=== PATIENT | female | born 1940 | race Caucasian/White ===

== ENCOUNTER 2018-05-29 09:51 | Observation (INO) | payer MEDICARE ==
[2018-05-29] MEDS ORDERED: Sodium Chloride 0.9% 1000 ML 1,000 ML IV STA ×2 (10:19→11:24)
[2018-05-29] MEDS ORDERED: MORPHINE SULFATE 4 MG INJ IV ONE ×3 (10:19→13:09)
[2018-05-29] MEDS ORDERED: Zofran 4 MG/2 ML VIAL IV ONE (10:19)
[2018-05-29] MEDS ORDERED: Sodium Chloride 0.9% 1000 ML 1,000 ML ONE ×2 (10:24→11:28)
[2018-05-29] MEDS ORDERED: Zofran 4 MG/2 ML VIAL ONE (10:24)
[2018-05-29] MEDS ORDERED: MORPHINE SULFATE 4 MG INJ ONE ×3 (10:24→13:14)
--- NOTE | 2018-05-29 10:27 | ERPHSYRPT ---
- History of Present Illness Time Seen by Provider: 05/29/18 10:23 Historian: patient Exam Limitations: no limitations Patient Subjective Stated Complaint: pt complains of left lower abd pain that radiates up into the abdomen, reports it started this morning. reports she has a history of kidney stone 2 years ago. Triage Nursing Assessment: pt is aox3, pupils perrl, afebrile, pt is diaphoretic , skin is clammy, pt appears in pain, restless on the cot, resps easy and non labored, abd is soft and tender with palpation to the left lower quad. bowel sounds present x4. no edema noted. pt skin is pale. Physician History: 78-year-old white female with history of kidney stones, diabetes, high blood pressure, arthritis, myocardial infarction, atherosclerotic coronary artery disease. Arrives in moderate distress with complaint of left lower quadrant abdominal pain described as sharp severe. She denies any urinary symptoms. Patient has been vomiting. Onset of symptoms 7:30 this morning. Past medical history includes diabetes, atherosclerotic coronary artery disease , myocardial infarction, high blood pressure, arthritis, Past surgical history includes cardiac stents hysterectomy. Timing/Duration: today (7:30 AM) Activities at Onset: none Quality: sharpness Abdominal Pain Onset Location: LLQ Pain Radiation: no radiation Severity of Pain-Max: moderate Severity of Pain-Current: moderate Modifying Factors: Improves With: nothing Associated Symptoms: diaphoresis, nausea, vomiting, No back, No chest pain, No diarrhea, No fever/chills, No fatigue, No headache, No heartburn, No loss of appetite, No neck pain, No rash, No shortness of breath, No syncope Previous symptoms: other (similar symptoms with kidney stones in past ) Allergies/Adverse Reactions: No Known Drug Allergies Allergy (Verified 05/29/18 10:17) Home Medications: Aspirin 81 mg PO DAILY 10/04/14 [History] Atorvastatin Calcium [Lipitor 20MG Tablet] 20 mg PO DAILY 10/04/14 [History] Clopidogrel Bisulfate 75 mg [PLAVIX 75 MG Tablet] 75 mg PO DAILY 10/04/14 [History] Glipizide 10 mg PO DAILY 10/04/14 [History] Lisinopril [Zestril] 0 mg PO DAILY 10/04/14 [History] Hx Tetanus, Diphtheria Vaccination/Date Given: Yes Hx Influenza Vaccination/Date Given: No Hx Pneumococcal Vaccination/Date Given: No Immunizations Up to Date: Yes - Review of Systems Constitutional: No Fever, No Chills Eyes: No Symptoms Ears, Nose, & Throat: No Symptoms Respiratory: No Cough, No Dyspnea Cardiac: No Chest Pain, No Edema, No Syncope Abdominal/Gastrointestinal: Abdominal Pain, Nausea, Vomiting, No Diarrhea, No Constipation, No Hematemesis, No Hematochezia, No Melena, No Dysphagia, No Appetite Changes Genitourinary Symptoms: No Dysuria Musculoskeletal: No Back Pain, No Neck Pain Skin: No Rash Neurological: No Dizziness, No Focal Weakness, No Sensory Changes Psychological: No Symptoms Endocrine: No Symptoms All Other Systems: Reviewed and Negative - Past Medical History Pertinent Past Medical History: Yes Neurological History: No Pertinent History Cardiac History: Hypertension Respiratory History: No Pertinent History Endocrine Medical History: Diabetes Type II Musculoskeletal History: Osteoarthritis Other Medical History: CARDIAC STINT - Past Surgical History Past Surgical History: Yes Cardiac: Cardiac Stent Female Surgical History: Hysterectomy - Social History Smoking Status: Never smoker Exposure to second hand smoke: No Drug Use: none Patient Lives Alone: No - Female History Hx Now: No - Nursing Vital Signs Nursing Vital Signs: Initial Vital Signs Temperature 97.6 F 05/29/18 10:02 Pulse Rate 64 05/29/18 10:02 Respiratory Rate 20 05/29/18 10:02 Blood Pressure 169/85 05/29/18 10:02 O2 Sat by Pulse Oximetry 97 05/29/18 10:02 Pain Scale Pain Intensity 8 - Physical Exam General Appearance: moderate distress Eye Exam: PERRL/EOMI, eyes nml inspection Ears, Nose, Throat Exam: normal ENT inspection, pharynx normal, moist mucous membranes Neck Exam: normal inspection, non-tender, supple, full range of motion Respiratory Exam: normal breath sounds, lungs clear, No respiratory distress Cardiovascular Exam: regular rate/rhythm, normal heart sounds Gastrointestinal/Abdomen Exam: soft, tenderness (Left lower quadrant abdominal tenderness), No mass, No guarding, No pulsatile mass, No rebound Back Exam: normal inspection, normal range of motion, No CVA tenderness, No vertebral tenderness Extremity Exam: normal inspection, normal range of motion, pelvis stable Neurologic Exam: alert, oriented x 3, cooperative, synthetic chemist II-XII nml as tested, normal mood/affect, nml cerebellar function, sensation nml, No motor deficits Skin Exam: normal color, warm, dry SpO2 Interpretation: normal (97%) SpO2: 97 - Course Nursing assessment & vital signs reviewed: Yes EKG Interpreted by Me: RATE (64 bpm), Sinus Rhythm, NORMAL AXIS, Other (EKG: Sinus rhythm, 64 bpm, normal axis, no acute ST or T wave changes noted) - CT Exams Abdomen/Pelvis CT Interpretation: Discussed w/radiologist (CT abdomen and pelvis: Impression: 1. New urinary bladder 2 mm calculus. Also new left hydronephrosis, perinephric fluid, and prominent ureter consistent with recent passage of said calculus. There remains additional bilateral renal micro-calculi. 2. Stable Mild fatty liver with 2 low-attenuation lesions. CT liver with contrast exam using hemangioma protocol may yield further information. 3. Stable small hiatal hernia, fatty ventral hernia, and evidence for old granulomatous disease. ) Ordered Tests: Active Orders 24 hr Category Date Time Status Accucheck STAT Care 05/29/18 11:03 Active EKG-ER Only STAT Care 05/29/18 10:19 Active IV Insertion STAT Care 05/29/18 10:19 Active ABDOMEN AND PELVIS W/0 CONTRAS [CT] Stat Exams 05/29/18 10:19 Completed AMYLASE Stat Lab 05/29/18 10:30 Completed CBC W DIFF Stat Lab 05/29/18 10:30 Completed CMP Stat Lab 05/29/18 11:36 Completed CULTURE,URINE Stat Lab 05/29/18 10:31 Received LIPASE Stat Lab 05/29/18 10:30 Completed UA W/RFX UR CULTURE Stat Lab 05/29/18 10:31 Completed Medication Summary Discontinued Medications Generic Name Dose Route Start Last Admin Trade Name Freq PRN Reason Stop Dose Admin Sodium Chloride 1,000 mls @ 999 mls/hr 05/29/18 10:19 05/29/18 11:47 Sodium Chloride 0.9% 1000 Ml IV 05/29/18 11:19 Infused .Q1H1M STA Infusion Sodium Chloride Confirm 05/29/18 10:24 Sodium Chloride 0.9% 1000 Ml Administered 05/29/18 10:25 Dose 1,000 mls @ ud .ROUTE .STK-MED ONE Sodium Chloride 1,000 mls @ 999 mls/hr 05/29/18 11:24 05/29/18 11:47 Sodium Chloride 0.9% 1000 Ml IV 05/29/18 12:24 999 mls/hr .Q1H1M STA Administration Sodium Chloride Confirm 05/29/18 11:28 Sodium Chloride 0.9% 1000 Ml Administered 05/29/18 11:29 Dose 1,000 mls @ ud .ROUTE .STK-MED ONE Morphine Sulfate 4 mg 05/29/18 10:19 05/29/18 10:28 Morphine Sulfate 4 Mg Inj IV 05/29/18 10:20 4 mg STAT ONE Administration Morphine Sulfate Confirm 05/29/18 10:24 Morphine Sulfate 4 Mg Inj Administered 05/29/18 10:25 Dose 4 mg .ROUTE .STK-MED ONE Morphine Sulfate 4 mg 05/29/18 11:23 05/29/18 11:29 Morphine Sulfate 4 Mg Inj IV 05/29/18 11:24 4 mg STAT ONE Administration Morphine Sulfate Confirm 05/29/18 11:27 Morphine Sulfate 4 Mg Inj Administered 05/29/18 11:28 Dose 4 mg .ROUTE .STK-MED ONE Ondansetron HCl 4 mg 05/29/18 10:19 05/29/18 10:28 Zofran 4 Mg/2 Ml Vial IV 05/29/18 10:20 4 mg STAT ONE Administration Ondansetron HCl Confirm 05/29/18 10:24 Zofran 4 Mg/2 Ml Vial Administered 05/29/18 10:25 Dose 4 mg .ROUTE .STK-MED ONE Promethazine HCl 12.5 mg 05/29/18 10:52 05/29/18 10:57 Phenergan 25 Mg Inj IV 05/29/18 10:53 12.5 mg STAT ONE Administration Promethazine HCl Confirm 05/29/18 10:55 Phenergan 25 Mg Inj Administered 05/29/18 10:56 Dose 25 mg .ROUTE .STK-MED ONE Lab/Rad Data: Laboratory Result Diagrams 05/29/18 10:30 05/29/18 11:36 Laboratory Results 05/29/18 05/29/18 05/29/18 Range/Units 11:36 10:31 10:30 WBC (4.0-10.5) K/mm3 RBC (4.1-5.4) M/mm3 Hgb (12.0-16.0) gm/dl Hct (35-47) % MCV (78-100) fl MCH (26-32) pg MCHC (32-36) g/dl RDW (11.5-14.0) % Plt Count (150-450) K/mm3 MPV (6-9.5) fl Gran % (36.0-66.0) % Eos # (Auto) (0-0.5) Absolute Lymphs (auto) (1.0-4.6) Absolute Monos (auto) (0.0-1.3) Lymphocytes % (24.0-44.0) % Monocytes % (0.0-12.0) % Eosinophils % (0.00-5.0) % Basophils % (0.0-0.4) % Absolute Granulocytes (1.4-6.9) Basophils # (0-0.4) Sodium 139 (137-145) mmol/L Potassium 4.9 (3.5-5.1) mmol/L Chloride 106 (98-107) mmol/L Carbon Dioxide 21 L (22-30) mmol/L Anion Gap 17.3 H (5-15) MEQ/L BUN 23 H (7-17) mg/dL Creatinine 1.16 H (0.52-1.04) mg/dL Estimated GFR 48.0 ML/MIN Glucose 266 H (74-106) mg/dL Calcium 9.5 (8.4-10.2) mg/dL Total Bilirubin 0.60 (0.2-1.3) mg/dL AST 21 (14-36) U/L ALT 14 (0-35) U/L Alkaline Phosphatase 125 (38-126) U/L Serum Total Protein 7.2 (6.3-8.2) g/dL Albumin 4.3 (3.5-5.0) g/dL Amylase 67 (30-110) U/L Lipase 127 (23-300) U/L Urine Color YELLOW (YELLOW) Urine Appearance CLEAR (CLEAR) Urine pH 6.0 (5-6) Ur Specific [place] 1.015 (1.005-1.025) Urine Protein NEGATIVE (Negative) Urine Ketones SMALL (NEGATIVE) Urine Blood LARGE (0-5) Ralf/ul Urine Nitrite NEGATIVE (NEGATIVE) Urine Bilirubin NEGATIVE (NEGATIVE) Urine Urobilinogen NEGATIVE (0-1) mg/dL Ur Leukocyte Esterase NEGATIVE (NEGATIVE) Urine WBC (Auto) 11-15 (0-5) /HPF Urine RBC (Auto) 51-100 (0-2) /HPF U Epithel Cells (Auto) RARE (FEW) /HPF Urine Bacteria (Auto) MODERATE (NEGATIVE) /HPF Urine Mucus (Auto) SLIGHT (NEGATIVE) /HPF Urine Culture Reflexed YES (NO) Urine Glucose >=500 (NEGATIVE) mg/dL 05/29/18 Range/Units 10:30 WBC 9.0 (4.0-10.5) K/mm3 RBC 4.81 (4.1-5.4) M/mm3 Hgb 14.0 (12.0-16.0) gm/dl Hct 42.0 (35-47) % MCV 87.3 (78-100) fl MCH 29.1 (26-32) pg MCHC 33.3 (32-36) g/dl RDW 13.9 (11.5-14.0) % Plt Count 184 (150-450) K/mm3 MPV 11.6 H (6-9.5) fl Gran % 82.1 H (36.0-66.0) % Eos # (Auto) 0.04 (0-0.5) Absolute Lymphs (auto) 1.18 (1.0-4.6) Absolute Monos (auto) 0.36 (0.0-1.3) Lymphocytes % 13.2 L (24.0-44.0) % Monocytes % 4.0 (0.0-12.0) % Eosinophils % 0.4 (0.00-5.0) % Basophils % 0.3 (0.0-0.4) % Absolute Granulocytes 7.35 H (1.4-6.9) Basophils # 0.03 (0-0.4) Sodium (137-145) mmol/L Potassium (3.5-5.1) mmol/L Chloride (98-107) mmol/L Carbon Dioxide (22-30) mmol/L Anion Gap (5-15) MEQ/L BUN (7-17) mg/dL Creatinine (0.52-1.04) mg/dL Estimated GFR ML/MIN Glucose (74-106) mg/dL Calcium (8.4-10.2) mg/dL Total Bilirubin (0.2-1.3) mg/dL AST (14-36) U/L ALT (0-35) U/L Alkaline Phosphatase (38-126) U/L Serum Total Protein (6.3-8.2) g/dL Albumin (3.5-5.0) g/dL Amylase (30-110) U/L Lipase (23-300) U/L Urine Color (YELLOW) Urine Appearance (CLEAR) Urine pH (5-6) Ur Specific [place] (1.005-1.025) Urine Protein (Negative) Urine Ketones (NEGATIVE) Urine Blood (0-5) Ralf/ul Urine Nitrite (NEGATIVE) Urine Bilirubin (NEGATIVE) Urine Urobilinogen (0-1) mg/dL Ur Leukocyte Esterase (NEGATIVE) Urine WBC (Auto) (0-5) /HPF Urine RBC (Auto) (0-2) /HPF U Epithel Cells (Auto) (FEW) /HPF Urine Bacteria (Auto) (NEGATIVE) /HPF Urine Mucus (Auto) (NEGATIVE) /HPF Urine Culture Reflexed (NO) Urine Glucose (NEGATIVE) mg/dL - Progress Progress: improved Progress Note: 05/29/18 12:58 78-year-old white female with history of diabetes, high blood pressure, arthritis, cardiac stents, myocardial infarction who has had renal problems and sees Dr. Brown She arrives with complaint of left lower quadrant abdominal pain since 7:00 this morning she has had nausea vomiting she denies any bloody urine she has no fevers. Patient is in moderate distress on arrival. Past medical history includes diabetes, high blood pressure, myocardial infarction, atherosclerotic coronary artery disease, arthritis, Past surgical history includes cardiac stent, hysterectomy 05/29/18 12:[address] of the abdomen and pelvis without contrast Remarkable for a new urinary bladder 2 mm calculus with left hydronephrosis, perinephric fluid and prominent ureter consistent with recent passage of said calculus. There also was additional bilateral renal micro-calculi. CT O showed a stable mild fatty liver with 2 low attenuation lesions, as well as is stable small hiatal hernia, fatty ventral hernia, and evidence for old granulomatous disease, 05/29/18 13:04 Patient's CBC White cell 9.0 hemoglobin 14 hematocrit 42.0 platelets 184 chemistry 3 sodium 137 potassium 4.9 chloride 106 bicarbonate 21 BUN 23 creatinine 1.16 glucose 266 Amylase 67 lipase 127 Urine specific gravity 1.015 pH 6.0 there are 11-15 white cells per high-power field 51-100 red cells per high-power field and greater than 500 glucose. Nitrites are negative leukocyte Estrace is negative. Patient has been given IV morphine for pain a total of 8 mg Will plan on giving her 4 more milligrams. Patient has received 2 L of normal saline. I've discussed the patient's case with Dr. Whiting technical communication teacher for Dr. Klein. Will place patient on observation continue to provide IV fluids pain medications anti-emetics. Will recheck patient's Accu-Chek. And plan to Provide insulin coverage - Departure Time of Disposition: 13:07 Departure Disposition: Observation Clinical Impression: Abdominal pain Qualifiers: Abdominal location: left lower quadrant Qualified Code(s): R10.32 - Left lower quadrant pain Urolithiasis Qualifiers: Urinary calculus location: bladder Qualified Code(s): N21.0 - Calculus in bladder Hydronephrosis Qualifiers: Hydronephrosis type: unspecified Qualified Code(s): N13.30 - Unspecified hydronephrosis Condition: Fair Critical Care Time: No Referrals: VIOLA KLEIN MD [Primary Care Provider] -
[2018-05-29 10:31] LABS: BASOPHIL % 0.3 % (0.0-0.4); Basophil (Absolute #) 0.03 (0-0.4); Eosinophil % 0.4 % (0.00-5.0); Eosinophil (Absolute #) 0.04 (0-0.5); Granulocyte Absolute (ANC) 7.35 (1.4-6.9); Granulocytes % 82.1 % (36.0-66.0); Lymphocyte (Absolute #) 1.18 (1.0-4.6); Lymphocytes % 13.2 % (24.0-44.0); Mean Cell Volume 87.3 fl (78-100); Mean Corpuscular Hemoglobin 29.1 pg (26-32); Mean Corpuscular Hgb Concent. 33.3 g/dl (32-36); Mean Platelet Volume 11.6 fl (6-9.5); Monocyte (Absolute #) 0.36 (0.0-1.3); Platelet Count 184 K/mm3 (150-450); Red Blood Count 4.81 M/mm3 (4.1-5.4); Red Cell Distribution Width 13.9 % (11.5-14.0)
[2018-05-29 10:40] LABS: Appearance CLEAR (CLEAR); Bilirubin NEGATIVE (NEGATIVE); Blood LARGE Ery/ul (0-5); Glucose >=500 mg/dL (NEGATIVE); Ketones SMALL (NEGATIVE); Leukocyte Esterase NEGATIVE (NEGATIVE); Nitrite NEGATIVE (NEGATIVE); Protein,Urine Dip NEGATIVE (Negative); Specific Gravity 1.015 (1.005-1.025); Urobilinogen NEGATIVE mg/dL (0-1)
[2018-05-29] MEDS ORDERED: Phenergan 25 MG INJ IV ONE (10:52)
[2018-05-29 10:54] LABS: AMYLASE 67 U/L (30-110); LIPASE 127 U/L (23-300)
[2018-05-29] MEDS ORDERED: Phenergan 25 MG INJ ONE (10:55)
--- NOTE | 2018-05-29 11:08 | XRAY ---
Indication: Left abdominal pain. Multiple contiguous axial images obtained through the abdomen and pelvis without contrast as ordered. Comparison: December 08, 2017. Lung bases again demonstrates minimal right middle lobe atelectasis/scarring. No infiltrate or effusion. Heart is not enlarged. Stable small hiatal hernia. Noncontrasted stomach and bowel loops appear nonobstructed. Normal appendix. There remains descending and sigmoid diverticulosis without diverticulitis. No free fluid/air. Stable hepatic/splenic calcified granulomas and hysterectomy. New left sided 2 mm urinary bladder calculus. Left ureter is also now slightly prominent up to 7 mm with also mild hydronephrosis and mild perinephric fluid consistent with obstructive uropathy. There remains a few bilateral renal micro-calculi. Stable mild fatty liver with 2 round foci of low attenuation lesions again largest peripheral right lobe. Remaining gallbladder, pancreas, spleen, and adrenal glands appear unremarkable for noncontrast exam. Stable scattered aortoiliac calcifications without AAA. Osseous structures intact again with mild multilevel degenerative spondylosis. Stable infraumbilical fatty ventral hernia. Impression: 1. New urinary bladder 2 mm calculus. Also new left hydronephrosis, perinephric fluid, and prominent ureter consistent with recent passage of said calculus. There remains additional bilateral renal micro-calculi. 2. Stable mild fatty liver with 2 low attenuation lesions. Again CT liver with contrast exam using hemangioma protocol may yield further information. 3. Stable small hiatal hernia, fatty ventral hernia, and evidence for old granulomatous disease. CT DI 20.71
[2018-05-29 11:50] LABS: ALBUMIN 4.3 g/dL (3.5-5.0); ANION GAP 17.3 MEQ/L (5-15); BILIRUBIN,TOTAL 0.6 mg/dL (0.2-1.3); Calcium 9.5 mg/dL (8.4-10.2); Creatinine 1 1.16 mg/dL (0.52-1.04); Potassium 4.9 mmol/L (3.5-5.1); Total Protein 7.2 g/dL (6.3-8.2)
[2018-05-29] MEDS ORDERED: NovoLOG Insulin SQ PRN (13:47)
[2018-05-29] MEDS ORDERED: Zofran 4 MG/2 ML VIAL IV PRN (13:47)
[2018-05-29] MEDS: Sodium Chloride 0.9% 1000 ML 1,000 ML IV SCH (14:45)
[2018-05-29] MEDS ORDERED: MEDICATION INTERVENTION PO SCH (16:45)
[2018-05-29] MEDS: ZOCOR 20MG PO SCH (17:40)
[2018-05-29] MEDS: hydroDIURIL 25 MG PO SCH (17:40)
[2018-05-29] MEDS: PLAVIX 75 MG Tablet PO SCH (17:40)
[2018-05-29] MEDS: Zestril 20 MG PO SCH (17:41)
[2018-05-29] MEDS: ECOTRIN 81 MG PO SCH (17:41)
[2018-05-29] MEDS: Pepcid 20 MG PO SCH (21:31)
[2018-05-29] MEDS ORDERED: POTASSIUM CITRATE 10 MEQ PO SCH (22:00)
[2018-05-30] MEDS: Sodium Chloride 0.9% 1000 ML 1,000 ML IV SCH ×3 (00:33→20:48)
[2018-05-30 05:55] LABS: BASOPHIL % 0.3 % (0.0-0.4); Basophil (Absolute #) 0.02 (0-0.4); Eosinophil (Absolute #) 0.07 (0-0.5); Granulocyte Absolute (ANC) 4.61 (1.4-6.9); Granulocytes % 66.5 % (36.0-66.0); Hematocrit 35.1 % (35-47); Hemoglobin 11.3 gm/dl (12.0-16.0); Lymphocyte (Absolute #) 1.56 (1.0-4.6); Lymphocytes % 22.5 % (24.0-44.0); Mean Cell Volume 90.7 fl (78-100); Mean Corpuscular Hgb Concent. 32.2 g/dl (32-36); Mean Platelet Volume 11.7 fl (6-9.5); Monocyte (Absolute #) 0.67 (0.0-1.3); Monocytes % 9.7 % (0.0-12.0); Platelet Count 149 K/mm3 (150-450); Red Blood Count 3.87 M/mm3 (4.1-5.4); White Blood Count 6.9 K/mm3 (4.0-10.5)
[2018-05-30 06:11] LABS: Mean Corpuscular Hemoglobin 29.1 pg (26-32)
[2018-05-30 06:12] LABS: ALBUMIN 3.1 g/dL (3.5-5.0); ANION GAP 10.6 MEQ/L (5-15); BILIRUBIN,TOTAL 0.4 mg/dL (0.2-1.3); Calcium 8.3 mg/dL (8.4-10.2); Creatinine 1 1.12 mg/dL (0.52-1.04); Potassium 4.3 mmol/L (3.5-5.1); Total Protein 5.7 g/dL (6.3-8.2)
--- NOTE | 2018-05-30 09:19 | PCM.HP ---
History of Present Illness - Chief Complaint Chief Complaint: LLQ abdominal pain, hydronephrosis, urolithiasis History of Present Illness: is a 78 year old female who developed rather sudden onset of left lower abdominal pain yesterday morning. she came to the ER due to progression of sharp pain with some cramping, ct revealed 2mm stone in the bladder. .she has not required pain medication this morning, still has some mild cramping but overall feels better than yesterday. - Review of Systems Constitutional: No Fever, No Chills Respiratory: No Cough, No Short Of Breath Cardiac: No Chest Pain, No Edema, No Syncope Abdominal/Gastrointestinal: No Abdominal Pain, No Nausea, No Vomiting, No Diarrhea Genitourinary Symptoms: No Dysuria All Other Systems: Reviewed and Negative Medications & Allergies Home Medications: Home Medication List Aspirin 81 mg PO DAILY 10/04/14 [History Confirmed 05/29/18] Atorvastatin Calcium [Lipitor 20MG Tablet] 40 mg PO DAILY 10/04/14 [History Confirmed 05/29/18] Clopidogrel Bisulfate 75 mg [PLAVIX 75 MG Tablet] 75 mg PO DAILY 10/04/14 [History Confirmed 05/29/18] Glipizide 5 mg PO DAILY 10/04/14 [History Confirmed 05/29/18] Liraglutide [Victoza 2-Nathan] 1.8 mg SQ DAILY 05/29/18 [History Confirmed 05/29/18 ] Lisinopril/Hydrochlorothiazide [Lisinopril-Hctz 20-12.5 mg Tab] 1 tab PO DAILY 05/29/18 [History Confirmed 05/29/18] Metformin HCl [Metformin HCl ER] 500 mg PO BID 05/29/18 [History Confirmed 05/29] Potassium Citrate [Urocit-K] 10 meq PO BID 05/29/18 [History Confirmed 05/29/18] hydroCHLOROthiazide [Hydrochlorothiazide] 12.5 mg PO DAILY 05/29/18 [History Confirmed 05/29/18] raNITIdine HCl [Ranitidine HCl] 150 mg PO BID 05/29/18 [History Confirmed ] Allergies/Adverse Reactions: Allergies Allergy/AdvReac Type Severity Reaction Status Date / Time No Known Drug Allergies Allergy Verified 05/29/18 10:17 - Past Medical History Past Medical History: Yes Neurological History: No Pertinent History ENT History: No Pertinent History Cardiac History: Arrhythmia, Hypertension Respiratory History: No Pertinent History Endocrine Medical History: Diabetes Type II Musculoskelatal History: Arthritis, Osteoarthritis, Other GI Medical History: Polyps History: Other Pyscho-Social History: No Pertinent History Reproductive Disorders: No Pertinent History Comment: CARDIAC STINT, carpal tunnel surgery, kidney stones in past, - Female History Are you now?: No - Past Surgical History Past Surgical History: Yes Neuro Surgical History: No Pertinent History Cardiac History: Cardiac Stent Respiratory Surgery: No Pertinent History GI Surgical History: No Pertinent History Genitourinary Surgical Hx: Other Musculskeletal Surgical Hx: Other Female Surgical History: Hysterectomy Other Surgical History: kidney stone removal , carpal tunnel surgery - Social History Smoking Status: Never smoker Exposure to second hand smoke: No Alcohol: None Drug Use: none - Physical Exam Vital Signs: Vital Signs - 24 hr Temp Pulse Resp BP Pulse Ox 05/30/18 08:04 94 L 05/30/18 07:55 99 05/30/18 07:25 97.8 F 57 L 20 130/76 96 05/30/18 04:09 97.5 F 75 16 151/69 99 05/29/18 23:37 98.3 F 66 20 131/63 98 05/29/18 19:45 98.5 F 65 20 136/63 96 05/29/18 19:28 95 05/29/18 14:18 98.0 F 67 20 174/77 92 L 05/29/18 14:00 98.4 F 68 18 138/78 96 05/29/18 13:23 72 16 130/70 94 L 05/29/18 13:09 97 05/29/18 12:56 67 20 142/67 94 L 05/29/18 11:30 66 20 142/77 95 05/29/18 10:59 65 20 150/85 95 05/29/18 10:02 97.6 F 64 20 169/85 97 Oxygen-Last 24 hours O2 Percentage 3 Liters = 32% O2 Percentage 2 Liters = 28% O2 Percentage 2 Liters = 28% O2 Percentage 2 Liters = 28% O2 Percentage 2 Liters = 28% General Appearance: no apparent distress, alert Neurologic Exam: alert, oriented x 3, cooperative, normal mood/affect, nml cerebellar function, nml station & gait, sensation nml, No motor deficits Respiratory Exam: normal breath sounds, lungs clear, No respiratory distress Cardiovascular Exam: regular rate/rhythm, normal heart sounds, normal peripheral pulses Gastrointestinal/Abdomen Exam: soft, normal bowel sounds, No tenderness, No mass Extremity Exam: normal inspection, normal range of motion, pelvis stable Skin Exam: normal color, warm, dry, No rash Results - Labs Lab/Micro Results: Accuchecks Date 05/30/18 Date 05/29/18 Date 05/29/18 Time 07:30 Time 21:47 Time 16:30 Accucheck Value: 106 Accucheck Value: 128 Accucheck Value: 188 Accucheck Value: 231 Accucheck Value: 253 Lab Results-Last 24 Hours 05/29/18 05/29/18 05/29/18 Range/Units 10:30 10:30 10:31 WBC 9.0 (4.0-10.5) K/mm3 RBC 4.81 (4.1-5.4) M/mm3 Hgb 14.0 (12.0-16.0) gm/dl Hct 42.0 (35-47) % MCV 87.3 (78-100) fl MCH 29.1 (26-32) pg MCHC 33.3 (32-36) g/dl RDW 13.9 (11.5-14.0) % Plt Count 184 (150-450) K/mm3 MPV 11.6 H (6-9.5) fl Gran % 82.1 H (36.0-66.0) % Eos # (Auto) 0.04 (0-0.5) Absolute Lymphs (auto) 1.18 (1.0-4.6) Absolute Monos (auto) 0.36 (0.0-1.3) Lymphocytes % 13.2 L (24.0-44.0) % Monocytes % 4.0 (0.0-12.0) % Eosinophils % 0.4 (0.00-5.0) % Basophils % 0.3 (0.0-0.4) % Absolute Granulocytes 7.35 H (1.4-6.9) Basophils # 0.03 (0-0.4) Sodium (137-145) mmol/L Potassium (3.5-5.1) mmol/L Chloride (98-107) mmol/L Carbon Dioxide (22-30) mmol/L Anion Gap (5-15) MEQ/L BUN (7-17) mg/dL Creatinine (0.52-1.04) mg/dL Estimated GFR ML/MIN Glucose (74-106) mg/dL Calcium (8.4-10.2) mg/dL Total Bilirubin (0.2-1.3) mg/dL AST (14-36) U/L ALT (0-35) U/L Alkaline Phosphatase (38-126) U/L Serum Total Protein (6.3-8.2) g/dL Albumin (3.5-5.0) g/dL Amylase 67 (30-110) U/L Lipase 127 (23-300) U/L Urine Color YELLOW (YELLOW) Urine Appearance CLEAR (CLEAR) Urine pH 6.0 (5-6) Ur Specific Thornton 1.015 (1.005-1.025) Urine Protein NEGATIVE (Negative) Urine Ketones SMALL (NEGATIVE) Urine Blood LARGE (0-5) Ralf/ul Urine Nitrite NEGATIVE (NEGATIVE) Urine Bilirubin NEGATIVE (NEGATIVE) Urine Urobilinogen NEGATIVE (0-1) mg/dL Ur Leukocyte Esterase NEGATIVE (NEGATIVE) Urine WBC (Auto) 11-15 (0-5) /HPF Urine RBC (Auto) 51-100 (0-2) /HPF U Epithel Cells (Auto) RARE (FEW) /HPF Urine Bacteria (Auto) MODERATE (NEGATIVE) /HPF Urine Mucus (Auto) SLIGHT (NEGATIVE) /HPF Urine Culture Reflexed YES (NO) Urine Glucose >=500 (NEGATIVE) mg/dL 05/29/18 05/30/18 05/30/18 Range/Units 11:36 05:23 05:23 WBC 6.9 (4.0-10.5) K/mm3 RBC 3.87 L (4.1-5.4) M/mm3 Hgb 11.3 L (12.0-16.0) gm/dl Hct 35.1 (35-47) % MCV 90.7 (78-100) fl MCH 29.1 (26-32) pg MCHC 32.2 (32-36) g/dl RDW 14.0 (11.5-14.0) % Plt Count 149 L (150-450) K/mm3 MPV 11.7 H (6-9.5) fl Gran % 66.5 H (36.0-66.0) % Eos # (Auto) 0.07 (0-0.5) Absolute Lymphs (auto) 1.56 (1.0-4.6) Absolute Monos (auto) 0.67 (0.0-1.3) Lymphocytes % 22.5 L (24.0-44.0) % Monocytes % 9.7 (0.0-12.0) % Eosinophils % 1.0 (0.00-5.0) % Basophils % 0.3 (0.0-0.4) % Absolute Granulocytes 4.61 (1.4-6.9) Basophils # 0.02 (0-0.4) Sodium 139 139 (137-145) mmol/L Potassium 4.9 4.3 (3.5-5.1) mmol/L Chloride 106 109 H (98-107) mmol/L Carbon Dioxide 21 L 24 (22-30) mmol/L Anion Gap 17.3 H 10.6 (5-15) MEQ/L BUN 23 H 23 H (7-17) mg/dL Creatinine 1.16 H 1.12 H (0.52-1.04) mg/dL Estimated GFR 48.0 50.0 ML/MIN Glucose 266 H 112 H (74-106) mg/dL Calcium 9.5 8.3 L (8.4-10.2) mg/dL Total Bilirubin 0.60 0.40 (0.2-1.3) mg/dL AST 21 19 (14-36) U/L ALT 14 12 (0-35) U/L Alkaline Phosphatase 125 69 (38-126) U/L Serum Total Protein 7.2 5.7 L (6.3-8.2) g/dL Albumin 4.3 3.1 L (3.5-5.0) g/dL Amylase (30-110) U/L Lipase (23-300) U/L Urine Color (YELLOW) Urine Appearance (CLEAR) Urine pH (5-6) Ur Specific Thornton (1.005-1.025) Urine Protein (Negative) Urine Ketones (NEGATIVE) Urine Blood (0-5) Ralf/ul Urine Nitrite (NEGATIVE) Urine Bilirubin (NEGATIVE) Urine Urobilinogen (0-1) mg/dL Ur Leukocyte Esterase (NEGATIVE) Urine WBC (Auto) (0-5) /HPF Urine RBC (Auto) (0-2) /HPF U Epithel Cells (Auto) (FEW) /HPF Urine Bacteria (Auto) (NEGATIVE) /HPF Urine Mucus (Auto) (NEGATIVE) /HPF Urine Culture Reflexed (NO) Urine Glucose (NEGATIVE) mg/dL Microbiology 05/29/18 10:31 Urine Culture - Preliminary Urine, Void NO GROWTH TO DATE Accuchecks Date 05/30/18 Date 05/29/18 Date 05/29/18 Time 07:30 Time 21:47 Time 16:30 Accucheck Value: 106 Accucheck Value: 128 Accucheck Value: 188 Accucheck Value: 231 Accucheck Value: 253 - Radiology Impressions Radiology Exams & Impressions: Radiology Procedures Category Date Time Status ABDOMEN AND PELVIS W/0 CONTRAS [CT] Stat Exams 05/29/18 10:19 Completed - Other Procedures and Tests Respiratory Therapy 05/29/18 19:27 Oxygen NASAL CANNULA 2 lpm Respiratory Therapy Assessment DAILY Assessment/Plan (1) Urolithiasis Current Visit: Yes Status: Acute Qualifiers: Urinary calculus location: bladder Qualified Code(s): N21.0 - Calculus in bladder Assessment & Plan: stone passed to bladder on ct, will feed regular diet today. if continues to be relatively pain-free and not require pain meds and tolerates po could likely go home this evening or tomorrow but want to make sure her symptoms remain resolved and she is able to eat. Code(s): N20.9 - URINARY CALCULUS, UNSPECIFIED (2) Hydronephrosis Current Visit: Yes Status: Acute Qualifiers: Hydronephrosis type: unspecified Qualified Code(s): N13.30 - Unspecified hydronephrosis Code(s): N13.30 - UNSPECIFIED HYDRONEPHROSIS
[2018-05-30] MEDS: ZOCOR 20MG PO SCH (09:56)
[2018-05-30] MEDS: ECOTRIN 81 MG PO SCH (09:57)
[2018-05-30] MEDS: Pepcid 20 MG PO SCH ×2 (09:57→22:16)
[2018-05-30] MEDS: Zestril 20 MG PO SCH (09:57)
[2018-05-30] MEDS: PLAVIX 75 MG Tablet PO SCH (09:57)
[2018-05-30] MEDS: hydroDIURIL 25 MG PO SCH (09:57)
[2018-05-30] MEDS ORDERED: BABY ASPIRIN 81 MG CHEW PO SCH (10:00)
[2018-05-30] MEDS ORDERED: NON-FORMULARY ITEM (Atorvastatin Calcium 40 MG) PO SCH (10:00)
[2018-05-30] MEDS ORDERED: NON-FORMULARY ITEM (Lisinopril/Hydrochlorothiazide [Lisinopril-Hctz 20-12.5 Mg Tab] 1 TAB) PO SCH (10:00)
[2018-05-30] MEDS: MORPHINE SULFATE 4 MG INJ IV PRN (19:33)
[2018-05-31] MEDS: MORPHINE SULFATE 4 MG INJ IV PRN (03:49)
[2018-05-31 05:43] LABS: BASOPHIL % 0.5 % (0.0-0.4); Basophil (Absolute #) 0.03 (0-0.4); Eosinophil % 2.4 % (0.00-5.0); Eosinophil (Absolute #) 0.15 (0-0.5); Granulocyte Absolute (ANC) 4.17 (1.4-6.9); Granulocytes % 65.4 % (36.0-66.0); Hematocrit 35.8 % (35-47); Hemoglobin 11.6 gm/dl (12.0-16.0); Lymphocyte (Absolute #) 1.46 (1.0-4.6); Lymphocytes % 22.9 % (24.0-44.0); Mean Cell Volume 90.6 fl (78-100); Mean Corpuscular Hgb Concent. 32.4 g/dl (32-36); Mean Platelet Volume 11.8 fl (6-9.5); Monocyte (Absolute #) 0.56 (0.0-1.3); Monocytes % 8.8 % (0.0-12.0); Platelet Count 143 K/mm3 (150-450); Red Blood Count 3.95 M/mm3 (4.1-5.4); Red Cell Distribution Width 13.9 % (11.5-14.0); White Blood Count 6.4 K/mm3 (4.0-10.5)
[2018-05-31 05:44] LABS: Mean Corpuscular Hemoglobin 29.3 pg (26-32)
[2018-05-31] MEDS: Sodium Chloride 0.9% 1000 ML 1,000 ML IV SCH (05:47)
[2018-05-31 06:04] LABS: ANION GAP 9.3 MEQ/L (5-15); Calcium 8.6 mg/dL (8.4-10.2); Creatinine 1 1.02 mg/dL (0.52-1.04); Potassium 4.3 mmol/L (3.5-5.1)
[2018-05-31 07:17] VITALS: BP 168/78; PULSE 58; O2SAT 95
--- NOTE | 2018-05-31 08:15 | PCM.DS ---
Discharge Summary Date of Admission: 05/29/18 13:38 Admitting Physician: KHALIF LOPEZ Primary Care Provider: VIOLA KLEIN MORENA Allergies Allergies No Known Drug Allergies Allergy (Verified 05/29/18 10:17) Hospital Summary - Hospital Course Hospital Course: patient doing well, tolerating po. was admitted with LLQ/flank pain. found to have 2mm stone with hydronephrosis, stone was in bladder on ct - Vitals & Intake/Output Vital Signs: Vital Signs Temperature 98 F 05/31/18 07:16 Pulse Rate 58 L 05/31/18 07:16 Respiratory Rate 18 05/31/18 07:16 Blood Pressure 168/78 05/31/18 07:16 O2 Sat by Pulse Oximetry 95 05/31/18 07:16 Oxygen-Last Documented O2 Percentage 1 Liter = 24% Intake & Output: Intake & Output 05/28/18 05/29/18 05/30/18 05/31/18 11:59 11:59 11:59 11:59 Intake Total 2236 3593 Output Total 1250 2050 Balance 986 1543 Weight 78.018 kg 81.1 kg 83 kg - Lab Result Diagrams: 05/31/18 05:16 05/31/18 05:16 Lab Results-Last 24 Hrs: Accuchecks Date 05/31/18 Date 05/30/18 Date 05/30/18 Date 05/30/18 Time 05:00 Time 21:53 Time 16:30 Time 11:30 Accucheck Value: 167 Accucheck Value: 137 Accucheck Value: 125 Lab Results-Last 24 Hours 05/31/18 05/31/18 Range/Units 05:16 05:16 WBC 6.4 (4.0-10.5) K/mm3 RBC 3.95 L (4.1-5.4) M/mm3 Hgb 11.6 L (12.0-16.0) gm/dl Hct 35.8 (35-47) % MCV 90.6 (78-100) fl MCH 29.3 (26-32) pg MCHC 32.4 (32-36) g/dl RDW 13.9 (11.5-14.0) % Plt Count 143 L (150-450) K/mm3 MPV 11.8 H (6-9.5) fl Gran % 65.4 (36.0-66.0) % Eos # (Auto) 0.15 (0-0.5) Absolute Lymphs (auto) 1.46 (1.0-4.6) Absolute Monos (auto) 0.56 (0.0-1.3) Lymphocytes % 22.9 L (24.0-44.0) % Monocytes % 8.8 (0.0-12.0) % Eosinophils % 2.4 (0.00-5.0) % Basophils % 0.5 (0.0-0.4) % Absolute Granulocytes 4.17 (1.4-6.9) Basophils # 0.03 (0-0.4) Sodium 139 (137-145) mmol/L Potassium 4.3 (3.5-5.1) mmol/L Chloride 110 H (98-107) mmol/L Carbon Dioxide 24 (22-30) mmol/L Anion Gap 9.3 (5-15) MEQ/L BUN 20 H (7-17) mg/dL Creatinine 1.02 (0.52-1.04) mg/dL Estimated GFR 55.7 ML/MIN Glucose 135 H (74-106) mg/dL Calcium 8.6 (8.4-10.2) mg/dL Micro Results-Entire Visit: Microbiology 05/29/18 10:31 Urine Culture - Final Urine, Void <10K NORMAL SKIN EDUARDO PROBABLE SKIN CONTAMINANT Accuchecks Date 05/31/18 Date 05/30/18 Date 05/30/18 Date 05/30/18 Time 05:00 Time 21:53 Time 16:30 Time 11:30 Accucheck Value: 167 Accucheck Value: 137 Accucheck Value: 125 - Radiology Exams Ordered Rad Exams-Entire Visit: Radiology Procedures Category Date Time Status ABDOMEN AND PELVIS W/0 CONTRAS [CT] Stat Exams 05/29/18 10:19 Completed - Procedures and Test Procedures and Tests throughout Hospitalization: Therapy Orders & Screens 05/29/18 19:27 Oxygen NASAL CANNULA 2 lpm Comment: TO KEEP SPO2 >92% Diagnosis: LLQ abdominal pain, hydronephrosis, urolithiasis Respiratory Therapy Assessment DAILY Comment: Diagnosis: LLQ abdominal pain, hydronephrosis, urolithiasis Discharge Exam General Appearance: no apparent distress, alert Respiratory Exam: normal breath sounds, lungs clear, No respiratory distress Cardiovascular Exam: regular rate/rhythm, normal heart sounds Gastrointestinal/Abdomen Exam: soft, No tenderness, No mass Extremity Exam: normal inspection, normal range of motion Final Diagnosis/Problem List - Final Discharge Diagnosis/Problem (1) Urolithiasis Current Visit: Yes Status: Acute Onset Date: ~05/29/18 Assessment & Plan: urine culture negative (2) Hydronephrosis Current Visit: Yes Status: Acute Onset Date: ~05/29/18 - Discharge Disposition: Home, Self-Care Condition: Good Prescriptions: New Hydrocodone Bit/Acetaminophen [Huggins 5-325 Tablet] 1 each PO Q4-6HPRN PRN # 20 tablet MDD 4 PRN Reason: Pain Continue Atorvastatin Calcium [Lipitor 20MG Tablet] 40 mg PO DAILY Glipizide 5 mg PO DAILY Clopidogrel Bisulfate 75 mg [PLAVIX 75 MG Tablet] 75 mg PO DAILY Aspirin 81 mg PO DAILY Lisinopril/Hydrochlorothiazide [Lisinopril-Hctz 20-12.5 mg Tab] 1 tab PO DAILY hydroCHLOROthiazide [Hydrochlorothiazide] 12.5 mg PO DAILY raNITIdine HCl [Ranitidine HCl] 150 mg PO BID Liraglutide [Victoza 2-Nathan] 1.8 mg SQ DAILY Metformin HCl [Metformin HCl ER] 500 mg PO BID Potassium Citrate [Urocit-K] 10 meq PO BID Additional Instructions: push fluids, call if new or worsening pain, vomiting, inability to keep down fluids or other concerns. Follow up with: VIOLA KLEIN MD [Primary Care Provider] - 1 Week
== END 2018-05-31 09:32 | disposition home or self-care (01) ==
LOC: ED 09:51 → MED SURG 13:38
PROVIDERS: ADMIT Family Medicine; ATTEND Family Medicine
DX: N20.9 Urinary calculus, unspecified (principal); N13.30 Unspecified hydronephrosis; Z79.899 Other long term (current) drug therapy; I10 Essential (primary) hypertension; E11.9 Type 2 diabetes mellitus without complications; M19.90 Unspecified osteoarthritis, unspecified site; Z87.442 Personal history of urinary calculi
CPT/HCPCS: 36000; 36415; 74176; 80048; 80053; 81001; 82150; 82962; 83690; 85025; 87086; 93005; 93268; 94760; 94762; 96360; 96361; 96374; 96375; 96376; 99285; J2270; J2405; J2550; A9270-GY; G0378

== ENCOUNTER 2020-09-23 11:50 | Observation (INO) | payer MEDICARE ==
[2020-09-23] MEDS ORDERED: NITRO-BID 2% UD PACKETS TOP ONE (12:16)
[2020-09-23] MEDS ORDERED: BABY ASPIRIN 81 MG CHEW PO ONE (12:16)
[2020-09-23] MEDS ORDERED: BABY ASPIRIN 81 MG CHEW ONE (12:23)
[2020-09-23] MEDS ORDERED: NITRO-BID 2% UD PACKETS ONE (12:24)
--- NOTE | 2020-09-23 12:43 | XRAY ---
Indication: Chest pain. Comparison: None Portable apical lordotic chest demonstrates minimal lingula infiltrate versus atelectasis. Remaining heart and lungs unremarkable. Bony thorax intact with minimal degenerative changes.
[2020-09-23 12:59] LABS: Absolute Neutrophil Ct (ANC) 4.82 (1.4-6.9); BASOPHIL % 0.3 % (0.0-0.4); Basophil (Absolute #) 0.02 (0-0.4); Eosinophil % 1.8 % (0.00-5.0); Eosinophil (Absolute #) 0.12 (0-0.5); Hematocrit 41.4 % (35-47); Hemoglobin 13.1 gm/dl (12.0-16.0); Lymphocyte (Absolute #) 1.26 (1.0-4.6); Lymphocytes % 18.9 % (24.0-44.0); Mean Cell Volume 88.1 fl (78-100); Mean Corpuscular Hemoglobin 27.9 pg (26-32); Mean Corpuscular Hgb Concent. 31.6 g/dl (32-36); Mean Platelet Volume 12.7 fl (7.5-11.0); Monocyte (Absolute #) 0.46 (0.0-1.3); Monocytes % 6.9 % (0.0-12.0); Neutrophil % 72.1 % (36.0-66.0); Platelet Count 158 K/mm3 (150-450); Red Cell Distribution Width 14.2 % (11.5-14.0); White Blood Count 6.7 K/mm3 (4.0-10.5)
[2020-09-23 13:26] LABS: ALBUMIN 4.5 g/dL (3.5-5.0); ANION GAP 16.2 MEQ/L (5-15); BILIRUBIN,TOTAL 0.6 mg/dL (0.2-1.3); Calcium 10.1 mg/dL (8.4-10.2); Creatinine 1 1.33 mg/dL (0.52-1.04); EST GLOMERULAR FILTRATION RATE 40.8 ML/MIN; Potassium 4.2 mmol/L (3.5-5.1); Total Protein 7.9 g/dL (6.3-8.2)
--- NOTE | 2020-09-23 13:41 | ERPHSYRPT ---
- History of Present Illness Time Seen by Provider: 09/23/20 11:57 Historian: patient Exam Limitations: no limitations Patient Subjective Stated Complaint: pt here for chest pain to center of chest that goes through to her back, headache no sob, she states she had episode of chest pain yesterday and today and that her nitro helped her pain, she states in is like a pressure in her chest Triage Nursing Assessment: pt alert, resp easy, skin w/d/p. has face mask in place, abd soft Physician History: 80 years old female with history of hypertension, hyperlipidemia, coronary artery disease status post stenting, diabetes mellitus presented in the ER with 1 month history of intermittent central chest pain. Patient report for the last few days she is waking up early in the morning with substernal chest pain with radiation to the back, mild to moderate intensity and response to taking nitro. This morning she woke up with a similar chest pain moderate to severe intensity and had to take 2 nitros with relief of pain. Currently she is having minimal discomfort. Denies any associated palpitations or shortness of breath. Denies fever chills cough or sick contact. Reports having symptoms similar to last time when she had a stents put in. Timing/Duration: week(s) (1), intermittent, gradual onset, worse Activities at Onset: rest, sleep Quality: dullness, tightness Location: central Chest Pain Radiation: back Severity of Pain-Max: moderate Severity of Pain-Current: mild Modifying Factors: Improves With: nitroglycerin Associated Symptoms: denies symptoms, No palpitations, No heartburn, No shortness of breath, No cough, No hurts to breathe Prior Chest Pain/Cardiac Workup: cardiac cath Nitro Today/Relief: 0.4 mg x 2 Aspirin Treatment Today: 81 mg x 1 Allergies/Adverse Reactions: quinine Allergy (Verified 09/23/20 11:56) Home Medications: Aspirin 81 mg PO DAILY 10/04/14 [History] Atorvastatin Calcium [Lipitor 20MG Tablet] 40 mg PO DAILY 10/04/14 [History] Clopidogrel Bisulfate 75 mg [PLAVIX 75 MG Tablet] 75 mg PO DAILY 10/04/14 [History] Glipizide 5 mg PO DAILY 10/04/14 [History] Lisinopril/Hydrochlorothiazide [Lisinopril-Hctz 20-12.5 mg Tab] 1 tab PO DAILY 05/29/18 [History] Metformin HCl [Metformin ER Gastric] 500 mg PO BID 05/29/18 [History] hydroCHLOROthiazide [Hydrochlorothiazide] 12.5 mg PO DAILY 05/29/18 [History] Empagliflozin [Jardiance] 10 mg PO DAILY 09/23/20 [History] Oxybutynin Chloride 5 mg PO DAILY 09/23/20 [History] Ranitidine HCl [Taladine] 150 mg PO BID 09/23/20 [History] Hx Tetanus, Diphtheria Vaccination/Date Given: Yes Hx Influenza Vaccination/Date Given: Yes Hx Pneumococcal Vaccination/Date Given: Yes Travel Risk - International Travel Have you traveled outside of the country in past 3 weeks: No - Coronavirus Screening Are you exhibiting any of the following symptoms?: No Close contact with a COVID-19 positive Pt in past 14-21 Days: No - Review of Systems Constitutional: No Symptoms Eyes: No Symptoms Ears, Nose, & Throat: No Symptoms Respiratory: No Symptoms Cardiac: Chest Pain Abdominal/Gastrointestinal: No Symptoms Genitourinary Symptoms: No Symptoms Musculoskeletal: No Symptoms Skin: No Symptoms Neurological: No Symptoms Psychological: No Symptoms Endocrine: No Symptoms Hematologic/Lymphatic: No Symptoms Immunological/Allergic: No Symptoms - Past Medical History Pertinent Past Medical History: Yes Neurological History: No Pertinent History ENT History: No Pertinent History Cardiac History: Arrhythmia, Coronary Artery Disease, Hypertension Respiratory History: No Pertinent History Endocrine Medical History: Diabetes Type II Musculoskeletal History: Arthritis, Osteoarthritis, Other GI Medical History: Polyps History: Other Psycho-Social History: No Pertinent History Female Reproductive Disorders: No Pertinent History Other Medical History: CARDIAC STINT, carpal tunnel surgery, kidney stones in past, - Past Surgical History Past Surgical History: Yes Neuro Surgical History: No Pertinent History Cardiac: Cardiac Catheterization, Cardiac Stent Respiratory: No Pertinent History Gastrointestinal: No Pertinent History Genitourinary: Other Musculoskeletal: Other Female Surgical History: Hysterectomy Other Surgical History: kidney stone removal , carpal tunnel surgery - Social History Smoking Status: Never smoker Exposure to second hand smoke: No Drug Use: none Patient Lives Alone: Yes - Female History Hx Last Menstrual Period: post Hx Now: No - Nursing Vital Signs Nursing Vital Signs: Initial Vital Signs Temperature 97.2 F 09/23/20 11:50 Pulse Rate 75 09/23/20 11:50 Respiratory Rate 18 09/23/20 11:50 Blood Pressure 129/66 09/23/20 11:50 O2 Sat by Pulse Oximetry 99 09/23/20 11:50 Pain Scale Pain Intensity 4 - Physical Exam General Appearance: no apparent distress, alert Eye Exam: PERRL/EOMI, eyes nml inspection Ears, Nose, Throat Exam: normal ENT inspection, pharynx normal Neck Exam: normal inspection, supple, full range of motion Respiratory Exam: normal breath sounds, lungs clear, No chest tenderness Cardiovascular Exam: regular rate/rhythm, normal heart sounds Gastrointestinal/Abdomen Exam: soft, normal bowel sounds Back Exam: normal inspection, normal range of motion Extremity Exam: normal inspection, normal range of motion Neurologic Exam: alert, oriented x 3, cooperative Skin Exam: normal color SpO2 Interpretation: normal SpO2: 99 O2 Delivery: Room Air - Course Nursing assessment & vital signs reviewed: Yes EKG Interpreted by Me: RATE (76), NORMAL AXIS, NORMAL INTERVALS, NORMAL QRS Ordered Tests: Active Orders 24 hr Category Date Time Status Robotic Toy Inventor STAT Care 09/23/20 12:17 Active EKG-ER Only STAT Care 09/23/20 12:16 Active IV Insertion STAT Care 09/23/20 12:16 Active CHEST 1 VIEW (PORTABLE) Stat Exams 09/23/20 12:16 Completed CBC W DIFF Stat Lab 09/23/20 12:35 Completed CMP Stat Lab 09/23/20 12:35 Completed NT PRO BNP Stat Lab 09/23/20 12:35 Completed TROPONIN Q3H Lab 09/23/20 12:35 Completed TROPONIN Q3H Lab 09/23/20 15:30 Ordered TROPONIN Q3H Lab 09/23/20 18:30 Ordered TROPONIN Q3H Lab 09/23/20 21:30 Ordered TROPONIN Q3H Lab 09/24/20 00:30 Ordered Transfer Order Routine Transfer 09/23/20 Ordered Medication Summary Discontinued Medications Generic Name Dose Route Start Last Admin Trade Name Freq PRN Reason Stop Dose Admin Aspirin 324 mg 09/23/20 12:16 09/23/20 12:25 Baby Aspirin 81 Mg Chew PO 09/23/20 12:17 324 mg STAT ONE Administration Aspirin Confirm 09/23/20 12:23 Baby Aspirin 81 Mg Chew Administered 09/23/20 12:24 Dose 324 mg .ROUTE .STK-MED ONE Nitroglycerin 1 gm 09/23/20 12:16 09/23/20 12:25 Nitro-Bid 2% Ud Packets TOP 09/23/20 12:17 1 gm STAT ONE Administration Nitroglycerin Confirm 09/23/20 12:24 Nitro-Bid 2% Ud Packets Administered 09/23/20 12:25 Dose 1 gm .ROUTE .STK-MED ONE Lab/Rad Data: Laboratory Result Diagrams 09/23/20 12:35 09/23/20 12:35 Laboratory Results 09/23/20 09/23/20 09/23/20 Range/Units 12:35 12:35 12:35 WBC 6.7 (4.0-10.5) K/mm3 RBC 4.70 (4.1-5.4) M/mm3 Hgb 13.1 (12.0-16.0) gm/dl Hct 41.4 (35-47) % MCV 88.1 (78-100) fl MCH 27.9 (26-32) pg MCHC 31.6 L (32-36) g/dl RDW 14.2 H (11.5-14.0) % Plt Count 158 (150-450) K/mm3 MPV 12.7 H (7.5-11.0) fl Gran % 72.1 H (36.0-66.0) % Eos # (Auto) 0.12 (0-0.5) Absolute Lymphs (auto) 1.26 (1.0-4.6) Absolute Monos (auto) 0.46 (0.0-1.3) Lymphocytes % 18.9 L (24.0-44.0) % Monocytes % 6.9 (0.0-12.0) % Eosinophils % 1.8 (0.00-5.0) % Basophils % 0.3 (0.0-0.4) % Absolute Granulocytes 4.82 (1.4-6.9) Basophils # 0.02 (0-0.4) Sodium 139 (137-145) mmol/L Potassium 4.2 (3.5-5.1) mmol/L Chloride 104 (98-107) mmol/L Carbon Dioxide 24 (22-30) mmol/L Anion Gap 16.2 H (5-15) MEQ/L BUN 32 H (7-17) mg/dL Creatinine 1.33 H (0.52-1.04) mg/dL Estimated GFR 40.8 ML/MIN Glucose 162 H (74-106) mg/dL Calcium 10.1 (8.4-10.2) mg/dL Total Bilirubin 0.60 (0.2-1.3) mg/dL AST 27 (14-36) U/L ALT 16 (0-35) U/L Alkaline Phosphatase 105 (38-126) U/L Troponin I < 0.012 (0.000-0.034) ng/mL NT-Pro-B Natriuret Pep 126 (0-1800) pg/mL Serum Total Protein 7.9 (6.3-8.2) g/dL Albumin 4.5 (3.5-5.0) g/dL - Progress Progress Note: 09/23/20 13:51 80 years old is evaluated for intermittent Substernal chest pain. Initial EKG showed normal sinus rhythm with no acute ischemic changes. She is given full dose aspirin and Nitropaste, reevaluation feeling better and chest pain-free. Initial troponins are negative. Chest x-ray negative for any acute findings. P josué has multiple risk factor for CAD, discussed with Dr. Cunningham who is covering for Dr. Jackson and patient is admitted. Blood Culture(s) Obtained: No Antibiotics given: No Discussed with : Ulises Will see patient in: hospital (observation) Counseled pt/family regarding: lab results, diagnosis, rad results - Departure Departure Disposition: Observation Clinical Impression: Chest pain, rule out acute myocardial infarction Condition: Stable Critical Care Time: No Referrals: ANALI JACKSON [Primary Care Provider] -
[2020-09-23] MEDS ORDERED: HUMALOG SQ PRN (15:03)
[2020-09-23] MEDS ORDERED: DUONEB 0.5-3 MG/3 ml Neb IH PRN (15:03)
[2020-09-23] MEDS ORDERED: TYLENOL 325 MG PO PRN (15:03)
[2020-09-23] MEDS ORDERED: Zofran 4 MG/2 ML VIAL IV PRN (15:03)
[2020-09-23] MEDS ORDERED: MORPHINE SULFATE 2 MG INJ IV PRN (15:03)
[2020-09-23] MEDS: PROTONIX 40 MG IV IV SCH (16:27)
[2020-09-24 03:12] LABS: Absolute Neutrophil Ct (ANC) 2.75 (1.4-6.9); BASOPHIL % 0.6 % (0.0-0.4); Basophil (Absolute #) 0.03 (0-0.4); Eosinophil % 6.3 % (0.00-5.0); Eosinophil (Absolute #) 0.34 (0-0.5); Hemoglobin 11.8 gm/dl (12.0-16.0); Lymphocyte (Absolute #) 1.71 (1.0-4.6); Lymphocytes % 31.7 % (24.0-44.0); Mean Cell Volume 88.7 fl (78-100); Mean Corpuscular Hemoglobin 28.3 pg (26-32); Mean Corpuscular Hgb Concent. 31.9 g/dl (32-36); Mean Platelet Volume 11.8 fl (7.5-11.0); Monocyte (Absolute #) 0.56 (0.0-1.3); Monocytes % 10.4 % (0.0-12.0); Platelet Count 153 K/mm3 (150-450); Red Blood Count 4.17 M/mm3 (4.1-5.4); Red Cell Distribution Width 14.1 % (11.5-14.0); White Blood Count 5.4 K/mm3 (4.0-10.5)
[2020-09-24 03:51] LABS: ALBUMIN 3.5 g/dL (3.5-5.0); ANION GAP 11.4 MEQ/L (5-15); BILIRUBIN,TOTAL 0.4 mg/dL (0.2-1.3); Calcium 9.2 mg/dL (8.4-10.2); Creatinine 1 1.36 mg/dL (0.52-1.04); EST GLOMERULAR FILTRATION RATE 39.8 ML/MIN; Potassium 4.2 mmol/L (3.5-5.1)
[2020-09-24] MEDS ORDERED: MEDICATION INTERVENTION PO SCH (07:30)
[2020-09-24] MEDS ORDERED: Glucotrol 5 MG PO SCH (08:00)
[2020-09-24 08:12] VITALS: BP 133/64; PULSE 66; O2SAT 95
--- NOTE | 2020-09-24 09:14 | SSS ---
DISCHARGE DIAGNOSES: 1) UNSTABLE ANGINA PECTORIS. 2) CORONARY ARTERY DISEASE. 3) DIABETES MELLITUS TYPE II. HISTORY: The patient is an 80 year old white female who reports over the past few days she has been having trouble with chest pain in the night approximately three days ago. She took a nitroglycerin to relieve the pain. Yesterday, the patient took nitroglycerin and the pain was not relieved. She presented to the emergency room where she was given additional nitroglycerin which did eventually alleviate the pain. The patient was kept on overnight observation to rule out myocardial infarction and to observe for any further episodes of chest pain. PAST MEDICAL/SURGICAL HISTORY: Significant for previous stenting [place] [address] 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 The patient also reports that her sugars have been running a little high recently up to the 200's. She otherwise has a history of arthritis, osteoarthritis, arrhythmia, kidney stones, carpal tunnel surgery and hysterectomy. HOME MEDICATIONS: Aspirin 81 mg a day, Lipitor 40 mg a day, Plavix 75 mg a day, glipizide 5 mg a day, Lisinopril hydrochlorothiazide 20/12.5 mg daily, Metformin 500 mg b.i.d., hydrochlorothiazide 12.5 mg daily, Jardiance 10 mg daily, oxybutynin 5 mg daily, ranitidine 150 mg b.i.d. ALLERGIES: QUININE. PHYSICAL EXAMINATION: The patient's vital signs on admission showed her temperature to be 97.2F, pulse 75, respiratory rate 18 and blood pressure 129/66. O2 saturations 99%. HEENT: Normocephalic, atraumatic. Pupils equal round reactive to light. Extraocular movements intact. Oropharynx is pink and moist. NECK: Supple without lymphadenopathy, thyromegaly or JVD. CHEST: Clear to auscultation. HEART: Regular rate and rhythm. No murmurs, rubs or gallops are heard. ABDOMEN: Soft with no palpable masses. EXTREMITIES: Without cyanosis, clubbing or edema. NEUROLOGIC: The patient is alert and oriented x3. No focal deficits. LAB DATA AND TESTS: The patient's laboratory studies show chest x-ray and EKG which essentially appear normal. She has had multiple troponins all less than 0.012. Her initial sugar nonfasting was 162, BUN 32, creatinine 1.33. Electrolytes and liver enzymes were normal. Her CBC was likewise normal. HOSPITAL COURSE: During the patient's overnight stay she stayed chest pain-free throughout her stay and is in good spirits and back to her normal state of health. By this morning, the patient was felt to be ready for discharge home. DISCHARGE PLANS: The patient will be added on Coreg 6.25 mg b.i.d. in addition to her usual medications as listed above. She has an appointment to see her truck loader within the next week and we will see her in follow up as well shortly after her truck loader visit. She was instructed to call 911 to come back to the emergency room if she has chest pain not responding to her sublingual nitroglycerin.
[2020-09-24] MEDS: PROTONIX 40 MG IV IV SCH (09:43)
[2020-09-24] MEDS ORDERED: ECOTRIN 81 MG PO SCH (10:00)
[2020-09-24] MEDS ORDERED: NON-FORMULARY ITEM (Lisinopril/Hydrochlorothiazide [Lisinopril-Hctz 20-12.5 Mg Tab] 1 TAB) PO SCH (10:00)
[2020-09-24] MEDS ORDERED: NON-FORMULARY ITEM (Empagliflozin [Jardiance] 10 MG) PO SCH (10:00)
[2020-09-24] MEDS ORDERED: PLAVIX 75 MG Tablet PO SCH (10:00)
[2020-09-24] MEDS ORDERED: GLIPIZIDE 5 MG PO SCH (10:00)
[2020-09-24] MEDS ORDERED: hydroDIURIL 25 MG PO SCH (10:00)
[2020-09-24] MEDS ORDERED: BABY ASPIRIN 81 MG CHEW PO SCH (10:00)
[2020-09-24] MEDS ORDERED: Ditropan 5 MG PO SCH (10:00)
[2020-09-24] MEDS ORDERED: NON-FORMULARY ITEM (Atorvastatin Calcium 40 MG) PO SCH (10:00)
[2020-09-24] MEDS ORDERED: ZOCOR 20MG PO SCH (10:00)
[2020-09-24] MEDS ORDERED: Coreg 6.25 MG PO SCH (10:00)
[2020-09-24] MEDS ORDERED: Zestril 20 MG PO SCH (10:00)
== END 2020-09-24 10:40 | disposition home or self-care (01) ==
LOC: ED 11:50 → MED SURG 14:55
PROVIDERS: ADMIT Family Medicine; ATTEND Family Medicine
DX: I25.110 Atherosclerotic heart disease of native coronary artery with unstable angina pectoris (principal); I10 Essential (primary) hypertension; R51.9 Headache, unspecified; E11.9 Type 2 diabetes mellitus without complications; E78.5 Hyperlipidemia, unspecified; Z79.899 Other long term (current) drug therapy; Z79.01 Long term (current) use of anticoagulants
CPT/HCPCS: 36000; 36415; 71045; 80053; 82947; 83880; 84484; 85025; 93005; 93041; 93268; 99285; G0378; A9270-GY

== ENCOUNTER 2022-11-30 09:30 | Observation (INO) | payer MEDICARE ==
--- NOTE | 2022-11-30 10:35 | XRAY ---
Indication: Pain. Multiple contiguous axial images obtained through the left hip. Sagittal and coronal reformatted images obtained. Comparison: May 29, 2018 Osseous structures demineralized again with left hip degenerative arthropathy and tiny spurring greater trochanter. No acute fracture, dislocation, or suspicious bony lesions. Remaining visualized surrounding soft tissues again demonstrates mild scattered vascular calcifications, sigmoid diverticulosis, and hysterectomy. No suspicious solid/cystic soft tissue mass or abnormal fluid collection. Impression: Again chronic findings including osteopenia, degenerative changes, arteriosclerotic disease, and sigmoid diverticulosis. No new/acute findings.
[2022-11-30] MEDS ORDERED: TORAdol 30 mg Injection IV ONE (10:51)
[2022-11-30] MEDS ORDERED: TORAdol 30 mg Injection ONE (11:11)
--- NOTE | 2022-11-30 11:12 | ERPHSYRPT ---
- History of Present Illness Time Seen by Provider: 11/30/22 09:45 Source: patient Exam Limitations: no limitations Patient Subjective Stated Complaint: PT states "On monday I started to have a little pain in my left leg on the side and now the pain is in the joint and it is excruciating." Triage Nursing Assessment: Pt presented alert and oriented X 3, skin pwd. Pt ambulates with a limp and slow gait, unable to ambulate more than a couple of st eps. No deformity noted, CSM X 4 throughout. Physician History: Patient is a 82-year-old female presents to our ED for evaluation of pain to her left hip. Patient states pain started on Monday 2 days ago. Patient states his pain is significantly worse now. Pain described as an ache that tends to radiate down her left leg into her left lateral ankle area. No calf pain. No trauma. No fever. Pain worse with palpation to the left hip and proximal left lateral thigh. Straight leg raise worsens symptoms as well. Patient denies a history of the same. No associated fever. No nausea vomiting or diaphoresis. No urinary symptoms. Patient voices no other complaints or concerns at this time. Portions of this note were created with voice recognition technology. There may be grammatical, spelling, punctuation or sound alike errors Method of Injury: other (No injury reported) Occurred: days ago (2 days ago) Quality: constant, aching Severity of Pain-Max: moderate Severity of Pain-Current: mild Lower Extremities Pain: hip: left Modifying Factors: Improves With: other (Palpation, straight leg raise) Associated Symptoms: none Allergies/Adverse Reactions: quinine Allergy (Verified 11/15/22 14:40) Home Medications: Aspirin 81 mg PO DAILY 10/04/14 [History] Atorvastatin Calcium [Lipitor 20MG Tablet] 40 mg PO DAILY 10/04/14 [History] glipiZIDE [Glipizide] 5 mg PO DAILY 10/04/14 [History] Lisinopril/Hydrochlorothiazide [Lisinopril-Hctz 20-12.5 mg Tab] 1 tab PO DAILY 05/29/18 [History] hydroCHLOROthiazide [Hydrochlorothiazide] 12.5 mg PO DAILY 05/29/18 [History] Oxybutynin Chloride 5 mg PO DAILY 09/23/20 [History] Albuterol 8 gm Mdi Hfa [Ventolin Hfa MDI] 1 puff INTRANASAL UD PRN 11/15/22 [History] Amlodipine Besylate 5 mg [Norvasc 5 mg] 5 mg PO DAILY 11/15/22 [History] Canagliflozin [Invokana] 100 mg PO DAILY 11/15/22 [History] Cholecalciferol (Vitamin D3) [Vitamin D] 1,000 mg PO DAILY 11/15/22 [History] Furosemide 20 mg [Lasix 20 mg] 20 mg PO DAILY 11/15/22 [History] Ibuprofen/Diphenhydramine Cit [Advil Pm Caplet] 1 tab PO DAILY 11/15/22 [History] Isosorbide Mononitrate [Isosorbide Mononitrate ER] 60 mg PO DAILY 11/15/22 [History] L.acidoph,Paracasei, B.lactis [Probiotic] 1 cap PO DAILY 11/15/22 [History] Omeprazole 40 mg PO DAILY 11/15/22 [History] Pioglitazone 30 mg [Actos 30 MG] 15 mg PO DAILY 11/15/22 [History] Hx Tetanus, Diphtheria Vaccination/Date Given: Yes Hx Influenza Vaccination/Date Given: Yes Hx Pneumococcal Vaccination/Date Given: Yes Immunizations Up to Date: Yes Travel Risk - International Travel Have you traveled outside of the country in past 3 weeks: No - Coronavirus Screening Are you exhibiting any of the following symptoms?: No Close contact with a COVID-19 positive Pt in past 14-21 Days: No - Vaccine Status Have you recieved a Covid-19 vaccination: Yes 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 - Vaccination Dates Date of 2cond Vaccination (if applicable): 2020 - Review of Systems Constitutional: No Symptoms, No Fever, No Chills Eyes: No Symptoms Ears, Nose, & Throat: No Symptoms Respiratory: No Symptoms, No Cough, No Dyspnea Cardiac: No Symptoms, No Chest Pain, No Edema, No Syncope Abdominal/Gastrointestinal: No Symptoms, No Abdominal Pain, No Nausea, No Vomiting, No Diarrhea Genitourinary Symptoms: No Symptoms, No Dysuria Musculoskeletal: No Symptoms, No Back Pain, No Neck Pain Skin: No Symptoms, No Rash Neurological: No Symptoms, No Dizziness, No Focal Weakness, No Sensory Changes Psychological: No Symptoms Endocrine: No Symptoms Hematologic/Lymphatic: No Symptoms Immunological/Allergic: No Symptoms All Other Systems: Reviewed and Negative - Past Medical History Pertinent Past Medical History: Yes Neurological History: No Pertinent History ENT History: Cataracts Cardiac History: Arrhythmia, Coronary Artery Disease, Hypertension, Myocardial Infarction (NM) Respiratory History: No Pertinent History Endocrine Medical History: Diabetes Type II Musculoskeletal History: Arthritis, Osteoarthritis, Other GI Medical History: Polyps, Other History: Other Psycho-Social History: No Pertinent History Female Reproductive Disorders: No Pertinent History Other Medical History: CARDIAC STINT 2010, carpal tunnel [id number], kidney stones in past,. cataract surg in both eyes , - Past Surgical History Past Surgical History: Yes Neuro Surgical History: No Pertinent History Cardiac: Cardiac Catheterization, Cardiac Stent Respiratory: No Pertinent History Gastrointestinal: No Pertinent History Genitourinary: Other Musculoskeletal: Other Female Surgical History: Hysterectomy Other Surgical History: kidney stone removal , carpal tunnel surgery - Social History Smoking Status: Never smoker Exposure to second hand smoke: No Drug Use: none Patient Lives Alone: Yes - Nursing Vital Signs Nursing Vital Signs: Initial Vital Signs Temperature 98.6 F 11/30/22 09:37 Pulse Rate 60 11/30/22 09:37 Respiratory Rate 20 11/30/22 09:37 Blood Pressure 158/102 11/30/22 09:37 O2 Sat by Pulse Oximetry 96 11/30/22 09:37 Pain Scale Pain Intensity 5 - Physical Exam General Appearance: no apparent distress, alert Eyes, Ears, Nose, Throat Exam: moist mucous membranes Neck Exam: non-tender, supple Cardiovascular/Respiratory Exam: chest non-tender, normal breath sounds, regular rate/rhythm, no respiratory distress Gastrointestinal/Abdominal Exam: non-tender, guarding Back Exam: normal inspection, normal range of motion, other (Some tenderness to palpation lumbar spine. Overlying soft tissue intact. No signs of trauma.), No vertebral tenderness Hips Exam: right: non-tender, normal inspection, normal range of motion, no evidence of injury, left: pain, soft tissue tenderness, other (The involved lower extremity, left is neurovascular intact distally. Compartments are soft. Cap refill less than 2 seconds. PT DP pulse palpable. Extremity is warm and pink well perfused) Legs Exam: bilateral leg: non-tender, normal inspection, normal range of motion, no evidence of injury Knees Exam: bilateral knee: non-tender, normal inspection, normal range of motion, no evidence of injury Ankle Exam: bilateral ankle: non-tender, normal inspection, normal range of motion, no evidence of injury Foot Exam: bilateral foot: non-tender, normal inspection, normal range of motion, no evidence of injury Neuro/Tendon Exam: normal sensation, normal motor functions Mental Status Exam: alert, oriented x 3, cooperative Skin Exam: normal color, warm, dry SpO2 Interpretation: normal SpO2: 96 O2 Delivery: Room Air - Course Nursing assessment & vital signs reviewed: Yes - Radiology Exams L-Spine X-ray Interpretation: Teleradiologist Report (L2-S1 broad-based disc bulge, L4 anterolisthesis osteopenia degenerative disc disease) - CT Exams Lower Extremity CT Interpretation: Tele-radiologist Report (Chronic findings, osteopenia, degenerative changes, diverticulosis) Ordered Tests: Active Orders 24 hr Category Date Time Status LOWER EXTREMITY WO CONTRAST [CT] Stat Exams 11/30/22 09:57 Completed LUMBAR SPINE W/O [CT] Stat Exams 11/30/22 11:12 Completed CBC W DIFF Stat Lab 11/30/22 14:43 Ordered CMP Stat Lab 11/30/22 14:43 Ordered Transfer Order Routine Transfer 11/30/22 Ordered Medication Summary Discontinued Medications Generic Name Dose Route Start Last Admin Trade Name Ranulfoq PRN Reason Stop Dose Admin Dexamethasone Sodium Phosphate 6 mg 11/30/22 12:11 11/30/22 12:41 Dexamethasone Sod Phosphate 4 Mg/Ml Ml IM 11/30/22 12:12 Not Given STAT ONE Dexamethasone Sodium Phosphate Confirm 11/30/22 12:37 Dexamethasone Sod Phosphate 10 Mg/Ml Administered 11/30/22 12:38 Dose 10 mg .ROUTE .STK-MED ONE Dexamethasone Sodium Phosphate 6 mg 11/30/22 12:40 11/30/22 12:42 Dexamethasone Sod Phosphate 10 Mg/Ml IV 11/30/22 12:41 6 mg STAT ONE Administration Ketorolac Tromethamine 30 mg 11/30/22 10:51 11/30/22 11:12 Ketorolac Tromethamine 30 Mg/Ml Inj IV 11/30/22 10:52 30 mg STAT ONE Administration Ketorolac Tromethamine Confirm 11/30/22 11:11 Ketorolac Tromethamine 30 Mg/Ml Inj Administered 11/30/22 11:12 Dose 30 mg .ROUTE .STK-MED ONE Morphine Sulfate 4 mg 11/30/22 12:08 11/30/22 12:41 Morphine Sulfate 10 Mg/Ml Injection IM 11/30/22 12:09 Not Given STAT ONE Morphine Sulfate 4 mg 11/30/22 12:40 11/30/22 12:42 Morphine Sulfate 4 Mg/Ml Injection IV 11/30/22 12:41 4 mg STAT ONE Administration Morphine Sulfate Confirm 11/30/22 12:38 Morphine Sulfate 4 Mg/Ml Injection Administered 11/30/22 12:39 Dose 4 mg .ROUTE .STK-MED ONE Lab/Rad Data: Laboratory Results 11/30/22 Range/Units 13:49 Influenza Type A Ag NEGATIVE (NEGATIVE) Influenza Type B Ag NEGATIVE (NEGATIVE) RSV (PCR) NEGATIVE (NEGATIVE) SARS-CoV-2 (PCR) NEGATIVE (NEGATIVE) - Progress Progress: improved Progress Note: Patient 82-year-old female presents to our ED with 2-day history of worsening left leg pain. Pain started approximately on Monday 2 days ago. Pain worse. Pain described as an ache that is localized to her left lateral hip. Pain radiates down to her left lateral ankle. Pain worse with movement and palpation. Straight leg raise reproduces patient's pain. Testing includes CT left hip and CT lumbar spine. No fractures or dislocations observed. Degenerative changes identified. Patient received a dose of Toradol, morphine and Decadron for pain control. Patient states her pain is still considerable. Patient lives alone and states she cannot go home and function properly. Patient's son at bedside. Patient rates her pain 8 out of 10 in spite of our intervention. No abdominal pain. Pulses are bilaterally equal. No clinical evidence for dissection of the aorta. Patient denies chest pain shortness of breath no trauma no fever. Vital stable. Case discussed with Dr. Crawley who excepts admission to observation. Complexity of problem addressed is moderate. New diagnosis with uncertain prognosis. No critical care time. Complexity of data reviewed and analyzed is moderate. Test ordered. Test reviewed. No outside documents reviewed. Patient served as independent historian. Management discussed with Dr. Crawley who excepts admission to observation. Plan of care discussed with patient. She agrees to admission [facility] for further evaluation and treatment. Plan of care established via shared decision making. Risk of complication and/or risk morbidity/mortality of patient management is high. Patient received IM morphine/controlled medication for pain control. Patient will require hospitalization for further evaluation and treatment. Admit orders entered. Basic lab entered prior to transfer to floor in order to establish a baseline for a.m. labs. Patient voices no other complaints or concerns at this time. Portions of this note were created with voice recognition technology. There may be grammatical, spelling, punctuation or sound alike errors 11/30/22 14:[address] Cher Will see patient in: hospital (observation) Counseled pt/family regarding: diagnosis, need for follow-up, rad results - Departure Departure Disposition: Observation Clinical Impression: Leg pain, Sciatica Condition: Stable Critical Care Time: No Referrals: ANALI VANESSA [Primary Care Provider] - Follow up/PCP as directed Additional Instructions: Discharge/Care Plan APRIL FISCHER was seen on 11/30/22 in the Emergency Room. The patient was counseled regarding Diagnosis,Lab results, Imaging studies, need for follow up and when to return to the Emergency Room. Prescriptions given: Discharge Note I have spoken with the patient and/or caregivers. I have explained the patient's condition, diagnosis and treatment plan based on the information available to me at this time. I have answered the patient's and/or caregiver's questions and addressed any concerns. The patient and/or caregivers have as good understanding of the patient's diagnosis, condition and treatment plan as can be expected at this point. The vital signs have been stable. The patient's condition is stable and appropriate for discharge from the emergency department. The patient will pursue further outpatient evaluation with the primary care physician or other designated or consulting physician as outlined in the discharge instructions. The patient and/or caregivers are agreeable to this plan of care and follow-up instructions have been explained in detail. The patient and/or caregivers have received these instruction. The patient/and or caregivers are aware that any significant change in condition or worsening of symptoms marlyn uld prompt an immediate return to this or the closest emergency department or call 911.
--- NOTE | 2022-11-30 11:47 | XRAY ---
Indication: Left leg radiculopathy. Multiple contiguous axial images obtained through lumbar spine. Sagittal and coronal reformatted images obtained. Comparison: May 29, 2018 Osseous structures remain demineralized with grossly stable L2-S1 broad-based disc bulge and mild/moderate bilateral L3-S1 degenerative facet arthropathy. Stable L2-L3 and L4-L5 degenerative vacuum disc phenomena with new focus at L5-S1 level. No large disc herniation or spinal canal stenosis. SI joints are bilateral symmetric. Sagittal and coronal reformatted images demonstrates normal lumbar lordosis with stable 1-2 mm L4 anterolisthesis and L2-L3 disc space narrowing. No acute compression fracture. Visualized noncontrasted soft tissues again demonstrates mild scattered aortoiliac calcifications. Impression: Again chronic findings including osteopenia, multilevel degenerative disc disease, minimal grade 1 L4 listhesis, and arteriosclerotic disease. No new/acute findings.
[2022-11-30] MEDS ORDERED: MORPHINE SULFATE 10 MG/ML IM ONE (12:08)
[2022-11-30] MEDS ORDERED: Decadron 4 MG INJ IM ONE (12:11)
[2022-11-30] MEDS ORDERED: DECADRON 10MG INJ. ONE (12:37)
[2022-11-30] MEDS ORDERED: MORPHINE SULFATE 4 MG INJ ONE (12:38)
[2022-11-30] MEDS ORDERED: DECADRON 10MG INJ. IV ONE (12:40)
[2022-11-30] MEDS ORDERED: MORPHINE SULFATE 4 MG INJ IV ONE (12:40)
[2022-11-30 14:27] LABS: INFLUENZA A NEGATIVE (NEGATIVE); INFLUENZA B NEGATIVE (NEGATIVE); RESPIRATORY SYNCTIAL VIRUS NEGATIVE (NEGATIVE); SARS-CoV-2 Xpert Express NEGATIVE (NEGATIVE)
[2022-11-30 14:57] LABS: Absolute Neutrophil Ct (ANC) 3.82 x10^3/uL (1.4-6.9); BASOPHIL % 0.4 % (0.0-0.4); Basophil (Absolute #) 0.02 x10^3/uL (0-0.4); Eosinophil % 1.2 % (0.00-5.0); Eosinophil (Absolute #) 0.06 x10^3/uL (0-0.5); Hematocrit 32.8 % (35-47); Hemoglobin 10.1 g/dL (12.0-16.0); IMMATURE GRAN # 0.04 x10^3u/L (0.00-0.03); IMMATURE GRAN % 0.8 % (0.00-0.4); Lymphocyte (Absolute #) 0.89 x10^3/uL (1.0-4.6); Lymphocytes % 17.9 % (24.0-44.0); Mean Cell Volume 85.6 fL (78-100); Mean Corpuscular Hemoglobin 26.4 pg (26-32); Mean Corpuscular Hgb Concent. 30.8 g/dL (32-36); Mean Platelet Volume 11.7 fL (7.5-11.0); Monocyte (Absolute #) 0.14 x10^3/uL (0.0-1.3); Monocytes % 2.8 % (0.0-12.0); Neutrophil % 76.9 % (36.0-66.0); Platelet Count 127 x10^3/uL (150-450); Red Blood Count 3.83 x10^6/uL (4.1-5.4); Red Cell Distribution Width 15.9 % (11.5-14.0)
[2022-11-30 15:10] LABS: ALBUMIN 3.8 g/dL (3.5-5.0); ANION GAP 16.9 MEQ/L (5-15); BILIRUBIN,TOTAL 0.4 mg/dL (0.2-1.3); Calcium 8.9 mg/dL (8.4-10.2); Creatinine 1 1.79 mg/dL (0.52-1.04); EST GLOMERULAR FILTRATION RATE 28.8 ML/MIN; Potassium 4.3 mmol/L (3.5-5.1)
[2022-11-30] MEDS ORDERED: Zofran 4 MG/2 ML VIAL IV PRN (15:34)
--- NOTE | 2022-11-30 16:09 | PCM.HP ---
History of Present Illness - Chief Complaint Chief Complaint: Leg pain, sciatica History of Present Illness: is a 82 year old female with a 2 day history of worsening pain in the left lateral hip radiating down the back of her left leg. she reports her pain began while sitting 2 days ago, got a lot worse in the last day and making it hard for her to ambulate. she lives alone, she denies any falls or trauma. she is hard of hearing - Review of Systems Constitutional: No Fever, No Chills Eyes: No Symptoms Respiratory: No Cough, No Short Of Breath Cardiac: No Chest Pain, No Edema, No Syncope Abdominal/Gastrointestinal: No Abdominal Pain, No Nausea, No Vomiting, No Diarrhea Musculoskeletal: Back Pain, No Fall, No Injury Medications & Allergies Home Medications: Home Medication List Aspirin 81 mg PO DAILY 10/04/14 [History Confirmed 11/30/22] Atorvastatin Calcium [Lipitor 20MG Tablet] 40 mg PO DAILY 10/04/14 [History Confirmed 11/30/22] glipiZIDE [Glipizide] 10 mg PO BID 10/04/14 [History Confirmed 11/30/22] Oxybutynin Chloride 5 mg PO DAILY 09/23/20 [History Confirmed 11/30/22] Albuterol 8 gm Mdi Hfa [Ventolin Hfa MDI] 1 puff IN Q6HPRN PRN 11/15/22 [History Confirmed 11/30/22] Amlodipine Besylate 5 mg [Norvasc 5 mg] 5 mg PO HS 11/15/22 [History Confirmed 11/30/22] Canagliflozin [Invokana] 100 mg PO DAILY 11/15/22 [History Confirmed 11/30/22] Cholecalciferol (Vitamin D3) [Vitamin D] 1,000 mg PO DAILY 11/15/22 [History Confirmed 11/30/22] Furosemide 20 mg [Lasix 20 mg] 20 mg PO DAILY 11/15/22 [History Confirmed 11/30/22] Ibuprofen/Diphenhydramine Cit [Advil Pm Caplet] 2 tab PO HS 11/15/22 [History Confirmed 11/30/22] Isosorbide Mononitrate [Isosorbide Mononitrate ER] 60 mg PO DAILY 11/15/22 [History Confirmed 11/30/22] L.acidoph,Paracasei, B.lactis [Probiotic] 1 cap PO DAILY 11/15/22 [History Confirmed 11/30/22] Omeprazole 40 mg PO BID 11/15/22 [History Confirmed 11/30/22] Pioglitazone 30 mg [Actos 30 MG] 15 mg PO DAILY 11/15/22 [History Confirmed 11/30/22] Ca/D3/Mag Ox/Zinc/[employer]/Jeffery/Bor [Calcium 600+D3 Plus Caplet] 1 each PO DAILY 11/30/22 [History Confirmed 11/30/22] Carvedilol [Coreg ] 12.5 mg PO BID 11/30/22 [History Confirmed 11/30/22] Hydralazine HCl 10 mg PO TIDPRN PRN 11/30/22 [History Confirmed 11/30/22] Lisinopril 20 mg [Zestril 20 MG] 20 mg PO DAILY 11/30/22 [History Confirmed 11/30/22] Lisinopril/Hydrochlorothiazide [Lisinopril-Hctz 20-25 mg Tab] 1 each PO DAILY 11/30/22 [History Confirmed 11/30/22] Multivitamin [Multi-Vitamin Daily] 1 each PO DAILY 11/30/22 [History Confirmed 11/30/22] Vit C/E/Zn/Coppr/Lutein/Zeaxan [Preservision Areds 2 Softgel] 1 each PO DAILY 11/30/22 [History Confirmed 11/30/22] Allergies/Adverse Reactions: Allergies Allergy/AdvReac Type Severity Reaction Status Date / Time quinine Allergy Verified 11/15/22 14:40 - Past Medical History Past Medical History: Yes Neurological History: No Pertinent History ENT History: Cataracts Cardiac History: Arrhythmia, Coronary Artery Disease, Hypertension, Myocardial Infarction ([place]) Respiratory History: No Pertinent History Endocrine Medical History: Diabetes Type II Musculoskelatal History: Arthritis, Osteoarthritis, Other GI Medical History: Polyps, Other History: Other Pyscho-Social History: No Pertinent History Reproductive Disorders: No Pertinent History Comment: CARDIAC STINT 2010, carpal tunnel -21-57, kidney stones in past,. cataract surg in both eyes , - Past Surgical History Past Surgical History: Yes Neuro Surgical History: No Pertinent History Cardiac History: Cardiac Catheterization, Cardiac Stent Respiratory Surgery: No Pertinent History GI Surgical History: No Pertinent History Genitourinary Surgical Hx: Other Musculskeletal Surgical Hx: Other Female Surgical History: Hysterectomy Other Surgical History: kidney stone removal , carpal tunnel surgery - Social History Smoking Status: Never smoker Exposure to second hand smoke: No Alcohol: None Drug Use: none - Physical Exam Vital Signs: Vital Signs - 24 hr Temp Pulse Resp BP Pulse Ox 11/30/22 14:51 96 11/30/22 12:16 98.6 F 59 L 20 138/60 98 11/30/22 11:32 58 L 20 147/61 97 11/30/22 09:37 98.6 F 60 20 158/102 96 General Appearance: no apparent distress Neurologic Exam: alert, oriented x 3, cooperative (hard of hearing) Respiratory Exam: normal breath sounds, lungs clear, No respiratory distress Cardiovascular Exam: regular rate/rhythm, normal heart sounds, normal peripheral pulses Gastrointestinal/Abdomen Exam: soft, normal bowel sounds, No tenderness, No mass Extremity Exam: other (left leg pain with SLR test, tight hamstrings. no motor or sensory deficits) Results - Labs Lab/Micro Results: Lab Results-Last 24 Hours 11/30/22 11/30/22 11/30/22 Range/Units 13:49 15:01 15:01 WBC 5.0 (4.0-10.5) x10^3/uL RBC 3.83 L (4.1-5.4) x10^6/uL Hgb 10.1 L (12.0-16.0) g/dL Hct 32.8 L (35-47) % MCV 85.6 (78-100) fL MCH 26.4 (26-32) pg MCHC 30.8 L (32-36) g/dL RDW 15.9 H (11.5-14.0) % Plt Count 127 L (150-450) x10^3/uL MPV 11.7 H (7.5-11.0) fL Gran % 76.9 H (36.0-66.0) % Immature Gran % (Auto) 0.8 H (0.00-0.4) % Nucleat RBC Rel Count 0.0 (0.00-0.1) % Eos # (Auto) 0.06 (0-0.5) x10^3/uL Immature Gran # (Auto) 0.04 H (0.00-0.03) x10^3u/L Absolute Lymphs (auto) 0.89 L (1.0-4.6) x10^3/uL Absolute Monos (auto) 0.14 (0.0-1.3) x10^3/uL Absolute Nucleated RBC 0.00 (0.00-0.01) x10^3u/L Lymphocytes % 17.9 L (24.0-44.0) % Monocytes % 2.8 (0.0-12.0) % Eosinophils % 1.2 (0.00-5.0) % Basophils % 0.4 (0.0-0.4) % Absolute Granulocytes 3.82 (1.4-6.9) x10^3/uL Basophils # 0.02 (0-0.4) x10^3/uL Sodium 143 (137-145) mmol/L Potassium 4.3 (3.5-5.1) mmol/L Chloride 109 H (98-107) mmol/L Carbon Dioxide 21 L (22-30) mmol/L Anion Gap 16.9 H (5-15) MEQ/L BUN 34 H (7-17) mg/dL Creatinine 1.79 H (0.52-1.04) mg/dL Estimated GFR 28.8 ML/MIN Glucose 123 H (74-106) mg/dL Calcium 8.9 (8.4-10.2) mg/dL Total Bilirubin 0.40 (0.2-1.3) mg/dL AST 25 (14-36) U/L ALT 15 (0-35) U/L Alkaline Phosphatase 87 (38-126) U/L Serum Total Protein 7.0 (6.3-8.2) g/dL Albumin 3.8 (3.5-5.0) g/dL Influenza Type A Ag NEGATIVE (NEGATIVE) Influenza Type B Ag NEGATIVE (NEGATIVE) RSV (PCR) NEGATIVE (NEGATIVE) SARS-CoV-2 (PCR) NEGATIVE (NEGATIVE) - Radiology Impressions Radiology Exams & Impressions: Radiology Procedures Category Date Time Status LOWER EXTREMITY WO CONTRAST [CT] Stat Exams 11/30/22 09:57 Completed LUMBAR SPINE W/O [CT] Stat Exams 11/30/22 11:12 Completed MRI L-SPINE WITHOUT CONTRAST [MRI] Routine Exams 12/01/22 15:42 Ordered Assessment/Plan (1) Sciatica Current Visit: Yes Status: Acute Assessment & Plan: MRI to evaluate for disc disease, will add po steroid. patient does not appear to be in distress but ER physician felt she was unsafe to discharge to home in her own care. PT consult Code(s): M54.30 - SCIATICA, UNSPECIFIED SIDE (2) Leg pain Current Visit: Yes Status: Acute (3) Diabetes mellitus Current Visit: Yes Status: Acute Assessment & Plan: sliding scale coverage due to steroid Code(s): E11.9 - TYPE 2 DIABETES MELLITUS WITHOUT COMPLICATIONS (4) Coronary artery disease Current Visit: Yes Status: Acute Code(s): I25.10 - ATHSCL HEART DISEASE OF [place] CORONARY ARTERY W/O ANG PCTRS
[2022-11-30] MEDS: NORCO 5/325 MG PO PRN ×2 (16:18→21:01)
[2022-11-30] MEDS ORDERED: Ventolin Hfa MDI IH PRN (16:26)
[2022-11-30] MEDS: COREG 12.5 MG PO SCH (21:39)
[2022-11-30] MEDS: Protonix 40MG Tablet PO SCH (21:39)
[2022-11-30] MEDS: NORVASC 5 MG PO SCH (21:39)
[2022-11-30] MEDS: HUMALOG SQ PRN (21:39)
[2022-11-30] MEDS ORDERED: NON-FORMULARY ITEM (Omeprazole [Omeprazole] 40 MG Capsule.Dr) PO SCH (22:00)
[2022-12-01 05:12] LABS: Absolute Neutrophil Ct (ANC) 4.59 x10^3/uL (1.4-6.9); BASOPHIL % 0.2 % (0.0-0.4); Basophil (Absolute #) 0.01 x10^3/uL (0-0.4); Eosinophil (Absolute #) 0 x10^3/uL (0-0.5); Hematocrit 33.3 % (35-47); Hemoglobin 10.3 g/dL (12.0-16.0); IMMATURE GRAN # 0.06 x10^3u/L (0.00-0.03); IMMATURE GRAN % 1.1 % (0.00-0.4); Lymphocyte (Absolute #) 0.71 x10^3/uL (1.0-4.6); Lymphocytes % 12.7 % (24.0-44.0); Mean Cell Volume 84.9 fL (78-100); Mean Corpuscular Hemoglobin 26.3 pg (26-32); Mean Corpuscular Hgb Concent. 30.9 g/dL (32-36); Monocyte (Absolute #) 0.24 x10^3/uL (0.0-1.3); Monocytes % 4.3 % (0.0-12.0); Neutrophil % 81.7 % (36.0-66.0); Platelet Count 143 x10^3/uL (150-450); Red Blood Count 3.92 x10^6/uL (4.1-5.4); Red Cell Distribution Width 16.4 % (11.5-14.0); White Blood Count 5.6 x10^3/uL (4.0-10.5)
[2022-12-01 05:30] LABS: ALBUMIN 3.6 g/dL (3.5-5.0); ANION GAP 16.5 MEQ/L (5-15); BILIRUBIN,TOTAL 0.3 mg/dL (0.2-1.3); Calcium 8.8 mg/dL (8.4-10.2); Creatinine 1 1.82 mg/dL (0.52-1.04); EST GLOMERULAR FILTRATION RATE 28.3 ML/MIN; Potassium 4.2 mmol/L (3.5-5.1); Total Protein 6.8 g/dL (6.3-8.2)
--- NOTE | 2022-12-01 08:01 | PCM.NOTE ---
Date and Time: 12/01/22 0800 Subjective Assessment: pain was some better overnight. no new problems, worsened when she turned on her left hip Objective Exam General Appearance: no apparent distress, alert Respiratory Exam: normal breath sounds, lungs clear, No respiratory distress Cardiovascular Exam: regular rate/rhythm, normal heart sounds Gastrointestinal/Abdomen Exam: soft, No tenderness, No mass OBJECTIVE DATA Vital Signs: Vital Signs - 24 hr Temp Pulse Resp BP Pulse Ox 12/01/22 07:03 97.8 F 57 L 16 132/63 94 L 12/01/22 04:00 97.7 F 59 L 18 139/65 94 L 11/30/22 23:48 98.2 F 66 15 135/64 92 L 11/30/22 19:50 98.3 F 62 18 180/84 94 L 11/30/22 15:35 97.7 F 62 20 192/92 94 L 11/30/22 14:51 96 11/30/22 12:16 98.6 F 59 L 20 138/60 98 11/30/22 11:32 58 L 20 147/61 97 11/30/22 09:37 98.6 F 60 20 158/102 96 Pain Assessment - Last Documented Pain Intensity 7 Pain Scale Used 0-10 Pain Scale Intake and Output: Intake & Output 11/28/22 11/29/22 11/30/22 12/01/22 11:59 11:59 11:59 11:59 Intake Total 1200 Balance 1200 Weight 96.1 kg 82.5 kg Lab Results: Lab Results-Last 24 Hours 11/30/22 11/30/22 11/30/22 Range/Units 13:49 15:01 15:01 WBC 5.0 (4.0-10.5) x10^3/uL RBC 3.83 L (4.1-5.4) x10^6/uL Hgb 10.1 L (12.0-16.0) g/dL Hct 32.8 L (35-47) % MCV 85.6 (78-100) fL MCH 26.4 (26-32) pg MCHC 30.8 L (32-36) g/dL RDW 15.9 H (11.5-14.0) % Plt Count 127 L (150-450) x10^3/uL MPV 11.7 H (7.5-11.0) fL Gran % 76.9 H (36.0-66.0) % Immature Gran % (Auto) 0.8 H (0.00-0.4) % Nucleat RBC Rel Count 0.0 (0.00-0.1) % Eos # (Auto) 0.06 (0-0.5) x10^3/uL Immature Gran # (Auto) 0.04 H (0.00-0.03) x10^3u/L Absolute Lymphs (auto) 0.89 L (1.0-4.6) x10^3/uL Absolute Monos (auto) 0.14 (0.0-1.3) x10^3/uL Absolute Nucleated RBC 0.00 (0.00-0.01) x10^3u/L Lymphocytes % 17.9 L (24.0-44.0) % Monocytes % 2.8 (0.0-12.0) % Eosinophils % 1.2 (0.00-5.0) % Basophils % 0.4 (0.0-0.4) % Absolute Granulocytes 3.82 (1.4-6.9) x10^3/uL Basophils # 0.02 (0-0.4) x10^3/uL Sodium 143 (137-145) mmol/L Potassium 4.3 (3.5-5.1) mmol/L Chloride 109 H (98-107) mmol/L Carbon Dioxide 21 L (22-30) mmol/L Anion Gap 16.9 H (5-15) MEQ/L BUN 34 H (7-17) mg/dL Creatinine 1.79 H (0.52-1.04) mg/dL Estimated GFR 28.8 ML/MIN Glucose 123 H (74-106) mg/dL POC Glucometer (74 to 106) mg/dL Calcium 8.9 (8.4-10.2) mg/dL Total Bilirubin 0.40 (0.2-1.3) mg/dL AST 25 (14-36) U/L ALT 15 (0-35) U/L Alkaline Phosphatase 87 (38-126) U/L Serum Total Protein 7.0 (6.3-8.2) g/dL Albumin 3.8 (3.5-5.0) g/dL Influenza Type A Ag NEGATIVE (NEGATIVE) Influenza Type B Ag NEGATIVE (NEGATIVE) RSV (PCR) NEGATIVE (NEGATIVE) SARS-CoV-2 (PCR) NEGATIVE (NEGATIVE) 11/30/22 12/01/22 12/01/22 Range/Units 20:48 04:24 04:24 WBC 5.6 (4.0-10.5) x10^3/uL RBC 3.92 L (4.1-5.4) x10^6/uL Hgb 10.3 L (12.0-16.0) g/dL Hct 33.3 L (35-47) % MCV 84.9 (78-100) fL MCH 26.3 (26-32) pg MCHC 30.9 L (32-36) g/dL RDW 16.4 H (11.5-14.0) % Plt Count 143 L (150-450) x10^3/uL MPV 12.0 H (7.5-11.0) fL Gran % 81.7 H (36.0-66.0) % Immature Gran % (Auto) 1.1 H (0.00-0.4) % Nucleat RBC Rel Count 0.0 (0.00-0.1) % Eos # (Auto) 0 (0-0.5) x10^3/uL Immature Gran # (Auto) 0.06 H (0.00-0.03) x10^3u/L Absolute Lymphs (auto) 0.71 L (1.0-4.6) x10^3/uL Absolute Monos (auto) 0.24 (0.0-1.3) x10^3/uL Absolute Nucleated RBC 0.00 (0.00-0.01) x10^3u/L Lymphocytes % 12.7 L (24.0-44.0) % Monocytes % 4.3 (0.0-12.0) % Eosinophils % 0.0 (0.00-5.0) % Basophils % 0.2 (0.0-0.4) % Absolute Granulocytes 4.59 (1.4-6.9) x10^3/uL Basophils # 0.01 (0-0.4) x10^3/uL Sodium 140 (137-145) mmol/L Potassium 4.2 (3.5-5.1) mmol/L Chloride 107 (98-107) mmol/L Carbon Dioxide 21 L (22-30) mmol/L Anion Gap 16.5 H (5-15) MEQ/L BUN 45 H (7-17) mg/dL Creatinine 1.82 H (0.52-1.04) mg/dL Estimated GFR 28.3 ML/MIN Glucose 226 H (74-106) mg/dL POC Glucometer 237 H (74 to 106) mg/dL Calcium 8.8 (8.4-10.2) mg/dL Total Bilirubin 0.30 (0.2-1.3) mg/dL AST 23 (14-36) U/L ALT 17 (0-35) U/L Alkaline Phosphatase 80 (38-126) U/L Serum Total Protein 6.8 (6.3-8.2) g/dL Albumin 3.6 (3.5-5.0) g/dL Influenza Type A Ag (NEGATIVE) Influenza Type B Ag (NEGATIVE) RSV (PCR) (NEGATIVE) SARS-CoV-2 (PCR) (NEGATIVE) 12/01/22 Range/Units 06:31 WBC (4.0-10.5) x10^3/uL RBC (4.1-5.4) x10^6/uL Hgb (12.0-16.0) g/dL Hct (35-47) % MCV (78-100) fL MCH (26-32) pg MCHC (32-36) g/dL RDW (11.5-14.0) % Plt Count (150-450) x10^3/uL MPV (7.5-11.0) fL Gran % (36.0-66.0) % Immature Gran % (Auto) (0.00-0.4) % Nucleat RBC Rel Count (0.00-0.1) % Eos # (Auto) (0-0.5) x10^3/uL Immature Gran # (Auto) (0.00-0.03) x10^3u/L Absolute Lymphs (auto) (1.0-4.6) x10^3/uL Absolute Monos (auto) (0.0-1.3) x10^3/uL Absolute Nucleated RBC (0.00-0.01) x10^3u/L Lymphocytes % (24.0-44.0) % Monocytes % (0.0-12.0) % Eosinophils % (0.00-5.0) % Basophils % (0.0-0.4) % Absolute Granulocytes (1.4-6.9) x10^3/uL Basophils # (0-0.4) x10^3/uL Sodium (137-145) mmol/L Potassium (3.5-5.1) mmol/L Chloride (98-107) mmol/L Carbon Dioxide (22-30) mmol/L Anion Gap (5-15) MEQ/L BUN (7-17) mg/dL Creatinine (0.52-1.04) mg/dL Estimated GFR ML/MIN Glucose (74-106) mg/dL POC Glucometer 185 H (74 to 106) mg/dL Calcium (8.4-10.2) mg/dL Total Bilirubin (0.2-1.3) mg/dL AST (14-36) U/L ALT (0-35) U/L Alkaline Phosphatase (38-126) U/L Serum Total Protein (6.3-8.2) g/dL Albumin (3.5-5.0) g/dL Influenza Type A Ag (NEGATIVE) Influenza Type B Ag (NEGATIVE) RSV (PCR) (NEGATIVE) SARS-CoV-2 (PCR) (NEGATIVE) Radiology Exams: Radiology Procedures Category Date Time Status LOWER EXTREMITY WO CONTRAST [CT] Stat Exams 11/30/22 09:57 Completed LUMBAR SPINE W/O [CT] Stat Exams 11/30/22 11:12 Completed MRI L-SPINE WITHOUT CONTRAST [MRI] Routine Exams 12/01/22 15:42 Ordered Assessment/Plan (1) Sciatica Current Visit: Yes Status: Acute Assessment & Plan: some improvement with pain control and steroids, awaiting MRI. PT to consult regarding functional status. Code(s): M54.30 - SCIATICA, UNSPECIFIED SIDE (2) Leg pain Current Visit: Yes Status: Acute (3) Diabetes mellitus Current Visit: Yes Status: Acute Code(s): E11.9 - TYPE 2 DIABETES MELLITUS WITHOUT COMPLICATIONS (4) Coronary artery disease Current Visit: Yes Status: Acute Code(s): I25.10 - ATHSCL HEART DISEASE OF [place] CORONARY ARTERY W/O ANG PCTRS
[2022-12-01] MEDS: HUMALOG SQ PRN (09:00)
[2022-12-01] MEDS: NORCO 5/325 MG PO PRN ×2 (09:01→14:57)
[2022-12-01] MEDS: Zestril 20 MG PO SCH ×2 (09:02→09:03)
[2022-12-01] MEDS: Protonix 40MG Tablet PO SCH ×2 (09:02→22:52)
[2022-12-01] MEDS: Imdur 60MG PO SCH (09:03)
[2022-12-01] MEDS: LASIX 20 MG PO SCH (09:03)
[2022-12-01] MEDS: Ditropan 5 MG PO SCH (09:03)
[2022-12-01] MEDS: hydroDIURIL 25 MG PO SCH (09:03)
[2022-12-01] MEDS: COREG 12.5 MG PO SCH ×2 (09:04→22:51)
[2022-12-01] MEDS: THERAGRAN MULTIVITAMIN PO SCH (09:04)
[2022-12-01] MEDS: DELTASONE 20 MG PO SCH (09:07)
[2022-12-01] MEDS ORDERED: NON-FORMULARY ITEM (Lisinopril/Hydrochlorothiazide [Lisinopril-Hctz 20-25 Mg Tab] 1 EACH T PO SCH (10:00)
[2022-12-01] MEDS ORDERED: NON-FORMULARY ITEM (Multivitamin [Multi-Vitamin Daily] 1 EACH Tablet) PO SCH (10:00)
--- NOTE | 2022-12-01 15:14 | XRAY ---
Indication: Low back and left leg pain. Sagittal and axial MRI lumbar spine performed without contrast using T1 and T2-weighted sequences. Comparison: CT lumbar spine one day earlier. Nomenclature will be the same. Sagittal images demonstrate normal lumbar lordosis with 2 mm anterolisthesis of L4 on L5. Disks demonstrates multilevel degenerative disc desiccation signal with little to no disc space narrowing. Incidental 0.6 cm T12 and 1 cm L3 vertebral hemangiomas. Inferior L3 demonstrates tiny Schmorl node. No acute fracture, suspicious bony lesions, or abnormal bone marrow signal. Conus medullaris terminates L1. Sagittal images through T12-L2 disc levels are unremarkable. Axial images at L2-L3 disc level demonstrates minimal annular disc bulge minimally effacing the thecal sac and producing minimal bilateral foraminal narrowing. No disc herniation or canal stenosis. Mild bilateral ligament flavum hypertrophy further effaces the thecal sac. At L3-L4 level, there is spinal canal narrowing and bilateral foraminal stenosis due to combination of mild annular disc bulge and moderate bilateral degenerative facet and ligament flavum hypertrophy. Mean AP thecal sac diameter is 7 mm. No exiting nerve root impingement. At L4-L5 level, there is bilateral foraminal narrowing due to combination broad-based disc bulge and minimal grade 1 anterolisthesis. Mild bilateral degenerative facet and ligament flavum hypertrophy slightly effaces the thecal sac. No disc herniation or canal stenosis. At L5-S1 level, there is minimal annular disc bulge minimally effacing the thecal sac and producing bilateral foraminal narrowing. No disc herniation or canal stenosis. Mild bilateral degenerative facet hypertrophy. Impression: 1. Multilevel degenerative disc disease detailed level by level. Greatest extent L3-L4. 2. Negative for disc herniation. 3. Minimal grade 1 L4 anterolisthesis. 4. Incidental T12/L3 vertebral hemangiomas and tiny L3 Schmorl node.
[2022-12-01] MEDS: NORVASC 5 MG PO SCH (22:51)
--- NOTE | 2022-12-02 05:39 | PCM.DS ---
Discharge Summary Date of Admission: 11/30/22 15:28 Admitting Physician: VIOLA KLEIN Primary Care Provider: ANALI VANESSA Allergies Allergies quinine Allergy (Verified 11/15/22 14:40) Hospital Summary - Hospital Course Hospital Course: patient admitted with severe pain in left hip down the left posterior leg, consistent with sciatic. MRI lumbar shows nothing surgical and no significant disc disease other than degenerative changes. she is able to ambulate with walker and feels safe to care for herself, going home with home health. felt to be safe for discharge. - Vitals & Intake/Output Vital Signs: Vital Signs Temperature 97.4 F 12/02/22 04:00 Pulse Rate 52 L 12/02/22 04:00 Respiratory Rate 16 12/02/22 04:00 Blood Pressure 142/65 12/02/22 04:00 O2 Sat by Pulse Oximetry 97 12/02/22 04:00 Intake & Output: Intake & Output 11/29/22 11/30/22 12/01/22 12/02/22 11:59 11:59 11:59 11:59 Intake Total 1440 1800 Balance 1440 1800 Weight 96.1 kg 82.5 kg - Lab Result Diagrams: 12/01/22 04:24 12/01/22 04:24 Lab Results-Last 24 Hrs: Lab Results-Last 24 Hours 12/01/22 12/01/22 12/01/22 Range/Units 06:31 11:03 15:25 POC Glucometer 185 H 121 H 293 H (74 to 106) mg/dL 12/01/22 Range/Units 21:04 POC Glucometer 269 H (74 to 106) mg/dL Micro Results-Entire Visit: Accuchecks Date 12/01/22 Date 12/01/22 Date 12/01/22 Time 15:58 Time 11:21 Time 07:13 - Radiology Exams Ordered Rad Exams-Entire Visit: Radiology Procedures Category Date Time Status LOWER EXTREMITY WO CONTRAST [CT] Stat Exams 11/30/22 09:57 Completed LUMBAR SPINE W/O [CT] Stat Exams 11/30/22 11:12 Completed MRI L-SPINE WITHOUT CONTRAST [MRI] Routine Exams 12/01/22 15:42 Completed - Procedures and Test Procedures and Tests throughout Hospitalization: Therapy Orders & Screens 11/30/22 15:43 PT Eval & Treat ( Order) ONCE Reason for Eval:: LUMBAR BACK AND LEFT LEG PAIN Diagnosis: Leg pain, sciatica Discharge Exam General Appearance: no apparent distress Neurologic Exam: alert, oriented x 3 Respiratory Exam: normal breath sounds, lungs clear, No respiratory distress Cardiovascular Exam: regular rate/rhythm, normal heart sounds Gastrointestinal/Abdomen Exam: soft, No tenderness, No mass Extremity Exam: other (pain wiht slr test left, no shortening or rotation, no ischemia) Skin Exam: normal color, warm, dry Final Diagnosis/Problem List - Final Discharge Diagnosis/Problem (1) Sciatica Current Visit: Yes Status: Acute Assessment & Plan: continue po steroids and pain control at home, [facility] referral for PT and nursing. patient requires a walker and absences from the home are brief and require a taxing effort, patient is homebound Code(s): M54.30 - SCIATICA, UNSPECIFIED SIDE (2) Leg pain Current Visit: Yes Status: Acute (3) Diabetes mellitus Current Visit: Yes Status: Acute Code(s): E11.9 - TYPE 2 DIABETES MELLITUS WITHOUT COMPLICATIONS (4) Coronary artery disease Current Visit: Yes Status: Acute Code(s): I25.10 - ATHSCL HEART DISEASE OF [place] CORONARY ARTERY W/O ANG PCTRS - Discharge Disposition: Home, Self-Care Condition: Stable Prescriptions: New Hydrocodone/Acetaminophen [Hydrocodone-Acetamin 5-325 mg] 1 tab PO Q6HPRN PRN #28 tablet MDD 4 PRN Reason: Pain Methylprednisolone Packet [Medrol Dosepack] 4 mg PO UD #30 packet Continue Atorvastatin Calcium [Lipitor 20MG Tablet] 40 mg PO DAILY glipiZIDE [Glipizide] 10 mg PO BID Aspirin 81 mg PO DAILY Oxybutynin Chloride 5 mg PO DAILY L.acidoph,Paracasei, B.lactis [Probiotic] 1 cap PO DAILY Ibuprofen/Diphenhydramine Cit [Advil Pm Caplet] 2 tab PO HS Cholecalciferol (Vitamin D3) [Vitamin D] 1,000 mg PO DAILY Albuterol 8 gm Mdi Hfa [Ventolin Hfa MDI] 1 puff IN Q6HPRN PRN PRN Reason: Allergies Furosemide 20 mg [Lasix 20 mg] 20 mg PO DAILY Pioglitazone 30 mg [Actos 30 MG] 15 mg PO DAILY Omeprazole 40 mg PO BID Canagliflozin [Invokana] 100 mg PO DAILY Isosorbide Mononitrate [Isosorbide Mononitrate ER] 60 mg PO DAILY Amlodipine Besylate 5 mg [Norvasc 5 mg] 5 mg PO HS Lisinopril 20 mg [Zestril 20 MG] 20 mg PO DAILY Vit C/E/Zn/Coppr/Lutein/Zeaxan [Preservision Areds 2 Softgel] 1 each PO DAILY Ca/D3/Mag Ox/Zinc/[employer]/Jeffery/Bor [Calcium 600-D3 Plus Caplet] 1 each PO DAILY Multivitamin [Multi-Vitamin Daily] 1 each PO DAILY Hydralazine HCl 10 mg PO TIDPRN PRN PRN Reason: Hypertension Carvedilol [Coreg ] 12.5 mg PO BID Lisinopril/Hydrochlorothiazide [Lisinopril-Hctz 20-25 mg Tab] 1 each PO DAILY Follow up with: ANALI VANESSA [Primary Care Provider] -
[2022-12-02] MEDS: MORPHINE SULFATE 4 MG INJ IV PRN ×4 (07:53→21:37)
[2022-12-02] MEDS: NORCO 5/325 MG PO PRN ×2 (09:49→14:40)
[2022-12-02] MEDS: DELTASONE 20 MG PO SCH (09:50)
[2022-12-02] MEDS: Zestril 20 MG PO SCH ×2 (09:50)
[2022-12-02] MEDS: hydroDIURIL 25 MG PO SCH (09:50)
[2022-12-02] MEDS: Imdur 60MG PO SCH (09:50)
[2022-12-02] MEDS: THERAGRAN MULTIVITAMIN PO SCH (09:50)
[2022-12-02] MEDS: Protonix 40MG Tablet PO SCH ×2 (09:51→21:38)
[2022-12-02] MEDS: COREG 12.5 MG PO SCH ×2 (09:51→21:37)
[2022-12-02] MEDS: LASIX 20 MG PO SCH (09:51)
[2022-12-02] MEDS: Ditropan 5 MG PO SCH (09:51)
[2022-12-02] MEDS: HYDROCODONE-ACETAMIN 10-325 MG PO PRN (19:35)
[2022-12-02] MEDS: HUMALOG SQ PRN (21:37)
[2022-12-02] MEDS: NORVASC 5 MG PO SCH (21:37)
[2022-12-03] MEDS: HYDROCODONE-ACETAMIN 10-325 MG PO PRN ×2 (03:52→08:15)
[2022-12-03] MEDS: MORPHINE SULFATE 4 MG INJ IV PRN (07:10)
--- NOTE | 2022-12-03 08:36 | PCM.NOTE ---
Date and Time: 12/03/22832 Subjective Assessment: discharge was held due to lack of pain control, patient has hard time describing her pain but she will hurt in the left posterior hip region when she gets up and sits on the toilet etc. she also has some pain in the left ankle region. the increased dose of norco is not effective Objective Exam General Appearance: no apparent distress Neurologic Exam: alert, oriented x 3 Respiratory Exam: normal breath sounds, lungs clear, No respiratory distress Cardiovascular Exam: regular rate/rhythm, normal heart sounds Gastrointestinal/Abdomen Exam: soft, No tenderness, No mass Extremity Exam: other (minimal pain with int/ext rotation of left hip. some pain with slr test but appears to be related to tight hamstrings.) OBJECTIVE DATA Vital Signs: Vital Signs - 24 hr Temp Pulse Resp BP Pulse Ox 12/03/22 07:11 97.1 F 54 L 17 170/73 93 L 12/03/22 04:00 97.1 F 48 L 16 143/67 93 L 12/02/22 23:16 97.0 F 49 L 18 132/65 94 L 12/02/22 20:00 97.2 F 56 L 17 167/73 91 L 12/02/22 15:55 98.6 F 55 L 16 144/65 93 L 12/02/22 11:19 97.8 F 55 L 16 125/61 92 L Pain Assessment - Last Documented Pain Intensity 7 Pain Scale Used 0-10 Pain Scale Intake and Output: Intake & Output 11/30/22 12/01/22 12/02/22 12/03/22 11:59 11:59 11:59 11:59 Intake Total 1440 2180 1040 Balance 1440 2180 1040 Weight 96.1 kg 82.5 kg Lab Results: Lab Results-Last 24 Hours 12/02/22 12/02/22 12/02/22 Range/Units 11:02 15:47 21:15 POC Glucometer 189 H 261 H 252 H (74 to 106) mg/dL 12/03/22 Range/Units 06:42 POC Glucometer 111 H (74 to 106) mg/dL Radiology Exams: Radiology Procedures Category Date Time Status MRI L-SPINE WITHOUT CONTRAST [MRI] Routine Exams 12/01/22 15:42 Completed Multi-Disciplinary Progress Notes: Multi-Disciplinary Progress Notes 12/02/22 10:46 Physical Therapy Note by AndrewL#[id number])Elyssa PT. IN BED UPON P.T. ARRIVAL TO ROOM. RATES L BUTTOCK AND LE PN INTO HER ANKLE AT 8-9/10. STATES PN INCREASES W/ WB TODAY. PT. AGREEABLE TO WORK W/ P.T. NURSE HAD GIVEN ORAL PN MED AND PT. IS TO GO HOME W/ MEDROL DOSE PACK. PERFORMED SUPINE TO SIT MOD I W/ HOB ELEVATED. SIT TO STAND MOD I W/ ROLLATOR IN FRONT OF HER. ADJUSTED NEW ROLLATOR TO PROPER HEIGHT AND EDUCATED PT. RE: USE OF BRAKES BEFORE STANDING AND SITTING AND HOW TO SLOW PACE OF WALKER BY SQUEEZING BRAKES. PT. AMBULATED 100' W/ ROLLATOR SBA-MOD I. NO INSTABILITY NOTED W/ GAIT, BUT PT. DID C/O PN. APPLIED CP TO L BUTTOCK IN R SIDELYING. POSITIONED PT. W/ PILLOW BETWEEN KNEES TO DECREASE PRESSURE ON L L-SPINE PN. PT. TO D/C HOME TODAY. TO CONT. W/ P.T. VIA [facility]. ADVISED PT. THAT SHE MAY WANT TO PROGRESS TO OP P.T. WHEN SHE'S ABLE TO DRIVE. Initialized on 12/02/22 10:46 - END OF NOTE 12/02/22 09:00 (created 12/02/22 10:00) Case Management Note by Orin Batista S/W PATIENT THIS AM AGAIN ABOUT PLANS AT DC- SHE STILL CONTINUES TO PLAN TO DC HOME TO HER OWN HOME. [facility] HAS BEEN SETUP THRU AN. [facility] HAS ACCEPTED PATIENT. WALKER WAS DELIVERED. SHE REPORTS FAMILY WILL BE ABLE TO ASSIST HER THIS WEEKEND NEEDED. SHE DENIES ANY NEW NEEDS AT TIME OF DC. Initialized on 12/02/22 10:00 - END OF NOTE 12/02/22 08:57 Case Management Note by Orin Batista DELIVERED 12/01/22 AND LABELED WITH PATIENT ID BAND Initialized on 12/02/22 08:57 - END OF NOTE Assessment/Plan (1) Sciatica Current Visit: Yes Status: Acute Assessment & Plan: patient's pain does not seem to follow a true dermatomal distribution and there is not an obvious cause seen on left hip ct scan or lumbar ct/MRI. at this point I believe her pain must be musculoskeletal/soft tissue in origin and will likely require a longer course of PT and pain control, recommend rehab stay and the patient is agreeable to this. Code(s): M54.30 - SCIATICA, UNSPECIFIED SIDE (2) Leg pain Current Visit: Yes Status: Acute (3) Diabetes mellitus Current Visit: Yes Status: Acute Code(s): E11.9 - TYPE 2 DIABETES MELLITUS WITHOUT COMPLICATIONS (4) Coronary artery disease Current Visit: Yes Status: Acute Code(s): I25.10 - ATHSCL HEART DISEASE OF [place] CORONARY ARTERY W/O ANG PCTRS
[2022-12-03] MEDS: Ditropan 5 MG PO SCH (11:13)
[2022-12-03] MEDS: DELTASONE 20 MG PO SCH (11:13)
[2022-12-03] MEDS: Imdur 60MG PO SCH (11:13)
[2022-12-03] MEDS: Protonix 40MG Tablet PO SCH (11:14)
[2022-12-03] MEDS: THERAGRAN MULTIVITAMIN PO SCH (11:14)
[2022-12-03] MEDS: COREG 12.5 MG PO SCH (11:14)
[2022-12-03] MEDS: hydroDIURIL 25 MG PO SCH (11:14)
[2022-12-03] MEDS: LASIX 20 MG PO SCH (11:15)
[2022-12-03] MEDS: Zestril 20 MG PO SCH ×2 (11:16)
[2022-12-03] MEDS: HUMALOG SQ PRN ×3 (12:12→21:40)
[2022-12-03] MEDS ORDERED: Zofran 4 MG/2 ML VIAL IV PRN (13:11)
[2022-12-03] MEDS ORDERED: DULCOLAX 5 MG PO PRN (20:14)
[2022-12-03] MEDS: NORVASC 5 MG PO SCH (21:15)
[2022-12-03] MEDS: PERCOCET TABLET 5/325MG PO PRN (21:16)
[2022-12-04 04:39] VITALS: O2SAT 92
--- NOTE | 2022-12-04 07:22 | PCM.DS ---
Discharge Summary Date of Admission: 11/30/22 15:28 Admitting Physician: VIOLA KLEIN Primary Care Provider: ANALI VANESSA Allergies Allergies quinine Allergy (Verified 11/15/22 14:40) Hospital Summary - Hospital Course Hospital Course: patient was admitted with left hip and left lower leg pain, workup with MRI lumbar spine and ct left hip no acute changes, she is currently very well controlled with percocet and states she feels 100% better on date of discharge. she is able to walk with her walker and wants to return to her home, feels she can safely care for herself. home health has been arranged. - Vitals & Intake/Output Vital Signs: Vital Signs Temperature 97.8 F 12/04/22 04:30 Pulse Rate 59 L 12/04/22 04:30 Respiratory Rate 18 12/04/22 04:30 Blood Pressure 123/58 12/04/22 04:30 O2 Sat by Pulse Oximetry 92 L 12/04/22 04:30 Intake & Output: Intake & Output 12/01/22 12/02/22 12/03/22 12/04/22 11:59 11:59 11:59 11:59 Intake Total 1440 2180 1280 820 Balance 1440 2180 1280 820 Weight 82.5 kg - Lab Result Diagrams: 12/01/22 04:24 12/01/22 04:24 Lab Results-Last 24 Hrs: Lab Results-Last 24 Hours 12/03/22 12/03/22 12/03/22 Range/Units 11:18 16:37 21:28 POC Glucometer 162 H 171 H 283 H (74 to 106) mg/dL 12/04/22 Range/Units 07:11 POC Glucometer 126 H (74 to 106) mg/dL Micro Results-Entire Visit: Accuchecks Date 12/03/22 Date 12/03/22 Date 12/03/22 Time 16:50 Time 13:07 Time 07:38 - Procedures and Test Procedures and Tests throughout Hospitalization: Therapy Orders & Screens 11/30/22 15:43 PT Eval & Treat ( Order) ONCE Reason for Eval:: LUMBAR BACK AND LEFT LEG PAIN Diagnosis: Leg pain, sciatica Discharge Exam General Appearance: no apparent distress Neurologic Exam: alert, oriented x 3 Respiratory Exam: normal breath sounds, lungs clear, No respiratory distress Cardiovascular Exam: regular rate/rhythm, normal heart sounds Gastrointestinal/Abdomen Exam: soft, No tenderness, No mass Extremity Exam: normal inspection, normal range of motion Skin Exam: normal color, warm, dry Final Diagnosis/Problem List - Final Discharge Diagnosis/Problem (1) Sciatica Current Visit: Yes Status: Acute Code(s): M54.30 - SCIATICA, UNSPECIFIED SIDE (2) Leg pain Current Visit: Yes Status: Acute (3) Diabetes mellitus Current Visit: Yes Status: Acute Code(s): E11.9 - TYPE 2 DIABETES MELLITUS WITHOUT COMPLICATIONS (4) Coronary artery disease Current Visit: Yes Status: Acute Code(s): I25.10 - ATHSCL HEART DISEASE OF [place] CORONARY ARTERY W/O ANG PCTRS - Discharge Disposition: Home, Self-Care Condition: Stable Prescriptions: New Methylprednisolone Packet [Medrol Dosepack] 4 mg PO UD #30 packet Oxycodone/APAP 5 mg/325 mg [Percocet Tablet 5/325Mg] 1 tab PO Q4H PRN PRN #30 tablet MDD 6 PRN Reason: Pain Continue Atorvastatin Calcium [Lipitor 20MG Tablet] 40 mg PO DAILY glipiZIDE [Glipizide] 10 mg PO BID Aspirin 81 mg PO DAILY Oxybutynin Chloride 5 mg PO DAILY L.acidoph,Paracasei, B.lactis [Probiotic] 1 cap PO DAILY Ibuprofen/Diphenhydramine Cit [Advil Pm Caplet] 2 tab PO HS Cholecalciferol (Vitamin D3) [Vitamin D] 1,000 mg PO DAILY Albuterol 8 gm Mdi Hfa [Ventolin Hfa MDI] 1 puff IN Q6HPRN PRN PRN Reason: Allergies Furosemide 20 mg [Lasix 20 mg] 20 mg PO DAILY Pioglitazone 30 mg [Actos 30 MG] 15 mg PO DAILY Omeprazole 40 mg PO BID Canagliflozin [Invokana] 100 mg PO DAILY Isosorbide Mononitrate [Isosorbide Mononitrate ER] 60 mg PO DAILY Amlodipine Besylate 5 mg [Norvasc 5 mg] 5 mg PO HS Lisinopril 20 mg [Zestril 20 MG] 20 mg PO DAILY Vit C/E/Zn/Coppr/Lutein/Zeaxan [Preservision Areds 2 Softgel] 1 each PO DAILY Ca/D3/Mag Ox/Zinc/Engineering Operator/Jeffery/Bor [Calcium 600-D3 Plus Caplet] 1 each PO DAILY Multivitamin [Multi-Vitamin Daily] 1 each PO DAILY Hydralazine HCl 10 mg PO TIDPRN PRN PRN Reason: Hypertension Carvedilol [Coreg ] 12.5 mg PO BID Lisinopril/Hydrochlorothiazide [Lisinopril-Hctz 20-25 mg Tab] 1 each PO DAILY Instructions: Sciatica (DC), Sciatica Exercises Follow up with: ANALI VANESSA [Primary Care Provider] - 12/09/22 2:00 pm
[2022-12-04] MEDS: PERCOCET TABLET 5/325MG PO PRN (07:56)
[2022-12-04] MEDS ORDERED: ZOFRAN ODT 4 MG PO PRN (09:10)
[2022-12-04] MEDS ORDERED: Docusate Sodium 100 MG PO SCH (10:00)
[2022-12-04] MEDS: Ditropan 5 MG PO SCH (11:38)
[2022-12-04] MEDS: hydroDIURIL 25 MG PO SCH (11:38)
[2022-12-04] MEDS: DELTASONE 20 MG PO SCH (11:38)
[2022-12-04] MEDS: Zestril 20 MG PO SCH ×2 (11:39)
[2022-12-04] MEDS: THERAGRAN MULTIVITAMIN PO SCH (11:39)
[2022-12-04] MEDS: LASIX 20 MG PO SCH (11:39)
[2022-12-04] MEDS: Imdur 60MG PO SCH (11:39)
[2022-12-04 12:06] VITALS: BP 143/60; PULSE 55
== END 2022-12-04 16:07 | disposition home health service (06) ==
LOC: ED 09:30 → MED SURG 15:28
PROVIDERS: ADMIT Family Medicine; ATTEND Family Medicine
DX: M54.32 Sciatica, left side (principal); M79.605 Pain in left leg; E11.9 Type 2 diabetes mellitus without complications; I25.10 Atherosclerotic heart disease of native coronary artery without angina pectoris; I10 Essential (primary) hypertension; Z79.899 Other long term (current) drug therapy; Z20.828 Contact with and (suspected) exposure to other viral communicable diseases
CPT/HCPCS: 0241U; 36000; 36415; 72131; 72148; 73700; 80053; 82947; 85025; 96374; 97161; 97530; 99285; G0378; J1100; J1817; J1885; J2270; J2405; Q0162; A9270-GY

== ENCOUNTER 2023-01-05 11:00 | Observation (INO) | payer MEDICARE ==
--- NOTE | 2023-01-04 12:03 | HP ---
DATE OF SURGERY: 01/05/2023 HISTORY OF PRESENT ILLNESS: The patient is an 82-year-old female presents with complaints of dysphagia, food getting stuck. PAST MEDICAL HISTORY: Hypertension, coronary artery disease, diabetes, hyperlipidemia, gastroesophageal reflux disease. PAST SURGICAL HISTORY: Hysterectomy. Cardiac stent. Carpal tunnel. Cardiac cath. ALLERGIES: QUININE. MEDICATIONS: Multivitamins, probiotic, Advair, aspirin, Ventolin, Lasix, omeprazole, oxybutynin, Invokana, isosorbide, hydralazine, glipizide, carvedilol, atorvastatin, amlodipine. FAMILY HISTORY: Heart disease. SOCIAL HISTORY: Negative. REVIEW OF SYSTEMS: CONSTITUTIONAL: Denies fever or chills. CHEST: Denies shortness of breath. CVS: Denies chest pain. ABDOMEN: Denies abdominal pain. PHYSICAL EXAMINATION: GENERAL: No acute distress. CHEST: Nonlabored. No shortness of breath. CVS: Regular rate and rhythm. ABDOMEN: Soft. IMPRESSION: Dysphagia. PLAN: EGD with possible dilatation with Dr. Steven Hurley. As dictated by Allyson Goff NP.
--- NOTE | 2023-01-05 10:59 | XRAY ---
Indication: Postop chest pressure. Comparison: September 23, 2020 Portable apical lordotic chest now demonstrates borderline cardiomegaly and central vascular prominence. No focal infiltrate, consolidation, large effusion, or pneumothorax. Bony thorax intact again with osteopenia and degenerative changes.
[~2023-01-05 11:00] MED LIST: DIPRIVAN 200 MG/20 ML IV ONE; Lactated Ringers 1,000 ML IV SCH
[2023-01-05] MEDS ORDERED: NITRO-BID 2% UD PACKETS TOP ONE (11:19)
[2023-01-05] MEDS ORDERED: NITRO-BID 2% UD PACKETS ONE (11:27)
[2023-01-05 11:40] LABS: Absolute Neutrophil Ct (ANC) 3.32 x10^3/uL (1.4-6.9); BASOPHIL % 0.4 % (0.0-0.4); Basophil (Absolute #) 0.02 x10^3/uL (0-0.4); Eosinophil % 1.7 % (0.00-5.0); Eosinophil (Absolute #) 0.09 x10^3/uL (0-0.5); Hematocrit 31.1 % (35-47); Hemoglobin 9.5 g/dL (12.0-16.0); IMMATURE GRAN # 0.02 x10^3u/L (0.00-0.03); IMMATURE GRAN % 0.4 % (0.00-0.4); Lymphocyte (Absolute #) 1.22 x10^3/uL (1.0-4.6); Lymphocytes % 23.6 % (24.0-44.0); Mean Cell Volume 86.1 fL (78-100); Mean Corpuscular Hemoglobin 26.3 pg (26-32); Mean Corpuscular Hgb Concent. 30.5 g/dL (32-36); Mean Platelet Volume 10.8 fL (7.5-11.0); Monocytes % 9.7 % (0.0-12.0); Neutrophil % 64.2 % (36.0-66.0); Platelet Count 168 x10^3/uL (150-450); Red Blood Count 3.61 x10^6/uL (4.1-5.4); Red Cell Distribution Width 15.9 % (11.5-14.0); White Blood Count 5.2 x10^3/uL (4.0-10.5)
--- NOTE | 2023-01-05 11:40 | OP ---
SURGERY DATE/TIME: 01/05/2023 0909 PREOPERATIVE DIAGNOSIS: Dysphagia. POSTOPERATIVE DIAGNOSES: 1) The patient has some muscular spasm and she has a little bit of tightness probably related to the spasm of the esophagus. 2) Grade 2 over 4 gastroesophageal reflux disease. PROCEDURE: EGD with dilatation size 48 bougie. SURGEON: Steven Hurley M.D. CATERING ADMINISTRATIVE ASSISTANT: Dallas Roldan M.D. ANESTHESIA: General. COMPLICATIONS: None. CONDITION: Stable. INDICATION: A patient with dysphagia having some trouble with pills. DESCRIPTION OF PROCEDURE: Taken to endoscopy. Left lateral decubitus position. Scope introduced. Pharyngoesophageal junction satisfactory. Esophagus down to gastroesophageal junction there is some obvious gastroesophageal junction spasm. The scope was popped through this. Fundus, body and antrum normal. Pylorus normal. Duodenal bulb normal. Second portion normal. Scope withdrawn looped upon itself. No hiatal hernia. There was a very light grade 2 esophagitis. On withdrawal there was a lot more spontaneous Presbyesophagus in the esophagus and again the gastroesophageal junction had a little spasm and a little snug. A size 48 bougie was placed. It was placed readily and it was held there for a minute and then it was withdrawal. The scope was reintroduced. No blood or suggestion of any issue. IMPRESSION: Abnormal contractions with some Presbyesophagus and just some esophagogastric junction spasm. We have written a prescription for Bentyl with meals 10 mg one-half hour every 8 hours q.a.c. PRN this might be helpful. She did have grade 2 gastroesophageal reflux disease which seemed very, very mild.
[2023-01-05 11:50] LABS: ALBUMIN 3.4 g/dL (3.5-5.0); ANION GAP 12.5 MEQ/L (5-15); BILIRUBIN,TOTAL 0.5 mg/dL (0.2-1.3); Calcium 8.7 mg/dL (8.4-10.2); Creatinine 1 1.29 mg/dL (0.52-1.04); EST GLOMERULAR FILTRATION RATE 42.1 ML/MIN; MAGNESIUM 2.1 mg/dL (1.6-2.3); Potassium 4.1 mmol/L (3.5-5.1); Total Protein 6.4 g/dL (6.3-8.2)
[2023-01-05] MEDS ORDERED: PROTONIX 40 MG IV IV ONE ×2 (12:08→12:21)
[2023-01-05] MEDS ORDERED: BABY ASPIRIN 81 MG CHEW PO ONE (12:10)
--- NOTE | 2023-01-05 12:15 | ERPHSYRPT ---
- History of Present Illness Time Seen by Provider: 01/05/23 11:18 Historian: patient, family Exam Limitations: no limitations Patient Subjective Stated Complaint: Patient c/o chest heaviness after waking up from anesthesia in outpatient surgery Triage Nursing Assessment: Patient is alert and oriented. No SOB. Patient will not rate pain, insists the "heaviness" is not really pain. No cough. Sinus rythm on monitor. Physician History: 82 years old female with multiple medical problems including coronary artery disease status post stenting, hypertension, hyperlipidemia, diabetes mellitus has EGD with esophageal dilatation done earlier today, woke up after anesthesia and started to have pressure in the center of the chest moderate intensity without any significant aggravating or relieving factors. No associated p alpitations or shortness of breath reported. Timing/Duration: hour(s) (1), sudden Activities at Onset: rest Quality: dullness, pressure Location: substernal, central Chest Pain Radiation: no radiation Severity of Pain-Max: moderate Severity of Pain-Current: moderate Modifying Factors: Improves With: nothing Associated Symptoms: denies symptoms Prior Chest Pain/Cardiac Workup: cardiac cath Nitro Today/Relief: no nitro taken today Aspirin Treatment Today: unknown Allergies/Adverse Reactions: quinine Allergy (Verified 01/05/23 11:15) Difficulty Breathing Home Medications: Aspirin 81 mg PO DAILY 10/04/14 [History] Atorvastatin Calcium [Lipitor 20MG Tablet] 40 mg PO DAILY 10/04/14 [History] glipiZIDE [Glipizide] 10 mg PO BID 10/04/14 [History] Oxybutynin Chloride 5 mg PO DAILY 09/23/20 [History] Albuterol 8 gm Mdi Hfa [Ventolin Hfa MDI] 1 puff IN Q6HPRN PRN 11/15/22 [History] Amlodipine Besylate 5 mg [Norvasc 5 mg] 5 mg PO HS 11/15/22 [History] Canagliflozin [Invokana] 100 mg PO DAILY 11/15/22 [History] Cholecalciferol (Vitamin D3) [Vitamin D] 1,000 mg PO DAILY 11/15/22 [History] Furosemide 20 mg [Lasix 20 mg] 20 mg PO DAILY 11/15/22 [History] Ibuprofen/Diphenhydramine Cit [Advil Pm Caplet] 2 tab PO HS PRN 11/15/22 [History] Isosorbide Mononitrate [Isosorbide Mononitrate ER] 60 mg PO DAILY 11/15/22 [His tory] L.acidoph,Paracasei, B.lactis [Probiotic] 1 cap PO DAILY 11/15/22 [History] Omeprazole 40 mg PO BID 11/15/22 [History] Pioglitazone 30 mg [Actos 30 MG] 15 mg PO DAILY 11/15/22 [History] Ca/D3/Mag Ox/Zinc/Bleach Boiler Filler/Jeffery/Bor [Calcium 600-D3 Plus Caplet] 1 each PO DAILY 11/30/22 [History] Carvedilol [Coreg ] 12.5 mg PO DAILY 11/30/22 [History] Hydralazine HCl 10 mg PO TIDPRN PRN 11/30/22 [History] Lisinopril 20 mg [Zestril 20 MG] 20 mg PO DAILY 11/30/22 [History] Multivitamin [Multi-Vitamin Daily] 1 each PO DAILY 11/30/22 [History] Vit C/E/Zn/Coppr/Lutein/Zeaxan [Preservision Areds 2 Softgel] 1 each PO DAILY 11/30/22 [History] Hx Tetanus, Diphtheria Vaccination/Date Given: Yes Hx Influenza Vaccination/Date Given: Yes Hx Pneumococcal Vaccination/Date Given: Yes Immunizations Up to Date: Yes Travel Risk - International Travel Have you traveled outside of the country in past 3 weeks: No - Coronavirus Screening Are you exhibiting any of the following symptoms?: No Close contact with a COVID-19 positive Pt in past 14-21 Days: No - Vaccine Status Have you recieved a Covid-19 vaccination: Yes Soccer Player: Moderna - Vaccination Dates Date of 2cond Vaccination (if applicable): ? - Review of Systems Constitutional: No Symptoms Eyes: No Symptoms Ears, Nose, & Throat: No Symptoms Respiratory: No Symptoms Cardiac: Chest Pain Abdominal/Gastrointestinal: No Symptoms Genitourinary Symptoms: No Symptoms Musculoskeletal: No Symptoms Skin: No Symptoms Neurological: No Symptoms Endocrine: No Symptoms Immunological/Allergic: No Symptoms - Past Medical History Pertinent Past Medical History: Yes Neurological History: No Pertinent History ENT History: Cataracts Cardiac History: Arrhythmia, Coronary Artery Disease, Hypertension, Myocardial Infarction (ME) Respiratory History: No Pertinent History Endocrine Medical History: Diabetes Type II Musculoskeletal History: Arthritis, Osteoarthritis, Other GI Medical History: Polyps, Other History: Other Psycho-Social History: No Pertinent History Female Reproductive Disorders: No Pertinent History Other Medical History: CARDIAC STINT 2010, carpal tunnel [id number], kidney stones in past,. cataract surg in both eyes , - Past Surgical History Past Surgical History: Yes Neuro Surgical History: No Pertinent History Cardiac: Cardiac Catheterization, Cardiac Stent Respiratory: No Pertinent History Gastrointestinal: No Pertinent History Genitourinary: Other Musculoskeletal: Other Female Surgical History: Hysterectomy Other Surgical History: kidney stone removal , carpal tunnel surgery, stretching of esophagus - Social History Smoking Status: Never smoker Exposure to second hand smoke: No Drug Use: none Patient Lives Alone: Yes - Female History Hx Now: No - Nursing Vital Signs Nursing Vital Signs: Initial Vital Signs Temperature 96.9 F 01/05/23 06:39 Pulse Rate 66 01/05/23 06:39 Respiratory Rate 16 01/05/23 06:39 Blood Pressure 152/63 01/05/23 06:39 O2 Sat by Pulse Oximetry 97 01/05/23 06:39 Pain Scale Pain Intensity 0 - Physical Exam General Appearance: no apparent distress, alert Eye Exam: PERRL/EOMI Ears, Nose, Throat Exam: normal ENT inspection Neck Exam: normal inspection, supple, full range of motion Respiratory Exam: normal breath sounds, lungs clear Cardiovascular Exam: regular rate/rhythm, normal heart sounds Gastrointestinal/Abdomen Exam: soft, normal bowel sounds, No tenderness Back Exam: normal inspection Neurologic Exam: alert, oriented x 3, cooperative Skin Exam: normal color SpO2 Interpretation: normal SpO2: 93 O2 Delivery: Room Air Ordered Tests: Active Orders 24 hr Category Date Time Status Rehab Consultant STAT Care 01/05/23 11:19 Active EKG-ER Only STAT Care 01/05/23 11:19 Active IV Insertion STAT Care 01/05/23 11:19 Active CHEST 1 VIEW (PORTABLE) Stat Exams 01/05/23 10:34 Completed CBC W DIFF Stat Lab 01/05/23 11:25 Completed CMP Stat Lab 01/05/23 11:25 Completed MAGNESIUM Stat Lab 01/05/23 11:25 Completed NT PRO BNPII Stat Lab 01/05/23 11:25 Completed POCT GLUCOSE Stat Lab 01/05/23 06:57 Completed TROPONIN Stat Lab 01/05/23 10:39 Completed EKG ROUTINE RT 01/05/23 10:26 Completed Medication Summary Generic Name Dose Route Start Last Admin Trade Name Kelin PRN Reason Stop Dose Admin Pantoprazole Sodium 40 mg 01/05/23 12:08 Pantoprazole 40 Mg Vial IV 01/05/23 12:09 STAT ONE Discontinued Medications Generic Name Dose Route Start Last Admin Trade Name Kelin PRN Reason Stop Dose Admin Lactated Ringer's 1,000 mls @ 50 mls/hr 01/05/23 06:30 01/05/23 07:03 Lactated Ringers IV 02/04/23 06:29 50 mls/hr .Q20H SUE Administration Nitroglycerin 0.5 gm 01/05/23 11:19 01/05/23 11:29 Nitroglycerin 1 Gm Packet TOP 01/05/23 11:20 0.5 gm STAT ONE Administration Nitroglycerin Confirm 01/05/23 11:27 Nitroglycerin 1 Gm Packet Administered 01/05/23 11:28 Dose 1 gm .ROUTE .STK-MED ONE Propofol Confirm 01/05/23 08:22 Propofol 10 Mg/Ml 20ml Vial Administered 01/05/23 08:23 Dose 200 mg IV .STK-MED ONE Lab/Rad Data: Laboratory Result Diagrams 01/05/23 11:25 01/05/23 11:25 Laboratory Results 01/05/23 01/05/23 01/05/23 Range/Units 11:25 11:25 11:25 WBC 5.2 (4.0-10.5) x10^3/uL RBC 3.61 L (4.1-5.4) x10^6/uL Hgb 9.5 L (12.0-16.0) g/dL Hct 31.1 L (35-47) % MCV 86.1 (78-100) fL MCH 26.3 (26-32) pg MCHC 30.5 L (32-36) g/dL RDW 15.9 H (11.5-14.0) % Plt Count 168 (150-450) x10^3/uL MPV 10.8 (7.5-11.0) fL Gran % 64.2 (36.0-66.0) % Immature Gran % (Auto) 0.4 (0.00-0.4) % Nucleat RBC Rel Count 0.0 (0.00-0.1) % Eos # (Auto) 0.09 (0-0.5) x10^3/uL Immature Gran # (Auto) 0.02 (0.00-0.03) x10^3u/L Absolute Lymphs (auto) 1.22 (1.0-4.6) x10^3/uL Absolute Monos (auto) 0.50 (0.0-1.3) x10^3/uL Absolute Nucleated RBC 0.00 (0.00-0.01) x10^3u/L Lymphocytes % 23.6 L (24.0-44.0) % Monocytes % 9.7 (0.0-12.0) % Eosinophils % 1.7 (0.00-5.0) % Basophils % 0.4 (0.0-0.4) % Absolute Granulocytes 3.32 (1.4-6.9) x10^3/uL Basophils # 0.02 (0-0.4) x10^3/uL Sodium 140 (137-145) mmol/L Potassium 4.1 (3.5-5.1) mmol/L Chloride 106 (98-107) mmol/L Carbon Dioxide 26 (22-30) mmol/L Anion Gap 12.5 (5-15) MEQ/L BUN 26 H (7-17) mg/dL Creatinine 1.29 H (0.52-1.04) mg/dL Estimated GFR 42.1 ML/MIN Glucose 121 H (74-106) mg/dL POC Glucometer (74 to 106) mg/dL Calcium 8.7 (8.4-10.2) mg/dL Magnesium 2.1 (1.6-2.3) mg/dL Total Bilirubin 0.50 (0.2-1.3) mg/dL AST 21 (14-36) U/L ALT 13 (0-35) U/L Alkaline Phosphatase 75 (38-126) U/L Troponin I (0.000-0.034) ng/mL NT-Pro-B Natriuret Pep 662 (<300) pg/mL Serum Total Protein 6.4 (6.3-8.2) g/dL Albumin 3.4 L (3.5-5.0) g/dL 01/05/23 01/05/23 Range/Units 10:39 06:57 WBC (4.0-10.5) x10^3/uL RBC (4.1-5.4) x10^6/uL Hgb (12.0-16.0) g/dL Hct (35-47) % MCV (78-100) fL MCH (26-32) pg MCHC (32-36) g/dL RDW (11.5-14.0) % Plt Count (150-450) x10^3/uL MPV (7.5-11.0) fL Gran % (36.0-66.0) % Immature Gran % (Auto) (0.00-0.4) % Nucleat RBC Rel Count (0.00-0.1) % Eos # (Auto) (0-0.5) x10^3/uL Immature Gran # (Auto) (0.00-0.03) x10^3u/L Absolute Lymphs (auto) (1.0-4.6) x10^3/uL Absolute Monos (auto) (0.0-1.3) x10^3/uL Absolute Nucleated RBC (0.00-0.01) x10^3u/L Lymphocytes % (24.0-44.0) % Monocytes % (0.0-12.0) % Eosinophils % (0.00-5.0) % Basophils % (0.0-0.4) % Absolute Granulocytes (1.4-6.9) x10^3/uL Basophils # (0-0.4) x10^3/uL Sodium (137-145) mmol/L Potassium (3.5-5.1) mmol/L Chloride (98-107) mmol/L Carbon Dioxide (22-30) mmol/L Anion Gap (5-15) MEQ/L BUN (7-17) mg/dL Creatinine (0.52-1.04) mg/dL Estimated GFR ML/MIN Glucose (74-106) mg/dL POC Glucometer 132 H (74 to 106) mg/dL Calcium (8.4-10.2) mg/dL Magnesium (1.6-2.3) mg/dL Total Bilirubin (0.2-1.3) mg/dL AST (14-36) U/L ALT (0-35) U/L Alkaline Phosphatase (38-126) U/L Troponin I < 0.012 (0.000-0.034) ng/mL NT-Pro-B Natriuret Pep (<300) pg/mL Serum Total Protein (6.3-8.2) g/dL Albumin (3.5-5.0) g/dL - Progress Progress: improved, re-examined Air Movement: good Progress Note: 01/05/23 12:12 82 years old with multiple medical problems including coronary artery disease with stenting, hypertension, hyperlipidemia, diabetes mellitus is evaluated for chest pain sudden onset after she had a EGD with esophageal dilatation done here at [facility] by Dr. Hurley. EKG showed sinus rhythm on presentation in the ER with no ST elevations but does have some bradycardia. Negative initial troponins. Has CKD which is actually improved now with a creatinine of 1.29. Chest x-ray negative for acute infiltrative process, perforation/free air. She is given Protonix, aspirin and Nitropaste, on reevaluation she is feeling somewhat better. It is hard to say patient's pain is secondary to cardiac versus esophageal at this point and 1 negative troponin does not rule it out. Patient has multiple risk factors for CAD, discussed with Dr. Vital and is being admitted. Work-up and results of test discussed with patient and family who understand and agree with plan of admission. 01/05/23 12:15 Blood Culture(s) Obtained: No Antibiotics given: No Discussed with : Madhu Will see patient in: hospital (observation) Counseled pt/family regarding: lab results, diagnosis, rad results Medical Desision Making - Independent Historian Additional History obtained from: Relative/friend - Discussion of managment Care discussed with:: on-call "doc" Reviewed:: Test results, Need for additional workup Agreed on:: Treatment plan, place in obs Will see patient: in hospital - Diagnostic Testing Diagnostic test were ordered, analyzed, and reviewed by me: Yes Radiological Interpretation: Reviewed by me - Risk of complications The pt has a high risk of morbidity or mortality based on: Decision regarding hospitilization or escalation of hosp level of care - Departure Departure Disposition: Observation Clinical Impression: Chest pain, rule out acute myocardial infarction Condition: Stable Critical Care Time: No Referrals: ANALI VANESSA [Primary Care Provider] - Follow up/PCP as directed
[2023-01-05] MEDS ORDERED: BABY ASPIRIN 81 MG CHEW ONE (12:21)
[2023-01-05] MEDS ORDERED: DUONEB 0.5-3 MG/3 ml Neb IH PRN (13:17)
[2023-01-05] MEDS ORDERED: TYLENOL 325 MG PO PRN (13:17)
[2023-01-05] MEDS ORDERED: HUMALOG SQ PRN (13:17)
[2023-01-05] MEDS ORDERED: Zofran 4 MG/2 ML VIAL IV PRN (13:17)
[2023-01-05] MEDS ORDERED: Ventolin Hfa MDI IH PRN (15:08)
[2023-01-05] MEDS ORDERED: NON-FORMULARY ITEM (Ondansetron 4 MG Tab.Rapdis) PO PRN (15:08)
[2023-01-05] MEDS ORDERED: PERCOCET TABLET 5/325MG PO PRN (15:08)
[2023-01-05] MEDS ORDERED: ZOFRAN ODT 4 MG PO PRN (15:26)
[2023-01-05] MEDS ORDERED: MEDICATION INTERVENTION MC SCH (15:30)
[2023-01-05] MEDS ORDERED: Acidophilus TABLET PO SCH (15:30)
[2023-01-05] MEDS: LASIX 20 MG PO SCH (16:12)
[2023-01-05] MEDS: Actos 30 MG PO SCH (16:12)
[2023-01-05] MEDS: Ditropan 5 MG PO SCH (16:12)
[2023-01-05] MEDS: Glucotrol 5 MG PO SCH (16:13)
[2023-01-05] MEDS ORDERED: NON-FORMULARY ITEM (Glipizide [Glipizide] 10 MG Tablet) PO SCH (22:00)
[2023-01-05] MEDS ORDERED: NON-FORMULARY ITEM (Omeprazole [Omeprazole] 40 MG Capsule.Dr) PO SCH (22:00)
[2023-01-05] MEDS ORDERED: ZOCOR 20MG PO SCH (22:00)
[2023-01-05] MEDS ORDERED: NON-FORMULARY ITEM (Atorvastatin Calcium 20 MG Tab) PO SCH (22:00)
[2023-01-05] MEDS ORDERED: NON-FORMULARY ITEM (Hydralazine Hcl [Hydralazine Hcl] 10 MG Tablet) PO SCH (22:00)
[2023-01-05] MEDS ORDERED: NORVASC 5 MG PO SCH (22:00)
[2023-01-05] MEDS ORDERED: Apresoline 25 MG TABLET PO SCH (22:00)
[2023-01-05] MEDS: Protonix 40MG Tablet PO SCH (22:24)
[2023-01-05] MEDS: Coreg PO SCH (22:24)
[2023-01-06] MEDS ORDERED: Apresoline 25 MG TABLET PO PRN (05:34)
[2023-01-06 05:53] LABS: Absolute Neutrophil Ct (ANC) 2.95 x10^3/uL (1.4-6.9); BASOPHIL % 0.4 % (0.0-0.4); Basophil (Absolute #) 0.02 x10^3/uL (0-0.4); Eosinophil % 2.4 % (0.00-5.0); Eosinophil (Absolute #) 0.11 x10^3/uL (0-0.5); Hematocrit 31.8 % (35-47); Hemoglobin 9.7 g/dL (12.0-16.0); IMMATURE GRAN # 0.01 x10^3u/L (0.00-0.03); IMMATURE GRAN % 0.2 % (0.00-0.4); Lymphocyte (Absolute #) 1.13 x10^3/uL (1.0-4.6); Lymphocytes % 24.1 % (24.0-44.0); Mean Cell Volume 85.5 fL (78-100); Mean Corpuscular Hemoglobin 26.1 pg (26-32); Mean Corpuscular Hgb Concent. 30.5 g/dL (32-36); Mean Platelet Volume 11.7 fL (7.5-11.0); Monocyte (Absolute #) 0.46 x10^3/uL (0.0-1.3); Monocytes % 9.8 % (0.0-12.0); Neutrophil % 63.1 % (36.0-66.0); Platelet Count 164 x10^3/uL (150-450); Red Blood Count 3.72 x10^6/uL (4.1-5.4); Red Cell Distribution Width 15.9 % (11.5-14.0); White Blood Count 4.7 x10^3/uL (4.0-10.5)
[2023-01-06 06:19] LABS: ALBUMIN 3.3 g/dL (3.5-5.0); ANION GAP 11.9 MEQ/L (5-15); BILIRUBIN,TOTAL 0.4 mg/dL (0.2-1.3); Calcium 8.6 mg/dL (8.4-10.2); Creatinine 1 1.42 mg/dL (0.52-1.04); EST GLOMERULAR FILTRATION RATE 37.6 ML/MIN; Potassium 3.9 mmol/L (3.5-5.1); Total Protein 6.1 g/dL (6.3-8.2)
[2023-01-06] MEDS: Glucotrol 5 MG PO SCH (08:30)
[2023-01-06] MEDS: Coreg PO SCH (08:31)
[2023-01-06] MEDS: Actos 30 MG PO SCH (08:32)
[2023-01-06] MEDS: Ditropan 5 MG PO SCH (08:32)
[2023-01-06] MEDS: Protonix 40MG Tablet PO SCH (08:32)
[2023-01-06] MEDS: LASIX 20 MG PO SCH (08:33)
[2023-01-06] MEDS ORDERED: Zestril 20 MG PO SCH (10:00)
[2023-01-06] MEDS ORDERED: ECOTRIN 81 MG PO SCH (10:00)
[2023-01-06] MEDS ORDERED: BABY ASPIRIN 81 MG CHEW PO SCH (10:00)
[2023-01-06] MEDS ORDERED: NON-FORMULARY ITEM (L.Acidoph,Paracasei, B.Lactis [Probiotic] 1 EACH Capsule) PO SCH (10:00)
[2023-01-06] MEDS ORDERED: CANAGLIFLOZIN 100 MG PO SCH (10:00)
[2023-01-06] MEDS ORDERED: Imdur 60MG PO SCH (10:00)
[2023-01-06] MEDS ORDERED: PROTONIX 40 MG IV IV SCH (10:00)
[2023-01-06 13:06] VITALS: BP 123/79; PULSE 61; O2SAT 91
== END 2023-01-06 12:55 | disposition home or self-care (01) ==
LOC: EDSTATUS 11:00 → ED 11:00 → MED SURG 13:16
PROVIDERS: ADMIT Family Medicine; ATTEND Family Medicine
DX: R07.9 Chest pain, unspecified (principal); K21.9 Gastro-esophageal reflux disease without esophagitis; R13.10 Dysphagia, unspecified; I10 Essential (primary) hypertension; I25.10 Atherosclerotic heart disease of native coronary artery without angina pectoris; E11.9 Type 2 diabetes mellitus without complications; E78.5 Hyperlipidemia, unspecified; K22.4 Dyskinesia of esophagus; Z79.899 Other long term (current) drug therapy; Z20.828 Contact with and (suspected) exposure to other viral communicable diseases
CPT/HCPCS: 36000; 36415; 43233; 71045; 80053; 82947; 83735; 83880; 84484; 85025; 93005; 93041; 93268; 96374; 99285; G0378; 96375; 99100; J2704; A9270-GY

== ENCOUNTER 2023-10-19 12:54 | Emergency (ER) | payer MEDICARE ==
--- NOTE | 2023-10-19 13:02 | ERPHSYRPT ---
- History of Present Illness Time Seen by Provider: 10/19/23 13:02 Historian: patient, family Exam Limitations: no limitations Physician History: This is an 83-year-old white female patient who was brought to the emergency department by her son for right flank pain that is radiating down into the right groin area. In the last 2 weeks she has had intermittent right flank pain. This morning, the pain became more intense and constant and is radiated into the right groin. Patient does have a history of ureterolithiasis. Patient does see a nephrologistDr. Gray. Patient denies chest pain. Patient denies shortness of breath. She has had no nausea vomiting or diarrhea symptoms. Patient has a history of hyperlipidemia, diabetes, hypertension, gastroesophageal reflux disease, arrhythmia, coronary artery disease (stent) and arthritis. Patient is only on baby aspirin and no anticoagulation therapy. Timing/Duration: today, week(s) (For 2 weeks intermittent right flank pain), worse (Constant and worse today ) Quality: aching, sharpness Abdominal Pain Onset Location: flank (Right side) Pain Radiation: groin (Right side) Severity of Pain-Max: moderate Severity of Pain-Current: moderate Modifying Factors: Improves With: nothing Associated Symptoms: denies symptoms Previous symptoms: no prior history Allergies/Adverse Reactions: quinine Allergy (Verified 10/19/23 13:18) Difficulty Breathing Home Medications: Aspirin 81 mg PO DAILY 10/04/14 [History] Atorvastatin Calcium [Lipitor 20MG Tablet] 40 mg PO HS 10/04/14 [History] Oxybutynin Chloride 5 mg PO DAILY 09/23/20 [History] Albuterol 8 gm Mdi Hfa [Ventolin Hfa MDI] 1 puff IN Q6HPRN PRN 11/15/22 [History] Cholecalciferol (Vitamin D3) [Vitamin D] 1,000 mg PO DAILY 11/15/22 [History] Furosemide 20 mg [Lasix 20 mg] 40 mg PO DAILY 11/15/22 [History] L.acidoph,Paracasei, B.lactis [Probiotic] 1 cap PO DAILY 11/15/22 [History] Omeprazole 40 mg PO BID 11/15/22 [History] Hydralazine HCl 20 mg PO HS 04/05/23 [History] Lisinopril 20 mg [Zestril 20 MG] 20 mg PO DAILY 11/30/22 [History] Vit C/E/Zn/Coppr/Lutein/Zeaxan [Preservision Areds 2 Softgel] 1 each PO DAILY 11/30/22 [History] Bumetanide 2 mg PO DAILY 10/19/23 [History] Cyanocobalamin (Vitamin B-12) [B-12] 1,000 mcg PO DAILY 10/19/23 [History] Ferrous Sulfate 325 mg [Feosol 325 mg] 325 mg PO DAILY 10/19/23 [History] Folic Acid 1 mg [Folate 1 mg] 1 mg PO DAILY 10/19/23 [History] Insulin Aspart [Novolog] 7 unit SQ TID 10/19/23 [History] Insulin Glargine,Hum.rec.anlog [Toujeo Solostar] 15 unit SQ HS 10/19/23 [History] Ranolazine [Ranolazine ER] 500 mg PO BID 10/19/23 [History] Spironolactone 25 mg [Aldactone 25 MG] 25 mg PO DAILY 10/19/23 [History] Hx Tetanus, Diphtheria Vaccination/Date Given: Yes Hx Influenza Vaccination/Date Given: Yes Hx Pneumococcal Vaccination/Date Given: Yes Travel Risk - International Travel Have you traveled outside of the country in past 3 weeks: No - Coronavirus Screening Are you exhibiting any of the following symptoms?: No Close contact with a COVID-19 positive Pt in past 14-21 Days: No - Vaccine Status Have you recieved a Covid-19 vaccination: Yes 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 - Vaccination Dates Date of 2cond Vaccination (if applicable): unk - Review of Systems Constitutional: No Symptoms Eyes: No Symptoms Ears, Nose, & Throat: No Symptoms Respiratory: No Symptoms Cardiac: No Symptoms Abdominal/Gastrointestinal: No Symptoms Genitourinary Symptoms: Flank Pain (Right) Musculoskeletal: No Symptoms Skin: No Symptoms Psychological: No Symptoms Endocrine: No Symptoms Hematologic/Lymphatic: No Symptoms Immunological/Allergic: No Symptoms All Other Systems: Reviewed and Negative - Past Medical History Pertinent Past Medical History: Yes Neurological History: No Pertinent History ENT History: Cataracts Cardiac History: Arrhythmia, Coronary Artery Disease, Hypertension, Myocardial Infarction (NH) Respiratory History: No Pertinent History Endocrine Medical History: Diabetes Type II Musculoskeletal History: Arthritis, Osteoarthritis, Other GI Medical History: Polyps, Other History: Other Psycho-Social History: No Pertinent History Female Reproductive Disorders: No Pertinent History Other Medical History: CARDIAC STINT 2010, carpal tunnel [id number], kidney stones in past,. cataract surg in both eyes , sciatica pain - Past Surgical History Past Surgical History: Yes Neuro Surgical History: No Pertinent History Cardiac: Cardiac Catheterization, Cardiac Stent Respiratory: No Pertinent History Gastrointestinal: No Pertinent History Genitourinary: Other Musculoskeletal: Other Female Surgical History: Hysterectomy Other Surgical History: kidney stone removal , carpal tunnel surgery, stretching of esophagus - Social History Smoking Status: Never smoker Exposure to second hand smoke: No Drug Use: none Patient Lives Alone: Yes - Nursing Vital Signs Nursing Vital Signs: Initial Vital Signs Temperature 97.6 F 10/19/23 13:19 Pulse Rate 72 10/19/23 13:19 Respiratory Rate 18 10/19/23 13:19 Blood Pressure 156/90 10/19/23 13:19 O2 Sat by Pulse Oximetry 94 L 10/19/23 13:19 Pain Scale Pain Intensity 10 - Physical Exam General Appearance: no apparent distress, alert, anxiety Eye Exam: PERRL/EOMI, eyes nml inspection Ears, Nose, Throat Exam: normal ENT inspection, moist mucous membranes Neck Exam: normal inspection, non-tender, supple, full range of motion Respiratory Exam: normal breath sounds, lungs clear, No chest tenderness, No respiratory distress, No airway intact Cardiovascular Exam: regular rate/rhythm, normal heart sounds, normal peripheral pulses Gastrointestinal/Abdomen Exam: soft, normal bowel sounds, other (Right flank pain radiating to right inguinal region), No tenderness, No guarding, No rebound Back Exam: normal inspection, normal range of motion (Right), CVA tenderness, No vertebral tenderness Extremity Exam: normal inspection, normal range of motion, pelvis stable Neurologic Exam: alert, oriented x 3, cooperative, 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 officer 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 flight 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 II-XII nml as tested, normal mood/affect, nml cerebellar function, nml station & gait, sensation nml Skin Exam: normal color, warm, dry Lymphatic Exam: No adenopathy SpO2 Interpretation: normal O2 Delivery: Room Air - Course Nursing assessment & vital signs reviewed: Yes Ordered Tests: Active Orders 24 hr Category Date Time Status IV Insertion STAT Care 10/19/23 13:32 Active ABDOMEN AND PELVIS W/0 CONTRAS [CT] Stat Exams 10/19/23 13:33 Completed AMYLASE Stat Lab 10/19/23 13:50 Completed CBC W DIFF Stat Lab 10/19/23 13:50 Completed CMP Stat Lab 10/19/23 13:50 Completed LIPASE Stat Lab 10/19/23 13:50 Completed UA W/RFX UR CULTURE Stat Lab 10/19/23 15:06 Ordered Medication Summary Generic Name Dose Route Start Last Admin Trade Name Freq PRN Reason Stop Dose Admin Sodium Chloride 1,000 mls @ 250 mls/hr 10/19/23 13:45 10/19/23 13:50 Sodium Chloride 0.9% 1000 Ml IV 11/18/23 13:44 250 mls/hr .Q4H SUE Administration Discontinued Medications Generic Name Dose Route Start Last Admin Trade Name Freq PRN Reason Stop Dose Admin Morphine Sulfate 2 mg 10/19/23 13:32 10/19/23 13:51 Morphine Sulfate 2 Mg/Ml Inj IV 10/19/23 13:33 2 mg STAT ONE Administration Morphine Sulfate Confirm 10/19/23 13:42 Morphine Sulfate 2 Mg/Ml Inj Administered 10/19/23 13:43 Dose 2 mg .ROUTE .STK-MED ONE Ondansetron HCl 4 mg 10/19/23 13:32 10/19/23 13:51 Ondansetron Hcl 4 Mg/2 Ml Vial IV 10/19/23 13:33 4 mg STAT ONE Administration Ondansetron HCl Confirm 10/19/23 13:41 Ondansetron Hcl 4 Mg/2 Ml Vial Administered 10/19/23 13:42 Dose 4 mg .ROUTE .STK-MED ONE Lab/Rad Data: Laboratory Result Diagrams 10/19/23 13:50 10/19/23 13:50 Laboratory Results 10/19/23 10/19/23 Range/Units 13:50 13:50 WBC 11.4 H (4.0-10.5) x10^3/uL RBC 3.79 L (4.1-5.4) x10^6/uL Hgb 10.8 L (12.0-16.0) g/dL Hct 34.8 L (35-47) % MCV 91.8 (78-100) fL MCH 28.5 (26-32) pg MCHC 31.0 L (32-36) g/dL RDW 14.4 H (11.5-14.0) % Plt Count 171 (150-450) x10^3/uL MPV 11.3 H (7.5-11.0) fL Gran % 87.3 H (36.0-66.0) % Immature Gran % (Auto) 0.6 H (0.00-0.4) % Nucleat RBC Rel Count 0.0 (0.00-0.1) % Eos # (Auto) 0 (0-0.5) x10^3/uL Immature Gran # (Auto) 0.07 H (0.00-0.03) x10^3u/L Absolute Lymphs (auto) 0.39 L (1.0-4.6) x10^3/uL Absolute Monos (auto) 0.97 (0.0-1.3) x10^3/uL Absolute Nucleated RBC 0.00 (0.00-0.01) x10^3u/L Lymphocytes % 3.4 L (24.0-44.0) % Monocytes % 8.5 (0.0-12.0) % Eosinophils % 0.0 (0.00-5.0) % Basophils % 0.2 (0.0-0.4) % Absolute Granulocytes 9.91 H (1.4-6.9) x10^3/uL Basophils # 0.02 (0-0.4) x10^3/uL Sodium 133 L (137-145) mmol/L Potassium 4.7 (3.5-5.1) mmol/L Chloride 101 (98-107) mmol/L Carbon Dioxide 22 (22-30) mmol/L Anion Gap 14.4 (5-15) MEQ/L BUN 47 H (7-17) mg/dL Creatinine 2.16 H (0.52-1.04) mg/dL Estimated GFR 22.2 ML/MIN Glucose 209 H (74-106) mg/dL Calcium 9.1 (8.4-10.2) mg/dL Total Bilirubin 0.60 (0.2-1.3) mg/dL AST 21 (14-36) U/L ALT 14 (0-35) U/L Alkaline Phosphatase 103 (38-126) U/L Serum Total Protein 6.9 (6.3-8.2) g/dL Albumin 4.1 (3.5-5.0) g/dL Amylase 75 (30-110) U/L Lipase 81 (23-300) U/L Slides for Path Review YES - Progress Progress: improved, pain not gone completely, re-examined Progress Note: 10/19/23 13:56 This patient's medical issue is 1 of moderate complexity. The level of comp lexity in the workup performed is based on review of the patient's past medical history, review of the patient's medication list, review the patient's drug allergy list, history present illness and physical findings on examination. The workup in this patient includes placement of intravenous line, infusion of normal saline solution, infusion of morphine, infusion of Zofran, CBC, CMP, amylase, lipase, urinalysis, CT scan of the abdomen pelvis without contrast. 10/19/23 15:[address] scan of the abdomen pelvis without contrast was interpreted by the radiologist and I reviewed the impression impression states impacted right renal pelvicureter junction obstructive stone (1.3 x 1.2 x 1 cm) with acute mild to moderate hydronephrosis and perinephric fat stranding. There is colonic diverticulosis without diverticulitis. There is infraumbilical left paramedian fat-containing hernia. There is a right hepatic lobe hypodense focal lesion. All these findings were discussed with the patient. 10/19/23 15:20 We have placed a call into the office of Dr. Bass, urology. He is on-call for [facility]. I feel this patient will be best served being transferred to a facility that has a urologist. She has a very large obstructive stone with obstructive uropathy findings. 10/19/23 15:34 I reviewed the patient's laboratory data results. Patient does have a leukocytosis and chronic renal disease. She has a significant urinary tract infection we will provide her with intravenous Rocephin 1 g. I spoke with Shila pSarrow at the transfer center for [facility]. I reviewed the patient history, presenting complaint, physical findings, radiographic and laboratory study results. She has authorized us to transfer this patient directly to the emergency department at [facility] in [facility]. The doctor excepting is Dr. Allan at 1530 Counseled pt/family regarding: lab results, diagnosis, need for follow-up, rad r esults Medical Desision Making - Diagnostic Testing Diagnostic test were ordered, analyzed, and reviewed by me: Yes Radiological Interpretation: Reviewed by me, Teleradiologist Report - Risk of complications The pt has a high risk of morbidity or mortality based on: Decision regarding hospitilization or escalation of hosp level of care - Departure Departure Disposition: Transfer Clinical Impression: Right ureteral stone, Obstructive uropathy, Umbilical hernia, Liver lesion, right lobe, UTI (urinary tract infection) Condition: Stable Critical Care Time: No Referrals: ANALI VANESSA [Primary Care Provider] - Follow up/PCP as directed
[2023-10-19 13:31] VITALS: RESP 18; TEMP 97.6
[2023-10-19] MEDS ORDERED: Zofran 4 MG/2 ML VIAL ONE (13:41)
[2023-10-19] MEDS ORDERED: Sodium Chloride 0.9% 1000 ML 1,000 ML ONE ×2 (13:42→17:46)
[2023-10-19] MEDS ORDERED: MORPHINE SULFATE 2 MG INJ ONE (13:42)
[2023-10-19] MEDS: Sodium Chloride 0.9% 1000 ML 1,000 ML IV SCH (13:50)
[2023-10-19] MEDS: Zofran 4 MG/2 ML VIAL IV ONE (13:51)
[2023-10-19] MEDS: MORPHINE SULFATE 2 MG INJ IV ONE (13:51)
[2023-10-19 13:57] LABS: Absolute Neutrophil Ct (ANC) 9.91 x10^3/uL (1.4-6.9); BASOPHIL % 0.2 % (0.0-0.4); Basophil (Absolute #) 0.02 x10^3/uL (0-0.4); Eosinophil (Absolute #) 0 x10^3/uL (0-0.5); Hematocrit 34.8 % (35-47); Hemoglobin 10.8 g/dL (12.0-16.0); IMMATURE GRAN # 0.07 x10^3u/L (0.00-0.03); IMMATURE GRAN % 0.6 % (0.00-0.4); Lymphocyte (Absolute #) 0.39 x10^3/uL (1.0-4.6); Lymphocytes % 3.4 % (24.0-44.0); Mean Cell Volume 91.8 fL (78-100); Mean Corpuscular Hemoglobin 28.5 pg (26-32); Mean Platelet Volume 11.3 fL (7.5-11.0); Monocyte (Absolute #) 0.97 x10^3/uL (0.0-1.3); Monocytes % 8.5 % (0.0-12.0); Neutrophil % 87.3 % (36.0-66.0); Platelet Count 171 x10^3/uL (150-450); Red Blood Count 3.79 x10^6/uL (4.1-5.4); Red Cell Distribution Width 14.4 % (11.5-14.0); White Blood Count 11.4 x10^3/uL (4.0-10.5)
[2023-10-19 14:10] LABS: ALBUMIN 4.1 g/dL (3.5-5.0); ANION GAP 14.4 MEQ/L (5-15); BILIRUBIN,TOTAL 0.6 mg/dL (0.2-1.3); Calcium 9.1 mg/dL (8.4-10.2); Creatinine 1 2.16 mg/dL (0.52-1.04); EST GLOMERULAR FILTRATION RATE 22.2 ML/MIN; Potassium 4.7 mmol/L (3.5-5.1); Total Protein 6.9 g/dL (6.3-8.2)
[2023-10-19 15:04] LABS: Slide Review 1 YES
--- NOTE | 2023-10-19 15:07 | XRAY ---
CLINICAL HISTORY: Right flank pain TECHNIQUE: CT scan of the abdomen and pelvis without intravenous contrast administration. Coronal and sagittal images were also acquired. COMPARISON: 05/29/2018 CT. FINDINGS: The liver is of average size, with regular contour, and homogeneous texture with no focal lesion that could be detected on a non-contrast basis. There are multiple tiny foci of calcification scattered within its parenchyma. A 9 mm hypodense focal lesion is noted at subsegment VII. No intra hepatic biliary radical dilatation. The GB appears unremarkable. The spleen is of average size and shape with homogeneous parenchyma and no focal lesion could be noted on a non-contrast basis. There are multiple tiny foci of calcification scattered within its parenchyma. The right kidney is of average size and shape. It displays mild back pressure changes secondary to a stone impacted at the pelvi-ureteric junction measuring 1.3 x 1.2 x 1 cm in maximal dimensions and 570 HU in density. There is perinephric fat stranding. Another two non-obstructive stones are noted at the upper calyx, the largest is measuring 8 mm in size and 600 HU in density. The left kidney is of normal size, shape, and parenchymal thickness with no stones, back pressure changes, or space-occupying lesions on a non-contrast basis. The other retroperitoneal structures including the pancreas and adrenal glands are grossly within normal limits. No significant lymph joon enlargement or ascetic fluid collection. The uterus is not visualized likely surgically removed. . Normal filling of the urinary bladder with no stones, masses, or diverticula. An infra umbilical left paramedian fat-containing hernia is noted. Colonic diverticulosis without signs of diverticulitis. The appendix appears normal. Bone window settings showed reduced osseous mineralization, degenerative changes of the lumbar spine, L4-L5 grade I spondylolisthesis, and no evidence of fractures or destructive lesions. Lung window settings showed a normal appearance of both basal lung segments. IMPRESSION: 1. Right renal pelvi-ureteric junction obstructive stone with acute mild to moderate hydronephrosis and perinephric fast stranding. 2. Right renal non-obstructive stones. 3. Right hepatic lobe hypodense focal lesion that requires further evaluation by the US and post-contrast CT. 4. Hepatic and splenic calcification likely old granuloma. 5. Infraumbilical left paramedian fat-containing hernia. 6. Colonic diverticulosis without diverticulitis. [facility] ER was called at at 02:49 PM EST, 10/19/2023 and results were verbally communicated to Dr. Franco. Electronically Signed by: Sonya Hickman MD. (10/19/2023 15:03:12 EST)
[2023-10-19 15:22] LABS: Appearance Cloudy (Clear); Bacteria Many /HPF (None Seen); Bilirubin Negative (Negative); Blood Negative (Negative); Epithelial Cells None Seen /HPF (None Seen); Glucose, Urine Negative (Negative); Ketones Negative (Negative); Leukocyte Esterase Large (Negative); Nitrite Positive (Negative); Ph 8.5 (4.6-8.0); Protein,Urine Dip 30 (Negative); RBC 0-2 /HPF (0-5); Urobilinogen 0.2 mg/dL (0.2); WBC >100 /HPF (0-5)
[2023-10-19 15:23] LABS: ADD URINE CULTURE? YES (NO)
[2023-10-19] MEDS ORDERED: ROCEPHIN 1 GM / 100 ML NaCl 1 GM/100 ML IVPB IV ONE (15:45)
[2023-10-19] MEDS: ROCEPHIN 1 GM / 100 ML NaCl 1 GM/100 ML IVPB IV ONE (15:46)
[2023-10-19] MEDS: MORPHINE SULFATE 4 MG INJ IV ONE (15:51)
[2023-10-19] MEDS ORDERED: MORPHINE SULFATE 4 MG INJ ONE (15:51)
[2023-10-19 17:03] VITALS: O2SAT 98
[2023-10-19 17:59] VITALS: BP 151/66; PULSE 72
== END 2023-10-19 17:59 | disposition short-term general hospital (02) ==
LOC: ED 12:54
DX: N13.2 Hydronephrosis with renal and ureteral calculous obstruction (principal); N13.0 Hydronephrosis with ureteropelvic junction obstruction; K42.9 Umbilical hernia without obstruction or gangrene; K76.89 Other specified diseases of liver; N39.0 Urinary tract infection, site not specified; R10.9 Unspecified abdominal pain; E78.5 Hyperlipidemia, unspecified; E11.9 Type 2 diabetes mellitus without complications; I10 Essential (primary) hypertension; Z87.442 Personal history of urinary calculi; Z79.4 Long term (current) use of insulin; Z79.899 Other long term (current) drug therapy
CPT/HCPCS: 36415; 74176; 80053; 81001; 82150; 83690; 85025; 87077; 87086; 87186; 96374; 96375; 99285; J0696; J2270; J2405

== ENCOUNTER 2024-09-05 11:16 | Inpatient (IN) | payer MEDICARE ==
[2024-09-05 12:24] LABS: Absolute Neutrophil Ct (ANC) 6.01 x10^3/uL (1.56-6.13); BASOPHIL % 0.4 % (0.1-1.2); Basophil (Absolute #) 0.03 x10^3/uL (0.01-0.08); Eosinophil % 0.5 % (0.7-5.8); Eosinophil (Absolute #) 0.04 x10^3/uL (0.04-0.36); Hematocrit 32.1 % (34.1-44.9); Hemoglobin 10.3 g/dL (11.2-15.7); IMMATURE GRAN # 0.05 x10^3u/L (0.001-0.031); IMMATURE GRAN % 0.6 % (0.001-0.429); Lymphocyte (Absolute #) 1.06 x10^3/uL (1.18-3.74); Lymphocytes % 13.8 % (19.3-51.7); Mean Cell Volume 92.2 fL (79.4-94.8); Mean Corpuscular Hemoglobin 29.6 pg (25.6-32.2); Mean Corpuscular Hgb Concent. 32.1 g/dL (32.2-35.5); Monocyte (Absolute #) 0.51 x10^3/uL (0.24-0.86); Monocytes % 6.6 % (4.7-12.5); Neutrophil % 78.1 % (34.0-71.1); Platelet Count 169 x10^3/uL (182-369); Red Blood Count 3.48 x10^6/uL (3.93-5.22); Red Cell Distribution Width 14.9 % (11.7-14.4); White Blood Count 7.7 x10^3/uL (3.98-10.04)
--- NOTE | 2024-09-05 12:53 | XRAY ---
Indication: Status post fall. Comparison: January 05, 2023 Portable apical lordotic chest again demonstrates cardiomegaly. No focal infiltrate, consolidation, large effusion, or pneumothorax. Bony thorax intact again with osteopenia and degenerative changes. No new/acute findings.
--- NOTE | 2024-09-05 12:53 | XRAY ---
Indication: Status post fall. Impression: None 2 view right humerus demonstrates osteopenia and significant acromioclavicular degenerative arthropathy. No acute bony, articular, or soft tissue abnormalities.
--- NOTE | 2024-09-05 12:56 | XRAY ---
Indication: Status post fall. Comparison: None 3 view right knee demonstrates osteopenia, minimal/mild tricompartmental degenerative changes, tiny nonspecific effusion, and moderate scattered vascular calcifications. No acute bony, articular, or soft tissue abnormalities.
[2024-09-05 12:58] LABS: ALBUMIN 3.6 g/dL (3.5-5.0); ANION GAP 13.3 MEQ/L (5-15); BILIRUBIN,TOTAL 0.4 mg/dL (0.2-1.3); Calcium 8.9 mg/dL (8.4-10.2); Creatinine 1 2.51 mg/dL (0.52-1.04); EST GLOMERULAR FILTRATION RATE 18.4 ML/MIN; MAGNESIUM 1.8 mg/dL (1.6-2.3); Potassium 5.2 mmol/L (3.5-5.1); Total Protein 6.2 g/dL (6.3-8.2)
[2024-09-05 13:39] LABS: Appearance Clear (Clear); Bacteria None Seen /HPF (None Seen); Bilirubin Negative (Negative); Blood Negative (Negative); Epithelial Cells Rare /HPF (None Seen); Glucose, Urine Negative (Negative); Ketones Negative (Negative); Leukocyte Esterase Negative (Negative); Nitrite Negative (Negative); Ph 5.5 (4.6-8.0); Protein,Urine Dip Negative (Negative); RBC 0-2 /HPF (0-5); Specific Gravity 1.015 (1.005-1.030); Urobilinogen 0.2 mg/dL (0.2)
[2024-09-05] MEDS: Sodium Chloride 0.9% 1000 ML 1,000 ML IV SCH ×2 (14:11→17:30)
--- NOTE | 2024-09-05 14:51 | ERPHSYRPT ---
- History of Present Illness Time Seen by Provider: 09/05/24 12:03 Source: patient, family Exam Limitations: no limitations Patient Subjective Stated Complaint: pt states that she was going to the bathroom and felt her legs give out Triage Nursing Assessment: pt ambulated into the er with assist of walker; pt is axo x3; pt is tearful; c/o fall; pt states 5/10 pain to rt upper arm, rt hip and rt upper leg; bruising present to rt upper arm and abd; no shortening or rotation present to RLE; no respiratory distress present; skin PDW; tachycardic Physician History: 84-year-old female with history of hypertension, hyperlipidemia, coronary artery disease with stenting, congestive heart failure, diabetes mellitus, questionable history of atrial fibrillation not anticoagulated presented in the ER after she was going to the bathroom around 3 AM when her legs gave way and she fell, hit her right knee and right arm. Did not hit her head, no loss of consciousness. Patient reports no dizziness or lightheadedness before or after. No chest pain palpitations or shortness of breath before or after the episode. She was able to get up and ambulate but more often pain in the upper arm and knee/hip with movement. No focal numbness tingling or weakness reported. Allergies/Adverse Reactions: quinine Allergy (Verified 09/05/24 11:25) Difficulty Breathing Home Medications: Aspirin 81 mg PO DAILY 10/04/14 [History] Atorvastatin Calcium [Lipitor 20MG Tablet] 40 mg PO HS 10/04/14 [History] Oxybutynin Chloride 5 mg PO DAILY 09/23/20 [History] Albuterol 8 gm Mdi Hfa [Ventolin Hfa MDI] 1 puff IN Q6HPRN PRN 11/15/22 [History] Furosemide 20 mg [Lasix 20 mg] 40 mg PO BID 11/15/22 [History] L.acidoph,Paracasei, B.lactis [Probiotic] 1 cap PO DAILY 11/15/22 [History] Omeprazole 40 mg PO BID 11/15/22 [History] Hydralazine HCl 25 mg PO TID 11/30/22 [History] Lisinopril 20 mg [Zestril 20 MG] 40 mg PO DAILY 11/30/22 [History] Vit C/E/Zn/Coppr/Lutein/Zeaxan [Preservision Areds 2 Softgel] 1 each PO DAILY 11/30/22 [History] Ferrous Sulfate 325 mg [Feosol 325 mg] 325 mg PO DAILY 10/19/23 [History] Ranolazine [Ranolazine ER] 500 mg PO BID 10/19/23 [History] Allopurinol 100 mg [Zyloprim 100 mg] 100 mg PO BID 09/05/24 [History] Bumetanide 1 mg [Bumex 1 mg] 1 mg PO DAILY 09/05/24 [History] Carvedilol 12.5 mg [Coreg 12.5 mg] 12.5 mg PO BID 09/05/24 [History] Finerenone [Kerendia] 10 mg PO DAILY 09/05/24 [History] Fluticasone/Umeclidin/Vilanter [Trelegy Ellipta 200-62.5-25] 1 each IH DAILY 09/05/24 [History] Insulin Glargine,Hum.rec.anlog [Toujeo Solostar] 15 units SQ DAILY 09/05/24 [History] Nitroglycerin 0.4 mg Tablet [Nitrostat 0.4 MG Tablet] 0.4 mg SL Q5MIN PRN MR X 3 PRN 09/05/24 [History] Hx Tetanus, Diphtheria Vaccination/Date Given: Yes Hx Influenza Vaccination/Date Given: Yes Hx Pneumococcal Vaccination/Date Given: Yes Travel Risk - International Travel Have you traveled outside of the country in past 3 weeks: No - Emerging Infectious Disease Are you exhibiting symptoms associated with any current EIDs: No - Review of Systems Constitutional: Fatigue, Weakness Eyes: No Symptoms Ears, Nose, & Throat: No Symptoms Respiratory: No Symptoms Cardiac: No Symptoms Abdominal/Gastrointestinal: No Symptoms Musculoskeletal: Fall, Injury, Joint Pain Skin: No Symptoms Neurological: No Symptoms Hematologic/Lymphatic: No Symptoms - Past Medical History Pertinent Past Medical History: Yes Neurological History: No Pertinent History ENT History: Cataracts Cardiac History: Arrhythmia, Coronary Artery Disease, Hypertension, Myocardial Infarction (MD) Respiratory History: No Pertinent History Endocrine Medical History: Diabetes Type II Musculoskeletal History: Arthritis, Osteoarthritis, Other GI Medical History: Polyps, Other History: Other Psycho-Social History: No Pertinent History Female Reproductive Disorders: No Pertinent History Other Medical History: CARDIAC STINT 2010, carpal tunnel [id number], kidney stones in past,. cataract surg in both eyes , sciatica pain - Past Surgical History Past Surgical History: Yes Neuro Surgical History: No Pertinent History Cardiac: Cardiac Catheterization, Cardiac Stent Respiratory: No Pertinent History Gastrointestinal: No Pertinent History Genitourinary: Other Musculoskeletal: Other Female Surgical History: Hysterectomy Other Surgical History: kidney stone removal , carpal tunnel surgery, stretching of esophagus - Social History Smoking Status: Never smoker Exposure to second hand smoke: No Drug Use: none Patient Lives Alone: Yes - Social Determinants of Health Will the patient participate in the screening: Yes Do you worry about a steady place to live?: No Do you have any problems with any of the following?: No known problems In the past 12 months,have you had to go without utilities?: No Transportation Issues: No Has anyone in your support network made you feel unsafe?: No Have you or anyone in your house had to go without enough: No - Nursing Vital Signs Nursing Vital Signs: Initial Vital Signs Pulse Rate 106 H 09/05/24 11:24 Blood Pressure 137/104 09/05/24 11:24 O2 Sat by Pulse Oximetry 97 09/05/24 11:24 Pain Scale Pain Intensity 0 - Physical Exam General Appearance: no apparent distress, alert Eye Exam: PERRL/EOMI Ears, Nose, Throat Exam: normal ENT inspection Neck Exam: normal inspection, non-tender, supple, full range of motion Respiratory Exam: normal breath sounds, lungs clear Cardiovascular Exam: normal heart sounds, tachycardia, irregular Gastrointestinal/Abdomen Exam: soft, normal bowel sounds, No tenderness Back Exam: normal inspection, normal range of motion Extremity Exam: other (No tenderness in the hip with intact range of motion bilaterally. Intact range of motion of right shoulder. 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, normal mood/affect, nml cerebellar function, sensation nml, No motor deficits Skin Exam: normal color SpO2 Interpretation: normal SpO2: 94 O2 Delivery: Room Air - Course EKG Interpreted by Me: RATE (93), A-fib, Left [place] Deviation, prolonged QT interval, Left Bundle Branch Block, Q-wave, Non-specific ST Changes Ordered Tests: Active Orders 24 hr Category Date Time Status Mar[employer] STAT Care 09/05/24 12:08 Active EKG-ER Only STAT Care 09/05/24 12:04 Active IV Insertion STAT Care 09/05/24 12:07 Active CHEST 1 VIEW (PORTABLE) Stat Exams 09/05/24 12:08 Completed HUMERUS Stat Exams 09/05/24 12:09 Completed KNEE (3 VIEWS) Stat Exams 09/05/24 12:09 Completed CBC W DIFF Stat Lab 09/05/24 12:20 Completed CMP Stat Lab 09/05/24 12:20 Completed Lactic Acid Stat Lab 09/05/24 12:20 Completed MAGNESIUM Stat Lab 09/05/24 12:20 Completed NT PRO BNPII Stat Lab 09/05/24 12:20 Completed TROPONIN Q4H Lab 09/05/24 12:20 Completed TROPONIN Q4H Lab 09/05/24 16:15 Ordered TROPONIN Q4H Lab 09/05/24 20:15 Ordered UA W/RFX UR CULTURE Stat Lab 09/05/24 13:19 Completed Transfer Order Routine Transfer 09/05/24 Ordered Medication Summary Generic Name Dose Route Start Last Admin Trade Name Freq PRN Reason Stop Dose Admin Sodium Chloride 1,000 mls @ 100 mls/hr 09/05/24 14:15 09/05/24 14:11 Sodium Chloride 0.9% 1000 Ml IV 10/05/24 14:14 100 mls/hr .Q10H SUE Administration Lab/Rad Data: Laboratory Result Diagrams 09/05/24 12:20 09/05/24 12:20 Laboratory Results 09/05/24 09/05/24 09/05/24 Range/Units 13:19 12:20 12:20 WBC (3.98-10.04) x10^3/uL RBC (3.93-5.22) x10^6/uL Hgb (11.2-15.7) g/dL Hct (34.1-44.9) % MCV (79.4-94.8) fL MCH (25.6-32.2) pg MCHC (32.2-35.5) g/dL RDW (11.7-14.4) % Plt Count (182-369) x10^3/uL MPV (9.4-12.3) fL Gran % (34.0-71.1) % Immature Gran % (Auto) (0.001-0.429) % Nucleat RBC Rel Count (0.00-0.2) % Eos # (Auto) (0.04-0.36) x10^3/uL Immature Gran # (Auto) (0.001-0.031) x10^3u/L Absolute Lymphs (auto) (1.18-3.74) x10^3/uL Absolute Monos (auto) (0.24-0.86) x10^3/uL Absolute Nucleated RBC (0.00-0.012) x10^3u/L Lymphocytes % (19.3-51.7) % Monocytes % (4.7-12.5) % Eosinophils % (0.7-5.8) % Basophils % (0.1-1.2) % Absolute Granulocytes (1.56-6.13) x10^3/uL Basophils # (0.01-0.08) x10^3/uL Sodium 135 (135-145) mmol/L Potassium 5.2 H (3.5-5.1) mmol/L Chloride 105 (98-107) mmol/L Carbon Dioxide 22 (22-30) mmol/L Anion Gap 13.3 (5-15) MEQ/L BUN 58 H (7-17) mg/dL Creatinine 2.51 H (0.52-1.04) mg/dL Estimated GFR 18.4 ML/MIN Glucose 270 H (74-106) mg/dL Lactic Acid (0.4-2.0) Calcium 8.9 (8.4-10.2) mg/dL Magnesium 1.8 (1.6-2.3) mg/dL Total Bilirubin 0.40 (0.2-1.3) mg/dL AST 24 (14-36) U/L ALT 15 (0-35) U/L Alkaline Phosphatase 102 (38-126) U/L Troponin I 0.020 (0.000-0.033) ng/mL NT-Pro-B Natriuret Pep 5220 (<300) pg/mL Serum Total Protein 6.2 L (6.3-8.2) g/dL Albumin 3.6 (3.5-5.0) g/dL Urine Color Yellow (Yellow) Urine Appearance Clear (Clear) Urine pH 5.5 (4.6-8.0) Ur Specific [place] 1.015 (1.005-1.030) Urine Protein Negative (Negative) Urine Glucose (UA) Negative (Negative) mg/dL Urine Ketones Negative (Negative) Urine Blood Negative (Negative) Urine Nitrite Negative (Negative) Urine Bilirubin Negative (Negative) Urine Urobilinogen 0.2 (0.2) mg/dL Ur Leukocyte Esterase Negative (Negative) U Hyaline Cast (Auto) 3-5 A (0-2) /LPF Urine Microscopic RBC 0-2 (0-5) /HPF Urine Microscopic WBC 3-5 (0-5) /HPF Ur Epithelial Cells Rare (None Seen) /HPF Urine Bacteria None Seen (None Seen) /HPF Urine Culture Reflexed NO (NO) 09/05/24 09/05/24 Range/Units 12:20 12:20 WBC 7.7 (3.98-10.04) x10^3/uL RBC 3.48 L (3.93-5.22) x10^6/uL Hgb 10.3 L (11.2-15.7) g/dL Hct 32.1 L (34.1-44.9) % MCV 92.2 (79.4-94.8) fL MCH 29.6 (25.6-32.2) pg MCHC 32.1 L (32.2-35.5) g/dL RDW 14.9 H (11.7-14.4) % Plt Count 169 L (182-369) x10^3/uL MPV 11.0 (9.4-12.3) fL Gran % 78.1 H (34.0-71.1) % Immature Gran % (Auto) 0.6 H (0.001-0.429) % Nucleat RBC Rel Count 0.0 (0.00-0.2) % Eos # (Auto) 0.04 (0.04-0.36) x10^3/uL Immature Gran # (Auto) 0.05 H (0.001-0.031) x10^3u/L Absolute Lymphs (auto) 1.06 L (1.18-3.74) x10^3/uL Absolute Monos (auto) 0.51 (0.24-0.86) x10^3/uL Absolute Nucleated RBC 0.00 (0.00-0.012) x10^3u/L Lymphocytes % 13.8 L (19.3-51.7) % Monocytes % 6.6 (4.7-12.5) % Eosinophils % 0.5 L (0.7-5.8) % Basophils % 0.4 (0.1-1.2) % Absolute Granulocytes 6.01 (1.56-6.13) x10^3/uL Basophils # 0.03 (0.01-0.08) x10^3/uL Sodium (135-145) mmol/L Potassium (3.5-5.1) mmol/L Chloride (98-107) mmol/L Carbon Dioxide (22-30) mmol/L Anion Gap (5-15) MEQ/L BUN (7-17) mg/dL Creatinine (0.52-1.04) mg/dL Estimated GFR ML/MIN Glucose (74-106) mg/dL Lactic Acid 1.7 (0.4-2.0) Calcium (8.4-10.2) mg/dL Magnesium (1.6-2.3) mg/dL Total Bilirubin (0.2-1.3) mg/dL AST (14-36) U/L ALT (0-35) U/L Alkaline Phosphatase (38-126) U/L Troponin I (0.000-0.033) ng/mL NT-Pro-B Natriuret Pep (<300) pg/mL Serum Total Protein (6.3-8.2) g/dL Albumin (3.5-5.0) g/dL Urine Color (Yellow) Urine Appearance (Clear) Urine pH (4.6-8.0) Ur Specific [place] (1.005-1.030) Urine Protein (Negative) Urine Glucose (UA) (Negative) mg/dL Urine Ketones (Negative) Urine Blood (Negative) Urine Nitrite (Negative) Urine Bilirubin (Negative) Urine Urobilinogen (0.2) mg/dL Ur Leukocyte Esterase (Negative) U Hyaline Cast (Auto) (0-2) /LPF Urine Microscopic RBC (0-5) /HPF Urine Microscopic WBC (0-5) /HPF Ur Epithelial Cells (None Seen) /HPF Urine Bacteria (None Seen) /HPF Urine Culture Reflexed (NO) - Progress Progress: unchanged Progress Note: 09/05/24 14:47 84-year-old is evaluated in the ER for fall while going to the bathroom where her legs gave away and having generalized weakness afterwards. Patient did not hit her head. No focal neurodeficit. No chest pain or difficulty breathing. EKG is A-fib rate controlled with no ST elevation, has left bundle branch block. She is offered pain medication which she declined. X-rays chest, right humerus are negative for acute trauma findings. X-rays of right knee showed some effusion which I believe is secondary to fall and trauma. Has normal white count, chemistries with minimally elevated potassium of 5.2 but has acute on chronic renal failure with a creatinine of 2.5 with a baseline around 1.8 and a BUN of 58. She started on gentle hydration to make sure she does not have CHF. Initial troponins are negative but has a BNP of 5200s, No UTI. Patient continues to remain in A-fib with a rate between 80-110, she is not on rate lowering medication and not anticoagulated with diet have tried to ask her but she is not sure why. She was taking Plavix before but has been taken off of it as well and is only on aspirin. Her fall could be mechanical versus a run of A-fib causing her dizzy, discussed with hospitalist Dr. Campos, reviewed history, workup and agreed with observation admission. I have shared the results of workup with patient and family and plan of admission which they understand and agree. Discussed with Dr.: Other (Dr. Campos hospitalist) Will see patient in: hospital (observation) Counseled pt/family regarding: lab results, diagnosis, need for follow-up, rad results Medical Desision Making - Independent Historian Additional History obtained from: Child - Discussion of managment Care discussed with:: hospitalist Reviewed:: Test results Agreed on:: Treatment plan, place in obs Will see patient: in hospital - Diagnostic Testing Diagnostic test were ordered, analyzed, and reviewed by me: Yes Radiological Interpretation: Reviewed by me - Risk of complications The pt has a mod risk of morbidity or mortality based on: Need for prescription drug management The pt has a high risk of morbidity or mortality based on: Decision regarding hospitilization or escalation of hosp level of care - Departure Departure Disposition: Observation Clinical Impression: Acute kidney injury superimposed on CKD, Fall, Knee contusion, Atrial fibrillation Condition: Stable Critical Care Time: No Referrals: DANA JAMES MD [Primary Care Provider] - Follow up/PCP as directed
--- NOTE | 2024-09-05 15:19 | PCM.HP ---
History of Present Illness - Chief Complaint Chief Complaint: Generalized weakness, atrial fibrillation, fall, KANCHAN on CKD Date: 09/05/24 History of Present Illness: is a 84 year old female with a pmhx of DMII, HTN, HLD, Asthma, pulmonary HTN, and CAD with stent placed 2010 who presented to ED 09/05/24 after a ground-level fall at home around 3 a.m. this morning. Patient states she got up to go to the bathroom and her legs just gave out. She has pain to her right arm,knee, and hip. No trauma to her head. No LOC. She was on the floor for less than 15 mins. She additionally reports increased weakness, dizziness at times, chest pressure, shortness of breath, and increased heart rate over the past few weeks. She denies chest pain/pressure or dizziness currently or fever,cough, abdominal pain, DUKES, N/V/D. She states she thinks she has been diagnosed with INES B in the past but is unsure. 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 She sees Dr. Isaac Cui for nephrology. Upon arrival to ED patient tachycardic and hypertensive. CXR with cardiomegaly. No new/acute findings. Right knee xray with no acute findings. Right humerus xray with no acute findings. EKG with AFIB HR at 93. Left Nadeau Deviation, prolonged QT interval, Left Bundle Branch Block, Q-wave, Non-specific ST Changes. Lab findings remarkable for normocytic anemia with hgb at 10.3, hyperkalemia with potassium at 5.2, acute on chronic renal failure with creat at 2.51 (baseline around 1.8).,glucose elevated at 270, and BNP at 5220. Patient giving 1L NS. Admit for Fall, KANCHAN and AFIB. - Review of Systems Constitutional: Weakness Eyes: No Symptoms Ears, Nose, & Throat: No Symptoms Respiratory: Short Of Breath Cardiac: No Symptoms Abdominal/Gastrointestinal: No Symptoms Genitourinary Symptoms: No Symptoms Musculoskeletal: No Symptoms Skin: No Symptoms Neurological: No Symptoms Psychological: No Symptoms Endocrine: No Symptoms Hematologic/Lymphatic: Anemia Immunological/Allergic: No Symptoms Medications & Allergies Home Medications: Home Medication List Aspirin 81 mg PO DAILY 10/04/14 [History Confirmed 09/05/24] Atorvastatin Calcium [Lipitor 20MG Tablet] 40 mg PO HS 10/04/14 [History Confirmed 09/05/24] Oxybutynin Chloride 5 mg PO DAILY 09/23/20 [History Confirmed 09/05/24] Albuterol 8 gm Mdi Hfa [Ventolin Hfa MDI] 1 puff IN Q6HPRN PRN 11/15/22 [History Confirmed 09/05/24] Furosemide 20 mg [Lasix 20 mg] 40 mg PO BID 11/15/22 [History Confirmed 09/05/24] L.acidoph,Paracasei, B.lactis [Probiotic] 1 cap PO DAILY 11/15/22 [History Confirmed 09/05/24] Omeprazole 40 mg PO BID 11/15/22 [History Confirmed 09/05/24] Hydralazine HCl 25 mg PO TID 11/30/22 [History Confirmed 09/05/24] Lisinopril 20 mg [Zestril 20 MG] 40 mg PO DAILY 11/30/22 [History Confirmed 09/05/24] Vit C/E/Zn/Coppr/Lutein/Zeaxan [Preservision Areds 2 Softgel] 1 each PO DAILY 11/30/22 [History Confirmed 09/05/24] Ferrous Sulfate 325 mg [Feosol 325 mg] 325 mg PO DAILY 10/19/23 [History Confirmed 09/05/24] Ranolazine [Ranolazine ER] 500 mg PO BID 10/19/23 [History Confirmed 09/05/24] Allopurinol 100 mg [Zyloprim 100 mg] 100 mg PO BID 09/05/24 [History Confirmed 09/05/24] Bumetanide 1 mg [Bumex 1 mg] 1 mg PO DAILY 09/05/24 [History Confirmed 09/05/24] Carvedilol 12.5 mg [Coreg 12.5 mg] 12.5 mg PO BID 09/05/24 [History Confirmed 09/05/24] Finerenone [Kerendia] 10 mg PO DAILY 09/05/24 [History Confirmed 09/05/24] Fluticasone/Umeclidin/Vilanter [Trelegy Ellipta 200-62.5-25] 1 each IH DAILY 09/05/24 [History Confirmed 09/05/24] Insulin Glargine,Hum.rec.anlog [Tounati Solostar] 15 units SQ DAILY 09/05/24 [History Confirmed 09/05/24] Nitroglycerin 0.4 mg Tablet [Nitrostat 0.4 MG Tablet] 0.4 mg SL Q5MIN PRN MR X 3 PRN 09/05/24 [History Confirmed 09/05/24] Allergies/Adverse Reactions: Allergies Allergy/AdvReac Type Severity Reaction Status Date / Time quinine Allergy Difficulty Verified 09/05/24 11:25 Breathing - Past Medical History Past Medical History: Yes Neurological History: No Pertinent History ENT History: Cataracts Cardiac History: Arrhythmia, Coronary Artery Disease, Hypertension, Myocardial Infarction (VT) Respiratory History: Asthma Endocrine Medical History: Diabetes Type II Musculoskelatal History: Arthritis, Other GI Medical History: Polyps, Other History: Other Pyscho-Social History: No Pertinent History Reproductive Disorders: No Pertinent History Comment: CARDIAC STINT 2010, carpal tunnel [id number], kidney stones in pas t,. cataract surg in both eyes , sciatica pain - Past Surgical History Past Surgical History: Yes Neuro Surgical History: No Pertinent History Cardiac History: Cardiac Catheterization, Cardiac Stent Respiratory Surgery: No Pertinent History GI Surgical History: No Pertinent History Genitourinary Surgical Hx: Other Musculskeletal Surgical Hx: Other Female Surgical History: Hysterectomy Other Surgical History: kidney stone removal , carpal tunnel surgery, stretching of esophagus - Social History Smoking Status: Never smoker Exposure to second hand smoke: No Alcohol: None Drug Use: none - Social Determinants of Health Will the patient participate in the screening: Yes Do you worry about a steady place to live?: No Do you have any problems with any of the following?: No known problems In the past 12 months,have you had to go without utilities?: No Have you or anyone in your house had to go without enough: No Transportation Issues: No Has anyone in your support network made you feel unsafe?: No - Physical Exam Vital Signs: Vital Signs - 24 hr Temp Pulse Resp BP BP Pulse Ox 09/05/24 14:52 94 L 09/05/24 14:00 106 H 18 112/70 94 L 09/05/24 13:30 127/66 96 09/05/24 13:01 95 H 123/81 98 09/05/24 12:31 74 106/69 95 09/05/24 12:00 137/84 98 09/05/24 11:31 101 H 108/78 97 09/05/24 11:25 97.5 F 116 H 22 137/104 98 09/05/24 11:24 106 H 137/104 97 General Appearance: no apparent distress Neurologic Exam: alert, oriented x 3, cooperative Eye Exam: PERRL/EOMI Ears, Nose, Throat Exam: normal ENT inspection Neck Exam: normal inspection Respiratory Exam: normal breath sounds, lungs clear Cardiovascular Exam: irregular Gastrointestinal/Abdomen Exam: soft, normal bowel sounds Pelvic Exam: not done Rectal Exam: deferred Back Exam: normal inspection Extremity Exam: normal inspection Skin Exam: normal color Results - Labs Lab/Micro Results: Lab Results-Last 24 Hours 09/05/24 09/05/24 09/05/24 Range/Units 12:20 12:20 12:20 WBC 7.7 (3.98-10.04) x10^3/uL RBC 3.48 L (3.93-5.22) x10^6/uL Hgb 10.3 L (11.2-15.7) g/dL Hct 32.1 L (34.1-44.9) % MCV 92.2 (79.4-94.8) fL MCH 29.6 (25.6-32.2) pg MCHC 32.1 L (32.2-35.5) g/dL RDW 14.9 H (11.7-14.4) % Plt Count 169 L (182-369) x10^3/uL MPV 11.0 (9.4-12.3) fL Gran % 78.1 H (34.0-71.1) % Immature Gran % (Auto) 0.6 H (0.001-0.429) % Nucleat RBC Rel Count 0.0 (0.00-0.2) % Eos # (Auto) 0.04 (0.04-0.36) x10^3/uL Immature Gran # (Auto) 0.05 H (0.001-0.031) x10^3u/L Absolute Lymphs (auto) 1.06 L (1.18-3.74) x10^3/uL Absolute Monos (auto) 0.51 (0.24-0.86) x10^3/uL Absolute Nucleated RBC 0.00 (0.00-0.012) x10^3u/L Lymphocytes % 13.8 L (19.3-51.7) % Monocytes % 6.6 (4.7-12.5) % Eosinophils % 0.5 L (0.7-5.8) % Basophils % 0.4 (0.1-1.2) % Absolute Granulocytes 6.01 (1.56-6.13) x10^3/uL Basophils # 0.03 (0.01-0.08) x10^3/uL Sodium 135 (135-145) mmol/L Potassium 5.2 H (3.5-5.1) mmol/L Chloride 105 (98-107) mmol/L Carbon Dioxide 22 (22-30) mmol/L Anion Gap 13.3 (5-15) MEQ/L BUN 58 H (7-17) mg/dL Creatinine 2.51 H (0.52-1.04) mg/dL Estimated GFR 18.4 ML/MIN Glucose 270 H (74-106) mg/dL Lactic Acid 1.7 (0.4-2.0) Calcium 8.9 (8.4-10.2) mg/dL Magnesium 1.8 (1.6-2.3) mg/dL Total Bilirubin 0.40 (0.2-1.3) mg/dL AST 24 (14-36) U/L ALT 15 (0-35) U/L Alkaline Phosphatase 102 (38-126) U/L Troponin I (0.000-0.033) ng/mL NT-Pro-B Natriuret Pep 5220 (<300) pg/mL Serum Total Protein 6.2 L (6.3-8.2) g/dL Albumin 3.6 (3.5-5.0) g/dL Urine Color (Yellow) Urine Appearance (Clear) Urine pH (4.6-8.0) Ur Specific [place] (1.005-1.030) Urine Protein (Negative) Urine Glucose (UA) (Negative) mg/dL Urine Ketones (Negative) Urine Blood (Negative) Urine Nitrite (Negative) Urine Bilirubin (Negative) Urine Urobilinogen (0.2) mg/dL Ur Leukocyte Esterase (Negative) U Hyaline Cast (Auto) (0-2) /LPF Urine Microscopic RBC (0-5) /HPF Urine Microscopic WBC (0-5) /HPF Ur Epithelial Cells (None Seen) /HPF Urine Bacteria (None Seen) /HPF Urine Culture Reflexed (NO) 09/05/24 09/05/24 Range/Units 12:20 13:19 WBC (3.98-10.04) x10^3/uL RBC (3.93-5.22) x10^6/uL Hgb (11.2-15.7) g/dL Hct (34.1-44.9) % MCV (79.4-94.8) fL MCH (25.6-32.2) pg MCHC (32.2-35.5) g/dL RDW (11.7-14.4) % Plt Count (182-369) x10^3/uL MPV (9.4-12.3) fL Gran % (34.0-71.1) % Immature Gran % (Auto) (0.001-0.429) % Nucleat RBC Rel Count (0.00-0.2) % Eos # (Auto) (0.04-0.36) x10^3/uL Immature Gran # (Auto) (0.001-0.031) x10^3u/L Absolute Lymphs (auto) (1.18-3.74) x10^3/uL Absolute Monos (auto) (0.24-0.86) x10^3/uL Absolute Nucleated RBC (0.00-0.012) x10^3u/L Lymphocytes % (19.3-51.7) % Monocytes % (4.7-12.5) % Eosinophils % (0.7-5.8) % Basophils % (0.1-1.2) % Absolute Granulocytes (1.56-6.13) x10^3/uL Basophils # (0.01-0.08) x10^3/uL Sodium (135-145) mmol/L Potassium (3.5-5.1) mmol/L Chloride (98-107) mmol/L Carbon Dioxide (22-30) mmol/L Anion Gap (5-15) MEQ/L BUN (7-17) mg/dL Creatinine (0.52-1.04) mg/dL Estimated GFR ML/MIN Glucose (74-106) mg/dL Lactic Acid (0.4-2.0) Calcium (8.4-10.2) mg/dL Magnesium (1.6-2.3) mg/dL Total Bilirubin (0.2-1.3) mg/dL AST (14-36) U/L ALT (0-35) U/L Alkaline Phosphatase (38-126) U/L Troponin I 0.020 (0.000-0.033) ng/mL NT-Pro-B Natriuret Pep (<300) pg/mL Serum Total Protein (6.3-8.2) g/dL Albumin (3.5-5.0) g/dL Urine Color Yellow (Yellow) Urine Appearance Clear (Clear) Urine pH 5.5 (4.6-8.0) Ur Specific [place] 1.015 (1.005-1.030) Urine Protein Negative (Negative) Urine Glucose (UA) Negative (Negative) mg/dL Urine Ketones Negative (Negative) Urine Blood Negative (Negative) Urine Nitrite Negative (Negative) Urine Bilirubin Negative (Negative) Urine Urobilinogen 0.2 (0.2) mg/dL Ur Leukocyte Esterase Negative (Negative) U Hyaline Cast (Auto) 3-5 A (0-2) /LPF Urine Microscopic RBC 0-2 (0-5) /HPF Urine Microscopic WBC 3-5 (0-5) /HPF Ur Epithelial Cells Rare (None Seen) /HPF Urine Bacteria None Seen (None Seen) /HPF Urine Culture Reflexed NO (NO) - Radiology Impressions Radiology Exams & Impressions: Radiology Procedures Category Date Time Status CHEST 1 VIEW (PORTABLE) Stat Exams 09/05/24 12:08 Completed HUMERUS Stat Exams 09/05/24 12:09 Completed KNEE (3 VIEWS) Stat Exams 09/05/24 12:09 Completed Assessment/Plan (1) Atrial fibrillation Current Visit: Yes Status: Acute Assessment & Plan: -EKG with AFIB - HR controlled at 93-Left Nadeau Deviation, prolonged QT interval, Left Bundle Branch Block, Q-wave, Non-specific ST Changes -Follows with Dr. Ho OP- no h/o afib -TSH -MG reviewed and WNL at 1.8 -Echo reviewed from 06/13/24: EF 72% IMPRESSION: 1)NORMAL CONTRACTILITY LEFT VENTRICLE. 2)MILD MITRAL REGURGITATION. 3)MODERATE TRICUSPID REGURGITATION. 4)SEVERE PULMONARY HYPERTENSION. 5) MILD ASYMMETRIC LEFT VENTRICULAR HYPERTROPHY INVOLVING THR SEPTUM -BNP 5220 -Cardiology consulted, appreciate recs -echo -ddimer -CHADVASC -5 pts -Trops x 1 negative Code(s): I48.91 - UNSPECIFIED ATRIAL FIBRILLATION (2) Acute kidney injury superimposed on CKD Current Visit: Yes Status: Acute Assessment & Plan: -Baseline creat around 1.8- creat reviewed at 2.51 -NS at 50ml/hr -AVOID ANDRÉS/ARB/NSAIDs -Renal dose all medications -consider neph consult if no improvement -Monitor renal/lytes Code(s): N17.9 - ACUTE KIDNEY FAILURE, UNSPECIFIED; N18.9 - CHRONIC KIDNEY DISEASE, UNSPECIFIED (3) CAD (coronary artery disease) Current Visit: Yes Status: Acute Assessment & Plan: -Stents placed 2010- continue home meds Code(s): I25.10 - ATHSCL HEART DISEASE OF [place] CORONARY ARTERY W/O ANG PCTRS (4) HTN (hypertension) Current Visit: Yes Status: Acute Assessment & Plan: -stable BP continue home meds Code(s): I10 - ESSENTIAL (PRIMARY) HYPERTENSION (5) Fall Current Visit: Yes Status: Acute Assessment & Plan: -Ground level -Right knee, humerus, cxr reviewed with no acute findings -pain control -PT/OT -No LOC/head trauma -echo pending -TSH -UA negative - no source of infection Code(s): W19.XXXA - UNSPECIFIED FALL, INITIAL ENCOUNTER (6) Knee contusion Current Visit: Yes Status: Acute Assessment & Plan: -see fall Code(s): S80.00XA - CONTUSION OF UNSPECIFIED KNEE, INITIAL ENCOUNTER (7) Diabetes mellitus Current Visit: No Status: Acute Assessment & Plan: -ADA diet -SSI -A1c Code(s): E11.9 - TYPE 2 DIABETES MELLITUS WITHOUT COMPLICATIONS (8) Weakness Current Visit: Yes Status: Acute Assessment & Plan: -see fall VTE: lovenox Dispo: 1-2 days Code: Full Code(s): R53.1 - WEAKNESS (9) Hyperkalemia Current Visit: Yes Status: Acute Assessment & Plan: -potassium reviewed at 5.2- will recheck and trend Code(s): E87.5 - HYPERKALEMIA Telemedicine Encounter - Telemedicine Encounter Telemedicine Encounter: "The entirety of this encounter was performed via Telemedicine" This visit was performed using real-time audio and video connection between my location and thepatients locationwith the assistance of a surrogateat the patients location. Written or verbal consent was obtained from the patient/guardian to perform this visit [facility] technology. Any patient questions regarding the telemedicine interaction were answered.
[2024-09-05] MEDS ORDERED: Zofran 4 MG/2 ML VIAL IV PRN (16:30)
[2024-09-05] MEDS ORDERED: Nitrostat 0.4 MG Tablet SL PRN (16:33)
[2024-09-05] MEDS ORDERED: VENTOLIN COMMON CANISTER IH PRN ×2 (17:06→17:14)
[2024-09-05] MEDS ORDERED: MEDICATION INTERVENTION MC SCH (17:15)
--- NOTE | 2024-09-05 17:30 | PCM.CONS ---
History of Present Illness - Date of Consult Date of Encounter: 09/05/24 Consulting Firmware Developer: TABATHA COTO MD Requesting Provider: Attending Provider: PILY PETER MD Primary Care Provider: PCP: DANA JAMES - Consult Narrative HPI: 84 year old female with a pmhx of DMII, HTN, HLD, Asthma, pulmonary HTN, and CAD with stent placed 2010 who presented to ED 09/05/24 after a ground-level fall at home around 3 a.m. this morning. Patient states she got up to go to the bathroom and her legs just gave out. She has pain to her right arm,knee, and hip. No trauma to her head. No LOC. She was on the floor for less than 15 mins. She additionally reports increased weakness, dizziness at times, chest pressure, shortness of breath, and increased heart rate over the past few weeks. She denies chest pain/pressure or dizziness currently or fever,cough, abdominal pain, DUKES, N/V/D. She states she thinks she has been diagnosed with AFIB in the past but is unsure. She states she is had a diagnosis of afib since 2019 but was not on any rate controlling agents or anticoagulation Upon arrival to ED patient tachycardic and hypertensive. CXR with cardiomegaly. No new/acute findings. Right knee xray with no acute findings. Right humerus xray with no acute findings. EKG with AFIB HR at 93. Currently her herate rate is 113. cc:: The requesting physician will be sent a copy of the consult. Review of Systems - Review of Systems All systems: as per HPI - Past Medical History Past Medical History: Yes Neurological History: No Pertinent History ENT History: Cataracts Cardiac History: Arrhythmia, Coronary Artery Disease, Hypertension, Myocardial Infarction (VT) Respiratory History: Asthma Endocrine Medical History: Diabetes Type II Musculoskelatal History: Arthritis, Other GI Medical History: Polyps, Other History: Other Pyscho-Social History: No Pertinent History Reproductive Disorders: No Pertinent History Comment: CARDIAC STINT 2010, carpal tunnel [id number], kidney stones in past,. cataract surg in both eyes , sciatica pain - Past Surgical History Past Surgical History: Yes Neuro Surgical History: No Pertinent History Cardiac History: Cardiac Catheterization, Cardiac Stent Respiratory Surgery: No Pertinent History GI Surgical History: No Pertinent History Genitourinary Surgical Hx: Other Musculskeletal Surgical Hx: Other Female Surgical History: Hysterectomy Other Surgical History: kidney stone removal , carpal tunnel surgery, stretching of esophagus - Social History Smoking Status: Never smoker Exposure to second hand smoke: No Alcohol: None Drug Use: none - Social Determinants of Health Will the patient participate in the screening: Yes Do you worry about a steady place to live?: No Do you have any problems with any of the following?: No known problems In the past 12 months,have you had to go without utilities?: No Have you or anyone in your house had to go without enough: No Transportation Issues: No Has anyone in your support network made you feel unsafe?: No Does the patient want assistance with any of the above?: No Medications & Allergies Home Medications: Home Medication List Aspirin 81 mg PO DAILY 10/04/14 [History Confirmed 09/05/24] Atorvastatin Calcium [Lipitor 20MG Tablet] 40 mg PO HS 10/04/14 [History Confirmed 09/05/24] Oxybutynin Chloride 5 mg PO DAILY 09/23/20 [History Confirmed 09/05/24] Albuterol 8 gm Mdi Hfa [Ventolin Hfa MDI] 1 puff IN Q6HPRN PRN 11/15/22 [History Confirmed 09/05/24] Furosemide 20 mg [Lasix 20 mg] 40 mg PO BID 11/15/22 [History Confirmed 09/05/24] L.acidoph,Paracasei, B.lactis [Probiotic] 1 cap PO DAILY 11/15/22 [History Confirmed 09/05/24] Omeprazole 40 mg PO BID 11/15/22 [History Confirmed 09/05/24] Hydralazine HCl 25 mg PO TID 11/30/22 [History Confirmed 09/05/24] Lisinopril 20 mg [Zestril 20 MG] 40 mg PO DAILY 11/30/22 [History Confirmed 09/05/24] Vit C/E/Zn/Coppr/Lutein/Zeaxan [Preservision Areds 2 Softgel] 1 each PO DAILY 11/30/22 [History Confirmed 09/05/24] Ferrous Sulfate 325 mg [Feosol 325 mg] 325 mg PO DAILY 10/19/23 [History Confirmed 09/05/24] Ranolazine [Ranolazine ER] 500 mg PO BID 10/19/23 [History Confirmed 09/05/24] Allopurinol 100 mg [Zyloprim 100 mg] 100 mg PO BID 09/05/24 [History Confirmed 09/05/24] Bumetanide 1 mg [Bumex 1 mg] 1 mg PO DAILY 09/05/24 [History Confirmed 09/05/24] Carvedilol 12.5 mg [Coreg 12.5 mg] 12.5 mg PO BID 09/05/24 [History Confirmed 09/05/24] Finerenone [Kerendia] 10 mg PO DAILY 09/05/24 [History Confirmed 09/05/24] Fluticasone/Umeclidin/Vilanter [Trelegy Ellipta 200-62.5-25] 1 each IH DAILY 09/05/24 [History Confirmed 09/05/24] Insulin Glargine,Hum.rec.anlog [Tounati Solostar] 15 units SQ DAILY 09/05/24 [History Confirmed 09/05/24] Nitroglycerin 0.4 mg Tablet [Nitrostat 0.4 MG Tablet] 0.4 mg SL Q5MIN PRN MR X 3 PRN 09/05/24 [History Confirmed 09/05/24] Allergies/Adverse Reactions: Allergies Allergy/AdvReac Type Severity Reaction Status Date / Time quinine Allergy Difficulty Verified 09/05/24 11:25 Breathing Exam - Vitals Vital Signs: Vital Signs - 24 hr Temp Pulse Resp BP BP Pulse Ox 09/05/24 16:50 105 H 16 98 09/05/24 15:10 96.9 F 89 14 114/83 98 09/05/24 14:52 94 L 09/05/24 14:00 106 H 18 112/70 94 L 09/05/24 13:30 127/66 96 09/05/24 13:01 95 H 123/81 98 09/05/24 12:31 74 106/69 95 09/05/24 12:00 137/84 98 09/05/24 11:31 101 H 108/78 97 09/05/24 11:25 97.5 F 116 H 22 137/104 98 09/05/24 11:24 106 H 137/104 97 General:: alert and oriented x 4, no acute distress HEENT: PERRLA SpO2: 98 Results Vital Signs: Vital Signs - 24 hr Temp Pulse Resp BP BP Pulse Ox 09/05/24 16:50 105 H 16 98 09/05/24 15:10 96.9 F 89 14 114/83 98 09/05/24 14:52 94 L 09/05/24 14:00 106 H 18 112/70 94 L 09/05/24 13:30 127/66 96 09/05/24 13:01 95 H 123/81 98 09/05/24 12:31 74 106/69 95 09/05/24 12:00 137/84 98 09/05/24 11:31 101 H 108/78 97 09/05/24 11:25 97.5 F 116 H 22 137/104 98 09/05/24 11:24 106 H 137/104 97 Pain Assessment - Last Documented Pain Intensity 8 Intake and Output: Intake & Output 09/03/24 09/04/24 09/05/24 09/06/24 11:59 11:59 11:59 11:59 Weight 85.1 kg 84.5 kg LAB: I have reviewed the Labs in [facility]. Radiology Exams: Radiology Procedures Category Date Time Status CHEST 1 VIEW (PORTABLE) Stat Exams 09/05/24 12:08 Completed ECHO W/2D AND DOPPLER [US] Routine Exams 09/06/24 16:16 Ordered HUMERUS Stat Exams 09/05/24 12:09 Completed KNEE (3 VIEWS) Stat Exams 09/05/24 12:09 Completed Multi-Disciplinary Progress Notes: Multi-Disciplinary Progress Notes 09/05/24 17:15 Pharmacy Note by [facility] renal dosing review. Ranexa dose decreased to once daily. Zyloprim decreased to 50mg every other day. Kerendia is non-formulary and is not recommended in patients with creatinine clearance <25. Current estimated crcl is 13ml/min. Initialized on 09/05/24 17:15 - END OF NOTE Assessment & Plan (1) Atrial fibrillation Current Visit: Yes Status: Acute Assessment & Plan: likely chronic AF as this point since she had this diagnosis since 2019. given iv lopresser today. can start oral low dose bb tomorrow 25mg BID. From a cardiac standpoint she should be anticoagulated as she has an elevated sarkis vasc score of at least 4. 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 would check 2d echo. Code(s): I48.91 - UNSPECIFIED ATRIAL FIBRILLATION - Encounter Encounter: "The entirety of this encounter was performed via Telemedicine using audio and visual "
[2024-09-05] MEDS: LOPRESSOR INJECTION IV ONE (17:31)
[2024-09-05 19:39] LABS: Potassium 4.9 mmol/L (3.5-5.1); TROPONIN 0.022 ng/mL (0.000-0.033)
[2024-09-05] MEDS: TYLENOL 325 MG PO PRN (19:43)
[2024-09-05 20:02] LABS: INR 0.98 (0.8-3.0); PROTIME 10.7 SECONDS (9.4-12.5); PTT 25.1 SECONDS (25.1-36.5)
[2024-09-05 20:08] LABS: D-DIMER QUANTITATIVE 1.69 mg/L (0.0-0.50)
[2024-09-05] MEDS: Protonix 40MG Tablet PO SCH (21:50)
[2024-09-05] MEDS: Apresoline 25 MG TABLET PO SCH (21:50)
[2024-09-05] MEDS: ZOCOR 20MG PO SCH (21:50)
[2024-09-05] MEDS: COREG 12.5 MG PO SCH (21:50)
[2024-09-05] MEDS: HEPARIN 5000 UNITS/0.5 ML (HIGH RISK MED) SQ SCH (21:51)
[2024-09-05] MEDS: HUMALOG SQ PRN (21:56)
--- NOTE | 2024-09-06 05:14 | PCM.NOTE ---
Date and Time: 09/06/24 0514 Subjective Assessment: is a 84 year old female with a pmhx of DMII, HTN, HLD, Asthma, pulmonary HTN, and CAD with stent placed 2010 who presented to ED 09/05/24 after a ground-level fall at home around 3 a.m. this morning. Patient states she got up to go to the bathroom and her legs just gave out. She has pain to her right arm,knee, and hip. No trauma to her head. No LOC. She was on the floor for less than 15 mins. She additionally reports increased weakness, dizziness at times, chest pressure, shortness of breath, and increased heart rate over the past few weeks. She denies chest pain/pressure or dizziness currently or fever,cough, abdominal pain, DUKES, N/V/D. She states she thinks she has been diagnosed with AFIB in the past but is unsure. 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 She sees Dr. Isaac Cui for nephrology. Upon arrival to ED patient tachycardic and hypertensive. CXR with cardiomegaly. No new/acute findings. Right knee xray with no acute findings. Right humerus xray with no acute findings. EKG with AFIB HR at 93. Left Marshall Deviation, prolonged QT interval, Left Bundle Branch Block, Q-wave, Non-specific ST Changes. Lab findings remarkable for normocytic anemia with hgb at 10.3, hyperkalemia with potassium at 5.2, acute on chronic renal failure with creat at 2.51 (baseline around 1.8).,glucose elevated at 270, and BNP at 5220. Patient giving 1L NS. Admit for Fall, KANCHAN and AFIB. 09/06/24: Met with patient bedside. She is feeling better today although weak. Endorses right knee pain. Added Rheems for pain control. Discussed cardiology consult with patient. Will start Eliquis and continue metoprolol. Echo is pending. CM to check affordability of Eliquis. Most likely can discharge tomorrow. - Review of Systems Constitutional: No Symptoms Eyes: No Symptoms Ears, Nose, & Throat: No Symptoms Respiratory: Short Of Breath Cardiac: No Symptoms Abdominal/Gastrointestinal: No Symptoms Genitourinary Symptoms: No Symptoms Musculoskeletal: Joint Pain (right knee) Skin: No Symptoms Neurological: No Symptoms Psychological: No Symptoms Endocrine: No Symptoms Hematologic/Lymphatic: No Symptoms Immunological/Allergic: No Symptoms Objective Exam General Appearance: no apparent distress Neurologic Exam: alert, oriented x 3, cooperative Skin Exam: normal color Eye Exam: PERRL Ears, Nose, Throat Exam: normal ENT inspection Neck Exam: normal inspection Respiratory Exam: normal breath sounds, lungs clear Cardiovascular Exam: irregular Gastrointestinal/Abdomen Exam: soft, normal bowel sounds Extremity Exam: swelling (right knee) Back Exam: normal inspection Pelvic Exam: deferred Objective Data Vital Signs: Vital Signs - 24 hr Temp Pulse Resp BP BP Pulse Ox 09/06/24 04:00 97.6 F 94 H 18 145/65 95 09/06/24 00:00 97.6 F 97 H 16 132/58 95 09/05/24 19:49 98.2 F 103 H 17 140/75 93 L 09/05/24 17:33 98 09/05/24 16:50 105 H 16 98 09/05/24 15:10 96.9 F 89 14 114/83 98 09/05/24 14:52 94 L 09/05/24 14:00 106 H 18 112/70 94 L 09/05/24 13:30 127/66 96 09/05/24 13:01 95 H 123/81 98 09/05/24 12:31 74 106/69 95 09/05/24 12:00 137/84 98 09/05/24 11:31 101 H 108/78 97 09/05/24 11:25 97.5 F 116 H 22 137/104 98 09/05/24 11:24 106 H 137/104 97 Pain Assessment - Last Documented Pain Intensity 3 Pain Scale Used 0-10 Pain Scale Intake and Output: Intake & Output 09/03/24 09/04/24 09/05/24 09/06/24 11:59 11:59 11:59 11:59 Intake Total 500 Balance 500 Weight 85.1 kg 84.5 kg Lab Results: Lab Results-Last 24 Hours 09/05/24 09/05/24 09/05/24 Range/Units 12:20 12:20 12:20 WBC 7.7 (3.98-10.04) x10^3/uL RBC 3.48 L (3.93-5.22) x10^6/uL Hgb 10.3 L (11.2-15.7) g/dL Hct 32.1 L (34.1-44.9) % MCV 92.2 (79.4-94.8) fL MCH 29.6 (25.6-32.2) pg MCHC 32.1 L (32.2-35.5) g/dL RDW 14.9 H (11.7-14.4) % Plt Count 169 L (182-369) x10^3/uL MPV 11.0 (9.4-12.3) fL Gran % 78.1 H (34.0-71.1) % Immature Gran % (Auto) 0.6 H (0.001-0.429) % Nucleat RBC Rel Count 0.0 (0.00-0.2) % Eos # (Auto) 0.04 (0.04-0.36) x10^3/uL Immature Gran # (Auto) 0.05 H (0.001-0.031) x10^3u/L Absolute Lymphs (auto) 1.06 L (1.18-3.74) x10^3/uL Absolute Monos (auto) 0.51 (0.24-0.86) x10^3/uL Absolute Nucleated RBC 0.00 (0.00-0.012) x10^3u/L Lymphocytes % 13.8 L (19.3-51.7) % Monocytes % 6.6 (4.7-12.5) % Eosinophils % 0.5 L (0.7-5.8) % Basophils % 0.4 (0.1-1.2) % Absolute Granulocytes 6.01 (1.56-6.13) x10^3/uL Basophils # 0.03 (0.01-0.08) x10^3/uL PT (9.4-12.5) SECONDS INR (0.8-3.0) APTT (25.1-36.5) SECONDS D-Dimer (0.0-0.50) mg/L Sodium 135 (135-145) mmol/L Potassium 5.2 H (3.5-5.1) mmol/L Chloride 105 (98-107) mmol/L Carbon Dioxide 22 (22-30) mmol/L Anion Gap 13.3 (5-15) MEQ/L BUN 58 H (7-17) mg/dL Creatinine 2.51 H (0.52-1.04) mg/dL Estimated GFR 18.4 ML/MIN Glucose 270 H (74-106) mg/dL POC Glucometer (74 to 106) mg/dL Hemoglobin A1c (4.5-6.0) % Lactic Acid 1.7 (0.4-2.0) Calcium 8.9 (8.4-10.2) mg/dL Magnesium 1.8 (1.6-2.3) mg/dL Total Bilirubin 0.40 (0.2-1.3) mg/dL AST 24 (14-36) U/L ALT 15 (0-35) U/L Alkaline Phosphatase 102 (38-126) U/L Troponin I (0.000-0.033) ng/mL NT-Pro-B Natriuret Pep 5220 (<300) pg/mL Serum Total Protein 6.2 L (6.3-8.2) g/dL Albumin 3.6 (3.5-5.0) g/dL TSH 3rd Generation (0.470-4.680) mIU/L Urine Color (Yellow) Urine Appearance (Clear) Urine pH (4.6-8.0) Ur Specific [place] (1.005-1.030) Urine Protein (Negative) Urine Glucose (UA) (Negative) mg/dL Urine Ketones (Negative) Urine Blood (Negative) Urine Nitrite (Negative) Urine Bilirubin (Negative) Urine Urobilinogen (0.2) mg/dL Ur Leukocyte Esterase (Negative) U Hyaline Cast (Auto) (0-2) /LPF Urine Microscopic RBC (0-5) /HPF Urine Microscopic WBC (0-5) /HPF Ur Epithelial Cells (None Seen) /HPF Urine Bacteria (None Seen) /HPF Urine Culture Reflexed (NO) 09/05/24 09/05/24 09/05/24 Range/Units 12:20 12:20 12:20 WBC (3.98-10.04) x10^3/uL RBC (3.93-5.22) x10^6/uL Hgb (11.2-15.7) g/dL Hct (34.1-44.9) % MCV (79.4-94.8) fL MCH (25.6-32.2) pg MCHC (32.2-35.5) g/dL RDW (11.7-14.4) % Plt Count (182-369) x10^3/uL MPV (9.4-12.3) fL Gran % (34.0-71.1) % Immature Gran % (Auto) (0.001-0.429) % Nucleat RBC Rel Count (0.00-0.2) % Eos # (Auto) (0.04-0.36) x10^3/uL Immature Gran # (Auto) (0.001-0.031) x10^3u/L Absolute Lymphs (auto) (1.18-3.74) x10^3/uL Absolute Monos (auto) (0.24-0.86) x10^3/uL Absolute Nucleated RBC (0.00-0.012) x10^3u/L Lymphocytes % (19.3-51.7) % Monocytes % (4.7-12.5) % Eosinophils % (0.7-5.8) % Basophils % (0.1-1.2) % Absolute Granulocytes (1.56-6.13) x10^3/uL Basophils # (0.01-0.08) x10^3/uL PT (9.4-12.5) SECONDS INR (0.8-3.0) APTT (25.1-36.5) SECONDS D-Dimer (0.0-0.50) mg/L Sodium (135-145) mmol/L Potassium (3.5-5.1) mmol/L Chloride (98-107) mmol/L Carbon Dioxide (22-30) mmol/L Anion Gap (5-15) MEQ/L BUN (7-17) mg/dL Creatinine (0.52-1.04) mg/dL Estimated GFR ML/MIN Glucose (74-106) mg/dL POC Glucometer (74 to 106) mg/dL Hemoglobin A1c 7.83 H (4.5-6.0) % Lactic Acid (0.4-2.0) Calcium (8.4-10.2) mg/dL Magnesium (1.6-2.3) mg/dL Total Bilirubin (0.2-1.3) mg/dL AST (14-36) U/L ALT (0-35) U/L Alkaline Phosphatase (38-126) U/L Troponin I 0.020 (0.000-0.033) ng/mL NT-Pro-B Natriuret Pep (<300) pg/mL Serum Total Protein (6.3-8.2) g/dL Albumin (3.5-5.0) g/dL TSH 3rd Generation 2.453 (0.470-4.680) mIU/L Urine Color (Yellow) Urine Appearance (Clear) Urine pH (4.6-8.0) Ur Specific [place] (1.005-1.030) Urine Protein (Negative) Urine Glucose (UA) (Negative) mg/dL Urine Ketones (Negative) Urine Blood (Negative) Urine Nitrite (Negative) Urine Bilirubin (Negative) Urine Urobilinogen (0.2) mg/dL Ur Leukocyte Esterase (Negative) U Hyaline Cast (Auto) (0-2) /LPF Urine Microscopic RBC (0-5) /HPF Urine Microscopic WBC (0-5) /HPF Ur Epithelial Cells (None Seen) /HPF Urine Bacteria (None Seen) /HPF Urine Culture Reflexed (NO) 09/05/24 09/05/24 09/05/24 Range/Units 13:19 16:05 16:38 WBC (3.98-10.04) x10^3/uL RBC (3.93-5.22) x10^6/uL Hgb (11.2-15.7) g/dL Hct (34.1-44.9) % MCV (79.4-94.8) fL MCH (25.6-32.2) pg MCHC (32.2-35.5) g/dL RDW (11.7-14.4) % Plt Count (182-369) x10^3/uL MPV (9.4-12.3) fL Gran % (34.0-71.1) % Immature Gran % (Auto) (0.001-0.429) % Nucleat RBC Rel Count (0.00-0.2) % Eos # (Auto) (0.04-0.36) x10^3/uL Immature Gran # (Auto) (0.001-0.031) x10^3u/L Absolute Lymphs (auto) (1.18-3.74) x10^3/uL Absolute Monos (auto) (0.24-0.86) x10^3/uL Absolute Nucleated RBC (0.00-0.012) x10^3u/L Lymphocytes % (19.3-51.7) % Monocytes % (4.7-12.5) % Eosinophils % (0.7-5.8) % Basophils % (0.1-1.2) % Absolute Granulocytes (1.56-6.13) x10^3/uL Basophils # (0.01-0.08) x10^3/uL PT (9.4-12.5) SECONDS INR (0.8-3.0) APTT (25.1-36.5) SECONDS D-Dimer (0.0-0.50) mg/L Sodium (135-145) mmol/L Potassium (3.5-5.1) mmol/L Chloride (98-107) mmol/L Carbon Dioxide (22-30) mmol/L Anion Gap (5-15) MEQ/L BUN (7-17) mg/dL Creatinine (0.52-1.04) mg/dL Estimated GFR ML/MIN Glucose (74-106) mg/dL POC Glucometer 135 H (74 to 106) mg/dL Hemoglobin A1c (4.5-6.0) % Lactic Acid (0.4-2.0) Calcium (8.4-10.2) mg/dL Magnesium (1.6-2.3) mg/dL Total Bilirubin (0.2-1.3) mg/dL AST (14-36) U/L ALT (0-35) U/L Alkaline Phosphatase (38-126) U/L Troponin I 0.019 (0.000-0.033) ng/mL NT-Pro-B Natriuret Pep (<300) pg/mL Serum Total Protein (6.3-8.2) g/dL Albumin (3.5-5.0) g/dL TSH 3rd Generation (0.470-4.680) mIU/L Urine Color Yellow (Yellow) Urine Appearance Clear (Clear) Urine pH 5.5 (4.6-8.0) Ur Specific [place] 1.015 (1.005-1.030) Urine Protein Negative (Negative) Urine Glucose (UA) Negative (Negative) mg/dL Urine Ketones Negative (Negative) Urine Blood Negative (Negative) Urine Nitrite Negative (Negative) Urine Bilirubin Negative (Negative) Urine Urobilinogen 0.2 (0.2) mg/dL Ur Leukocyte Esterase Negative (Negative) U Hyaline Cast (Auto) 3-5 A (0-2) /LPF Urine Microscopic RBC 0-2 (0-5) /HPF Urine Microscopic WBC 3-5 (0-5) /HPF Ur Epithelial Cells Rare (None Seen) /HPF Urine Bacteria None Seen (None Seen) /HPF Urine Culture Reflexed NO (NO) 09/05/24 09/05/24 09/05/24 Range/Units 19:10 19:10 20:49 WBC (3.98-10.04) x10^3/uL RBC (3.93-5.22) x10^6/uL Hgb (11.2-15.7) g/dL Hct (34.1-44.9) % MCV (79.4-94.8) fL MCH (25.6-32.2) pg MCHC (32.2-35.5) g/dL RDW (11.7-14.4) % Plt Count (182-369) x10^3/uL MPV (9.4-12.3) fL Gran % (34.0-71.1) % Immature Gran % (Auto) (0.001-0.429) % Nucleat RBC Rel Count (0.00-0.2) % Eos # (Auto) (0.04-0.36) x10^3/uL Immature Gran # (Auto) (0.001-0.031) x10^3u/L Absolute Lymphs (auto) (1.18-3.74) x10^3/uL Absolute Monos (auto) (0.24-0.86) x10^3/uL Absolute Nucleated RBC (0.00-0.012) x10^3u/L Lymphocytes % (19.3-51.7) % Monocytes % (4.7-12.5) % Eosinophils % (0.7-5.8) % Basophils % (0.1-1.2) % Absolute Granulocytes (1.56-6.13) x10^3/uL Basophils # (0.01-0.08) x10^3/uL PT 10.7 (9.4-12.5) SECONDS INR 0.98 (0.8-3.0) APTT 25.1 (25.1-36.5) SECONDS D-Dimer 1.69 H* (0.0-0.50) mg/L Sodium (135-145) mmol/L Potassium 4.9 (3.5-5.1) mmol/L Chloride (98-107) mmol/L Carbon Dioxide (22-30) mmol/L Anion Gap (5-15) MEQ/L BUN (7-17) mg/dL Creatinine (0.52-1.04) mg/dL Estimated GFR ML/MIN Glucose (74-106) mg/dL POC Glucometer 172 H (74 to 106) mg/dL Hemoglobin A1c (4.5-6.0) % Lactic Acid (0.4-2.0) Calcium (8.4-10.2) mg/dL Magnesium (1.6-2.3) mg/dL Total Bilirubin (0.2-1.3) mg/dL AST (14-36) U/L ALT (0-35) U/L Alkaline Phosphatase (38-126) U/L Troponin I 0.022 (0.000-0.033) ng/mL NT-Pro-B Natriuret Pep (<300) pg/mL Serum Total Protein (6.3-8.2) g/dL Albumin (3.5-5.0) g/dL TSH 3rd Generation (0.470-4.680) mIU/L Urine Color (Yellow) Urine Appearance (Clear) Urine pH (4.6-8.0) Ur Specific [place] (1.005-1.030) Urine Protein (Negative) Urine Glucose (UA) (Negative) mg/dL Urine Ketones (Negative) Urine Blood (Negative) Urine Nitrite (Negative) Urine Bilirubin (Negative) Urine Urobilinogen (0.2) mg/dL Ur Leukocyte Esterase (Negative) U Hyaline Cast (Auto) (0-2) /LPF Urine Microscopic RBC (0-5) /HPF Urine Microscopic WBC (0-5) /HPF Ur Epithelial Cells (None Seen) /HPF Urine Bacteria (None Seen) /HPF Urine Culture Reflexed (NO) 01/09/25 Range/Units 20:49 WBC (3.98-10.04) x10^3/uL RBC (3.93-5.22) x10^6/uL Hgb (11.2-15.7) g/dL Hct (34.1-44.9) % MCV (79.4-94.8) fL MCH (25.6-32.2) pg MCHC (32.2-35.5) g/dL RDW (11.7-14.4) % Plt Count (182-369) x10^3/uL MPV (9.4-12.3) fL Gran % (34.0-71.1) % Immature Gran % (Auto) (0.001-0.429) % Nucleat RBC Rel Count (0.00-0.2) % Eos # (Auto) (0.04-0.36) x10^3/uL Immature Gran # (Auto) (0.001-0.031) x10^3u/L Absolute Lymphs (auto) (1.18-3.74) x10^3/uL Absolute Monos (auto) (0.24-0.86) x10^3/uL Absolute Nucleated RBC (0.00-0.012) x10^3u/L Lymphocytes % (19.3-51.7) % Monocytes % (4.7-12.5) % Eosinophils % (0.7-5.8) % Basophils % (0.1-1.2) % Absolute Granulocytes (1.56-6.13) x10^3/uL Basophils # (0.01-0.08) x10^3/uL PT (9.4-12.5) SECONDS INR (0.8-3.0) APTT (25.1-36.5) SECONDS D-Dimer (0.0-0.50) mg/L Sodium (135-145) mmol/L Potassium (3.5-5.1) mmol/L Chloride (98-107) mmol/L Carbon Dioxide (22-30) mmol/L Anion Gap (5-15) MEQ/L BUN (7-17) mg/dL Creatinine (0.52-1.04) mg/dL Estimated GFR ML/MIN Glucose (74-106) mg/dL POC Glucometer 172 H (74 to 106) mg/dL Hemoglobin A1c (4.5-6.0) % Lactic Acid (0.4-2.0) Calcium (8.4-10.2) mg/dL Magnesium (1.6-2.3) mg/dL Total Bilirubin (0.2-1.3) mg/dL AST (14-36) U/L ALT (0-35) U/L Alkaline Phosphatase (38-126) U/L Troponin I (0.000-0.033) ng/mL NT-Pro-B Natriuret Pep (<300) pg/mL Serum Total Protein (6.3-8.2) g/dL Albumin (3.5-5.0) g/dL TSH 3rd Generation (0.470-4.680) mIU/L Urine Color (Yellow) Urine Appearance (Clear) Urine pH (4.6-8.0) Ur Specific [place] (1.005-1.030) Urine Protein (Negative) Urine Glucose (UA) (Negative) mg/dL Urine Ketones (Negative) Urine Blood (Negative) Urine Nitrite (Negative) Urine Bilirubin (Negative) Urine Urobilinogen (0.2) mg/dL Ur Leukocyte Esterase (Negative) U Hyaline Cast (Auto) (0-2) /LPF Urine Microscopic RBC (0-5) /HPF Urine Microscopic WBC (0-5) /HPF Ur Epithelial Cells (None Seen) /HPF Urine Bacteria (None Seen) /HPF Urine Culture Reflexed (NO) Radiology Exams: Radiology Procedures Category Date Time Status CHEST 1 VIEW (PORTABLE) Stat Exams 09/05/24 12:08 Completed ECHO W/2D AND DOPPLER [US] Routine Exams 09/06/24 16:16 Ordered HUMERUS Stat Exams 09/05/24 12:09 Completed KNEE (3 VIEWS) Stat Exams 09/05/24 12:09 Completed Multi-Disciplinary Progress Notes: Multi-Disciplinary Progress Notes 09/05/24 17:15 Pharmacy Note by [facility] renal dosing review. Ranexa dose decreased to once daily. Zyloprim decreased to 50mg every other day. Kerendia is non-formulary and is not recommended in patients with creatinine clearance <25. Current estimated crcl is 13ml/min. Initialized on 09/05/24 17:15 - END OF NOTE Assessment/Plan (1) Atrial fibrillation Current Visit: Yes Status: Acute Assessment & Plan: -EKG with AFIB - HR controlled at 93-Left Marshall Deviation, prolonged QT interval, Left Bundle Branch Block, Q-wave, Non-specific ST Changes -Follows with Dr. Ho OP- no h/o afib -TSH -MG reviewed and WNL at 1.8 -Echo reviewed from 06/13/24: EF 72% IMPRESSION: 1)NORMAL CONTRACTILITY LEFT VENTRICLE. 2)MILD MITRAL REGURGITATION. 3)MODERATE TRICUSPID REGURGITATION. 4)SEVERE PULMONARY HYPERTENSION. 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 Ho as OP - HR controlled -DDImer elevated will obtain vq scan Code(s): I48.91 - UNSPECIFIED ATRIAL FIBRILLATION (2) Acute kidney injury superimposed on CKD Current Visit: Yes Status: Acute Assessment & Plan: -Baseline creat around 1.8- creat reviewed at 2.51 -NS at 50ml/hr -AVOID ANDRÉS/ARB/NSAIDs -Renal dose all medications -consider neph consult if no improvement -Monitor renal/lytes 09/06/24: -creat reviewed and improved at 2.28 - not at baseline of 1.8 -continue IVF Code(s): N17.9 - ACUTE KIDNEY FAILURE, UNSPECIFIED; N18.9 - CHRONIC KIDNEY DISEASE, UNSPECIFIED (3) CAD (coronary artery disease) Current Visit: Yes Status: Acute Assessment & Plan: -Stents placed 2010- continue home meds Code(s): I25.10 - ATHSCL HEART DISEASE OF [place] CORONARY ARTERY W/O ANG PCTRS (4) HTN (hypertension) Current Visit: Yes Status: Acute Assessment & Plan: -stable BP continue home meds Code(s): I10 - ESSENTIAL (PRIMARY) HYPERTENSION (5) Fall Current Visit: Yes Status: Acute Assessment & Plan: -Ground level -Right knee, humerus, cxr reviewed with no acute findings -pain control -PT/OT -No LOC/head trauma -echo pending -TSH -WNL -UA negative - no source of infection Code(s): W19.XXXA - UNSPECIFIED FALL, INITIAL ENCOUNTER (6) Knee contusion Current Visit: Yes Status: Acute Assessment & Plan: -see fall Code(s): S80.00XA - CONTUSION OF UNSPECIFIED KNEE, INITIAL ENCOUNTER (7) Diabetes mellitus Current Visit: No Status: Acute Assessment & Plan: -ADA diet -SSI -A1c Code(s): E11.9 - TYPE 2 DIABETES MELLITUS WITHOUT COMPLICATIONS (8) Weakness Current Visit: Yes Status: Acute Assessment & Plan: -see fall VTE: lovenox Dispo: 1-2 days Code: Full Code(s): R53.1 - WEAKNESS (9) Hyperkalemia Current Visit: Yes Status: Acute Assessment & Plan: -potassium reviewed at 5.2- will recheck and trend Code(s): I48.91 - UNSPECIFIED ATRIAL FIBRILLATION (2) Acute kidney injury superimposed on CKD Current Visit: Yes Status: Acute Code(s): N17.9 - ACUTE KIDNEY FAILURE, UNSPECIFIED; N18.9 - CHRONIC KIDNEY DISEASE, UNSPECIFIED (3) CAD (coronary artery disease) Current Visit: Yes Status: Acute Code(s): I25.10 - ATHSCL HEART DISEASE OF [place] CORONARY ARTERY W/O ANG PCTRS (4) HTN (hypertension) Current Visit: Yes Status: Acute Code(s): I10 - ESSENTIAL (PRIMARY) HYPERTENSION (5) Fall Current Visit: Yes Status: Acute Code(s): W19.XXXA - UNSPECIFIED FALL, INITIAL ENCOUNTER (6) Knee contusion Current Visit: Yes Status: Acute Code(s): S80.00XA - CONTUSION OF UNSPECIFIED KNEE, INITIAL ENCOUNTER (7) Diabetes mellitus Current Visit: No Status: Acute Code(s): E11.9 - TYPE 2 DIABETES MELLITUS WITHOUT COMPLICATIONS (8) Weakness Current Visit: Yes Status: Acute Code(s): R53.1 - WEAKNESS (9) Hyperkalemia Current Visit: Yes Status: Acute Code(s): E87.5 - HYPERKALEMIA
[2024-09-06 05:21] LABS: Absolute Neutrophil Ct (ANC) 5.02 x10^3/uL (1.56-6.13); BASOPHIL % 0.4 % (0.1-1.2); Basophil (Absolute #) 0.03 x10^3/uL (0.01-0.08); Eosinophil % 1.2 % (0.7-5.8); Eosinophil (Absolute #) 0.08 x10^3/uL (0.04-0.36); Hematocrit 29.4 % (34.1-44.9); Hemoglobin 9.3 g/dL (11.2-15.7); IMMATURE GRAN # 0.03 x10^3u/L (0.001-0.031); IMMATURE GRAN % 0.4 % (0.001-0.429); Lymphocyte (Absolute #) 1.15 x10^3/uL (1.18-3.74); Mean Cell Volume 91.9 fL (79.4-94.8); Mean Corpuscular Hemoglobin 29.1 pg (25.6-32.2); Mean Corpuscular Hgb Concent. 31.6 g/dL (32.2-35.5); Mean Platelet Volume 12.6 fL (9.4-12.3); Monocyte (Absolute #) 0.46 x10^3/uL (0.24-0.86); Monocytes % 6.8 % (4.7-12.5); Neutrophil % 74.2 % (34.0-71.1); Platelet Count 161 x10^3/uL (182-369); Red Cell Distribution Width 14.9 % (11.7-14.4); White Blood Count 6.8 x10^3/uL (3.98-10.04)
[2024-09-06 05:49] LABS: ALBUMIN 3.3 g/dL (3.5-5.0); ANION GAP 10.5 MEQ/L (5-15); BILIRUBIN,TOTAL 0.4 mg/dL (0.2-1.3); Calcium 8.7 mg/dL (8.4-10.2); Creatinine 1 2.28 mg/dL (0.52-1.04); EST GLOMERULAR FILTRATION RATE 20.7 ML/MIN; MAGNESIUM 1.9 mg/dL (1.6-2.3); Potassium 4.9 mmol/L (3.5-5.1); Total Protein 5.9 g/dL (6.3-8.2)
[2024-09-06] MEDS: NORCO 5/325 MG PO ONE (08:41)
[2024-09-06] MEDS ORDERED: FINERENONE 10 MG PO SCH (10:00)
[2024-09-06] MEDS ORDERED: NON-FORMULARY ITEM (Fluticasone/Umeclidin/Vilanter [Trelegy Ellipta 200-62.5-25] 1 EACH Bl IH SCH (10:00)
[2024-09-06] MEDS: ECOTRIN 81 MG PO SCH (10:25)
[2024-09-06] MEDS: FEOSOL 325 MG PO SCH (10:25)
[2024-09-06] MEDS: Ranexa 500 MG PO SCH (10:25)
[2024-09-06] MEDS: ZYLOPRIM 100 MG PO SCH (10:25)
[2024-09-06] MEDS: Ocuvite Tablet PO SCH (10:25)
[2024-09-06] MEDS: Ditropan 5 MG PO SCH (10:25)
[2024-09-06] MEDS: Lopressor 25MG Tab PO SCH (10:25)
[2024-09-06] MEDS: Lantus Insulin SQ SCH (10:26)
[2024-09-06] MEDS: Acidophilus TABLET PO SCH (10:26)
[2024-09-06] MEDS: PHARMACY RENAL DOSING MC ONE (11:30)
--- NOTE | 2024-09-06 14:03 | XRAY ---
Indication: Chest pain. Short of breath. Elevated d-dimer. Comparison: None Patient received 5.0 mCi technetium 99 MAA for the perfusion portion of the exam. Patient inhaled 35 mCi aerosolized technetium 99 DTPA for the ventilation portion of the exam. Multiple planar images obtained. Perfusion images demonstrates scattered small bilateral nonsegmental perfusion defects, predominantly posteriorly. Ventilation images demonstrates scattered small matched bilateral nonsegmental ventilation defects also predominantly posteriorly. Incidental cardiomegaly. Impression: Scattered small matched bilateral ventilation/perfusion defects. No corresponding chest abnormality on chest radiograph one day earlier. Incidental cardiomegaly. PIOPED criteria for diagnosis of pulmonary embolus is low probability.
[2024-09-06] MEDS: NORCO 5/325 MG PO PRN (20:05)
[2024-09-06] MEDS: ELIQUIS 2.5 MG TABLET PO SCH (21:49)
[2024-09-07 05:21] LABS: Absolute Neutrophil Ct (ANC) 5.43 x10^3/uL (1.56-6.13); BASOPHIL % 0.1 % (0.1-1.2); Basophil (Absolute #) 0.01 x10^3/uL (0.01-0.08); Eosinophil % 1.3 % (0.7-5.8); Hematocrit 30.7 % (34.1-44.9); Hemoglobin 9.4 g/dL (11.2-15.7); IMMATURE GRAN # 0.02 x10^3u/L (0.001-0.031); IMMATURE GRAN % 0.3 % (0.001-0.429); Lymphocyte (Absolute #) 1.26 x10^3/uL (1.18-3.74); Lymphocytes % 16.6 % (19.3-51.7); Mean Cell Volume 94.8 fL (79.4-94.8); Mean Corpuscular Hgb Concent. 30.6 g/dL (32.2-35.5); Mean Platelet Volume 11.5 fL (9.4-12.3); Monocyte (Absolute #) 0.79 x10^3/uL (0.24-0.86); Monocytes % 10.4 % (4.7-12.5); Neutrophil % 71.3 % (34.0-71.1); Platelet Count 159 x10^3/uL (182-369); Red Blood Count 3.24 x10^6/uL (3.93-5.22); Red Cell Distribution Width 15.5 % (11.7-14.4); White Blood Count 7.6 x10^3/uL (3.98-10.04)
--- NOTE | 2024-09-07 05:25 | PCM.NOTE ---
Date and Time: 09/07/24 0524 Subjective Assessment: is a 84 year old female with a pmhx of DMII, HTN, HLD, Asthma, pulmonary HTN, and CAD with stent placed 2010 who presented to ED 09/05/24 after a ground-level fall at home around 3 a.m. this morning. Patient states she got up to go to the bathroom and her legs just gave out. She has pain to her right arm,knee, and hip. No trauma to her head. No LOC. She was on the floor for less than 15 mins. She additionally reports increased weakness, dizziness at times, chest pressure, shortness of breath, and increased heart rate over the past few weeks. She denies chest pain/pressure or dizziness currently or fever,cough, abdominal pain, DUKES, N/V/D. She states she thinks she has been diagnosed with AFIB in the past but is unsure. 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 She sees Dr. Isaac Cui for nephrology. Upon arrival to ED patient tachycardic and hypertensive. CXR with cardiomegaly. No new/acute findings. Right knee xray with no acute findings. Right humerus xray with no acute findings. EKG with AFIB HR at 93. Left [place] Deviation, prolonged QT interval, Left Bundle Branch Block, Q-wave, Non-specific ST Changes. Lab findings remarkable for normocytic anemia with hgb at 10.3, hyperkalemia with potassium at 5.2, acute on chronic renal failure with creat at 2.51 (baseline around 1.8).,glucose elevated at 270, and BNP at 5220. Patient giving 1L NS. Admit for Fall, KANCH[place] and AFIB. 09/06/24: Met with patient bedside. She is feeling better today although weak. Endorses right knee pain. Added Reese for pain control. Discussed cardiology consult with patient. Will start Eliquis and continue metoprolol. Echo is pending. CM to check affordability of Eliquis. Most likely can discharge tomorrow. 09/07: No overnight events noted. Endorses shortness of breath with exertion - improved. Right knee pain improved with norco. Eliquis started and affordable for patient. HR in the 130's x 1 last night. Creat remains elevated at 2.32 - will increase IVF and continue to monitor HR and kidney function. Will reach out to cards if any more episode of increased HR for suggestions on dose modifications. - Review of Systems Constitutional: Weakness Eyes: No Symptoms Ears, Nose, & Throat: No Symptoms Respiratory: Short Of Breath Cardiac: No Symptoms Abdominal/Gastrointestinal: No Symptoms Genitourinary Symptoms: No Symptoms Musculoskeletal: Joint Pain (right knee) Skin: Other (right knee contusion) Neurological: No Symptoms Psychological: No Symptoms Endocrine: No Symptoms Hematologic/Lymphatic: No Symptoms Immunological/Allergic: No Symptoms Objective Exam General Appearance: no apparent distress Neurologic Exam: alert, oriented x 3, cooperative Skin Exam: normal color Eye Exam: PERRL Ears, Nose, Throat Exam: normal ENT inspection Neck Exam: normal inspection Respiratory Exam: normal breath sounds, lungs clear Cardiovascular Exam: irregular Gastrointestinal/Abdomen Exam: soft, normal bowel sounds Extremity Exam: normal inspection Back Exam: normal inspection Pelvic Exam: deferred Rectal Exam: deferred Objective Data Vital Signs: Vital Signs - 24 hr Temp Pulse Resp BP Pulse Ox 09/07/24 04:00 97.2 F 97 H 18 113/66 94 L 09/07/24 00:00 97 F 110 H 16 130/62 95 09/06/24 20:00 98.4 F 132 H 18 135/75 93 L 09/06/24 16:00 98.2 F 102 H 16 130/79 93 L 09/06/24 11:26 97.9 F 109 H 16 135/76 95 09/06/24 07:23 94 H 16 92 L 09/06/24 07:03 98.0 F 100 H 16 130/62 96 Pain Assessment - Last Documented Pain Intensity 0 Pain Scale Used 0-10 Pain Scale Intake and Output: Intake & Output 09/04/24 09/05/24 09/06/24 09/07/24 11:59 11:59 11:59 11:59 Intake Total 980 1865 Output Total 250 400 Balance 730 1465 Weight 85.1 kg 85.4 kg Lab Results: Lab Results-Last 24 Hours 09/06/24 09/06/24 09/06/24 Range/Units 05:13 05:13 05:13 WBC 6.8 (3.98-10.04) x10^3/uL RBC 3.20 L (3.93-5.22) x10^6/uL Hgb 9.3 L (11.2-15.7) g/dL Hct 29.4 L (34.1-44.9) % MCV 91.9 (79.4-94.8) fL MCH 29.1 (25.6-32.2) pg MCHC 31.6 L (32.2-35.5) g/dL RDW 14.9 H (11.7-14.4) % Plt Count 161 L (182-369) x10^3/uL MPV 12.6 H (9.4-12.3) fL Gran % 74.2 H (34.0-71.1) % Immature Gran % (Auto) 0.4 (0.001-0.429) % Nucleat RBC Rel Count 0.0 (0.00-0.2) % Eos # (Auto) 0.08 (0.04-0.36) x10^3/uL Immature Gran # (Auto) 0.03 (0.001-0.031) x10^3u/L Absolute Lymphs (auto) 1.15 L (1.18-3.74) x10^3/uL Absolute Monos (auto) 0.46 (0.24-0.86) x10^3/uL Absolute Nucleated RBC 0.00 (0.00-0.012) x10^3u/L Lymphocytes % 17.0 L (19.3-51.7) % Monocytes % 6.8 (4.7-12.5) % Eosinophils % 1.2 (0.7-5.8) % Basophils % 0.4 (0.1-1.2) % Absolute Granulocytes 5.02 (1.56-6.13) x10^3/uL Basophils # 0.03 (0.01-0.08) x10^3/uL D-Dimer 1.21 H* (0.0-0.50) mg/L Sodium 137 (135-145) mmol/L Potassium 4.9 (3.5-5.1) mmol/L Chloride 107 (98-107) mmol/L Carbon Dioxide 24 (22-30) mmol/L Anion Gap 10.5 (5-15) MEQ/L BUN 53 H (7-17) mg/dL Creatinine 2.28 H (0.52-1.04) mg/dL Estimated GFR 20.7 ML/MIN Glucose 131 H (74-106) mg/dL POC Glucometer (74 to 106) mg/dL Calcium 8.7 (8.4-10.2) mg/dL Magnesium 1.9 (1.6-2.3) mg/dL Total Bilirubin 0.40 (0.2-1.3) mg/dL AST 23 (14-36) U/L ALT 12 (0-35) U/L Alkaline Phosphatase 90 (38-126) U/L Serum Total Protein 5.9 L (6.3-8.2) g/dL Albumin 3.3 L (3.5-5.0) g/dL 09/06/24 09/06/24 09/06/24 Range/Units 07:24 11:50 16:57 WBC (3.98-10.04) x10^3/uL RBC (3.93-5.22) x10^6/uL Hgb (11.2-15.7) g/dL Hct (34.1-44.9) % MCV (79.4-94.8) fL MCH (25.6-32.2) pg MCHC (32.2-35.5) g/dL RDW (11.7-14.4) % Plt Count (182-369) x10^3/uL MPV (9.4-12.3) fL Gran % (34.0-71.1) % Immature Gran % (Auto) (0.001-0.429) % Nucleat RBC Rel Count (0.00-0.2) % Eos # (Auto) (0.04-0.36) x10^3/uL Immature Gran # (Auto) (0.001-0.031) x10^3u/L Absolute Lymphs (auto) (1.18-3.74) x10^3/uL Absolute Monos (auto) (0.24-0.86) x10^3/uL Absolute Nucleated RBC (0.00-0.012) x10^3u/L Lymphocytes % (19.3-51.7) % Monocytes % (4.7-12.5) % Eosinophils % (0.7-5.8) % Basophils % (0.1-1.2) % Absolute Granulocytes (1.56-6.13) x10^3/uL Basophils # (0.01-0.08) x10^3/uL D-Dimer (0.0-0.50) mg/L Sodium (135-145) mmol/L Potassium (3.5-5.1) mmol/L Chloride (98-107) mmol/L Carbon Dioxide (22-30) mmol/L Anion Gap (5-15) MEQ/L BUN (7-17) mg/dL Creatinine (0.52-1.04) mg/dL Estimated GFR ML/MIN Glucose (74-106) mg/dL POC Glucometer 126 H 128 H 137 H (74 to 106) mg/dL Calcium (8.4-10.2) mg/dL Magnesium (1.6-2.3) mg/dL Total Bilirubin (0.2-1.3) mg/dL AST (14-36) U/L ALT (0-35) U/L Alkaline Phosphatase (38-126) U/L Serum Total Protein (6.3-8.2) g/dL Albumin (3.5-5.0) g/dL 09/06/24 Range/Units 22:05 WBC (3.98-10.04) x10^3/uL RBC (3.93-5.22) x10^6/uL Hgb (11.2-15.7) g/dL Hct (34.1-44.9) % MCV (79.4-94.8) fL MCH (25.6-32.2) pg MCHC (32.2-35.5) g/dL RDW (11.7-14.4) % Plt Count (182-369) x10^3/uL MPV (9.4-12.3) fL Gran % (34.0-71.1) % Immature Gran % (Auto) (0.001-0.429) % Nucleat RBC Rel Count (0.00-0.2) % Eos # (Auto) (0.04-0.36) x10^3/uL Immature Gran # (Auto) (0.001-0.031) x10^3u/L Absolute Lymphs (auto) (1.18-3.74) x10^3/uL Absolute Monos (auto) (0.24-0.86) x10^3/uL Absolute Nucleated RBC (0.00-0.012) x10^3u/L Lymphocytes % (19.3-51.7) % Monocytes % (4.7-12.5) % Eosinophils % (0.7-5.8) % Basophils % (0.1-1.2) % Absolute Granulocytes (1.56-6.13) x10^3/uL Basophils # (0.01-0.08) x10^3/uL D-Dimer (0.0-0.50) mg/L Sodium (135-145) mmol/L Potassium (3.5-5.1) mmol/L Chloride (98-107) mmol/L Carbon Dioxide (22-30) mmol/L Anion Gap (5-15) MEQ/L BUN (7-17) mg/dL Creatinine (0.52-1.04) mg/dL Estimated GFR ML/MIN Glucose (74-106) mg/dL POC Glucometer 229 H (74 to 106) mg/dL Calcium (8.4-10.2) mg/dL Magnesium (1.6-2.3) mg/dL Total Bilirubin (0.2-1.3) mg/dL AST (14-36) U/L ALT (0-35) U/L Alkaline Phosphatase (38-126) U/L Serum Total Protein (6.3-8.2) g/dL Albumin (3.5-5.0) g/dL Radiology Exams: Radiology Procedures Category Date Time Status CHEST 1 VIEW (PORTABLE) Stat Exams 09/05/24 12:08 Completed ECHO W/2D AND DOPPLER [US] Routine Exams 09/06/24 08:00 Taken HUMERUS Stat Exams 09/05/24 12:09 Completed KNEE (3 VIEWS) Stat Exams 09/05/24 12:09 Completed PULMONARY PERF VENTILATION [NUCMED] Urgent Exams 09/06/24 07:33 Completed Multi-Disciplinary Progress Notes: Multi-Disciplinary Progress Notes 09/06/24 16:00 (created 09/06/24 22:04) Case Management Note by Orin Batista CALLED [facility] TO CHECK [place] OF ELIQUIS- $117 FOR THE MONTH OF MEDS. ( LIKELY D/T NEW YR->NEW DEDUCTIBLE) NURSE NOTIFIED TO LET PATIENT KNOW AND ENCOURAGE HER TO AT LEAST FILL THIS RX AT DC THEN SHE CAN FOLLOW UP WITH CARDIO AND DISCUSS PATIENT ASSISTANCE OPTIONS, SAMPLES OR MED ALTERNATIVES. PRIMARY RN, RANDY, REPORTS PATIENT IS AGREEABLE. VIPUL GARCIA NOTIFIED- SHE WILL DISCUSS AGAIN WITH PATIENT PRIOR TO DC [facility] REPORTED THEY WERE SUPPOSED TO GET SHIPMENT OF ELIQUIS IN TODAY BUT UNSURE IF IT CAME IN D/T WEATHER- PRIOR TO DC- NURSING TO CALL AND MAKE SURE [facility] CAN FILL RX, OTHERWISE IT WILL NEED SENT TO DIFFERENT PHARMACY. WILL HAVE HS PRINT THIS NOTE TO REMIND NURSING PRIOR TO DC Initialized on 09/06/24 22:04 - END OF NOTE 09/06/24 15:27 OT Plan of Care Note by Sahil (L#[id number]),Roshni OT Eval OT Inpatient Eval and POC Start: 09/05/24 16:29 Freq: ONCE Status: Complete Protocol: Created 09/05/24 16:30 ED (Rec: 09/05/24 16:30 ED -[id number]) Document 09/06/24 14:55 KA (Rec: 09/06/24 15:24 KA [id number]) OT Evaluation Subjective PATIENT IS AGREEABLE TO OT EVALUATION THIS DATE. ADMISSION: S/P FALL AT HOME WITH RIGHT KNEE AND SHOULDER PAIN, AFIB, DIZZINESS. PATIENT REPORTS THAT HER ACTIVITY TOLERANCE HAS DECREASED OVER THE PAST 2 WEEKS; SHE HAS HAD CARDIAC SYMPTOMS FOR <1 WEEK PER REPORT. Pertinent Past Medical History SEE MED HISTORY BELOW Prior Level of Function APRIL FOLLOWS WITH OUTPATIENT CARDIOLOGY AND NEPHROLOGY. SHE IS INDEPENDENT WITH I/ADLS, HOME MANAGEMENT, MEAL AND MEDICATION MANAGING, AND TRANSPORATTION. SHE REPORTS THAT HER SON AND DAUGHTER LIVE NEAR BY. HER DAUGHTER IS LEGALLY BLIND AND WILL NOT BE ABLE TO COME OVER TO HELP THIS WEEKEND AND HER SON WORKS VIDEO EDITING INTERNSHIP. SHE HAS OUTDOOR CATS THAT SHE FEEDS EVERY NIGHT. APRIL WAS MOD INDEP WITH MOBILITY AND OWNED A ROLLATOR. Equipment at Home Prior to Admission Walker,Raised Toilet Seat, Shower Chair Home Setup [id number] Date 09/06/24 Feeding WFL Grooming WFL Bathing WFL Dressing Impaired Comment MIN ASSIST DONNING RIGHT SOCK. SHE IS ADAMANT THAT SHE COULD COMPLETE IF SITTING ON A REGULAR CHAIR (HOSPITAL BED IS TOO HIGH). Toileting WFL Bed Mobility WFL Toilet Transfers WFL Functional Transfers WFL Comment SBA WITH ROLLATOR Range of Motion WFL Comment RIGHT SHOULDER AROM: WFL- GRIMACES WITH ABDUCTION, BUT ROM SIMILAR TO LEFT SHOULDER Coordination WFL Functional Strength BUE: WFL (4+/5 MMT) Functional Endurance FAIR (+): PATIENT TOLERATED COMPLETED LB ADLS AT EDGE OF BED, APPROXIMATELY 25 FEET OF FUNCTIONAL MOBILITY IN ROOM, AND TOILET T/F. Cognition ALERT AND ORIENTED X4 Pain REPORTS HER RIGHT SHOULDER IS FEELING MUCH BETTER (3/10 WITH MOVEMENT, 0/10 AT REST) RIGHT KNEE DURING MOBILITY: 10 /10 (OT ELEVATED PATEINT'S LEGS, ADDED PILLOWS UNDER RIGHT LEG, AND ICE PACK APPLIED TO RIGHT KNEE). Objective Data/Standardized Assessment(s WEBSTER: 5/6 INDICATING HIGHER ) LEVEL OF INDEPENDENCE Comment *PATIENT PRESENTS WITH INCREASED PITTING EDEMA TO BILATERAL LE. PATIENT REPORTS THIS AT BASELINE; OT RECOMMENDS TO FOLLOW UP WITH PHYSICIAN REGARDING COMPRESSION SOCKS. OT Plan Of Care Date of Evaluation 09/06/24 Treatment Diagnosis AFIB Precaution/Orders as written FALL RISK Teaching Recipient Patient Patient is Aware of Diagnosis and Yes Prognosis Patient is receptive to Plan of Care and Yes contributory towards OT goals Discharge Recommendations/Plan OT RECOMMENDS DISCHARGE HOME WITH DISCUSSION ABOUT HHT VS OP FOR RIGHT KNEE PAIN OR ACTIVITY TOLERANCE (REPORTS THAT SHE NEEDS TO GET BACK TO DRIVING FOR HER DAUGHTER); HOWEVER, SHE DECLINES BOTH OPTIONS. NO FURTHER SKILLED OT INDICATED; RE-EVALUATION INDICATED IF KNEE PAIN WORSENS AND AFFECTS ADL STATUS. Medical & Surgical History Past Medical History Yes Neurological History No Pertinent History ENT History Cataracts Endocrine History Diabetes Type II Respiratory History Asthma Cardiac History Arrhythmia,Coronary Artery Disease,Hypertension, Myocardial Infarction ([place]) GI History Polyps,Other History Other Female Reproductive Disorders No Pertinent History Musculoskeletal History Arthritis,Other Psycho-Social History No Pertinent History Other Medical History CARDIAC STINT 2010, carpal tunnel [id number], kidney stones in past, cataract surg in both eyes 2009, sciatica pain Past Surgical History Yes Hx Anesthesia Reactions No Hx Malignant Hyperthermia No Neurological Surgical History No Pertinent History ENT Surgical History Cataract Surgery Respiratory Surgical History No Pertinent History Cardiac Surgical History Cardiac Catheterization, Cardiac Stent Gastrointestinal Surgical History No Pertinent History Genitourinary Surgical History Other Female Surgical History Hysterectomy Musculoskeletal Surgical History Other Other Surgical History kidney stone removal , carpal tunnel surgery, stretching of esophagus Alcohol None Drug Use none Hx Substance Use Treatment No Initialized on 09/06/24 15:27 - END OF NOTE Assessment/Plan (1) Atrial fibrillation Current Visit: Yes Status: Acute Assessment & Plan: -EKG with AFIB - HR controlled at 93-Left [place] Deviation, prolonged QT interval, Left Bundle Branch Block, Q-wave, Non-specific ST Changes -Follows with Dr. Ho OP- no h/o afib -TSH -MG reviewed and WNL at 1.8 -Echo reviewed from 06/13/24: EF 72% IMPRESSION: 1)NORMAL CONTRACTILITY LEFT VENTRICLE. 2)MILD MITRAL REGURGITATION. 3)MODERATE TRICUSPID REGURGITATION. 4)SEVERE PULMONARY HYPERTENSION. 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 Ho as OP - HR controlled -DDImer elevated will obtain vq scan 09/07: -VQ scan with low probability for PE -continue metoprolol 25mg bid - HR x 1 in the 130s - continue to monitor -continue eliquis Code(s): I48.91 - UNSPECIFIED ATRIAL FIBRILLATION (2) Acute kidney injury superimposed on CKD Current Visit: Yes Status: Acute Assessment & Plan: -Baseline creat around 1.8- creat reviewed at 2.51 -NS at 50ml/hr -AVOID ANDRÉS/ARB/NSAIDs -Renal dose all medications -consider neph consult if no improvement -Monitor renal/lytes 09/06/24: -creat reviewed and improved at 2.28 - not at baseline of 1.8 -continue IVF 09/07: -creat reviewed at 2.32> 2.28 - will increase IVF to 75ml/hr - continue to monitor Code(s): N17.9 - ACUTE KIDNEY FAILURE, UNSPECIFIED; N18.9 - CHRONIC KIDNEY DISEASE, UNSPECIFIED (3) CAD (coronary artery disease) Current Visit: Yes Status: Acute Assessment & Plan: -Stents placed 2010- continue home meds Code(s): I25.10 - ATHSCL HEART DISEASE OF [place] CORONARY ARTERY W/O ANG PCTRS (4) HTN (hypertension) Current Visit: Yes Status: Acute Assessment & Plan: -stable BP continue home meds Code(s): I10 - ESSENTIAL (PRIMARY) HYPERTENSION (5) Fall Current Visit: Yes Status: Acute Assessment & Plan: -Ground level -Right knee, humerus, cxr reviewed with no acute findings -pain control -PT/OT -No LOC/head trauma -echo pending -TSH -WNL -UA negative - no source of infection 09/07: -Add norco prn for pain Code(s): W19.XXXA - UNSPECIFIED FALL, INITIAL ENCOUNTER (6) Knee contusion Current Visit: Yes Status: Acute Assessment & Plan: -see fall Code(s): S80.00XA - CONTUSION OF UNSPECIFIED KNEE, INITIAL ENCOUNTER (7) Diabetes mellitus Current Visit: No Status: Acute Assessment & Plan: -ADA diet -SSI -A1c Code(s): E11.9 - TYPE 2 DIABETES MELLITUS WITHOUT COMPLICATIONS (8) Weakness Current Visit: Yes Status: Acute Assessment & Plan: -see fall VTE: lovenox Dispo: 1-2 days Code: Full Code(s): R53.1 - WEAKNESS (9) Hyperkalemia Current Visit: Yes Status: Acute Assessment & Plan: -potassium reviewed at 5.2- will recheck and trend Code(s): I48.91 - UNSPECIFIED ATRIAL FIBRILLATION Code(s): I48.91 - UNSPECIFIED ATRIAL FIBRILLATION (2) Acute kidney injury superimposed on CKD Current Visit: Yes Status: Acute Code(s): N17.9 - ACUTE KIDNEY FAILURE, UNSPECIFIED; N18.9 - CHRONIC KIDNEY DISEASE, UNSPECIFIED (3) CAD (coronary artery disease) Current Visit: Yes Status: Acute Code(s): I25.10 - ATHSCL HEART DISEASE OF [place] CORONARY ARTERY W/O ANG PCTRS (4) HTN (hypertension) Current Visit: Yes Status: Acute Code(s): I10 - ESSENTIAL (PRIMARY) HYPERTENSION (5) Fall Current Visit: Yes Status: Acute Code(s): W19.XXXA - UNSPECIFIED FALL, INITIAL ENCOUNTER (6) Knee contusion Current Visit: Yes Status: Acute Code(s): S80.00XA - CONTUSION OF UNSPECIFIED KNEE, INITIAL ENCOUNTER (7) Diabetes mellitus Current Visit: No Status: Acute Code(s): E11.9 - TYPE 2 DIABETES MELLITUS WITHOUT COMPLICATIONS (8) Weakness Current Visit: Yes Status: Acute Code(s): R53.1 - WEAKNESS (9) Hyperkalemia Current Visit: Yes Status: Acute Code(s): E87.5 - HYPERKALEMIA
[2024-09-07 05:36] LABS: ALBUMIN 3.5 g/dL (3.5-5.0); ANION GAP 10.8 MEQ/L (5-15); BILIRUBIN,TOTAL 0.4 mg/dL (0.2-1.3); Calcium 8.8 mg/dL (8.4-10.2); Creatinine 1 2.32 mg/dL (0.52-1.04); EST GLOMERULAR FILTRATION RATE 20.2 ML/MIN; MAGNESIUM 1.9 mg/dL (1.6-2.3); Potassium 5.3 mmol/L (3.5-5.1); Total Protein 6.3 g/dL (6.3-8.2)
[2024-09-08 06:17] LABS: Absolute Neutrophil Ct (ANC) 4.33 x10^3/uL (1.56-6.13); BASOPHIL % 0.3 % (0.1-1.2); Basophil (Absolute #) 0.02 x10^3/uL (0.01-0.08); Eosinophil % 1.8 % (0.7-5.8); Eosinophil (Absolute #) 0.11 x10^3/uL (0.04-0.36); Hematocrit 28.2 % (34.1-44.9); Hemoglobin 8.6 g/dL (11.2-15.7); IMMATURE GRAN # 0.02 x10^3u/L (0.001-0.031); IMMATURE GRAN % 0.3 % (0.001-0.429); Lymphocyte (Absolute #) 1.08 x10^3/uL (1.18-3.74); Lymphocytes % 17.4 % (19.3-51.7); Mean Cell Volume 95.6 fL (79.4-94.8); Mean Corpuscular Hemoglobin 29.2 pg (25.6-32.2); Mean Corpuscular Hgb Concent. 30.5 g/dL (32.2-35.5); Mean Platelet Volume 11.1 fL (9.4-12.3); Monocyte (Absolute #) 0.65 x10^3/uL (0.24-0.86); Monocytes % 10.5 % (4.7-12.5); Neutrophil % 69.7 % (34.0-71.1); Platelet Count 142 x10^3/uL (182-369); Red Blood Count 2.95 x10^6/uL (3.93-5.22); Red Cell Distribution Width 15.8 % (11.7-14.4); White Blood Count 6.2 x10^3/uL (3.98-10.04)
[2024-09-08 06:34] LABS: ALBUMIN 3.3 g/dL (3.5-5.0); ANION GAP 11.3 MEQ/L (5-15); BILIRUBIN,TOTAL 0.4 mg/dL (0.2-1.3); Calcium 8.5 mg/dL (8.4-10.2); Creatinine 1 2.04 mg/dL (0.52-1.04); EST GLOMERULAR FILTRATION RATE 23.6 ML/MIN; MAGNESIUM 1.9 mg/dL (1.6-2.3); Potassium 4.9 mmol/L (3.5-5.1)
--- NOTE | 2024-09-08 09:47 | PCM.NOTE ---
Date and Time: 09/08/24 0942 Subjective Assessment: is a 84 year old female with a pmhx of DMII, HTN, HLD, Asthma, pulmonary HTN, and CAD with stent placed 2010 who presented to ED 09/05/24 after a ground-level fall at home around 3 a.m. this morning. Patient states she got up to go to the bathroom and her legs just gave out. She has pain to her right arm,knee, and hip. No trauma to her head. No LOC. She was on the floor for less than 15 mins. She additionally reports increased weakness, dizziness at times, chest pressure, shortness of breath, and increased heart rate over the past few weeks. She denies chest pain/pressure or dizziness currently or fever,cough, abdominal pain, DUKES, N/V/D. She states she thinks she has been diagnosed with AFIB in the past but is unsure. 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 She sees Dr. Isaac Cui for nephrology. Upon arrival to ED patient tachycardic and hypertensive. CXR with cardiomegaly. No new/acute findings. Right knee xray with no acute findings. Right humerus xray with no acute findings. EKG with AFIB HR at 93. Left [place] Deviation, prolonged QT interval, Left Bundle Branch Block, Q-wave, Non-specific ST Changes. Lab findings remarkable for normocytic anemia with hgb at 10.3, hyperkalemia with potassium at 5.2, acute on chronic renal failure with creat at 2.51 (baseline around 1.8),glucose elevated at 270, and BNP at 5220. Patient giving 1L NS. Admit for Fall, KANCHAN and AFIB. 09/06/24: Met with patient bedside. She is feeling better today although weak. Endorses right knee pain. Added [place] for pain control. Discussed cardiology consult with patient. Will start Eliquis and continue metoprolol. Echo is pending. CM to check affordability of Eliquis. Most likely can discharge tomorrow. 09/07: No overnight events noted. Endorses shortness of breath with exertion - improved. Right knee pain improved with norco. Eliquis started and affordable for patient. HR in the 130's x 1 last night. Creat remains elevated at 2.32 - will increase IVF and continue to monitor HR and kidney function. Will reach out to cards if any more episode of increased HR for suggestions on dose modifications. 09/08: Met with patient bedside. Feeling better but very weak. Would like to discharge to swing or SNF for further PT for strengthening as patient lives home alone. HR improved. Discussed case with CM. They will look into placement tomorrow. Denies fever,cough, sob, cp, abdominal pain, DUKES, dizziness, N/V/D. - Review of Systems Constitutional: Weakness Eyes: No Symptoms Ears, Nose, & Throat: No Symptoms Respiratory: Short Of Breath Cardiac: No Symptoms Abdominal/Gastrointestinal: No Symptoms Genitourinary Symptoms: No Symptoms Musculoskeletal: Joint Pain (right knee ) Skin: Other (abrasion to right knee) Neurological: No Symptoms Psychological: No Symptoms Endocrine: No Symptoms Hematologic/Lymphatic: No Symptoms Immunological/Allergic: No Symptoms Objective Exam General Appearance: no apparent distress Neurologic Exam: alert, oriented x 3, cooperative Skin Exam: normal color Eye Exam: PERRL Ears, Nose, Throat Exam: normal ENT inspection Neck Exam: normal inspection Respiratory Exam: crackles/rales Cardiovascular Exam: tachycardia Gastrointestinal/Abdomen Exam: soft, normal bowel sounds Extremity Exam: normal inspection Back Exam: normal inspection Pelvic Exam: deferred Rectal Exam: deferred Objective Data Vital Signs: Vital Signs - 24 hr Temp Pulse Resp BP Pulse Ox 09/08/24 08:28 88 16 94 L 09/08/24 07:11 97.1 F 89 22 125/74 95 09/08/24 04:00 97.5 F 102 H 16 148/65 93 L 09/08/24 00:00 98.0 F 111 H 19 124/61 93 L 09/07/24 20:00 97.8 F 104 H 18 138/78 93 L 09/07/24 19:17 90 14 93 L 09/07/24 16:00 97.5 F 93 H 26 H 132/59 93 L 09/07/24 12:00 96.7 F 81 20 107/66 95 Pain Assessment - Last Documented Pain Intensity 4 Pain Scale Used 0-10 Pain Scale Intake and Output: Intake & Output 09/05/24 09/06/24 09/07/24 09/08/24 11:59 11:59 11:59 11:59 Intake Total 980 2145 3238 Output Total 250 400 Balance 730 9661 3238 Weight 85.1 kg 85.4 kg 87.1 kg 86.7 kg Lab Results: Lab Results-Last 24 Hours 09/07/24 09/07/24 09/07/24 Range/Units 11:37 16:07 21:53 WBC (3.98-10.04) x10^3/uL RBC (3.93-5.22) x10^6/uL Hgb (11.2-15.7) g/dL Hct (34.1-44.9) % MCV (79.4-94.8) fL MCH (25.6-32.2) pg MCHC (32.2-35.5) g/dL RDW (11.7-14.4) % Plt Count (182-369) x10^3/uL MPV (9.4-12.3) fL Gran % (34.0-71.1) % Immature Gran % (Auto) (0.001-0.429) % Nucleat RBC Rel Count (0.00-0.2) % Eos # (Auto) (0.04-0.36) x10^3/uL Immature Gran # (Auto) (0.001-0.031) x10^3u/L Absolute Lymphs (auto) (1.18-3.74) x10^3/uL Absolute Monos (auto) (0.24-0.86) x10^3/uL Absolute Nucleated RBC (0.00-0.012) x10^3u/L Lymphocytes % (19.3-51.7) % Monocytes % (4.7-12.5) % Eosinophils % (0.7-5.8) % Basophils % (0.1-1.2) % Absolute Granulocytes (1.56-6.13) x10^3/uL Basophils # (0.01-0.08) x10^3/uL Sodium (135-145) mmol/L Potassium (3.5-5.1) mmol/L Chloride (98-107) mmol/L Carbon Dioxide (22-30) mmol/L Anion Gap (5-15) MEQ/L BUN (7-17) mg/dL Creatinine (0.52-1.04) mg/dL Estimated GFR ML/MIN Glucose (74-106) mg/dL POC Glucometer 130 H 158 H 159 H (74 to 106) mg/dL Calcium (8.4-10.2) mg/dL Magnesium (1.6-2.3) mg/dL Total Bilirubin (0.2-1.3) mg/dL AST (14-36) U/L ALT (0-35) U/L Alkaline Phosphatase (38-126) U/L Serum Total Protein (6.3-8.2) g/dL Albumin (3.5-5.0) g/dL 09/08/24 09/08/24 09/08/24 Range/Units 06:10 06:10 07:42 WBC 6.2 (3.98-10.04) x10^3/uL RBC 2.95 L (3.93-5.22) x10^6/uL Hgb 8.6 L (11.2-15.7) g/dL Hct 28.2 L (34.1-44.9) % MCV 95.6 H (79.4-94.8) fL MCH 29.2 (25.6-32.2) pg MCHC 30.5 L (32.2-35.5) g/dL RDW 15.8 H (11.7-14.4) % Plt Count 142 L (182-369) x10^3/uL MPV 11.1 (9.4-12.3) fL Gran % 69.7 (34.0-71.1) % Immature Gran % (Auto) 0.3 (0.001-0.429) % Nucleat RBC Rel Count 0.0 (0.00-0.2) % Eos # (Auto) 0.11 (0.04-0.36) x10^3/uL Immature Gran # (Auto) 0.02 (0.001-0.031) x10^3u/L Absolute Lymphs (auto) 1.08 L (1.18-3.74) x10^3/uL Absolute Monos (auto) 0.65 (0.24-0.86) x10^3/uL Absolute Nucleated RBC 0.00 (0.00-0.012) x10^3u/L Lymphocytes % 17.4 L (19.3-51.7) % Monocytes % 10.5 (4.7-12.5) % Eosinophils % 1.8 (0.7-5.8) % Basophils % 0.3 (0.1-1.2) % Absolute Granulocytes 4.33 (1.56-6.13) x10^3/uL Basophils # 0.02 (0.01-0.08) x10^3/uL Sodium 139 (135-145) mmol/L Potassium 4.9 (3.5-5.1) mmol/L Chloride 110 H (98-107) mmol/L Carbon Dioxide 23 (22-30) mmol/L Anion Gap 11.3 (5-15) MEQ/L BUN 46 H (7-17) mg/dL Creatinine 2.04 H (0.52-1.04) mg/dL Estimated GFR 23.6 ML/MIN Glucose 131 H (74-106) mg/dL POC Glucometer 120 H (74 to 106) mg/dL Calcium 8.5 (8.4-10.2) mg/dL Magnesium 1.9 (1.6-2.3) mg/dL Total Bilirubin 0.40 (0.2-1.3) mg/dL AST 23 (14-36) U/L ALT 12 (0-35) U/L Alkaline Phosphatase 75 (38-126) U/L Serum Total Protein 6.0 L (6.3-8.2) g/dL Albumin 3.3 L (3.5-5.0) g/dL Radiology Exams: Radiology Procedures Category Date Time Status CHEST 1 VIEW (PORTABLE) Urgent Exams 09/08/24 08:16 Taken Assessment/Plan (1) Atrial fibrillation Current Visit: Yes Status: Acute Assessment & Plan: -EKG with AFIB - HR controlled at 93-Left [place] Deviation, prolonged QT interval, Left Bundle Branch Block, Q-wave, Non-specific ST Changes -Follows with Dr. Ho OP- no h/o afib -TSH -MG reviewed and WNL at 1.8 -Echo reviewed from 06/13/24: EF 72% IMPRESSION: 1)NORMAL CONTRACTILITY LEFT VENTRICLE. 2)MILD MITRAL REGURGITATION. 3)MODERATE TRICUSPID REGURGITATION. 4)SEVERE PULMONARY HYPERTENSION. 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 Ho as OP - HR controlled -DDImer elevated will obtain vq scan 09/07: -VQ scan with low probability for PE -continue metoprolol 25mg bid - HR x 1 in the 130s - continue to monitor -continue eliquis 09/08: -HR improved - continue metoprolol Code(s): I48.91 - UNSPECIFIED ATRIAL FIBRILLATION (2) Acute kidney injury superimposed on CKD Current Visit: Yes Status: Acute Assessment & Plan: -Baseline creat around 1.8- creat reviewed at 2.51 -NS at 50ml/hr -AVOID ANDRÉS/ARB/NSAIDs -Renal dose all medications -consider neph consult if no improvement -Monitor renal/lytes 09/06/24: -creat reviewed and improved at 2.28 - not at baseline of 1.8 -continue IVF 09/07: -creat reviewed at 2.32> 2.28 - will increase IVF to 75ml/hr - continue to monitor 09/08: creat reviewed at 2.02-improved, continue IVF - baseline at 1.8 Code(s): N17.9 - ACUTE KIDNEY FAILURE, UNSPECIFIED; N18.9 - CHRONIC KIDNEY DISEASE, UNSPECIFIED (3) CAD (coronary artery disease) Current Visit: Yes Status: Acute Assessment & Plan: -Stents placed 2010- continue home meds Code(s): I25.10 - ATHSCL HEART DISEASE OF [place] CORONARY ARTERY W/O ANG PCTRS (4) HTN (hypertension) Current Visit: Yes Status: Acute Assessment & Plan: -stable BP continue home meds Code(s): I10 - ESSENTIAL (PRIMARY) HYPERTENSION (5) Fall Current Visit: Yes Status: Acute Assessment & Plan: -Ground level -Right knee, humerus, cxr reviewed with no acute findings -pain control -PT/OT -No LOC/head trauma -echo pending -TSH -WNL -UA negative - no source of infection 09/07: -Add norco prn for pain 09/08: -Patient requesting SNF or Swing at discharge- to look into this tomorrow Code(s): W19.XXXA - UNSPECIFIED FALL, INITIAL ENCOUNTER (6) Knee contusion Current Visit: Yes Status: Acute Assessment & Plan: -see fall Code(s): S80.00XA - CONTUSION OF UNSPECIFIED KNEE, INITIAL ENCOUNTER (7) Diabetes mellitus Current Visit: No Status: Acute Assessment & Plan: -ADA diet -SSI -A1c Code(s): E11.9 - TYPE 2 DIABETES MELLITUS WITHOUT COMPLICATIONS (8) Weakness Current Visit: Yes Status: Acute Assessment & Plan: -see fall VTE: Eliquis Dispo: 1-2 days Code: Full Code(s): R53.1 - WEAKNESS Code(s): I48.91 - UNSPECIFIED ATRIAL FIBRILLATION (2) Acute kidney injury superimposed on CKD Current Visit: Yes Status: Acute Code(s): N17.9 - ACUTE KIDNEY FAILURE, UNSPECIFIED; N18.9 - CHRONIC KIDNEY DISEASE, UNSPECIFIED (3) CAD (coronary artery disease) Current Visit: Yes Status: Acute Code(s): I25.10 - ATHSCL HEART DISEASE OF [place] CORONARY ARTERY W/O ANG PCTRS (4) HTN (hypertension) Current Visit: Yes Status: Acute Code(s): I10 - ESSENTIAL (PRIMARY) HYPERTENSION (5) Fall Current Visit: Yes Status: Acute Code(s): W19.XXXA - UNSPECIFIED FALL, INITIAL ENCOUNTER (6) Knee contusion Current Visit: Yes Status: Acute Code(s): S80.00XA - CONTUSION OF UNSPECIFIED KNEE, INITIAL ENCOUNTER (7) Diabetes mellitus Current Visit: No Status: Acute Code(s): E11.9 - TYPE 2 DIABETES MELLITUS WITHOUT COMPLICATIONS (8) Weakness Current Visit: Yes Status: Acute Code(s): R53.1 - WEAKNESS (9) Hyperkalemia Current Visit: Yes Status: Acute Code(s): E87.5 - HYPERKALEMIA
--- NOTE | 2024-09-08 11:10 | XRAY ---
CLINICAL HISTORY: SOB COMPARISON: None. TECHNIQUE: An X-ray image of the chest is obtained in AP projection. FINDINGS: Pulmonary Parenchyma: Right lower para-cardiac opacity noted. Left lower possible opacity, could be infection, Clinical correlation and follow-up are needed. The rest of the Lungs are clear bilaterally. No evidence of pleural effusion or pleural thickening. Heart and Mediastinum: Cardiomegaly with left ventricular preponderance. Atheromatous calcification of the aortic arch with unfolded aorta. No hilar or mediastinal lymphadenopathy. Bony Thorax: Left glenohumeral joint arthritic changes. Soft Tissues: Soft tissues overlying the chest wall are unremarkable. IMPRESSION: 1. Right lower para-cardiac opacity noted. 2. Left lower possible opacity, could be infection, Clinical correlation and follow-up is needed. 3. Cardiomegaly with left ventricular preponderance. Electronically Signed by: Sonya Hickman MD. (09/08/2024 11:06:41 EST)
[2024-09-08] MEDS ORDERED: ROCEPHIN 1 GM / 100 ML NaCl 1 GM/100 ML IVPB IV ONE (18:48)
[2024-09-08] MEDS: ROCEPHIN 1 GM / 100 ML NaCl 1 GM/100 ML IVPB IV SCH (19:02)
[2024-09-08] MEDS: Zithromax 500 MG/ 250 ML NaCl Premix 500 MG/250 ML IVPB IV SCH (19:31)
[2024-09-09 05:09] LABS: Absolute Neutrophil Ct (ANC) 4.41 x10^3/uL (1.56-6.13); BASOPHIL % 0.5 % (0.1-1.2); Basophil (Absolute #) 0.03 x10^3/uL (0.01-0.08); Eosinophil % 1.6 % (0.7-5.8); Hematocrit 28.8 % (34.1-44.9); Hemoglobin 8.8 g/dL (11.2-15.7); IMMATURE GRAN # 0.03 x10^3u/L (0.001-0.031); IMMATURE GRAN % 0.5 % (0.001-0.429); Lymphocyte (Absolute #) 1.11 x10^3/uL (1.18-3.74); Lymphocytes % 17.5 % (19.3-51.7); Mean Corpuscular Hgb Concent. 30.6 g/dL (32.2-35.5); Mean Platelet Volume 12.1 fL (9.4-12.3); Monocyte (Absolute #) 0.66 x10^3/uL (0.24-0.86); Monocytes % 10.4 % (4.7-12.5); Neutrophil % 69.5 % (34.0-71.1); Platelet Count 141 x10^3/uL (182-369); Red Blood Count 3.03 x10^6/uL (3.93-5.22); Red Cell Distribution Width 15.8 % (11.7-14.4); White Blood Count 6.3 x10^3/uL (3.98-10.04)
[2024-09-09 05:46] LABS: ALBUMIN 3.4 g/dL (3.5-5.0); ANION GAP 11.9 MEQ/L (5-15); BILIRUBIN,TOTAL 0.4 mg/dL (0.2-1.3); Calcium 8.7 mg/dL (8.4-10.2); Creatinine 1 1.92 mg/dL (0.52-1.04); EST GLOMERULAR FILTRATION RATE 25.4 ML/MIN; MAGNESIUM 1.9 mg/dL (1.6-2.3); Potassium 4.7 mmol/L (3.5-5.1); Total Protein 6.4 g/dL (6.3-8.2)
[2024-09-09] MEDS: SODIUM BICARBONATE PO SCH (08:56)
[2024-09-09] MEDS ORDERED: ROCEPHIN 1 GM / 100 ML NaCl 1 GM/100 ML IVPB IV SCH (10:00)
[2024-09-09] MEDS ORDERED: Zithromax 500 MG/ 250 ML NaCl Premix 500 MG/250 ML IVPB IV SCH (10:00)
--- NOTE | 2024-09-09 10:00 | XRAY ---
Indication: Possible aspiration. Comparison: September 08, 2024 Portable apical lordotic chest again hyperinflated with chronic lung markings and lingula subsegmental atelectasis/scarring. New tiny bibasilar effusions. Remaining lungs clear. Heart remains enlarged again with tortuous descending aorta.
[2024-09-09] MEDS ORDERED: Lopressor 25MG Tab ONE (11:10)
[2024-09-09] MEDS: Lopressor 25MG Tab PO ONE (11:12)
--- NOTE | 2024-09-09 11:41 | PCM.NOTE ---
Date and Time: 09/09/24 1128 Subjective Assessment: 09/09/23 Pt resting in bed. She states she is having increased SOB and chest pain today. She states this started last night. She feels like a tight band is around her chest. HR increased overnight and his morning. EKG shows a-fib. Chest XR ordered as pt aspirated on medication this AM per nurse CASSI Reynoso. O2 88-91% when checked and placed on 2lNC. ST eval ordered. Echo pending today. Cardiology reconsulted and trops x3 ordered. KANCHAN improving. She states she feels weak and overall does not feel well. She is wanting to go to a rehab or swing bed at d/c. - Review of Systems Constitutional: Weakness, No Fever, No Chills Eyes: No Symptoms Ears, Nose, & Throat: No Symptoms, Other (difficulty swallowing meds) Respiratory: Cough, Short Of Breath Cardiac: Chest Pain, No Edema, No Syncope Abdominal/Gastrointestinal: No Abdominal Pain, No Nausea, No Vomiting, No Diarrhea Genitourinary Symptoms: No Dysuria Musculoskeletal: No Back Pain, No Neck Pain Skin: No Rash Neurological: No Dizziness, No Focal Weakness, No Sensory Changes Psychological: No Symptoms Endocrine: No Symptoms Hematologic/Lymphatic: No Symptoms Immunological/Allergic: No Symptoms Objective Exam General Appearance: no apparent distress, alert, obese Neurologic Exam: alert, oriented x 3, cooperative, normal mood/affect, nml cerebellar function, sensation nml, motor weakness, No motor deficits Skin Exam: normal color, warm, dry Eye Exam: PERRL, EOMI, eyes nml inspection Ears, Nose, Throat Exam: normal ENT inspection, pharynx normal, moist mucous membranes Neck Exam: normal inspection, non-tender, supple, full range of motion Respiratory Exam: normal breath sounds, lungs clear, respiratory distress Cardiovascular Exam: normal heart sounds, irregular, edema (BLLE +1) Gastrointestinal/Abdomen Exam: soft, No tenderness, No mass Extremity Exam: normal inspection, normal range of motion Back Exam: normal inspection, normal range of motion, No CVA tenderness, No vertebral tenderness Pelvic Exam: deferred Rectal Exam: deferred Objective Data Vital Signs: Vital Signs - 24 hr Temp Pulse Resp BP Pulse Ox 09/09/24 08:00 97.5 F 120 H 20 149/97 93 L 09/09/24 06:29 114 H 16 94 L 09/09/24 04:00 97.7 F 90 18 155/81 93 L 09/08/24 23:35 97.5 F 100 H 18 138/62 92 L 09/08/24 19:47 97.7 F 114 H 20 141/75 91 L 09/08/24 19:15 103 H 18 93 L 09/08/24 16:00 97.7 F 81 17 144/77 95 09/08/24 11:38 96.9 F 92 H 25 H 138/75 95 Pain Assessment - Last Documented Pain Intensity 0 Pain Scale Used 0-10 Pain Scale Intake and Output: Intake & Output 09/06/24 09/07/24 09/08/24 09/09/24 11:59 11:59 11:59 11:59 Intake Total 980 2145 3238 2132 Output Total 250 400 400 400 Balance 730 1745 2838 1732 Weight 85.4 kg 87.1 kg 86.7 kg 88.2 kg Lab Results: Lab Results-Last 24 Hours 09/08/24 09/08/24 09/08/24 Range/Units 11:26 16:42 21:56 WBC (3.98-10.04) x10^3/uL RBC (3.93-5.22) x10^6/uL Hgb (11.2-15.7) g/dL Hct (34.1-44.9) % MCV (79.4-94.8) fL MCH (25.6-32.2) pg MCHC (32.2-35.5) g/dL RDW (11.7-14.4) % Plt Count (182-369) x10^3/uL MPV (9.4-12.3) fL Gran % (34.0-71.1) % Immature Gran % (Auto) (0.001-0.429) % Nucleat RBC Rel Count (0.00-0.2) % Eos # (Auto) (0.04-0.36) x10^3/uL Immature Gran # (Auto) (0.001-0.031) x10^3u/L Absolute Lymphs (auto) (1.18-3.74) x10^3/uL Absolute Monos (auto) (0.24-0.86) x10^3/uL Absolute Nucleated RBC (0.00-0.012) x10^3u/L Lymphocytes % (19.3-51.7) % Monocytes % (4.7-12.5) % Eosinophils % (0.7-5.8) % Basophils % (0.1-1.2) % Absolute Granulocytes (1.56-6.13) x10^3/uL Basophils # (0.01-0.08) x10^3/uL Sodium (135-145) mmol/L Potassium (3.5-5.1) mmol/L Chloride (98-107) mmol/L Carbon Dioxide (22-30) mmol/L Anion Gap (5-15) MEQ/L BUN (7-17) mg/dL Creatinine (0.52-1.04) mg/dL Estimated GFR ML/MIN Glucose (74-106) mg/dL POC Glucometer 147 H 157 H 145 H (74 to 106) mg/dL Calcium (8.4-10.2) mg/dL Magnesium (1.6-2.3) mg/dL Total Bilirubin (0.2-1.3) mg/dL AST (14-36) U/L ALT (0-35) U/L Alkaline Phosphatase (38-126) U/L Troponin I (0.000-0.033) ng/mL Serum Total Protein (6.3-8.2) g/dL Albumin (3.5-5.0) g/dL 09/09/24 09/09/24 09/09/24 Range/Units 04:30 04:30 07:06 WBC 6.3 (3.98-10.04) x10^3/uL RBC 3.03 L (3.93-5.22) x10^6/uL Hgb 8.8 L (11.2-15.7) g/dL Hct 28.8 L (34.1-44.9) % MCV 95.0 H (79.4-94.8) fL MCH 29.0 (25.6-32.2) pg MCHC 30.6 L (32.2-35.5) g/dL RDW 15.8 H (11.7-14.4) % Plt Count 141 L (182-369) x10^3/uL MPV 12.1 (9.4-12.3) fL Gran % 69.5 (34.0-71.1) % Immature Gran % (Auto) 0.5 H (0.001-0.429) % Nucleat RBC Rel Count 0.0 (0.00-0.2) % Eos # (Auto) 0.10 (0.04-0.36) x10^3/uL Immature Gran # (Auto) 0.03 (0.001-0.031) x10^3u/L Absolute Lymphs (auto) 1.11 L (1.18-3.74) x10^3/uL Absolute Monos (auto) 0.66 (0.24-0.86) x10^3/uL Absolute Nucleated RBC 0.00 (0.00-0.012) x10^3u/L Lymphocytes % 17.5 L (19.3-51.7) % Monocytes % 10.4 (4.7-12.5) % Eosinophils % 1.6 (0.7-5.8) % Basophils % 0.5 (0.1-1.2) % Absolute Granulocytes 4.41 (1.56-6.13) x10^3/uL Basophils # 0.03 (0.01-0.08) x10^3/uL Sodium 138 (135-145) mmol/L Potassium 4.7 (3.5-5.1) mmol/L Chloride 112 H (98-107) mmol/L Carbon Dioxide 19 L (22-30) mmol/L Anion Gap 11.9 (5-15) MEQ/L BUN 44 H (7-17) mg/dL Creatinine 1.92 H (0.52-1.04) mg/dL Estimated GFR 25.4 ML/MIN Glucose 135 H (74-106) mg/dL POC Glucometer 137 H (74 to 106) mg/dL Calcium 8.7 (8.4-10.2) mg/dL Magnesium 1.9 (1.6-2.3) mg/dL Total Bilirubin 0.40 (0.2-1.3) mg/dL AST 23 (14-36) U/L ALT 12 (0-35) U/L Alkaline Phosphatase 78 (38-126) U/L Troponin I (0.000-0.033) ng/mL Serum Total Protein 6.4 (6.3-8.2) g/dL Albumin 3.4 L (3.5-5.0) g/dL 09/09/24 09/09/24 Range/Units 09:44 11:23 WBC (3.98-10.04) x10^3/uL RBC (3.93-5.22) x10^6/uL Hgb (11.2-15.7) g/dL Hct (34.1-44.9) % MCV (79.4-94.8) fL MCH (25.6-32.2) pg MCHC (32.2-35.5) g/dL RDW (11.7-14.4) % Plt Count (182-369) x10^3/uL MPV (9.4-12.3) fL Gran % (34.0-71.1) % Immature Gran % (Auto) (0.001-0.429) % Nucleat RBC Rel Count (0.00-0.2) % Eos # (Auto) (0.04-0.36) x10^3/uL Immature Gran # (Auto) (0.001-0.031) x10^3u/L Absolute Lymphs (auto) (1.18-3.74) x10^3/uL Absolute Monos (auto) (0.24-0.86) x10^3/uL Absolute Nucleated RBC (0.00-0.012) x10^3u/L Lymphocytes % (19.3-51.7) % Monocytes % (4.7-12.5) % Eosinophils % (0.7-5.8) % Basophils % (0.1-1.2) % Absolute Granulocytes (1.56-6.13) x10^3/uL Basophils # (0.01-0.08) x10^3/uL Sodium (135-145) mmol/L Potassium (3.5-5.1) mmol/L Chloride (98-107) mmol/L Carbon Dioxide (22-30) mmol/L Anion Gap (5-15) MEQ/L BUN (7-17) mg/dL Creatinine (0.52-1.04) mg/dL Estimated GFR ML/MIN Glucose (74-106) mg/dL POC Glucometer 143 H (74 to 106) mg/dL Calcium (8.4-10.2) mg/dL Magnesium (1.6-2.3) mg/dL Total Bilirubin (0.2-1.3) mg/dL AST (14-36) U/L ALT (0-35) U/L Alkaline Phosphatase (38-126) U/L Troponin I < 0.012 (0.000-0.033) ng/mL Serum Total Protein (6.3-8.2) g/dL Albumin (3.5-5.0) g/dL Radiology Exams: Radiology Procedures Category Date Time Status CHEST 1 VIEW (PORTABLE) Stat Exams 09/09/24 09:25 Completed CHEST 1 VIEW (PORTABLE) Urgent Exams 09/08/24 08:16 Completed Multi-Disciplinary Progress Notes: Multi-Disciplinary Progress Notes 09/09/24 10:54 Occupational Therapy Note by Sahil (L#[id number])Roshni OT ATTEMPTED RE-EVALUATION AT 10:40; HOWEVER, PATIENT WITH ELEVATED HR WHILE SUP INE IN BED WITH HR 100-127 WITH SOCIAL COMMUNICATION. PATIENT NOT APPROPRIATE FOR OUT OF BED ASSESSMENT AT THIS TIME, RN AND CM NOTIFIED OF PATIENT'S SYMPTOMS. PATIENT'S STATUS DECLINED SINCE INITIAL EVAL ON 09/06/24 WARRANTING RE- EVAL TODAY. PATIENT WILL LIKELY REQUIRE REHAB UPON D/C; HOWEVER, WILL REQUIRE CARDIAC STABILIZATION PRIOR TO D/C AND FURTHER PROGRESS WITH THERAPY. Initialized on 09/09/24 10:54 - END OF NOTE Assessment/Plan (1) Atrial fibrillation Current Visit: Yes Status: Acute Assessment & Plan: - new onset - cardiology consult - EKG, Tele, echo - Metoprolol increased today per cardiology recs - Eliquis 2.5 BID - TSH - WNL Code(s): I48.91 - UNSPECIFIED ATRIAL FIBRILLATION (2) Dysphagia Current Visit: Yes Status: Acute Assessment & Plan: - ST eval - Consider barium swallow - Pt aspirated on medication this morning per nurse - Chest XR: Portable apical lordotic chest again hyperinflated with chronic lung markings and lingula subsegmental atelectasis/scarring. New tiny bibasilar effusions. Remaining lungs clear. Heart remains enlarged again with tortuous descending aorta. Code(s): R13.10 - DYSPHAGIA, UNSPECIFIED (3) Chest pain Current Visit: Yes Status: Acute Assessment & Plan: - EKG - tele - Echo - trop x3 - Cardiology consulted and metoprolol increased Code(s): R07.9 - CHEST PAIN, UNSPECIFIED (4) Acute kidney injury superimposed on CKD Current Visit: Yes Status: Acute Assessment & Plan: - Creat 1.92, BL 1.61- near baseline - IV Fluids stopped as pt has increased SOB and edema today - CMP reviewed - Lasix 20mg IV x1 ordered as pt developed crackles in lungs this afternoon Code(s): N17.9 - ACUTE KIDNEY FAILURE, UNSPECIFIED; N18.9 - CHRONIC KIDNEY DISEASE, UNSPECIFIED (5) CAD (coronary artery disease) Current Visit: Yes Status: Acute Assessment & Plan: -Stents placed 2010- continue home meds Code(s): I25.10 - ATHSCL HEART DISEASE OF [place] CORONARY ARTERY W/O ANG PCTRS (6) Fall Current Visit: Yes Status: Acute Assessment & Plan: - norco prn for pain -Patient requesting SNF or Swing at discharge -Ground level -Right knee, humerus, cxr reviewed with no acute findings -pain control -PT/OT -No LOC/head trauma -echo pending -TSH -WNL -UA negative - no source of infection Code(s): W19.XXXA - UNSPECIFIED FALL, INITIAL ENCOUNTER (7) HTN (hypertension) Current Visit: Yes Status: Acute Assessment & Plan: -stable BP continue home meds Code(s): I10 - ESSENTIAL (PRIMARY) HYPERTENSION (8) Knee contusion Current Visit: Yes Status: Acute Assessment & Plan: -see fall Code(s): S80.00XA - CONTUSION OF UNSPECIFIED KNEE, INITIAL ENCOUNTER (9) Weakness Current Visit: Yes Status: Acute Assessment & Plan: -see fall Code(s): R53.1 - WEAKNESS (10) Elevated d-dimer Current Visit: Yes Status: Acute Assessment & Plan: - D-dimer 1.21 - VQ scan negative for DVT Code(s): R79.89 - OTHER SPECIFIED ABNORMAL FINDINGS OF BLOOD CHEMISTRY (11) Metabolic acidosis Current Visit: Yes Status: Acute Assessment & Plan: - Co2 19 - start sodium bicarb PO Code(s): E87.20 - ACIDOSIS, UNSPECIFIED (12) Diabetes mellitus Current Visit: No Status: Chronic Assessment & Plan: -ADA diet -SSI -A1c 7.83- controlled VTE: Eliquis PPI: Protonix Dispo: 1-2 days Code: Full Next of KIN: Janene Patel [phone] Code(s): E11.9 - TYPE 2 DIABETES MELLITUS WITHOUT COMPLICATIONS
--- NOTE | 2024-09-09 11:54 | PCM.NOTE ---
Date and Time: 09/09/24 1149 Subjective Assessment: Patient reports some left sided chest discomfort/tightness and SOB this morning. Symptoms started early this morning around 1:30-2am. No palpitations. She reports these symptoms are similar to those she's had at home over the past year. We saw here several days ago for afib and she was started on metoprolol and apixaban. Over the past few days she was feeling better while in the hospital but then overnight these symptoms happened again. She's now desating whereas she wasn't before. They think she may have aspirated taking her meds this morning. Review of tele shows persistent afib; there do not appear to be any episodes where she is in NSR upon review with nursing. - Review of Systems Respiratory: Short Of Breath Cardiac: Chest Pain Objective Exam General Appearance: mild distress Neurologic Exam: alert, oriented x 3 Skin Exam: normal color, warm Eye Exam: EOMI, eyes nml inspection Ears, Nose, Throat Exam: moist mucous membranes Neck Exam: supple, full range of motion, JVD (No JVD) Respiratory Exam: other (crackles at the bases) Cardiovascular Exam: other (irreg irreg, no m/r/g apparent.) Gastrointestinal/Abdomen Exam: soft, normal bowel sounds Extremity Exam: other (1+ edema of calves, no ankles) Objective Data Vital Signs: Vital Signs - 24 hr Temp Pulse Resp BP Pulse Ox 09/09/24 08:00 97.5 F 120 H 20 149/97 93 L 09/09/24 06:29 114 H 16 94 L 09/09/24 04:00 97.7 F 90 18 155/81 93 L 09/08/24 23:35 97.5 F 100 H 18 138/62 92 L 09/08/24 19:47 97.7 F 114 H 20 141/75 91 L 09/08/24 19:15 103 H 18 93 L 09/08/24 16:00 97.7 F 81 17 144/77 95 Pain Assessment - Last Documented Pain Intensity 0 Pain Scale Used 0-10 Pain Scale Intake and Output: Intake & Output 09/06/24 09/07/24 09/08/24 09/09/24 11:59 11:59 11:59 11:59 Intake Total 980 2145 3238 2132 Output Total 250 400 400 400 Balance 730 1745 2838 1732 Weight 85.4 kg 87.1 kg 86.7 kg 88.2 kg Lab Results: Lab Results-Last 24 Hours 09/08/24 09/08/24 09/09/24 Range/Units 16:42 21:56 04:30 WBC 6.3 (3.98-10.04) x10^3/uL RBC 3.03 L (3.93-5.22) x10^6/uL Hgb 8.8 L (11.2-15.7) g/dL Hct 28.8 L (34.1-44.9) % MCV 95.0 H (79.4-94.8) fL MCH 29.0 (25.6-32.2) pg MCHC 30.6 L (32.2-35.5) g/dL RDW 15.8 H (11.7-14.4) % Plt Count 141 L (182-369) x10^3/uL MPV 12.1 (9.4-12.3) fL Gran % 69.5 (34.0-71.1) % Immature Gran % (Auto) 0.5 H (0.001-0.429) % Nucleat RBC Rel Count 0.0 (0.00-0.2) % Eos # (Auto) 0.10 (0.04-0.36) x10^3/uL Immature Gran # (Auto) 0.03 (0.001-0.031) x10^3u/L Absolute Lymphs (auto) 1.11 L (1.18-3.74) x10^3/uL Absolute Monos (auto) 0.66 (0.24-0.86) x10^3/uL Absolute Nucleated RBC 0.00 (0.00-0.012) x10^3u/L Lymphocytes % 17.5 L (19.3-51.7) % Monocytes % 10.4 (4.7-12.5) % Eosinophils % 1.6 (0.7-5.8) % Basophils % 0.5 (0.1-1.2) % Absolute Granulocytes 4.41 (1.56-6.13) x10^3/uL Basophils # 0.03 (0.01-0.08) x10^3/uL Sodium (135-145) mmol/L Potassium (3.5-5.1) mmol/L Chloride (98-107) mmol/L Carbon Dioxide (22-30) mmol/L Anion Gap (5-15) MEQ/L BUN (7-17) mg/dL Creatinine (0.52-1.04) mg/dL Estimated GFR ML/MIN Glucose (74-106) mg/dL POC Glucometer 157 H 145 H (74 to 106) mg/dL Calcium (8.4-10.2) mg/dL Magnesium (1.6-2.3) mg/dL Total Bilirubin (0.2-1.3) mg/dL AST (14-36) U/L ALT (0-35) U/L Alkaline Phosphatase (38-126) U/L Troponin I (0.000-0.033) ng/mL Serum Total Protein (6.3-8.2) g/dL Albumin (3.5-5.0) g/dL 09/09/24 09/09/24 09/09/24 Range/Units 04:30 07:06 09:44 WBC (3.98-10.04) x10^3/uL RBC (3.93-5.22) x10^6/uL Hgb (11.2-15.7) g/dL Hct (34.1-44.9) % MCV (79.4-94.8) fL MCH (25.6-32.2) pg MCHC (32.2-35.5) g/dL RDW (11.7-14.4) % Plt Count (182-369) x10^3/uL MPV (9.4-12.3) fL Gran % (34.0-71.1) % Immature Gran % (Auto) (0.001-0.429) % Nucleat RBC Rel Count (0.00-0.2) % Eos # (Auto) (0.04-0.36) x10^3/uL Immature Gran # (Auto) (0.001-0.031) x10^3u/L Absolute Lymphs (auto) (1.18-3.74) x10^3/uL Absolute Monos (auto) (0.24-0.86) x10^3/uL Absolute Nucleated RBC (0.00-0.012) x10^3u/L Lymphocytes % (19.3-51.7) % Monocytes % (4.7-12.5) % Eosinophils % (0.7-5.8) % Basophils % (0.1-1.2) % Absolute Granulocytes (1.56-6.13) x10^3/uL Basophils # (0.01-0.08) x10^3/uL Sodium 138 (135-145) mmol/L Potassium 4.7 (3.5-5.1) mmol/L Chloride 112 H (98-107) mmol/L Carbon Dioxide 19 L (22-30) mmol/L Anion Gap 11.9 (5-15) MEQ/L BUN 44 H (7-17) mg/dL Creatinine 1.92 H (0.52-1.04) mg/dL Estimated GFR 25.4 ML/MIN Glucose 135 H (74-106) mg/dL POC Glucometer 137 H (74 to 106) mg/dL Calcium 8.7 (8.4-10.2) mg/dL Magnesium 1.9 (1.6-2.3) mg/dL Total Bilirubin 0.40 (0.2-1.3) mg/dL AST 23 (14-36) U/L ALT 12 (0-35) U/L Alkaline Phosphatase 78 (38-126) U/L Troponin I < 0.012 (0.000-0.033) ng/mL Serum Total Protein 6.4 (6.3-8.2) g/dL Albumin 3.4 L (3.5-5.0) g/dL 09/09/24 Range/Units 11:23 WBC (3.98-10.04) x10^3/uL RBC (3.93-5.22) x10^6/uL Hgb (11.2-15.7) g/dL Hct (34.1-44.9) % MCV (79.4-94.8) fL MCH (25.6-32.2) pg MCHC (32.2-35.5) g/dL RDW (11.7-14.4) % Plt Count (182-369) x10^3/uL MPV (9.4-12.3) fL Gran % (34.0-71.1) % Immature Gran % (Auto) (0.001-0.429) % Nucleat RBC Rel Count (0.00-0.2) % Eos # (Auto) (0.04-0.36) x10^3/uL Immature Gran # (Auto) (0.001-0.031) x10^3u/L Absolute Lymphs (auto) (1.18-3.74) x10^3/uL Absolute Monos (auto) (0.24-0.86) x10^3/uL Absolute Nucleated RBC (0.00-0.012) x10^3u/L Lymphocytes % (19.3-51.7) % Monocytes % (4.7-12.5) % Eosinophils % (0.7-5.8) % Basophils % (0.1-1.2) % Absolute Granulocytes (1.56-6.13) x10^3/uL Basophils # (0.01-0.08) x10^3/uL Sodium (135-145) mmol/L Potassium (3.5-5.1) mmol/L Chloride (98-107) mmol/L Carbon Dioxide (22-30) mmol/L Anion Gap (5-15) MEQ/L BUN (7-17) mg/dL Creatinine (0.52-1.04) mg/dL Estimated GFR ML/MIN Glucose (74-106) mg/dL POC Glucometer 143 H (74 to 106) mg/dL Calcium (8.4-10.2) mg/dL Magnesium (1.6-2.3) mg/dL Total Bilirubin (0.2-1.3) mg/dL AST (14-36) U/L ALT (0-35) U/L Alkaline Phosphatase (38-126) U/L Troponin I (0.000-0.033) ng/mL Serum Total Protein (6.3-8.2) g/dL Albumin (3.5-5.0) g/dL Radiology Exams: Radiology Procedures Category Date Time Status CHEST 1 VIEW (PORTABLE) Stat Exams 09/09/24 09:25 Completed CHEST 1 VIEW (PORTABLE) Urgent Exams 09/08/24 08:16 Completed Multi-Disciplinary Progress Notes: Multi-Disciplinary Progress Notes 09/09/24 10:54 Occupational Therapy Note by Sahil (L#[id number])Roshni OT ATTEMPTED RE-EVALUATION AT 10:40; HOWEVER, PATIENT WITH ELEVATED HR WHILE SUPINE IN BED WITH HR 100-127 WITH SOCIAL COMMUNICATION. PATIENT NOT APPROPRIATE FOR OUT OF BED ASSESSMENT AT THIS TIME, RN AND CM NOTIFIED OF PATIENT'S SYMPTOMS. PATIENT'S STATUS DECLINED SINCE INITIAL EVAL ON 09/06/24 WARRANTING RE- EVAL TODAY. PATIENT WILL LIKELY REQUIRE REHAB UPON D/C; HOWEVER, WILL REQUIRE CARDIAC STABILIZATION PRIOR TO D/C AND FURTHER PROGRESS WITH THERAPY. Initialized on 09/09/24 10:54 - END OF NOTE Assessment/Plan (1) Atrial fibrillation Current Visit: Yes Status: Acute Assessment & Plan: Please titrate up metoprolol as tolerated for better rate control as this may be contributing to her symptoms. Of note, she appears to have an intermittent LBBB perhaps rate related. Echo shows normal EF in spite of LBBB so do not feel this represents ischemia. Code(s): I48.91 - UNSPECIFIED ATRIAL FIBRILLATION (2) CAD (coronary artery disease) Current Visit: Yes Status: Acute Code(s): I25.10 - ATHSCL HEART DISEASE OF [place] CORONARY ARTERY W/O ANG PCTRS (3) Chest pain Current Visit: Yes Status: Acute Assessment & Plan: Possibly 2/2 elevated HR but also concerned for ischemia given history of remote stenting. Initial biomarker ~ 6 hours after symptom onset was negative. Will run second to r/o ischemia Code(s): R07.9 - CHEST PAIN, UNSPECIFIED Telemedicine Encounter - Telemedicine Encounter Telemedicine Encounter: "The entirety of this encounter was performed via Telemedicine" This visit was performed using real-time audio and video connection between my location and thepatients locationwith the assistance of a surrogateat the patients location. Written or verbal consent was obtained from the patient/guardian to perform this visit [facility]. Any patient questions regarding the telemedicine interaction were answered.
[2024-09-09] MEDS ORDERED: Lasix 20 MG/2 ML ONE ×2 (15:30→21:55)
[2024-09-09] MEDS: Lasix 20 MG/2 ML IV ONE ×2 (15:35→22:08)
[2024-09-09] MEDS: xanAX 0.25 MG PO SCH (20:14)
[2024-09-09] MEDS: Lopressor 50 MG PO SCH (21:10)
[2024-09-09] MEDS: LOPRESSOR INJECTION IV ONE (21:10)
[2024-09-09] MEDS: Toprol Xl 50 MG PO ONE (21:11)
[2024-09-09] MEDS: ROCEPHIN 1 GM / 100 ML NaCl 1 GM/100 ML IVPB IV SCH (22:11)
[2024-09-09 22:16] LABS: A-aADO2 91; ABG HEMOGLOBIN 13.3; ABG POTASSIUM 4.9 (3.5-5.1); ARTERIAL BLD GAS O2 SATURATION 92.9 % (95-100); ARTERIAL BLOOD GAS BASE EXCESS -3.6 (-2.0-2.0); ARTERIAL BLOOD GAS FIO2 28 %; ARTERIAL BLOOD GAS PCO2 38 mmHg (35-45); ARTERIAL BLOOD GAS PO2 61 mmHg (75-100); ARTERIAL BLOOD GAS pH 7.36 (7.35-7.45); CARBOXYHEMOGLOBIN 1.9 % THgb (0.0-6.9); HCO3- 21.5 (22-28); HGB O2 SAT 90.4 g/dF (94-100); Methhemoglobin 0.7 % (1.4-1.5)
[2024-09-09 22:17] LABS: ABG SITE RRA; ALLEN TEST OK? yes
[2024-09-09] MEDS: Zithromax 500 MG/ 250 ML NaCl Premix 500 MG/250 ML IVPB IV SCH (22:49)
--- NOTE | 2024-09-09 23:10 | TM.IN ---
Tele-Medicine Incident Note - Incident Note Tel-Medicine Incident Note: 09/09/24 0449 The patient has demonstrated increased dyspnea with evidence of volume overload (rales on auscultation) but with normal saturations. ABG was obtained and reviewed. Lasix IVP was administered with some diuresis noted, and the patient h as been placed on BIPAP. Will continue to monitor clinical course. Telemedicine Encounter - Telemedicine Encounter Telemedicine Encounter: "The entirety of this encounter was performed via Telemedicine" This visit was performed using real-time audio and video connection between my location and thepatients locationwith the assistance of a surrogateat the patients location. Written or verbal consent was obtained from the patient/guardian to perform this visit [facility]. Any patient questions regarding the telemedicine interaction were answered.
[2024-09-10] MEDS: Lopressor 50 MG PO ONE (05:14)
[2024-09-10 05:36] LABS: Absolute Neutrophil Ct (ANC) 7.76 x10^3/uL (1.56-6.13); BASOPHIL % 0.3 % (0.1-1.2); Basophil (Absolute #) 0.03 x10^3/uL (0.01-0.08); Eosinophil % 0.2 % (0.7-5.8); Eosinophil (Absolute #) 0.02 x10^3/uL (0.04-0.36); Hematocrit 28.7 % (34.1-44.9); Hemoglobin 8.9 g/dL (11.2-15.7); IMMATURE GRAN # 0.03 x10^3u/L (0.001-0.031); IMMATURE GRAN % 0.3 % (0.001-0.429); Lymphocyte (Absolute #) 0.92 x10^3/uL (1.18-3.74); Lymphocytes % 9.5 % (19.3-51.7); Mean Cell Volume 94.4 fL (79.4-94.8); Mean Corpuscular Hemoglobin 29.3 pg (25.6-32.2); Mean Platelet Volume 12.4 fL (9.4-12.3); Monocyte (Absolute #) 0.95 x10^3/uL (0.24-0.86); Monocytes % 9.8 % (4.7-12.5); Neutrophil % 79.9 % (34.0-71.1); Platelet Count 179 x10^3/uL (182-369); Red Blood Count 3.04 x10^6/uL (3.93-5.22); Red Cell Distribution Width 15.9 % (11.7-14.4); White Blood Count 9.7 x10^3/uL (3.98-10.04)
[2024-09-10 06:05] LABS: ALBUMIN 3.5 g/dL (3.5-5.0); BILIRUBIN,TOTAL 0.5 mg/dL (0.2-1.3); Calcium 8.9 mg/dL (8.4-10.2); Creatinine 1 2.03 mg/dL (0.52-1.04); EST GLOMERULAR FILTRATION RATE 23.8 ML/MIN; MAGNESIUM 1.9 mg/dL (1.6-2.3); Potassium 4.3 mmol/L (3.5-5.1); Total Protein 6.6 g/dL (6.3-8.2)
[2024-09-10] MEDS ORDERED: xanAX 0.25 MG PO PRN (06:57)
--- NOTE | 2024-09-10 09:49 | PCM.NOTE ---
Date and Time: 09/10/24945 Subjective Assessment: Patient reports feeling better this morning although she said last night was rather rough with SOB. Review of BPs show a little better control but still elevated. - Review of Systems Constitutional: Other (as per above) Objective Exam General Appearance: no apparent distress Neurologic Exam: alert, oriented x 3 Skin Exam: warm Eye Exam: EOMI Respiratory Exam: other (bibasilar crackles, seemed improved compared to yesterday) Cardiovascular Exam: other (irreg irreg) Extremity Exam: other (nonpitting edema) Objective Data Vital Signs: Vital Signs - 24 hr Temp Pulse Resp BP Pulse Ox 09/10/24 07:15 98.2 F 111 H 31 H 141/80 96 09/10/24 06:46 116 H 20 92 L 09/10/24 04:00 97.7 F 98 H 27 H 145/90 94 L 09/10/24 02:00 97.3 F 101 H 30 H 142/82 98 09/10/24 00:01 97.1 F 100 H 28 H 139/87 97 09/09/24 21:30 122 H 28 H 157/95 98 09/09/24 20:34 132 H 22 93 L 09/09/24 20:00 97.7 F 121 H 26 H 182/89 93 L 09/09/24 16:00 97.5 F 115 H 18 146/94 95 09/09/24 12:00 98.0 F 106 H 18 142/98 97 Pain Assessment - Last Documented Pain Intensity 0 Pain Scale Used 0-10 Pain Scale Intake and Output: Intake & Output 09/07/24 09/08/24 09/09/24 09/10/24 11:59 11:59 11:59 11:59 Intake Total 2145 3238 2132 60 Output Total 400 506 812 0007 Balance 1745 2838 1732 -1165 Weight 87.1 kg 86.7 kg 88.2 kg 86.5 kg Lab Results: Lab Results-Last 24 Hours 09/09/24 09/09/24 09/09/24 Range/Units 09:44 09:44 11:23 WBC (3.98-10.04) x10^3/uL RBC (3.93-5.22) x10^6/uL Hgb (11.2-15.7) g/dL Hct (34.1-44.9) % MCV (79.4-94.8) fL MCH (25.6-32.2) pg MCHC (32.2-35.5) g/dL RDW (11.7-14.4) % Plt Count (182-369) x10^3/uL MPV (9.4-12.3) fL Gran % (34.0-71.1) % Immature Gran % (Auto) (0.001-0.429) % Nucleat RBC Rel Count (0.00-0.2) % Eos # (Auto) (0.04-0.36) x10^3/uL Immature Gran # (Auto) (0.001-0.031) x10^3u/L Absolute Lymphs (auto) (1.18-3.74) x10^3/uL Absolute Monos (auto) (0.24-0.86) x10^3/uL Absolute Nucleated RBC (0.00-0.012) x10^3u/L Lymphocytes % (19.3-51.7) % Monocytes % (4.7-12.5) % Eosinophils % (0.7-5.8) % Basophils % (0.1-1.2) % Absolute Granulocytes (1.56-6.13) x10^3/uL Basophils # (0.01-0.08) x10^3/uL Puncture Site pCO2 (35-45) mmHg pO2 (75-100) mmHg Base Excess (-2.0-2.0) O2 Saturation (94-100) g/dF ABG pH (7.35-7.45) ABG HCO3 (22-28) ABG O2 Sat (Measured) (95-100) % Peter Test A-a Gradient a/A Ratio Hemoglobin Carboxyhemoglobin (0.0-6.9) % THgb Methemoglobin (1.4-1.5) % Potassium (3.5-5.1) Temperature C POC O2 Flow Rate % Sodium (135-145) mmol/L Chloride (98-107) mmol/L Carbon Dioxide (22-30) mmol/L Anion Gap (5-15) MEQ/L BUN (7-17) mg/dL Creatinine (0.52-1.04) mg/dL Estimated GFR ML/MIN Glucose (74-106) mg/dL POC Glucometer 143 H (74 to 106) mg/dL Calcium (8.4-10.2) mg/dL Magnesium (1.6-2.3) mg/dL Total Bilirubin (0.2-1.3) mg/dL AST (14-36) U/L ALT (0-35) U/L Alkaline Phosphatase (38-126) U/L Troponin I < 0.012 (0.000-0.033) ng/mL NT-Pro-B Natriuret Pep (<300) pg/mL Serum Total Protein (6.3-8.2) g/dL Albumin (3.5-5.0) g/dL Procalcitonin 0.094 H (0.030-0.080) ng/mL 09/09/24 09/09/24 09/09/24 Range/Units 15:13 16:28 22:13 WBC (3.98-10.04) x10^3/uL RBC (3.93-5.22) x10^6/uL Hgb (11.2-15.7) g/dL Hct (34.1-44.9) % MCV (79.4-94.8) fL MCH (25.6-32.2) pg MCHC (32.2-35.5) g/dL RDW (11.7-14.4) % Plt Count (182-369) x10^3/uL MPV (9.4-12.3) fL Gran % (34.0-71.1) % Immature Gran % (Auto) (0.001-0.429) % Nucleat RBC Rel Count (0.00-0.2) % Eos # (Auto) (0.04-0.36) x10^3/uL Immature Gran # (Auto) (0.001-0.031) x10^3u/L Absolute Lymphs (auto) (1.18-3.74) x10^3/uL Absolute Monos (auto) (0.24-0.86) x10^3/uL Absolute Nucleated RBC (0.00-0.012) x10^3u/L Lymphocytes % (19.3-51.7) % Monocytes % (4.7-12.5) % Eosinophils % (0.7-5.8) % Basophils % (0.1-1.2) % Absolute Granulocytes (1.56-6.13) x10^3/uL Basophils # (0.01-0.08) x10^3/uL Puncture Site RRA pCO2 38 (35-45) mmHg pO2 61 L (75-100) mmHg Base Excess -3.6 L (-2.0-2.0) O2 Saturation 90.4 L (94-100) g/dF ABG pH 7.36 (7.35-7.45) ABG HCO3 21.5 L (22-28) ABG O2 Sat (Measured) 92.9 L (95-100) % Peter Test yes A-a Gradient 91 a/A Ratio 0.40 Hemoglobin 13.3 Carboxyhemoglobin 1.9 (0.0-6.9) % THgb Methemoglobin 0.7 L (1.4-1.5) % Potassium 4.9 (3.5-5.1) Temperature 37.0 C POC O2 Flow Rate 28 % Sodium (135-145) mmol/L Chloride (98-107) mmol/L Carbon Dioxide (22-30) mmol/L Anion Gap (5-15) MEQ/L BUN (7-17) mg/dL Creatinine (0.52-1.04) mg/dL Estimated GFR ML/MIN Glucose (74-106) mg/dL POC Glucometer 148 H (74 to 106) mg/dL Calcium (8.4-10.2) mg/dL Magnesium (1.6-2.3) mg/dL Total Bilirubin (0.2-1.3) mg/dL AST (14-36) U/L ALT (0-35) U/L Alkaline Phosphatase (38-126) U/L Troponin I 0.013 (0.000-0.033) ng/mL NT-Pro-B Natriuret Pep (<300) pg/mL Serum Total Protein (6.3-8.2) g/dL Albumin (3.5-5.0) g/dL Procalcitonin (0.030-0.080) ng/mL 09/10/24 09/10/24 09/10/24 Range/Units 04:30 04:30 04:30 WBC 9.7 (3.98-10.04) x10^3/uL RBC 3.04 L (3.93-5.22) x10^6/uL Hgb 8.9 L (11.2-15.7) g/dL Hct 28.7 L (34.1-44.9) % MCV 94.4 (79.4-94.8) fL MCH 29.3 (25.6-32.2) pg MCHC 31.0 L (32.2-35.5) g/dL RDW 15.9 H (11.7-14.4) % Plt Count 179 L (182-369) x10^3/uL MPV 12.4 H (9.4-12.3) fL Gran % 79.9 H (34.0-71.1) % Immature Gran % (Auto) 0.3 (0.001-0.429) % Nucleat RBC Rel Count 0.0 (0.00-0.2) % Eos # (Auto) 0.02 L (0.04-0.36) x10^3/uL Immature Gran # (Auto) 0.03 (0.001-0.031) x10^3u/L Absolute Lymphs (auto) 0.92 L (1.18-3.74) x10^3/uL Absolute Monos (auto) 0.95 H (0.24-0.86) x10^3/uL Absolute Nucleated RBC 0.00 (0.00-0.012) x10^3u/L Lymphocytes % 9.5 L (19.3-51.7) % Monocytes % 9.8 (4.7-12.5) % Eosinophils % 0.2 L (0.7-5.8) % Basophils % 0.3 (0.1-1.2) % Absolute Granulocytes 7.76 H (1.56-6.13) x10^3/uL Basophils # 0.03 (0.01-0.08) x10^3/uL Puncture Site pCO2 (35-45) mmHg pO2 (75-100) mmHg Base Excess (-2.0-2.0) O2 Saturation (94-100) g/dF ABG pH (7.35-7.45) ABG HCO3 (22-28) ABG O2 Sat (Measured) (95-100) % Peter Test A-a Gradient a/A Ratio Hemoglobin Carboxyhemoglobin (0.0-6.9) % THgb Methemoglobin (1.4-1.5) % Potassium 4.3 (3.5-5.1) Temperature C POC O2 Flow Rate % Sodium 137 (135-145) mmol/L Chloride 108 H (98-107) mmol/L Carbon Dioxide 19 L (22-30) mmol/L Anion Gap 14.0 (5-15) MEQ/L BUN 45 H (7-17) mg/dL Creatinine 2.03 H (0.52-1.04) mg/dL Estimated GFR 23.8 ML/MIN Glucose 111 H (74-106) mg/dL POC Glucometer (74 to 106) mg/dL Calcium 8.9 (8.4-10.2) mg/dL Magnesium 1.9 (1.6-2.3) mg/dL Total Bilirubin 0.50 (0.2-1.3) mg/dL AST 21 (14-36) U/L ALT 12 (0-35) U/L Alkaline Phosphatase 79 (38-126) U/L Troponin I (0.000-0.033) ng/mL NT-Pro-B Natriuret Pep 99019 (<300) pg/mL Serum Total Protein 6.6 (6.3-8.2) g/dL Albumin 3.5 (3.5-5.0) g/dL Procalcitonin (0.030-0.080) ng/mL 09/10/24 Range/Units 07:21 WBC (3.98-10.04) x10^3/uL RBC (3.93-5.22) x10^6/uL Hgb (11.2-15.7) g/dL Hct (34.1-44.9) % MCV (79.4-94.8) fL MCH (25.6-32.2) pg MCHC (32.2-35.5) g/dL RDW (11.7-14.4) % Plt Count (182-369) x10^3/uL MPV (9.4-12.3) fL Gran % (34.0-71.1) % Immature Gran % (Auto) (0.001-0.429) % Nucleat RBC Rel Count (0.00-0.2) % Eos # (Auto) (0.04-0.36) x10^3/uL Immature Gran # (Auto) (0.001-0.031) x10^3u/L Absolute Lymphs (auto) (1.18-3.74) x10^3/uL Absolute Monos (auto) (0.24-0.86) x10^3/uL Absolute Nucleated RBC (0.00-0.012) x10^3u/L Lymphocytes % (19.3-51.7) % Monocytes % (4.7-12.5) % Eosinophils % (0.7-5.8) % Basophils % (0.1-1.2) % Absolute Granulocytes (1.56-6.13) x10^3/uL Basophils # (0.01-0.08) x10^3/uL Puncture Site pCO2 (35-45) mmHg pO2 (75-100) mmHg Base Excess (-2.0-2.0) O2 Saturation (94-100) g/dF ABG pH (7.35-7.45) ABG HCO3 (22-28) ABG O2 Sat (Measured) (95-100) % Peter Test A-a Gradient a/A Ratio Hemoglobin Carboxyhemoglobin (0.0-6.9) % THgb Methemoglobin (1.4-1.5) % Potassium (3.5-5.1) Temperature C POC O2 Flow Rate % Sodium (135-145) mmol/L Chloride (98-107) mmol/L Carbon Dioxide (22-30) mmol/L Anion Gap (5-15) MEQ/L BUN (7-17) mg/dL Creatinine (0.52-1.04) mg/dL Estimated GFR ML/MIN Glucose (74-106) mg/dL POC Glucometer 109 H (74 to 106) mg/dL Calcium (8.4-10.2) mg/dL Magnesium (1.6-2.3) mg/dL Total Bilirubin (0.2-1.3) mg/dL AST (14-36) U/L ALT (0-35) U/L Alkaline Phosphatase (38-126) U/L Troponin I (0.000-0.033) ng/mL NT-Pro-B Natriuret Pep (<300) pg/mL Serum Total Protein (6.3-8.2) g/dL Albumin (3.5-5.0) g/dL Procalcitonin (0.030-0.080) ng/mL Radiology Exams: Radiology Procedures Category Date Time Status CHEST 1 VIEW (PORTABLE) Stat Exams 09/09/24 09:25 Completed MODIFIED BARIUM SWALLOW EXAM Routine Exams 09/10/24 13:00 Ordered Multi-Disciplinary Progress Notes: Multi-Disciplinary Progress Notes 09/10/24 09:24 Occupational Therapy Note by Sahil (Kailey#[id number])Roshni OT followed up on patient this morning with change in status yesterday afternoon and throughout the night. She recently transitioned off the bipap with O2 sats and RR maintaining on 2LPm of supplemental oxygen (NC). Her heart rate continues to be in the 90s at rest while in bed. OT will continue to hold therapy at this time to ensure her vitals are stable, and will follow up with patient as appropriate. She is to have a swallow evaluation at 1pm. Initialized on 09/10/24 09:24 - END OF NOTE 09/09/24 14:22 Case Management Note by Orin Batista S/W PATIENT ABOUT NEEDS AT [facility]- SHE WOULD LIKE A REHAB STAY. WE DISCUSSED REHAB FACILITIES- SHE WOULD LIKE REFERRAL SENT TO [facility], NO LEVEL II REQUIRED. COPY FAXED WITH REFERRAL AND PLACED ON CHART REFERRAL FAXED TO [facility] THEY HAVE ACCEPTED AND WILL START AUTH Initialized on 09/09/24 14:22 - END OF NOTE 09/09/24 10:54 Occupational Therapy Note by Sahil (Kailey#[id number])Roshni OT ATTEMPTED RE-EVALUATION AT 10:40; HOWEVER, PATIENT WITH ELEVATED HR WHILE SUPINE IN BED WITH HR 100-127 WITH SOCIAL COMMUNICATION. PATIENT NOT APPROPRIATE FOR OUT OF BED ASSESSMENT AT THIS TIME, RN AND CM NOTIFIED OF PATIENT'S SYMPTOMS. PATIENT'S STATUS DECLINED SINCE INITIAL EVAL ON 09/06/24 WARRANTING RE- EVAL TODAY. PATIENT WILL LIKELY REQUIRE REHAB UPON D/C; HOWEVER, WILL REQUIRE CARDIAC STABILIZATION PRIOR TO D/C AND FURTHER PROGRESS WITH THERAPY. Initialized on 09/09/24 10:54 - END OF NOTE Assessment/Plan (1) Atrial fibrillation Current Visit: Yes Status: Acute Assessment & Plan: Increasing metoprolol to 100mg BID. Goal HR is mostly < 100-110. Code(s): I48.91 - UNSPECIFIED ATRIAL FIBRILLATION (2) CAD (coronary artery disease) Current Visit: Yes Status: Acute Code(s): I25.10 - ATHSCL HEART DISEASE OF [place] CORONARY ARTERY W/O ANG PCTRS (3) Chest pain Current Visit: Yes Status: Acute Assessment & Plan: Suspect BP may be contributing to her symptoms as well as added on amlodipine this morning. Code(s): R07.9 - CHEST PAIN, UNSPECIFIED Telemedicine Encounter - Telemedicine Encounter Telemedicine Encounter: "The entirety of this encounter was performed via Telemedicine" This visit was performed using real-time audio and video connection between my location and thepatients locationwith the assistance of a surrogateat the patients location. Written or verbal consent was obtained from the patient/guardian to perform this visit [facility] technology. Any patient questions regarding the telemedicine interaction were answered.
[2024-09-10] MEDS: Lopressor 50 MG PO SCH (09:58)
[2024-09-10] MEDS: Lasix 20 MG/2 ML IV SCH (10:01)
[2024-09-10] MEDS: NORVASC 5 MG PO SCH (10:03)
--- NOTE | 2024-09-10 12:18 | PCM.NOTE ---
Date and Time: 09/10/24 1211 Subjective Assessment: 09/09/24 Pt resting in bed. She states she is having increased SOB and chest pain today. She states this started last night. She feels like a tight band is around her chest. HR increased overnight and his morning. EKG shows a-fib. Chest XR ordered as pt aspirated on medication this AM per nurse CASSI Reynoso. O2 88-91% when checked and placed on 2lNC. ST eval ordered. Echo pending today. Cardiology reconsulted and trops x3 ordered. KANCHAN improving. She states she feels weak and overall does not feel well. She is wanting to go to a rehab or swing bed at d/c. 09/10/24 Pt resting in bed. Overnight it appears pt had increased SOB and another 20mg IV of Lasix given. She was also placed on bipap overnight. She kept this on from 10pm- 3 am and then requested to be on NC @ 2L. She feels she is breathing much better today and lung sounds are clear. Antibiotics continued for aspiration pneumonia. She is to have a barium swallow today. Per cardiology note pt's EF is normal. Start Metoprolol 100MG BID per cardiology recs. Pt continues to be in A- fib but controlled rate. She states she feels weak. When feeling better will have PT/OT work with pt. She denies CP, SOB, abd pain, N/V/D today. - Review of Systems Constitutional: Weakness, No Fever, No Chills Eyes: No Symptoms Ears, Nose, & Throat: No Symptoms Respiratory: No Cough, No Short Of Breath Cardiac: No Chest Pain, No Edema, No Syncope Abdominal/Gastrointestinal: No Abdominal Pain, No Nausea, No Vomiting, No Diarrhea Genitourinary Symptoms: No Dysuria Musculoskeletal: No Back Pain, No Neck Pain Skin: No Rash Neurological: No Dizziness, No Focal Weakness, No Sensory Changes Psychological: No Symptoms Endocrine: No Symptoms Hematologic/Lymphatic: No Symptoms Immunological/Allergic: No Symptoms Objective Exam General Appearance: no apparent distress, alert, obese Neurologic Exam: alert, oriented x 3, cooperative, normal mood/affect, nml cerebellar function, sensation nml, motor weakness, No motor deficits Skin Exam: normal color, warm, dry Eye Exam: PERRL, EOMI, eyes nml inspection Ears, Nose, Throat Exam: normal ENT inspection, pharynx normal, moist mucous membranes Neck Exam: normal inspection, non-tender, supple, full range of motion Respiratory Exam: normal breath sounds, lungs clear, No respiratory distress Cardiovascular Exam: regular rate/rhythm, normal heart sounds Gastrointestinal/Abdomen Exam: soft, No tenderness, No mass Extremity Exam: normal inspection, normal range of motion Back Exam: normal inspection, normal range of motion, No CVA tenderness, No vertebral tenderness Pelvic Exam: deferred Rectal Exam: deferred Objective Data Vital Signs: Vital Signs - 24 hr Temp Pulse Resp BP Pulse Ox 09/10/24 11:31 97.8 F 106 H 24 98/57 98 09/10/24 07:15 98.2 F 111 H 31 H 141/80 96 09/10/24 06:46 116 H 20 92 L 09/10/24 04:00 97.7 F 98 H 27 H 145/90 94 L 09/10/24 02:00 97.3 F 101 H 30 H 142/82 98 09/10/24 00:01 97.1 F 100 H 28 H 139/87 97 09/09/24 21:30 122 H 28 H 157/95 98 09/09/24 20:34 132 H 22 93 L 09/09/24 20:00 97.7 F 121 H 26 H 182/89 93 L 09/09/24 16:00 97.5 F 115 H 18 146/94 95 Pain Assessment - Last Documented Pain Intensity 0 Pain Scale Used 0-10 Pain Scale Intake and Output: Intake & Output 09/08/24 09/09/24 09/10/24 09/11/24 11:59 11:59 11:59 11:59 Intake Total 3238 2132 60 Output Total 355 708 9801 Balance 2838 1732 -1165 Weight 86.7 kg 88.2 kg 86.5 kg Lab Results: Lab Results-Last 24 Hours 09/09/24 09/09/24 09/09/24 Range/Units 09:44 15:13 16:28 WBC (3.98-10.04) x10^3/uL RBC (3.93-5.22) x10^6/uL Hgb (11.2-15.7) g/dL Hct (34.1-44.9) % MCV (79.4-94.8) fL MCH (25.6-32.2) pg MCHC (32.2-35.5) g/dL RDW (11.7-14.4) % Plt Count (182-369) x10^3/uL MPV (9.4-12.3) fL Gran % (34.0-71.1) % Immature Gran % (Auto) (0.001-0.429) % Nucleat RBC Rel Count (0.00-0.2) % Eos # (Auto) (0.04-0.36) x10^3/uL Immature Gran # (Auto) (0.001-0.031) x10^3u/L Absolute Lymphs (auto) (1.18-3.74) x10^3/uL Absolute Monos (auto) (0.24-0.86) x10^3/uL Absolute Nucleated RBC (0.00-0.012) x10^3u/L Lymphocytes % (19.3-51.7) % Monocytes % (4.7-12.5) % Eosinophils % (0.7-5.8) % Basophils % (0.1-1.2) % Absolute Granulocytes (1.56-6.13) x10^3/uL Basophils # (0.01-0.08) x10^3/uL Puncture Site pCO2 (35-45) mmHg pO2 (75-100) mmHg Base Excess (-2.0-2.0) O2 Saturation (94-100) g/dF ABG pH (7.35-7.45) ABG HCO3 (22-28) ABG O2 Sat (Measured) (95-100) % Peter Test A-a Gradient a/A Ratio Hemoglobin Carboxyhemoglobin (0.0-6.9) % THgb Methemoglobin (1.4-1.5) % Potassium (3.5-5.1) Temperature C POC O2 Flow Rate % Sodium (135-145) mmol/L Chloride (98-107) mmol/L Carbon Dioxide (22-30) mmol/L Anion Gap (5-15) MEQ/L BUN (7-17) mg/dL Creatinine (0.52-1.04) mg/dL Estimated GFR ML/MIN Glucose (74-106) mg/dL POC Glucometer 148 H (74 to 106) mg/dL Calcium (8.4-10.2) mg/dL Magnesium (1.6-2.3) mg/dL Total Bilirubin (0.2-1.3) mg/dL AST (14-36) U/L ALT (0-35) U/L Alkaline Phosphatase (38-126) U/L Troponin I 0.013 (0.000-0.033) ng/mL NT-Pro-B Natriuret Pep (<300) pg/mL Serum Total Protein (6.3-8.2) g/dL Albumin (3.5-5.0) g/dL Procalcitonin 0.094 H (0.030-0.080) ng/mL 09/09/24 09/10/24 09/10/24 Range/Units 22:13 04:30 04:30 WBC 9.7 (3.98-10.04) x10^3/uL RBC 3.04 L (3.93-5.22) x10^6/uL Hgb 8.9 L (11.2-15.7) g/dL Hct 28.7 L (34.1-44.9) % MCV 94.4 (79.4-94.8) fL MCH 29.3 (25.6-32.2) pg MCHC 31.0 L (32.2-35.5) g/dL RDW 15.9 H (11.7-14.4) % Plt Count 179 L (182-369) x10^3/uL MPV 12.4 H (9.4-12.3) fL Gran % 79.9 H (34.0-71.1) % Immature Gran % (Auto) 0.3 (0.001-0.429) % Nucleat RBC Rel Count 0.0 (0.00-0.2) % Eos # (Auto) 0.02 L (0.04-0.36) x10^3/uL Immature Gran # (Auto) 0.03 (0.001-0.031) x10^3u/L Absolute Lymphs (auto) 0.92 L (1.18-3.74) x10^3/uL Absolute Monos (auto) 0.95 H (0.24-0.86) x10^3/uL Absolute Nucleated RBC 0.00 (0.00-0.012) x10^3u/L Lymphocytes % 9.5 L (19.3-51.7) % Monocytes % 9.8 (4.7-12.5) % Eosinophils % 0.2 L (0.7-5.8) % Basophils % 0.3 (0.1-1.2) % Absolute Granulocytes 7.76 H (1.56-6.13) x10^3/uL Basophils # 0.03 (0.01-0.08) x10^3/uL Puncture Site RRA pCO2 38 (35-45) mmHg pO2 61 L (75-100) mmHg Base Excess -3.6 L (-2.0-2.0) O2 Saturation 90.4 L (94-100) g/dF ABG pH 7.36 (7.35-7.45) ABG HCO3 21.5 L (22-28) ABG O2 Sat (Measured) 92.9 L (95-100) % Peter Test yes A-a Gradient 91 a/A Ratio 0.40 Hemoglobin 13.3 Carboxyhemoglobin 1.9 (0.0-6.9) % THgb Methemoglobin 0.7 L (1.4-1.5) % Potassium 4.9 4.3 (3.5-5.1) Temperature 37.0 C POC O2 Flow Rate 28 % Sodium 137 (135-145) mmol/L Chloride 108 H (98-107) mmol/L Carbon Dioxide 19 L (22-30) mmol/L Anion Gap 14.0 (5-15) MEQ/L BUN 45 H (7-17) mg/dL Creatinine 2.03 H (0.52-1.04) mg/dL Estimated GFR 23.8 ML/MIN Glucose 111 H (74-106) mg/dL POC Glucometer (74 to 106) mg/dL Calcium 8.9 (8.4-10.2) mg/dL Magnesium 1.9 (1.6-2.3) mg/dL Total Bilirubin 0.50 (0.2-1.3) mg/dL AST 21 (14-36) U/L ALT 12 (0-35) U/L Alkaline Phosphatase 79 (38-126) U/L Troponin I (0.000-0.033) ng/mL NT-Pro-B Natriuret Pep (<300) pg/mL Serum Total Protein 6.6 (6.3-8.2) g/dL Albumin 3.5 (3.5-5.0) g/dL Procalcitonin (0.030-0.080) ng/mL 09/10/24 09/10/24 09/10/24 Range/Units 04:30 07:21 11:19 WBC (3.98-10.04) x10^3/uL RBC (3.93-5.22) x10^6/uL Hgb (11.2-15.7) g/dL Hct (34.1-44.9) % MCV (79.4-94.8) fL MCH (25.6-32.2) pg MCHC (32.2-35.5) g/dL RDW (11.7-14.4) % Plt Count (182-369) x10^3/uL MPV (9.4-12.3) fL Gran % (34.0-71.1) % Immature Gran % (Auto) (0.001-0.429) % Nucleat RBC Rel Count (0.00-0.2) % Eos # (Auto) (0.04-0.36) x10^3/uL Immature Gran # (Auto) (0.001-0.031) x10^3u/L Absolute Lymphs (auto) (1.18-3.74) x10^3/uL Absolute Monos (auto) (0.24-0.86) x10^3/uL Absolute Nucleated RBC (0.00-0.012) x10^3u/L Lymphocytes % (19.3-51.7) % Monocytes % (4.7-12.5) % Eosinophils % (0.7-5.8) % Basophils % (0.1-1.2) % Absolute Granulocytes (1.56-6.13) x10^3/uL Basophils # (0.01-0.08) x10^3/uL Puncture Site pCO2 (35-45) mmHg pO2 (75-100) mmHg Base Excess (-2.0-2.0) O2 Saturation (94-100) g/dF ABG pH (7.35-7.45) ABG HCO3 (22-28) ABG O2 Sat (Measured) (95-100) % Peter Test A-a Gradient a/A Ratio Hemoglobin Carboxyhemoglobin (0.0-6.9) % THgb Methemoglobin (1.4-1.5) % Potassium (3.5-5.1) Temperature C POC O2 Flow Rate % Sodium (135-145) mmol/L Chloride (98-107) mmol/L Carbon Dioxide (22-30) mmol/L Anion Gap (5-15) MEQ/L BUN (7-17) mg/dL Creatinine (0.52-1.04) mg/dL Estimated GFR ML/MIN Glucose (74-106) mg/dL POC Glucometer 109 H 132 H (74 to 106) mg/dL Calcium (8.4-10.2) mg/dL Magnesium (1.6-2.3) mg/dL Total Bilirubin (0.2-1.3) mg/dL AST (14-36) U/L ALT (0-35) U/L Alkaline Phosphatase (38-126) U/L Troponin I (0.000-0.033) ng/mL NT-Pro-B Natriuret Pep 74278 (<300) pg/mL Serum Total Protein (6.3-8.2) g/dL Albumin (3.5-5.0) g/dL Procalcitonin (0.030-0.080) ng/mL Radiology Exams: Radiology Procedures Category Date Time Status CHEST 1 VIEW (PORTABLE) Stat Exams 09/09/24 09:25 Completed MODIFIED BARIUM SWALLOW EXAM Routine Exams 09/10/24 13:00 Ordered Multi-Disciplinary Progress Notes: Multi-Disciplinary Progress Notes 09/10/24 12:01 Case Management Note by Orin Batista AT [facility] REPORTS THEY HAVE RECEIVED AUTH AND PATIENT CAN ADMIT THRU 09/15. PATIENT CONTINUES TO PLAN TO TRANSITION THERE AT TIME OF DC Initialized on 09/10/24 12:01 - END OF NOTE 09/10/24 10:10 Respiratory Note by Laura Lan [id number] TAKEN OFF BIPAP PLACED ON N/C 2LPM. NO SOB AT THIS TIME Initialized on 09/10/24 10:10 - END OF NOTE 09/10/24 09:24 Occupational Therapy Note by Sahil (L#[id number])[facility] OT followed up on patient this morning with change in status yesterday afternoon and throughout the night. She recently transitioned off the bipap with O2 sats and RR maintaining on 2LPm of supplemental oxygen (NC). Her heart rate continues to be in the 90s at rest while in bed. OT will continue to hold therapy at this time to ensure her vitals are stable, and will follow up with patient as appropriate. She is to have a swallow evaluation at 1pm. Initialized on 09/10/24 09:24 - END OF NOTE 09/09/24 14:22 Case Management Note by Orin Batsita S/W PATIENT ABOUT NEEDS AT [place]- SHE WOULD LIKE A REHAB STAY. WE DISCUSSED REHAB FACILITIES- SHE WOULD LIKE REFERRAL SENT TO [facility], NO LEVEL II REQUIRED. COPY FAXED WITH REFERRAL AND PLACED ON CHART REFERRAL FAXED TO [facility] THEY HAVE ACCEPTED AND WILL START AUTH Initialized on 09/09/24 14:22 - END OF NOTE Assessment/Plan (1) Atrial fibrillation Current Visit: Yes Status: Acute Code(s): I48.91 - UNSPECIFIED ATRIAL FIBRILLATION (2) Dysphagia Current Visit: Yes Status: Acute Code(s): R13.10 - DYSPHAGIA, UNSPECIFIED (3) Chest pain Current Visit: Yes Status: Acute Code(s): R07.9 - CHEST PAIN, UNSPECIFIED (4) Acute kidney injury superimposed on CKD Current Visit: Yes Status: Acute Code(s): N17.9 - ACUTE KIDNEY FAILURE, UNSPECIFIED; N18.9 - CHRONIC KIDNEY DISEASE, UNSPECIFIED (5) CAD (coronary artery disease) Current Visit: Yes Status: Acute Code(s): I25.10 - ATHSCL HEART DISEASE OF [place] CORONARY ARTERY W/O ANG PCTRS (6) Fall Current Visit: Yes Status: Acute Code(s): W19.XXXA - UNSPECIFIED FALL, INITIAL ENCOUNTER (7) HTN (hypertension) Current Visit: Yes Status: Acute Code(s): I10 - ESSENTIAL (PRIMARY) HYPERTENSION (8) Knee contusion Current Visit: Yes Status: Acute Code(s): S80.00XA - CONTUSION OF UNSPECIFIED KNEE, INITIAL ENCOUNTER (9) Weakness Current Visit: Yes Status: Acute Code(s): R53.1 - WEAKNESS (10) Elevated d-dimer Current Visit: Yes Status: Acute Code(s): R79.89 - OTHER SPECIFIED ABNORMAL FINDINGS OF BLOOD CHEMISTRY (11) Metabolic acidosis Current Visit: Yes Status: Acute Code(s): E87.20 - ACIDOSIS, UNSPECIFIED (12) Diabetes mellitus Current Visit: No Status: Chronic Assessment & Plan: (1) Atrial fibrillation Current Visit: Yes Status: Acute Assessment & Plan: - new onset - cardiology consult - EKG, Tele, echo - Metoprolol increased today per cardiology recs - Eliquis 2.5 BID - TSH - WNL 09/10 - Cardiology consult note reviewed and agree with plan of care - Metoprolol increased to 100mg BID - Echo results reviewed- EF 55-60%- diastolic dysfunction Code(s): I48.91 - UNSPECIFIED ATRIAL FIBRILLATION (2) Dysphagia Current Visit: Yes Status: Acute Assessment & Plan: - ST eval - Consider barium swallow - Pt aspirated on medication this morning per nurse - Chest XR: Portable apical lordotic chest again hyperinflated with chronic lung markings and lingula subsegmental atelectasis/scarring. New tiny bibasilar effusions. Remaining lungs clear. Heart remains enlarged again with tortuous descending aorta. 09/10 - Barium swallow today Code(s): R13.10 - DYSPHAGIA, UNSPECIFIED (3) Chest pain Current Visit: Yes Status: Acute Assessment & Plan: - EKG - tele - Echo - trop x3 negative - Cardiology consulted and metoprolol increased 09/10 - CP resolved Code(s): R07.9 - CHEST PAIN, UNSPECIFIED (4) Acute kidney injury superimposed on CKD Current Visit: Yes Status: Acute Assessment & Plan: - Creat 1.92, BL 1.61- near baseline - IV Fluids stopped as pt has increased SOB and edema today - CMP reviewed - Lasix 20mg IV x1 ordered as pt developed crackles in lungs this afternoon 09/10 - Creat 2.03 increased today as 2 doses of IV lasix gave yesterday - CMP reviewed Code(s): N17.9 - ACUTE KIDNEY FAILURE, UNSPECIFIED; N18.9 - CHRONIC KIDNEY DISEASE, UNSPECIFIED (5) CAD (coronary artery disease) Current Visit: Yes Status: Acute Assessment & Plan: -Stents placed 2010- continue home meds Code(s): I25.10 - ATHSCL HEART DISEASE OF [place] CORONARY ARTERY W/O ANG PCTRS (6) Fall Current Visit: Yes Status: Acute Assessment & Plan: - [place] prn for pain -Patient requesting SNF or Swing at discharge -Ground level -Right knee, humerus, cxr reviewed with no acute findings -pain control -PT/OT -No LOC/head trauma -Echo pending -TSH -WNL -UA negative - no source of infection - PT/OT eval when able Code(s): W19.XXXA - UNSPECIFIED FALL, INITIAL ENCOUNTER (7) HTN (hypertension) Current Visit: Yes Status: Acute Assessment & Plan: -stable BP continue home meds Code(s): I10 - ESSENTIAL (PRIMARY) HYPERTENSION (8) Knee contusion Current Visit: Yes Status: Acute Assessment & Plan: -see fall Code(s): S80.00XA - CONTUSION OF UNSPECIFIED KNEE, INITIAL ENCOUNTER (9) Weakness Current Visit: Yes Status: Acute Assessment & Plan: -see fall Code(s): R53.1 - WEAKNESS (10) Elevated d-dimer Current Visit: Yes Status: Acute Assessment & Plan: - D-dimer 1.21 - VQ scan negative for DVT Code(s): R79.89 - OTHER SPECIFIED ABNORMAL FINDINGS OF BLOOD CHEMISTRY (11) Metabolic acidosis Current Visit: Yes Status: Acute Assessment & Plan: - Co2 19 - start sodium bicarb PO 09/10 - Continue sodium bicarb PO Code(s): E87.20 - ACIDOSIS, UNSPECIFIED (12) Diabetes mellitus Current Visit: No Status: Chronic Assessment & Plan: -ADA diet -SSI -A1c 7.83- controlled VTE: Eliquis PPI: Protonix Dispo: 1-2 days- D/C to [facility] when able Code: Full Next of KIN: Janene Patel [phone] Code(s): E11.9 - TYPE 2 DIABETES MELLITUS WITHOUT COMPLICATIONS Code(s): E11.9 - TYPE 2 DIABETES MELLITUS WITHOUT COMPLICATIONS
--- NOTE | 2024-09-10 13:49 | XRAY ---
Indication: Choking and coughing with swallowing. Modified barium swallow study performed bedside by the Department of speech therapy with fluoroscopic assistance provided. Patient ingested multiple consistencies of liquids and solids. Full report and recommendations will be reported separately. Approximately 40 seconds fluoroscopy used.
[2024-09-10] MEDS ORDERED: Lasix 20 MG/2 ML IV ONE (21:56)
[2024-09-11] MEDS: PROVENTIL 2.5 MG/3 ML NEB IH PRN (05:26)
[2024-09-11 06:41] LABS: Absolute Neutrophil Ct (ANC) 5.48 x10^3/uL (1.56-6.13); BASOPHIL % 0.3 % (0.1-1.2); Basophil (Absolute #) 0.02 x10^3/uL (0.01-0.08); Eosinophil % 0.4 % (0.7-5.8); Eosinophil (Absolute #) 0.03 x10^3/uL (0.04-0.36); Hematocrit 26.6 % (34.1-44.9); Hemoglobin 8.3 g/dL (11.2-15.7); IMMATURE GRAN # 0.03 x10^3u/L (0.001-0.031); IMMATURE GRAN % 0.4 % (0.001-0.429); Lymphocyte (Absolute #) 0.64 x10^3/uL (1.18-3.74); Lymphocytes % 9.3 % (19.3-51.7); Mean Cell Volume 92.7 fL (79.4-94.8); Mean Corpuscular Hemoglobin 28.9 pg (25.6-32.2); Mean Corpuscular Hgb Concent. 31.2 g/dL (32.2-35.5); Mean Platelet Volume 11.4 fL (9.4-12.3); Monocyte (Absolute #) 0.67 x10^3/uL (0.24-0.86); Monocytes % 9.8 % (4.7-12.5); Neutrophil % 79.8 % (34.0-71.1); Platelet Count 161 x10^3/uL (182-369); Red Blood Count 2.87 x10^6/uL (3.93-5.22); Red Cell Distribution Width 15.6 % (11.7-14.4); White Blood Count 6.9 x10^3/uL (3.98-10.04)
[2024-09-11 07:01] LABS: ALBUMIN 3.2 g/dL (3.5-5.0); ANION GAP 11.6 MEQ/L (5-15); BILIRUBIN,TOTAL 0.5 mg/dL (0.2-1.3); Calcium 8.6 mg/dL (8.4-10.2); Creatinine 1 2.15 mg/dL (0.52-1.04); EST GLOMERULAR FILTRATION RATE 22.2 ML/MIN; MAGNESIUM 1.8 mg/dL (1.6-2.3); Potassium 4.2 mmol/L (3.5-5.1); Total Protein 6.2 g/dL (6.3-8.2)
--- NOTE | 2024-09-11 11:30 | PCM.DS ---
Discharge Summary Date of Admission: 09/07/24 05:24 Date of Discharge: 09/11/24 Admitting Physician: PILY PETER MD Consults: Consults on Case 09/05/24 16:16 Consult Cardiology ROUTINE Primary Care Provider: ERIKA,DANA Allergies Allergies quinine Allergy (Verified 09/05/24 11:25) Difficulty Breathing Hospital Summary - Hospital Course Hospital Course: 09/09/24 Pt resting in bed. She states she is having increased SOB and chest pain today. She states this started last night. She feels like a tight band is around her chest. HR increased overnight and his morning. EKG shows a-fib. Chest XR ordered as pt aspirated on medication this AM per nurse CASSI Reynoso. O2 88-91% when checked and placed on 2lNC. ST eval ordered. Echo pending today. Cardiology reconsulted and trops x3 ordered. KANCHAN improving. She states she feels weak and overall does not feel well. She is wanting to go to a rehab or swing bed at d/c. 09/10/24 Pt resting in bed. Overnight it appears pt had increased SOB and another 20mg IV of Lasix given. She was also placed on bipap overnight. She kept this on from 10pm- 3 am and then requested to be on NC @ 2L. She feels she is breathing much better today and lung sounds are clear. Antibiotics continued for aspiration pneumonia. She is to have a barium swallow today. Per cardiology note pt's EF is normal. Start Metoprolol 100MG BID per cardiology recs. Pt continues to be in A- fib but controlled rate. She states she feels weak. When feeling better will have PT/OT work with pt. She denies CP, SOB, abd pain, N/V/D today. 09/11/24 Pt feeling better today. HR controlled with increased dose of metoprolol. She did wear bipap last night but not because she has increased SOB. She continues to have acute on chronic renal failure and this will need monitored Q3 days at the rehab facility. HR increased with walking today d/t activity intolerance. Will continue antibiotic for aspiration pneumonia. Barium swallow eval recs from yesterday reviewed. She denies CP, SOB, abd pain, N/V/D. - Vitals & Intake/Output Vital Signs: Vital Signs Temperature 97.7 F 09/11/24 07:09 Pulse Rate 89 09/11/24 07:09 Respiratory Rate 16 09/11/24 07:09 Blood Pressure 133/77 09/11/24 07:09 O2 Sat by Pulse Oximetry 98 09/11/24 07:09 Intake & Output: Intake & Output 09/08/24 09/09/24 09/10/24 09/11/24 11:59 11:59 11:59 11:59 Intake Total 3238 2132 60 820 Output Total 760 264 3218 600 Balance 2838 1732 -1165 220 Weight 86.7 kg 88.2 kg 86.5 kg 86.5 kg - Lab Result Diagrams: 09/11/24 06:37 09/11/24 06:37 Lab Results-Last 24 Hrs: Lab Results-Last 24 Hours 09/10/24 09/10/24 09/10/24 Range/Units 11:19 16:25 21:16 WBC (3.98-10.04) x10^3/uL RBC (3.93-5.22) x10^6/uL Hgb (11.2-15.7) g/dL Hct (34.1-44.9) % MCV (79.4-94.8) fL MCH (25.6-32.2) pg MCHC (32.2-35.5) g/dL RDW (11.7-14.4) % Plt Count (182-369) x10^3/uL MPV (9.4-12.3) fL Gran % (34.0-71.1) % Immature Gran % (Auto) (0.001-0.429) % Nucleat RBC Rel Count (0.00-0.2) % Eos # (Auto) (0.04-0.36) x10^3/uL Immature Gran # (Auto) (0.001-0.031) x10^3u/L Absolute Lymphs (auto) (1.18-3.74) x10^3/uL Absolute Monos (auto) (0.24-0.86) x10^3/uL Absolute Nucleated RBC (0.00-0.012) x10^3u/L Lymphocytes % (19.3-51.7) % Monocytes % (4.7-12.5) % Eosinophils % (0.7-5.8) % Basophils % (0.1-1.2) % Absolute Granulocytes (1.56-6.13) x10^3/uL Basophils # (0.01-0.08) x10^3/uL Sodium (135-145) mmol/L Potassium (3.5-5.1) mmol/L Chloride (98-107) mmol/L Carbon Dioxide (22-30) mmol/L Anion Gap (5-15) MEQ/L BUN (7-17) mg/dL Creatinine (0.52-1.04) mg/dL Estimated GFR ML/MIN Glucose (74-106) mg/dL POC Glucometer 132 H 208 H 120 H (74 to 106) mg/dL Calcium (8.4-10.2) mg/dL Magnesium (1.6-2.3) mg/dL Total Bilirubin (0.2-1.3) mg/dL AST (14-36) U/L ALT (0-35) U/L Alkaline Phosphatase (38-126) U/L Serum Total Protein (6.3-8.2) g/dL Albumin (3.5-5.0) g/dL 09/11/24 09/11/24 09/11/24 Range/Units 06:37 06:37 07:28 WBC 6.9 (3.98-10.04) x10^3/uL RBC 2.87 L (3.93-5.22) x10^6/uL Hgb 8.3 L (11.2-15.7) g/dL Hct 26.6 L (34.1-44.9) % MCV 92.7 (79.4-94.8) fL MCH 28.9 (25.6-32.2) pg MCHC 31.2 L (32.2-35.5) g/dL RDW 15.6 H (11.7-14.4) % Plt Count 161 L (182-369) x10^3/uL MPV 11.4 (9.4-12.3) fL Gran % 79.8 H (34.0-71.1) % Immature Gran % (Auto) 0.4 (0.001-0.429) % Nucleat RBC Rel Count 0.0 (0.00-0.2) % Eos # (Auto) 0.03 L (0.04-0.36) x10^3/uL Immature Gran # (Auto) 0.03 (0.001-0.031) x10^3u/L Absolute Lymphs (auto) 0.64 L (1.18-3.74) x10^3/uL Absolute Monos (auto) 0.67 (0.24-0.86) x10^3/uL Absolute Nucleated RBC 0.00 (0.00-0.012) x10^3u/L Lymphocytes % 9.3 L (19.3-51.7) % Monocytes % 9.8 (4.7-12.5) % Eosinophils % 0.4 L (0.7-5.8) % Basophils % 0.3 (0.1-1.2) % Absolute Granulocytes 5.48 (1.56-6.13) x10^3/uL Basophils # 0.02 (0.01-0.08) x10^3/uL Sodium 140 (135-145) mmol/L Potassium 4.2 (3.5-5.1) mmol/L Chloride 110 H (98-107) mmol/L Carbon Dioxide 23 (22-30) mmol/L Anion Gap 11.6 (5-15) MEQ/L BUN 49 H (7-17) mg/dL Creatinine 2.15 H (0.52-1.04) mg/dL Estimated GFR 22.2 ML/MIN Glucose 160 H (74-106) mg/dL POC Glucometer 142 H (74 to 106) mg/dL Calcium 8.6 (8.4-10.2) mg/dL Magnesium 1.8 (1.6-2.3) mg/dL Total Bilirubin 0.50 (0.2-1.3) mg/dL AST 26 (14-36) U/L ALT 15 (0-35) U/L Alkaline Phosphatase 91 (38-126) U/L Serum Total Protein 6.2 L (6.3-8.2) g/dL Albumin 3.2 L (3.5-5.0) g/dL Micro Results-Entire Visit: Accuchecks Date 09/11/24 Date 09/10/24 Date 09/10/24 Time 07:31 Time 16:55 Time 11:31 - Radiology Exams Ordered Rad Exams-Entire Visit: Radiology Procedures Category Date Time Status MODIFIED BARIUM SWALLOW EXAM Routine Exams 09/10/24 13:00 Completed - Procedures and Test Procedures and Tests throughout Hospitalization: Therapy Orders & Screens 09/05/24 16:29 PT Eval & Treat ( Order) ONCE Reason for Eval:: weakness/fall Diagnosis: Generalized weakness, atrial fibrillation, fall, KANCHAN on CKD EKG REPEAT IN AM Comment: Diagnosis: Generalized weakness, atrial fibrillation, fall, KANCHAN on CKD OT Eval and Treat (MD Order) ONCE Comment: Physician Instructions: Reason For Exam: Diagnosis: Generalized weakness, atrial fibrillation, fall, KANCHAN on CKD 09/05/24 16:45 Respiratory Therapy Assessment DAILY Comment: Diagnosis: Generalized weakness, atrial fibrillation, fall, KANCHAN on CKD 09/08/24 16:53 Incentive Spirometry UD Comment: Diagnosis: Generalized weakness, atrial fibrillation, fall, KANCHAN on CKD 09/09/24 09:25 EKG STAT Comment: Diagnosis: Generalized weakness, atrial fibrillation, fall, KANCHAN on CKD EKG Reason: Chest Pain 09/09/24 09:38 Oxygen Nasal Cannula 2 lpm Comment: Diagnosis: Generalized weakness, atrial fibrillation, fall, KANCHAN on CKD 09/09/24 11:39 ST Eval & Treat (MD Order) .as ordered Comment: Physician Instructions: Reason For Exam: Evaluate: Yes Treat: Yes Reason for Eval: aspiration on meds with possible need for further eval based on ST recs Diagnosis: Generalized weakness, atrial fibrillation, fall, KANCHAN on CKD 09/09/24 15:09 EKG STAT Comment: Diagnosis: NEW ONSET AFIB, ACUTE KIDNEY INJURY, FALL, WEAKNESS, 09/09/24 22:13 BiPap/CPAP STAT Comment: Diagnosis: NEW ONSET AFIB, ACUTE KIDNEY INJURY, FALL, WEAKNESS, Discharge Exam General Appearance: no apparent distress, alert Neurologic Exam: alert, oriented x 3, cooperative, normal mood/affect, nml cerebellar function, sensation nml, motor weakness, No motor deficits Eye Exam: PERRL, EOMI, eyes nml inspection Ears, Nose, Throat Exam: normal ENT inspection, pharynx normal, moist mucous membranes Neck Exam: normal inspection, non-tender, supple, full range of motion Respiratory Exam: normal breath sounds, lungs clear, No respiratory distress Cardiovascular Exam: normal heart sounds, irregular Gastrointestinal/Abdomen Exam: soft, No tenderness, No mass Pelvic Exam: deferred Rectal Exam: deferred Back Exam: normal inspection, normal range of motion, No CVA tenderness, No vertebral tenderness Extremity Exam: normal inspection, normal range of motion Skin Exam: normal color, warm, dry Final Diagnosis/Problem List - Final Discharge Diagnosis/Problem (1) Atrial fibrillation Current Visit: Yes Status: Acute Code(s): I48.91 - UNSPECIFIED ATRIAL FIBRILLATION (2) Dysphagia Current Visit: Yes Status: Acute Code(s): R13.10 - DYSPHAGIA, UNSPECIFIED (3) Chest pain Current Visit: Yes Status: Acute Code(s): R07.9 - CHEST PAIN, UNSPECIFIED (4) Acute kidney injury superimposed on CKD Current Visit: Yes Status: Acute Code(s): N17.9 - ACUTE KIDNEY FAILURE, UNSPECIFIED; N18.9 - CHRONIC KIDNEY DISEASE, UNSPECIFIED (5) CAD (coronary artery disease) Current Visit: Yes Status: Acute Code(s): I25.10 - ATHSCL HEART DISEASE OF [place] CORONARY ARTERY W/O ANG PCTRS (6) Fall Current Visit: Yes Status: Acute Code(s): W19.XXXA - UNSPECIFIED FALL, INITIAL ENCOUNTER (7) HTN (hypertension) Current Visit: Yes Status: Acute Code(s): I10 - ESSENTIAL (PRIMARY) HYPERTENSION (8) Knee contusion Current Visit: Yes Status: Acute Code(s): S80.00XA - CONTUSION OF UNSPECIFIED KNEE, INITIAL ENCOUNTER (9) Weakness Current Visit: Yes Status: Acute Code(s): R53.1 - WEAKNESS (10) Elevated d-dimer Current Visit: Yes Status: Acute Code(s): R79.89 - OTHER SPECIFIED ABNORMAL FINDINGS OF BLOOD CHEMISTRY (11) Metabolic acidosis Current Visit: Yes Status: Acute Code(s): E87.20 - ACIDOSIS, UNSPECIFIED (12) Diabetes mellitus Current Visit: No Status: Chronic Assessment & Plan: (1) Atrial fibrillation Current Visit: Yes Status: Acute Assessment & Plan: - new onset - cardiology consult - EKG, Tele, echo - Metoprolol increased today per cardiology recs - Eliquis 2.5 BID - TSH - WNL 09/10 - Cardiology consult note reviewed and agree with plan of care - Metoprolol increased to 100mg BID - Echo results reviewed- EF 55-60%- diastolic dysfunction 09/11 - HR controlled Code(s): I48.91 - UNSPECIFIED ATRIAL FIBRILLATION (2) Dysphagia Current Visit: Yes Status: Acute Assessment & Plan: - ST eval - Consider barium swallow - Pt aspirated on medication this morning per nurse - Chest XR: Portable apical lordotic chest again hyperinflated with chronic lung markings and lingula subsegmental atelectasis/scarring. New tiny bibasilar effusions. Remaining lungs clear. Heart remains enlarged again with tortuous descending aorta. 09/10 - Barium swallow results reviewed and agree with plan of care Code(s): R13.10 - DYSPHAGIA, UNSPECIFIED (3) Chest pain Current Visit: Yes Status: Acute Assessment & Plan: - EKG - tele - Echo - trop x3 negative - Cardiology consulted and metoprolol increased 09/10 - CP resolved Code(s): R07.9 - CHEST PAIN, UNSPECIFIED (4) Acute kidney injury superimposed on CKD Current Visit: Yes Status: Acute Assessment & Plan: - Creat 1.92, BL 1.78- near baseline - IV Fluids stopped as pt has increased SOB and edema today - CMP reviewed - Lasix 20mg IV x1 ordered as pt developed crackles in lungs this afternoon 09/10 - Creat 2.03 increased today as 2 doses of IV lasix gave yesterday - CMP reviewed 09/11 - Creat 2.15 Will need followed OP Q3 days at rehab - F/U with nephrology OP Code(s): N17.9 - ACUTE KIDNEY FAILURE, UNSPECIFIED; N18.9 - CHRONIC KIDNEY DISEASE, UNSPECIFIED (5) CAD (coronary artery disease) Current Visit: Yes Status: Acute Assessment & Plan: -Stents placed 2010- continue home meds Code(s): I25.10 - ATHSCL HEART DISEASE OF [place] CORONARY ARTERY W/O ANG PCTRS (6) Fall Current Visit: Yes Status: Acute Assessment & Plan: - [place] prn for pain -Patient requesting SNF or Swing at discharge -Ground level -Right knee, humerus, cxr reviewed with no acute findings -pain control -PT/OT -No LOC/head trauma -Echo pending -TSH -WNL -UA negative - no source of infection - PT/OT eval when able 09/11 - PT Eval- + activity intolerance - D/C to rehab today Code(s): W19.XXXA - UNSPECIFIED FALL, INITIAL ENCOUNTER (7) HTN (hypertension) Current Visit: Yes Status: Acute Assessment & Plan: -stable BP continue home meds Code(s): I10 - ESSENTIAL (PRIMARY) HYPERTENSION (8) Knee contusion Current Visit: Yes Status: Acute Assessment & Plan: -see fall Code(s): S80.00XA - CONTUSION OF UNSPECIFIED KNEE, INITIAL ENCOUNTER (9) Weakness Current Visit: Yes Status: Acute Assessment & Plan: -see fall Code(s): R53.1 - WEAKNESS (10) Elevated d-dimer Current Visit: Yes Status: Acute Assessment & Plan: - D-dimer 1.21 - VQ scan negative for DVT Code(s): R79.89 - OTHER SPECIFIED ABNORMAL FINDINGS OF BLOOD CHEMISTRY (11) Metabolic acidosis Current Visit: Yes Status: Acute Assessment & Plan: - Co2 19 - start sodium bicarb PO 09/10 - Continue sodium bicarb PO 09/11 - Stop sodium bicarb Code(s): E87.20 - ACIDOSIS, UNSPECIFIED (12) Diabetes mellitus Current Visit: No Status: Chronic Assessment & Plan: -ADA diet -SSI -A1c 7.83- controlled Code(s): E11.9 - TYPE 2 DIABETES MELLITUS WITHOUT COMPLICATIONS Code(s): E11.9 - TYPE 2 DIABETES MELLITUS WITHOUT COMPLICATIONS - Discharge Discharge Date: 09/11/24 ([facility]) Disposition: XFER OTHER Condition: Stable Prescriptions: New Apixaban [Eliquis 2.5 mg Tablet] 2.5 mg PO BID 30 Days #60 tablet Metoprolol Tartrate 50 mg [Lopressor 50 MG] 100 mg PO BID 30 Days #60 tablet Amlodipine Besylate 5 mg [Norvasc 5 mg] 5 mg PO QAM 30 Days #30 tablet Continue Atorvastatin Calcium [Lipitor 20MG Tablet] 40 mg PO HS Aspirin 81 mg PO DAILY Oxybutynin Chloride 5 mg PO DAILY L.acidoph,Paracasei, B.lactis [Probiotic] 1 cap PO DAILY Albuterol 8 gm Mdi Hfa [Ventolin Hfa MDI] 1 puff IN Q6HPRN PRN PRN Reason: Allergies Furosemide 20 mg [Lasix 20 mg] 40 mg PO BID Omeprazole 40 mg PO BID Lisinopril 20 mg [Zestril 20 MG] 40 mg PO DAILY Vit C/E/Zn/Coppr/Lutein/Zeaxan [Preservision Areds 2 Softgel] 1 each PO DAILY Hydralazine HCl 25 mg PO TID Ferrous Sulfate 325 mg [Feosol 325 mg] 325 mg PO DAILY Ranolazine [Ranolazine ER] 500 mg PO BID Bumetanide 1 mg [Bumex 1 mg] 1 mg PO DAILY Finerenone [Kerendia] 10 mg PO DAILY Nitroglycerin 0.4 mg Tablet [Nitrostat 0.4 MG Tablet] 0.4 mg SL Q5MIN PRN MR X 3 PRN PRN Reason: Chest Pain Fluticasone/Umeclidin/Vilanter [Trelegy Ellipta 200-62.5-25] 1 each IH DAILY Allopurinol 100 mg [Zyloprim 100 mg] 100 mg PO BID Insulin Glargine,Hum.rec.anlog [Toujeo Solostar] 15 units SQ DAILY Carvedilol 12.5 mg [Coreg 12.5 mg] 12.5 mg PO BID Follow up with: JAVIER WHITE [CONSULTING PHYSICIAN] - 10/10/24 1:45 pm MESHA RYAN [CONSULTING PHYSICIAN] - 09/23/24 4:20 pm (at [facility]) DANA JAMES MD [Primary Care Provider] - 09/16/24 3:30 pm (at [facility])
[2024-09-11 12:10] VITALS: BP 128/59; PULSE 81; RESP 24; TEMP 98; O2SAT 96
== END 2024-09-11 14:15 | DRG 309 ==
LOC: ED 11:16 → MED SURG 14:45 → OBSVTOIN 09-07 05:24 → MED SURG 09-09 21:59
PROVIDERS: ADMIT Internal Medicine; ATTEND Internal Medicine
DX: I48.91 Unspecified atrial fibrillation (principal); E87.20 Acidosis, unspecified; N17.9 Acute kidney failure, unspecified; R13.10 Dysphagia, unspecified; R07.9 Chest pain, unspecified; N18.9 Chronic kidney disease, unspecified; I25.10 Atherosclerotic heart disease of native coronary artery without angina pectoris; W19.XXXA Unspecified fall, initial encounter; I12.9 Hypertensive chronic kidney disease with stage 1 through stage 4 chronic kidney disease, or unspecified chronic kidney disease; E11.22 Type 2 diabetes mellitus with diabetic chronic kidney disease; S80.01XA Contusion of right knee, initial encounter; R53.1 Weakness; R79.89 Other specified abnormal findings of blood chemistry; I25.2 Old myocardial infarction; E87.5 Hyperkalemia; Z79.899 Other long term (current) drug therapy
CPT/HCPCS: 36415; 36600; 71045; 73060; 73562; 74230; 78582; 80053; 81001; 82375; 82803; 82947; 83036; 83605; 83735; 83880; 84132; 84145; 84443; 84484; 85025; 85379; 85610; 85730; 92611; 93005; 93041; 93268; 93306; 94002; 94003; 94640; 94760; 94762; 97110; 97162; 97165; 97530; 99285; A9540; A9567; G0378; Q3014; J0456; J0696; J1644; J1817; J1940; J7609; A9270-GY

== ENCOUNTER 2024-09-20 14:43 | Inpatient (IN) | payer MEDICARE ==
--- NOTE | 2024-09-20 15:11 | ERPHSYRPT ---
- History of Present Illness Source: patient Exam Limitations: no limitations Patient Subjective Stated Complaint: hypotension, dizziness, and bradycardic Triage Nursing Assessment: Pt was brought to the ER by EMS, hypotensive, bradycardic, denies pain, dizzy, pulses normal, tania lower extremity swelling, 2L NC at all times Hx Tetanus, Diphtheria Vaccination/Date Given: Yes Hx Influenza Vaccination/Date Given: Yes Hx Pneumococcal Vaccination/Date Given: Yes <NICK HIGGINBOTHAM - Last Filed: 09/20/24 22:09> <KAIT ELLIS - Last Filed: 09/20/24 22:50> - History of Present Illness Time Seen by Provider: 09/20/24 14:56 Physician History: Pt states for the past hour she has had dizziness, nausea, generalized abdominal pain and generalized weakness; EMS state pt has had hypotension and bradycardia. (NICK HIGGINBOTHAM) Allergies/Adverse Reactions: quinine Allergy (Verified 09/05/24 11:25) Difficulty Breathing Home Medications: Aspirin 81 mg PO DAILY 10/04/14 [History] Atorvastatin Calcium [Lipitor 20MG Tablet] 20 mg PO HS 10/04/14 [History] Oxybutynin Chloride 5 mg PO DAILY 09/23/20 [History] Furosemide 20 mg [Lasix 20 mg] 40 mg PO BID 11/15/22 [History] L.acidoph,Paracasei, B.lactis [Probiotic] 1 cap PO DAILY 11/15/22 [History] Omeprazole 40 mg PO BID 11/15/22 [History] Hydralazine HCl 25 mg PO TID 11/30/22 [History] Lisinopril 20 mg [Zestril 20 MG] 40 mg PO DAILY 11/30/22 [History] Vit C/E/Zn/Coppr/Lutein/Zeaxan [Preservision Areds 2 Softgel] 1 each PO DAILY 11/30/22 [History] Ferrous Sulfate 325 mg [Feosol 325 mg] 325 mg PO DAILY 10/19/23 [History] Ranolazine [Ranolazine ER] 500 mg PO BID 10/19/23 [History] Allopurinol 100 mg [Zyloprim 100 mg] 100 mg PO BID 09/05/24 [History] Bumetanide 1 mg [Bumex 1 mg] 1 mg PO DAILY 09/05/24 [History] Carvedilol 12.5 mg [Coreg 12.5 mg] 12.5 mg PO BID 09/05/24 [History] Finerenone [Kerendia] 10 mg PO DAILY 09/05/24 [History] Insulin Glargine,Hum.rec.anlog [Toujeo Solostar] 15 units SQ DAILY 09/05/24 [History] Nitroglycerin 0.4 mg Tablet [Nitrostat 0.4 MG Tablet] 0.4 mg SL Q5MIN PRN MR X 3 PRN 09/05/24 [History] Insulin Glargine,Hum.rec.anlog [Toujeo Solostar] 15 units SQ DAILY 09/20/24 [History] Metoprolol Tartrate 50 mg [Lopressor 50 MG] 50 mg PO BID 09/20/24 [History] Travel Risk - International Travel Have you traveled outside of the country in past 3 weeks: No - Emerging Infectious Disease Are you exhibiting symptoms associated with any current EIDs: No <NICK HIGGINBOTHAM - Last Filed: 09/20/24 22:09> - Review of Systems Constitutional: No Fever Cardiac: No Chest Pain Abdominal/Gastrointestinal: Abdominal Pain, Nausea Neurological: Dizziness, Other (weakness(generalized)), No Headache <NICK HIGGINBOTHAM - Last Filed: 09/20/24 22:09> - Past Medical History Pertinent Past Medical History: Yes Neurological History: No Pertinent History ENT History: Cataracts Cardiac History: Arrhythmia, Coronary Artery Disease, Hypertension, Myocardial Infarction ([place]) Respiratory History: Other Endocrine Medical History: Diabetes Type II Musculoskeletal History: Arthritis, Other GI Medical History: Polyps, Other History: Other Psycho-Social History: No Pertinent History Female Reproductive Disorders: No Pertinent History Other Medical History: CURRENTLY ON O2; REPORTS THAT SHE DOES NOT WEAR OXYGEN USUALLY. - Past Surgical History Past Surgical History: Yes Neuro Surgical History: No Pertinent History Cardiac: Cardiac Catheterization, Cardiac Stent Respiratory: No Pertinent History Gastrointestinal: No Pertinent History Genitourinary: Other Musculoskeletal: Other Female Surgical History: Hysterectomy Other Surgical History: kidney stone removal , carpal tunnel surgery, stretching of esophagus - Social History Smoking Status: Never smoker Exposure to second hand smoke: No Drug Use: none Patient Lives Alone: Yes - Social Determinants of Health Will the patient participate in the screening: Yes Do you worry about a steady place to live?: No Do you have any problems with any of the following?: No known problems In the past 12 months,have you had to go without utilities?: No Transportation Issues: No Has anyone in your support network made you feel unsafe?: No Have you or anyone in your house had to go without enough: No <NICK HIGGINBOTHAM - Last Filed: 09/20/24 22:09> - Physical Exam General Appearance: alert Eye Exam: eyes nml inspection Ears, Nose, Throat Exam: TMs normal, pharynx normal Neck Exam: normal inspection Respiratory Exam: crackles/rales (mild diffuse) Cardiovascular Exam: murmur (1/6 systolic murmur), bradycardia Gastrointestinal/Abdomen Exam: other (bruising over right side of abdomen(pt states has been there for the past 2 weeks after her fall)), No tenderness Back Exam: normal inspection Extremity Exam: pedal edema (+2 pedal edema) Neurologic Exam: alert, cooperative, sensation nml, No motor deficits SpO2: 99 <NICK HIGGINBOTHAM - Last Filed: 09/20/24 22:09> - Nursing Vital Signs Nursing Vital Signs: Initial Vital Signs Temperature 97.6 F 09/20/24 14:45 Pulse Rate 46 L 09/20/24 14:45 O2 Sat by Pulse Oximetry 99 09/20/24 14:45 Pain Scale Pain Intensity 0 - Course Nursing assessment & vital signs reviewed: Yes EKG Interpreted by Me: RATE (52), Sinus Rhythm, NORMAL AXIS, Other (QTc = 446) - Radiology Exams Abdomen X-ray Interpretation: Discussed w/ radiologist (Moderate diffuse fecal stasis with rectal fecal impaction.) Chest X-ray Interpretation: Discussed w/ radiologist (Right infiltrate/atelectasis with small effusion.) - CT Exams Abdomen/Pelvis CT Interpretation: Discussed w/radiologist (Compared to 10/19/23. Again CM. New small B/L effusions. New moderate diffuse fecal stasis w/ rectal fecal impaction. See rest of report.) <NICK HIGGINBOTHAM - Last Filed: 09/20/24 22:09> Ordered Tests: Active Orders 24 hr Category Date Time Status EKG-ER Only STAT Care 09/20/24 15:08 Active IV Insertion STAT Care 09/20/24 15:08 Active Oxygen-ED Only Nasal Cannula 2 lpm Care 09/20/24 17:31 Active ABDOMEN AND PELVIS W/0 CONTRAS [CT] Stat Exams 09/20/24 19:49 Taken OBSTR/ACUTE ABDOMEN SERIES Stat Exams 09/20/24 15:10 Completed AMYLASE Stat Lab 09/20/24 15:50 Completed BLOOD CULTURE Stat Lab 09/20/24 17:50 Received BMP Stat Lab 09/20/24 21:56 Completed CBC W DIFF Stat Lab 09/20/24 15:50 Completed CMP Stat Lab 09/20/24 15:50 Completed CULTURE,SPUTUM Stat Lab 09/20/24 17:33 Ordered LIPASE Stat Lab 09/20/24 15:50 Completed MAGNESIUM Stat Lab 09/20/24 15:50 Completed NT PRO BNPII Stat Lab 09/20/24 15:50 Completed TROPONIN Q4H Lab 09/20/24 15:50 Completed TROPONIN Q4H Lab 09/20/24 17:50 Completed TROPONIN Q4H Lab 09/20/24 21:56 Received UA W/RFX UR CULTURE Stat Lab 09/20/24 15:07 Ordered Medication Summary Generic Name Dose Route Start Last Admin Trade Name Freq PRN Reason Stop Dose Admin Pantoprazole Sodium 80 mg/ 500 mls @ 50 mls/hr 09/20/24 22:15 Sodium Chloride IV 10/20/24 22:14 .Q10H SUE Discontinued Medications Generic Name Dose Route Start Last Admin Trade Name Freq PRN Reason Stop Dose Admin Albuterol Sulfate 2.5 mg 09/20/24 17:31 09/20/24 17:56 Albuterol Sulfate 2.5 Mg/3 Ml Neb IH 09/20/24 17:32 2.5 mg STAT ONE Administration Albuterol Sulfate Confirm 09/20/24 17:55 Albuterol Sulfate 2.5 Mg/3 Ml Neb Administered 09/20/24 17:56 Dose 2.5 mg IH .STK-MED ONE Calcium Gluconate 1,000 mg 09/20/24 22:39 Calcium Gluconate 1000 Mg/10 Ml Vial IV 09/20/24 22:40 STAT ONE Dextrose 50 ml 09/20/24 17:30 09/20/24 17:52 Dextrose 50%-Water 50 Ml Abboject IV 09/20/24 17:31 50 ml STAT ONE Administration Dextrose Confirm 09/20/24 17:43 Dextrose 50%-Water 50 Ml Abboject Administered 09/20/24 17:44 Dose 50 ml IV .STK-MED ONE Dextrose 50 ml 09/20/24 22:39 Dextrose 50%-Water 50 Ml Abboject IV 09/20/24 22:40 STAT ONE Ceftriaxone Sodium 1 gm in 100 mls @ 200 mls/hr 09/20/24 17:31 09/20/24 18:33 Rocephin 1 Gm / 100 Ml Nacl IV 09/20/24 18:00 Infused STAT ONE Infusion Azithromycin 500 mg in 250 mls @ 250 mls/hr 09/20/24 17:31 09/20/24 18:27 Zithromax 500 Mg/ 250 Ml Nacl Premix IV 09/20/24 18:30 250 mls/hr STAT STA 250 mls/hr Administration Azithromycin Confirm 09/20/24 17:43 Zithromax 500 Mg/ 250 Ml Nacl Premix Administered 09/20/24 17:44 Dose 500 mg in 250 mls @ ud IV .STK-MED ONE Ceftriaxone Sodium Confirm 09/20/24 17:43 Rocephin 1 Gm / 100 Ml Nacl Administered 09/20/24 17:44 Dose 1 gm in 100 mls @ ud IV .STK-MED ONE Insulin Human Regular 10 unit 09/20/24 17:30 09/20/24 17:54 Insulin Regular, Human 1 Unit IV 09/20/24 17:31 10 unit STAT ONE Administration Insulin Human Regular Confirm 09/20/24 17:42 Insulin Regular, Human 1 Unit Administered 09/20/24 17:43 Dose 10 unit .ROUTE .STK-MED ONE Insulin Human Regular 10 unit 09/20/24 22:39 Insulin Regular, Human 1 Unit IV 09/20/24 22:40 STAT ONE Ondansetron HCl 4 mg 09/20/24 19:31 09/20/24 19:33 Ondansetron Hcl 4 Mg/2 Ml Vial IV 09/20/24 19:32 4 mg STAT ONE Administration Ondansetron HCl Confirm 09/20/24 19:32 Ondansetron Hcl 4 Mg/2 Ml Vial Administered 09/20/24 19:33 Dose 4 mg .ROUTE .STK-MED ONE Pantoprazole Sodium 40 mg 09/20/24 22:12 Pantoprazole 40 Mg Vial IV 09/20/24 22:13 STAT ONE Patiromer 8.4 gm 09/20/24 22:41 Patiromer Calcium Sorbitex 8.4 Gm Powd.Pack PO 09/20/24 22:42 STAT STA Sodium Bicarbonate 50 meq 09/20/24 22:39 Sodium Bicarbonate 1 Meq/Ml 50ml Syringe IV 09/20/24 22:40 STAT ONE Lab/Rad Data: Laboratory Result Diagrams 09/20/24 15:50 09/20/24 21:56 Laboratory Results 09/20/24 09/20/24 09/20/24 Range/Units 21:56 21:56 17:50 WBC (3.98-10.04) x10^3/uL RBC (3.93-5.22) x10^6/uL Hgb (11.2-15.7) g/dL Hct (34.1-44.9) % MCV (79.4-94.8) fL MCH (25.6-32.2) pg MCHC (32.2-35.5) g/dL RDW (11.7-14.4) % Plt Count (182-369) x10^3/uL MPV (9.4-12.3) fL Gran % (34.0-71.1) % Immature Gran % (Auto) (0.001-0.429) % Nucleat RBC Rel Count (0.00-0.2) % Eos # (Auto) (0.04-0.36) x10^3/uL Immature Gran # (Auto) (0.001-0.031) x10^3u/L Absolute Lymphs (auto) (1.18-3.74) x10^3/uL Absolute Monos (auto) (0.24-0.86) x10^3/uL Absolute Nucleated RBC (0.00-0.012) x10^3u/L Lymphocytes % (19.3-51.7) % Monocytes % (4.7-12.5) % Eosinophils % (0.7-5.8) % Basophils % (0.1-1.2) % Absolute Granulocytes (1.56-6.13) x10^3/uL Basophils # (0.01-0.08) x10^3/uL Sodium 136 (135-145) mmol/L Potassium 5.8 H (3.5-5.1) mmol/L Chloride 104 (98-107) mmol/L Carbon Dioxide 26 (22-30) mmol/L Anion Gap 12.3 (5-15) MEQ/L BUN 82 H (7-17) mg/dL Creatinine 2.87 H (0.52-1.04) mg/dL Estimated GFR 15.7 ML/MIN Glucose 282 H (74-106) mg/dL Calcium 8.4 (8.4-10.2) mg/dL Magnesium (1.6-2.3) mg/dL Total Bilirubin (0.2-1.3) mg/dL AST (14-36) U/L ALT (0-35) U/L Alkaline Phosphatase (38-126) U/L Troponin I < 0.012 < 0.012 (0.000-0.033) ng/mL NT-Pro-B Natriuret Pep (<300) pg/mL Serum Total Protein (6.3-8.2) g/dL Albumin (3.5-5.0) g/dL Amylase (30-110) U/L Lipase (23-300) U/L ABO Group Rh Factor Antibody Screen (NEGATIVE) 09/20/24 09/20/24 09/20/24 Range/Units 17:35 15:50 15:50 WBC (3.98-10.04) x10^3/uL RBC (3.93-5.22) x10^6/uL Hgb (11.2-15.7) g/dL Hct (34.1-44.9) % MCV (79.4-94.8) fL MCH (25.6-32.2) pg MCHC (32.2-35.5) g/dL RDW (11.7-14.4) % Plt Count (182-369) x10^3/uL MPV (9.4-12.3) fL Gran % (34.0-71.1) % Immature Gran % (Auto) (0.001-0.429) % Nucleat RBC Rel Count (0.00-0.2) % Eos # (Auto) (0.04-0.36) x10^3/uL Immature Gran # (Auto) (0.001-0.031) x10^3u/L Absolute Lymphs (auto) (1.18-3.74) x10^3/uL Absolute Monos (auto) (0.24-0.86) x10^3/uL Absolute Nucleated RBC (0.00-0.012) x10^3u/L Lymphocytes % (19.3-51.7) % Monocytes % (4.7-12.5) % Eosinophils % (0.7-5.8) % Basophils % (0.1-1.2) % Absolute Granulocytes (1.56-6.13) x10^3/uL Basophils # (0.01-0.08) x10^3/uL Sodium 135 (135-145) mmol/L Potassium 5.8 H (3.5-5.1) mmol/L Chloride 102 (98-107) mmol/L Carbon Dioxide 27 (22-30) mmol/L Anion Gap 11.8 (5-15) MEQ/L BUN 77 H (7-17) mg/dL Creatinine 2.63 H (0.52-1.04) mg/dL Estimated GFR 17.4 ML/MIN Glucose 265 H (74-106) mg/dL Calcium 8.6 (8.4-10.2) mg/dL Magnesium 2.2 (1.6-2.3) mg/dL Total Bilirubin 0.40 (0.2-1.3) mg/dL AST 19 (14-36) U/L ALT 15 (0-35) U/L Alkaline Phosphatase 84 (38-126) U/L Troponin I < 0.012 (0.000-0.033) ng/mL NT-Pro-B Natriuret Pep 5320 (<300) pg/mL Serum Total Protein 5.5 L (6.3-8.2) g/dL Albumin 3.2 L (3.5-5.0) g/dL Amylase 42 (30-110) U/L Lipase 154 (23-300) U/L ABO Group O Rh Factor NEGATIVE Antibody Screen NEGATIVE (NEGATIVE) 09/20/24 Range/Units 15:50 WBC 11.3 H (3.98-10.04) x10^3/uL RBC 2.17 L (3.93-5.22) x10^6/uL Hgb 6.5 L* (11.2-15.7) g/dL Hct 20.7 L (34.1-44.9) % MCV 95.4 H (79.4-94.8) fL MCH 30.0 (25.6-32.2) pg MCHC 31.4 L (32.2-35.5) g/dL RDW 16.6 H (11.7-14.4) % Plt Count 253 (182-369) x10^3/uL MPV 10.8 (9.4-12.3) fL Gran % 84.8 H (34.0-71.1) % Immature Gran % (Auto) 0.9 H (0.001-0.429) % Nucleat RBC Rel Count 0.3 H (0.00-0.2) % Eos # (Auto) 0.10 (0.04-0.36) x10^3/uL Immature Gran # (Auto) 0.10 H (0.001-0.031) x10^3u/L Absolute Lymphs (auto) 0.87 L (1.18-3.74) x10^3/uL Absolute Monos (auto) 0.61 (0.24-0.86) x10^3/uL Absolute Nucleated RBC 0.03 H (0.00-0.012) x10^3u/L Lymphocytes % 7.7 L (19.3-51.7) % Monocytes % 5.4 (4.7-12.5) % Eosinophils % 0.9 (0.7-5.8) % Basophils % 0.3 (0.1-1.2) % Absolute Granulocytes 9.54 H (1.56-6.13) x10^3/uL Basophils # 0.03 (0.01-0.08) x10^3/uL Sodium (135-145) mmol/L Potassium (3.5-5.1) mmol/L Chloride (98-107) mmol/L Carbon Dioxide (22-30) mmol/L Anion Gap (5-15) MEQ/L BUN (7-17) mg/dL Creatinine (0.52-1.04) mg/dL Estimated GFR ML/MIN Glucose (74-106) mg/dL Calcium (8.4-10.2) mg/dL Magnesium (1.6-2.3) mg/dL Total Bilirubin (0.2-1.3) mg/dL AST (14-36) U/L ALT (0-35) U/L Alkaline Phosphatase (38-126) U/L Troponin I (0.000-0.033) ng/mL NT-Pro-B Natriuret Pep (<300) pg/mL Serum Total Protein (6.3-8.2) g/dL Albumin (3.5-5.0) g/dL Amylase (30-110) U/L Lipase (23-300) U/L ABO Group Rh Factor Antibody Screen (NEGATIVE) - Progress Progress: unchanged Counseled pt/family regarding: lab results, diagnosis, rad results <NICK HIGGINBOTHAM - Last Filed: 09/20/24 22:09> - Progress Discussed with Dr.: Other (Dr. Valdes) Will see patient in: hospital (full admit) (Dr. Joyner) <KAIT ELLIS - Last Filed: 09/20/24 22:50> - Progress Progress Note: 09/20/24 22:42 Patient is checked out to me from Dr. Higginbotham at 2225 with pending discussion with general surgery/GI and hospitalist. Patient presented with generalized weakness, dizziness and hypotension which according to patient was in 90s. She is given gentle hydration because of her history of CHF, during my evaluation patient is asymptomatic and her blood pressure is 118/53 with a heart rate of 60. Broad workup is done which showed normal white count but a hemoglobin of 6.5 it dropped from 8.3 and patient does have history of acid reflux and she did report to me having green to dark stools lately and she has been given a dose of Protonix. She also fell couple of weeks ago with ecchymosis of right anterior abdominal wall and after discussion of Dr. Higginbotham with Dr. Ced Hurley, CT abdomen pelvis was recommended which showed no obvious hematoma, does have hiatal hernia, constipation/impaction but no other acute findings of trauma. She also has a potassium of 5.[address] Higginbotham has given 10 units of insulin along with D50 but her repeat BMP showed the same potassium of 5.8 and I have ordered repeat dose of insulin/dextrose along with bicarb and calcium gluconate and Veltassa. Patient EKG was sinus bradycardia with no acute ischemic changes and no tall T waves. She has acute on chronic renal failure with a baseline of 2.2 and today is 2.8. She does have history of CHF and will continue with gentle hydration. Chest x-ray showed some element of pneumonia and she has received a dose of Rocephin and Zithromax. I have discussed with patient about her low hemoglobin and need for blood transfusion as this is probably also contributing to her dyspnea on exertion along with history of CHF, went over risk and benefits of transfusion and will go ahead with 2 units transfusions. I have discussed with Dr. Ced Hurley and have reviewed CT findings per preliminary report and he agreed to see patient as a consult with hospitalist. I have discussed with hospitalist Dr. Gale, patient is accepted for admission. Shared the results of workup with patient and plan of admission which she understands and agrees. 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 Hurley general surgery, Dr. Valdes hospitalist) Reviewed:: Test results, Need for additional workup Agreed on:: Treatment plan, decision to admit Will see patient: in hospital - Diagnostic Testing Radiological Interpretation: Reviewed by me, Teleradiologist Report - Risk of complications The pt has a mod risk of morbidity or mortality based on: Need for prescription drug management The pt has a high risk of morbidity or mortality based on: Decision regarding hospitilization or escalation of hosp level of care <KAIT ELLIS - Last Filed: 09/20/24 22:50> - Departure Critical Care Time: No <NICK HIGGINBOTHAM - Last Filed: 09/20/24 22:09> - Departure Departure Disposition: In-patient Admission <KAIT ELLIS - Last Filed: 09/20/24 22:50> - Departure Clinical Impression: Pneumonia, Fecal impaction, Anemia, Abdominal pain, Hyperkalemia, Acute on chronic renal failure Condition: Stable Referrals: DANA JAMES MD [Primary Care Provider] - Follow up/PCP as directed
[2024-09-20 15:54] LABS: Absolute Neutrophil Ct (ANC) 9.54 x10^3/uL (1.56-6.13); BASOPHIL % 0.3 % (0.1-1.2); Basophil (Absolute #) 0.03 x10^3/uL (0.01-0.08); Eosinophil % 0.9 % (0.7-5.8); Hematocrit 20.7 % (34.1-44.9); IMMATURE GRAN % 0.9 % (0.001-0.429); Lymphocyte (Absolute #) 0.87 x10^3/uL (1.18-3.74); Lymphocytes % 7.7 % (19.3-51.7); Mean Cell Volume 95.4 fL (79.4-94.8); Mean Corpuscular Hgb Concent. 31.4 g/dL (32.2-35.5); Mean Platelet Volume 10.8 fL (9.4-12.3); Monocyte (Absolute #) 0.61 x10^3/uL (0.24-0.86); Monocytes % 5.4 % (4.7-12.5); NUCLEATED RBC # 0.03 x10^3u/L (0.00-0.012); NUCLEATED RBC % 0.3 % (0.00-0.2); Neutrophil % 84.8 % (34.0-71.1); Platelet Count 253 x10^3/uL (182-369); Red Blood Count 2.17 x10^6/uL (3.93-5.22); Red Cell Distribution Width 16.6 % (11.7-14.4); White Blood Count 11.3 x10^3/uL (3.98-10.04)
[2024-09-20 16:04] LABS: Hemoglobin 6.5 g/dL (11.2-15.7)
[2024-09-20 16:22] LABS: ALBUMIN 3.2 g/dL (3.5-5.0); ANION GAP 11.8 MEQ/L (5-15); BILIRUBIN,TOTAL 0.4 mg/dL (0.2-1.3); Calcium 8.6 mg/dL (8.4-10.2); Creatinine 1 2.63 mg/dL (0.52-1.04); EST GLOMERULAR FILTRATION RATE 17.4 ML/MIN; MAGNESIUM 2.2 mg/dL (1.6-2.3); Potassium 5.8 mmol/L (3.5-5.1); Total Protein 5.5 g/dL (6.3-8.2)
--- NOTE | 2024-09-20 16:38 | XRAY ---
Indication: Abdomen pain. Comparison: None Two-view abdomen nonacute and nonobstructed with moderate diffuse scattered colonic fecal debris including mild rectal fecal impaction. Solid organs unremarkable. Osseous structures intact with osteopenia and mild degenerative changes. Single PA chest hyperinflated with mild right infiltrate/atelectasis and small effusion. Remaining heart and left lung unremarkable. Bony thorax intact with osteopenia and mild degenerative changes. Impression: 1. Moderate diffuse fecal stasis with rectal fecal impaction. 2. Right infiltrate/atelectasis with small effusion. Correlate clinically. 3. Osteopenia and degenerative changes.
[2024-09-20] MEDS ORDERED: HUMULIN R ONE ×2 (17:42→23:16)
[2024-09-20] MEDS ORDERED: Zithromax 500 MG/ 250 ML NaCl Premix 500 MG/250 ML IVPB IV ONE (17:43)
[2024-09-20] MEDS ORDERED: D50W 50 ml Abboject IV ONE ×2 (17:43→23:16)
[2024-09-20] MEDS ORDERED: ROCEPHIN 1 GM / 100 ML NaCl 1 GM/100 ML IVPB IV ONE (17:43)
[2024-09-20] MEDS: D50W 50 ml Abboject IV ONE ×2 (17:52→23:19)
[2024-09-20] MEDS: HUMULIN R IV ONE ×2 (17:54→23:20)
[2024-09-20] MEDS ORDERED: PROVENTIL 2.5 MG/3 ML NEB IH ONE (17:55)
[2024-09-20] MEDS: PROVENTIL 2.5 MG/3 ML NEB IH ONE (17:56)
[2024-09-20] MEDS: ROCEPHIN 1 GM / 100 ML NaCl 1 GM/100 ML IVPB IV ONE (18:02)
[2024-09-20 18:23] LABS: ABO TYPING O; Antibody Screen NEGATIVE (NEGATIVE); RH TYPING NEGATIVE
[2024-09-20] MEDS: Zithromax 500 MG/ 250 ML NaCl Premix 500 MG/250 ML IVPB IV STA (18:27)
[2024-09-20] MEDS ORDERED: Zofran 4 MG/2 ML VIAL ONE (19:32)
[2024-09-20] MEDS: Zofran 4 MG/2 ML VIAL IV ONE (19:33)
[2024-09-20 22:24] LABS: ANION GAP 12.3 MEQ/L (5-15); Calcium 8.4 mg/dL (8.4-10.2); Creatinine 1 2.87 mg/dL (0.52-1.04); EST GLOMERULAR FILTRATION RATE 15.7 ML/MIN; Potassium 5.8 mmol/L (3.5-5.1)
[2024-09-20 22:50] LABS: CROSS MATCH (PRBC) COMPATIBLE (COMPATIBLE)
[2024-09-20 22:52] LABS: CROSS MATCH (PRBC) COMPATIBLE (COMPATIBLE)
[2024-09-20] MEDS ORDERED: PROTONIX 40 MG IV IV ONE (22:54)
[2024-09-20] MEDS ORDERED: Sodium Chloride 0.9% 500 ML 500 ML IV ONE (22:54)
[2024-09-20] MEDS: PROTONIX 40 MG IV IV ONE (22:56)
[2024-09-20] MEDS: PROTONIX 40 MG IV*** 80 MG in Sodium Chloride 0.9% 500 ML 500 ML IV SCH (22:56)
[2024-09-20] MEDS ORDERED: Calcium Gluconate 10% 1000 MG IV ONE (23:13)
[2024-09-20] MEDS ORDERED: SODIUM BICARBONATE 50 MEQ/50 ML ABBOJECT IV ONE (23:16)
[2024-09-20] MEDS ORDERED: VELTASSA PO ONE (23:16)
[2024-09-20] MEDS ORDERED: Sodium Chloride 0.9% 250 ML 0 ML IV ONE (23:17)
[2024-09-20] MEDS: VELTASSA PO STA (23:19)
[2024-09-20] MEDS: SODIUM BICARBONATE 50 MEQ/50 ML ABBOJECT IV ONE (23:19)
[2024-09-20] MEDS: Calcium Gluconate 10% 1000 MG IV ONE (23:20)
--- NOTE | 2024-09-20 23:48 | PCM.HP ---
History of Present Illness - Chief Complaint Chief Complaint: Dizziness/Hypotension Date: 09/20/24 History of Present Illness: is a 84 year old female With past medical history significant for hypertension, diabetes mellitus type 2, hyperlipidemia, coronary artery disease, CHF,Patient just got discharged on 09/11 after getting admitted for new onset of A-fib and aspiration pneumonia.She is instructed on Eliquis metoprolol, echocardiogram showed normal ejection fraction and TSH was within normal range. She was seen by cardiology as well and sent to SNF. She came to ER complaining of feeling dizzy and extreme weak, Sx just started this afternoon, no c/o Nausea/ vomiting no diarrhea, no chest pain/SOB, she is constipated, last BM 2 days ago was not black. In the ER the initial blood pressure was running low around 90 pulse rate was 46 temperature 97.6 as far as blood workup concern it was remarkable for white cell count 11.3 hemoglobin 6.5 platelets 253. Sodium 136 potassium 5.8 chloride 104 bicarb 26 BUN 82 creatinine 2.87. Troponin remain unremarkable BNP running high at 5320.CT abdomen pelvis remained unremarkable initial blood pressure was in 90s after giving gentle hydration blood sugar improved and it went up to 09/04/1952 and heart rate improved improved to 60. As far as her potassium consult she she received initial hyperkalemic protocol in the ER she has been started on Protonix. patient will be seen by GI in the morning - Review of Systems All Other Systems: Reviewed and Negative (14 systems reviewed and marked ve except mentioned in VIEJAS) Medications & Allergies Home Medications: Home Medication List Aspirin 81 mg PO DAILY 10/04/14 [History Confirmed 09/20/24] Atorvastatin Calcium [Lipitor 20MG Tablet] 20 mg PO HS 10/04/14 [History Co nfirmed 09/20/24] Oxybutynin Chloride 5 mg PO DAILY 09/23/20 [History Confirmed 09/20/24] Furosemide 20 mg [Lasix 20 mg] 40 mg PO BID 11/15/22 [History Confirmed 09/20/24] L.acidoph,Paracasei, B.lactis [Probiotic] 1 cap PO DAILY 11/15/22 [History Confirmed 09/20/24] Omeprazole 40 mg PO BID 11/15/22 [History Confirmed 09/20/24] Hydralazine HCl 25 mg PO TID 11/30/22 [History Confirmed 09/20/24] Lisinopril 20 mg [Zestril 20 MG] 40 mg PO DAILY 11/30/22 [History Confirmed 09/20/24] Vit C/E/Zn/Coppr/Lutein/Zeaxan [Preservision Areds 2 Softgel] 1 each PO DAILY 11/30/22 [History Confirmed 09/20/24] Ferrous Sulfate 325 mg [Feosol 325 mg] 325 mg PO DAILY 10/19/23 [History Confirmed 09/20/24] Ranolazine [Ranolazine ER] 500 mg PO BID 10/19/23 [History Confirmed 09/20/24] Allopurinol 100 mg [Zyloprim 100 mg] 100 mg PO BID 09/05/24 [History Confirmed 09/20/24] Bumetanide 1 mg [Bumex 1 mg] 1 mg PO DAILY 09/05/24 [History Confirmed 09/20/24] Carvedilol 12.5 mg [Coreg 12.5 mg] 12.5 mg PO BID 09/05/24 [History Confirmed 09/20/24] Finerenone [Kerendia] 10 mg PO DAILY 09/05/24 [History Confirmed 09/20/24] Insulin Glargine,Hum.rec.anlog [Umair Pringle] 15 units SQ DAILY 09/05/24 [History Confirmed 09/20/24] Nitroglycerin 0.4 mg Tablet [Nitrostat 0.4 MG Tablet] 0.4 mg SL Q5MIN PRN MR X 3 PRN 09/05/24 [History Confirmed 09/21/24] Apixaban [Eliquis 2.5 mg Tablet] 2.5 mg PO BID 30 Days #60 tablet 09/06/24 [Rx Confirmed 09/20/24] Amlodipine Besylate 5 mg [Norvasc 5 mg] 5 mg PO QAM 30 Days #30 tablet 09/11/24 [Rx Confirmed 09/20/24] Metoprolol Tartrate 50 mg [Lopressor 50 MG] 50 mg PO BID 09/20/24 [History Confirmed 09/20/24] Fluticasone/Umeclidin/Vilanter [Trelegy Ellipta 200-62.5-25] 1 ea IH DAILY 09/21/24 [History Confirmed 09/21/24] Allergies/Adverse Reactions: Allergies Allergy/AdvReac Type Severity Reaction Status Date / Time quinine Allergy Difficulty Verified 09/05/24 11:25 Breathing - Past Medical History Past Medical History: Yes Neurological History: No Pertinent History ENT History: Cataracts Cardiac History: Arrhythmia, Coronary Artery Disease, Hypertension, Myocardial Infarction ([place]) Respiratory History: Other Endocrine Medical History: Diabetes Type II Musculoskelatal History: Arthritis, Other GI Medical History: Polyps, Other History: Other Pyscho-Social History: No Pertinent History Reproductive Disorders: No Pertinent History Comment: CURRENTLY ON O2; REPORTS THAT SHE DOES NOT WEAR OXYGEN USUALLY. - Past Surgical History Past Surgical History: Yes Neuro Surgical History: No Pertinent History Cardiac History: Cardiac Catheterization, Cardiac Stent Respiratory Surgery: No Pertinent History GI Surgical History: No Pertinent History Genitourinary Surgical Hx: Other Musculskeletal Surgical Hx: Other Female Surgical History: Hysterectomy Other Surgical History: kidney stone removal , carpal tunnel surgery, stretching of esophagus Significant Family History: no pertinent family hx - Social History Smoking Status: Never smoker Exposure to second hand smoke: No Alcohol: None Drug Use: none - Social Determinants of Health Will the patient participate in the screening: Yes Do you worry about a steady place to live?: No Do you have any problems with any of the following?: No known problems In the past 12 months,have you had to go without utilities?: No Have you or anyone in your house had to go without enough: No Transportation Issues: No Has anyone in your support network made you feel unsafe?: No Does the patient want assistance with any of the above?: No - Physical Exam Vital Signs: Vital Signs - 24 hr Temp Pulse Resp BP Pulse Ox 09/20/24 23:32 61 09/20/24 23:01 61 128/55 98 09/20/24 22:50 116/59 98 09/20/24 22:41 115/48 95 09/20/24 22:30 62 125/48 97 09/20/24 22:20 118/53 96 09/20/24 22:14 99 09/20/24 22:11 118/56 95 09/20/24 22:01 67 129/58 97 09/20/24 21:51 118/54 98 09/20/24 21:41 112/48 97 09/20/24 21:30 62 108/57 95 09/20/24 21:21 88/48 96 09/20/24 21:11 62 101/45 95 09/20/24 21:00 62 103/59 95 09/20/24 19:51 84/45 96 09/20/24 19:41 87/46 97 09/20/24 19:10 87/56 98 09/20/24 19:00 91/52 98 09/20/24 18:50 104/50 98 09/20/24 18:40 101/51 98 09/20/24 18:30 105/51 99 09/20/24 18:20 101/46 98 09/20/24 18:11 97/56 98 09/20/24 18:09 97 09/20/24 18:03 51 L 24 97 09/20/24 18:01 100 09/20/24 17:51 49 L 18 122/61 96 09/20/24 17:40 120/62 96 09/20/24 17:31 123/61 95 09/20/24 17:21 123/56 95 09/20/24 17:11 99/58 97 09/20/24 17:00 115/54 97 09/20/24 16:50 113/57 96 09/20/24 16:41 121/51 97 09/20/24 16:31 113/55 97 09/20/24 16:20 115/72 98 09/20/24 16:10 123/59 94 L 09/20/24 16:00 112/51 99 09/20/24 15:50 103/62 98 09/20/24 15:40 107/57 97 09/20/24 15:39 97 09/20/24 15:38 97 09/20/24 14:45 97.6 F 46 L 99 Additional Findings: 09/20/24 23:47 HEENT Old aged, average built in no distress on 2 liters home requirement NECK Supple,no thyromegaly, CVS S1+S2 + 0, no murmers RESP Bilateral equal air entry without Crepts/Wheezes heard GIT Soft non tender,non distended Skin, No rah, no Bruises LEGS 2+ Edema PSYCH Normal,mood, judgement and insight NEURO AOX3, no focal deficit Results - Labs Lab/Micro Results: Lab Results-Last 24 Hours 09/20/24 09/20/24 09/20/24 Range/Units 15:50 15:50 15:50 WBC 11.3 H (3.98-10.04) x10^3/uL RBC 2.17 L (3.93-5.22) x10^6/uL Hgb 6.5 L* (11.2-15.7) g/dL Hct 20.7 L (34.1-44.9) % MCV 95.4 H (79.4-94.8) fL MCH 30.0 (25.6-32.2) pg MCHC 31.4 L (32.2-35.5) g/dL RDW 16.6 H (11.7-14.4) % Plt Count 253 (182-369) x10^3/uL MPV 10.8 (9.4-12.3) fL Gran % 84.8 H (34.0-71.1) % Immature Gran % (Auto) 0.9 H (0.001-0.429) % Nucleat RBC Rel Count 0.3 H (0.00-0.2) % Eos # (Auto) 0.10 (0.04-0.36) x10^3/uL Immature Gran # (Auto) 0.10 H (0.001-0.031) x10^3u/L Absolute Lymphs (auto) 0.87 L (1.18-3.74) x10^3/uL Absolute Monos (auto) 0.61 (0.24-0.86) x10^3/uL Absolute Nucleated RBC 0.03 H (0.00-0.012) x10^3u/L Lymphocytes % 7.7 L (19.3-51.7) % Monocytes % 5.4 (4.7-12.5) % Eosinophils % 0.9 (0.7-5.8) % Basophils % 0.3 (0.1-1.2) % Absolute Granulocytes 9.54 H (1.56-6.13) x10^3/uL Basophils # 0.03 (0.01-0.08) x10^3/uL Sodium 135 (135-145) mmol/L Potassium 5.8 H (3.5-5.1) mmol/L Chloride 102 (98-107) mmol/L Carbon Dioxide 27 (22-30) mmol/L Anion Gap 11.8 (5-15) MEQ/L BUN 77 H (7-17) mg/dL Creatinine 2.63 H (0.52-1.04) mg/dL Estimated GFR 17.4 ML/MIN Glucose 265 H (74-106) mg/dL Calcium 8.6 (8.4-10.2) mg/dL Magnesium 2.2 (1.6-2.3) mg/dL Total Bilirubin 0.40 (0.2-1.3) mg/dL AST 19 (14-36) U/L ALT 15 (0-35) U/L Alkaline Phosphatase 84 (38-126) U/L Troponin I < 0.012 (0.000-0.033) ng/mL NT-Pro-B Natriuret Pep 5320 (<300) pg/mL Serum Total Protein 5.5 L (6.3-8.2) g/dL Albumin 3.2 L (3.5-5.0) g/dL Amylase 42 (30-110) U/L Lipase 154 (23-300) U/L ABO Group Rh Factor Antibody Screen (NEGATIVE) Crossmatch (COMPATIBLE) 09/20/24 09/20/24 09/20/24 Range/Units 17:35 17:35 17:50 WBC (3.98-10.04) x10^3/uL RBC (3.93-5.22) x10^6/uL Hgb (11.2-15.7) g/dL Hct (34.1-44.9) % MCV (79.4-94.8) fL MCH (25.6-32.2) pg MCHC (32.2-35.5) g/dL RDW (11.7-14.4) % Plt Count (182-369) x10^3/uL MPV (9.4-12.3) fL Gran % (34.0-71.1) % Immature Gran % (Auto) (0.001-0.429) % Nucleat RBC Rel Count (0.00-0.2) % Eos # (Auto) (0.04-0.36) x10^3/uL Immature Gran # (Auto) (0.001-0.031) x10^3u/L Absolute Lymphs (auto) (1.18-3.74) x10^3/uL Absolute Monos (auto) (0.24-0.86) x10^3/uL Absolute Nucleated RBC (0.00-0.012) x10^3u/L Lymphocytes % (19.3-51.7) % Monocytes % (4.7-12.5) % Eosinophils % (0.7-5.8) % Basophils % (0.1-1.2) % Absolute Granulocytes (1.56-6.13) x10^3/uL Basophils # (0.01-0.08) x10^3/uL Sodium (135-145) mmol/L Potassium (3.5-5.1) mmol/L Chloride (98-107) mmol/L Carbon Dioxide (22-30) mmol/L Anion Gap (5-15) MEQ/L BUN (7-17) mg/dL Creatinine (0.52-1.04) mg/dL Estimated GFR ML/MIN Glucose (74-106) mg/dL Calcium (8.4-10.2) mg/dL Magnesium (1.6-2.3) mg/dL Total Bilirubin (0.2-1.3) mg/dL AST (14-36) U/L ALT (0-35) U/L Alkaline Phosphatase (38-126) U/L Troponin I < 0.012 (0.000-0.033) ng/mL NT-Pro-B Natriuret Pep (<300) pg/mL Serum Total Protein (6.3-8.2) g/dL Albumin (3.5-5.0) g/dL Amylase (30-110) U/L Lipase (23-300) U/L ABO Group O Rh Factor NEGATIVE Antibody Screen NEGATIVE (NEGATIVE) Crossmatch COMPATIBLE COMPATIBLE (COMPATIBLE) 09/20/24 09/20/24 Range/Units 21:56 21:56 WBC (3.98-10.04) x10^3/uL RBC (3.93-5.22) x10^6/uL Hgb (11.2-15.7) g/dL Hct (34.1-44.9) % MCV (79.4-94.8) fL MCH (25.6-32.2) pg MCHC (32.2-35.5) g/dL RDW (11.7-14.4) % Plt Count (182-369) x10^3/uL MPV (9.4-12.3) fL Gran % (34.0-71.1) % Immature Gran % (Auto) (0.001-0.429) % Nucleat RBC Rel Count (0.00-0.2) % Eos # (Auto) (0.04-0.36) x10^3/uL Immature Gran # (Auto) (0.001-0.031) x10^3u/L Absolute Lymphs (auto) (1.18-3.74) x10^3/uL Absolute Monos (auto) (0.24-0.86) x10^3/uL Absolute Nucleated RBC (0.00-0.012) x10^3u/L Lymphocytes % (19.3-51.7) % Monocytes % (4.7-12.5) % Eosinophils % (0.7-5.8) % Basophils % (0.1-1.2) % Absolute Granulocytes (1.56-6.13) x10^3/uL Basophils # (0.01-0.08) x10^3/uL Sodium 136 (135-145) mmol/L Potassium 5.8 H (3.5-5.1) mmol/L Chloride 104 (98-107) mmol/L Carbon Dioxide 26 (22-30) mmol/L Anion Gap 12.3 (5-15) MEQ/L BUN 82 H (7-17) mg/dL Creatinine 2.87 H (0.52-1.04) mg/dL Estimated GFR 15.7 ML/MIN Glucose 282 H (74-106) mg/dL Calcium 8.4 (8.4-10.2) mg/dL Magnesium (1.6-2.3) mg/dL Total Bilirubin (0.2-1.3) mg/dL AST (14-36) U/L ALT (0-35) U/L Alkaline Phosphatase (38-126) U/L Troponin I < 0.012 (0.000-0.033) ng/mL NT-Pro-B Natriuret Pep (<300) pg/mL Serum Total Protein (6.3-8.2) g/dL Albumin (3.5-5.0) g/dL Amylase (30-110) U/L Lipase (23-300) U/L ABO Group Rh Factor Antibody Screen (NEGATIVE) Crossmatch (COMPATIBLE) - Radiology Impressions Radiology Exams & Impressions: Radiology Procedures Category Date Time Status ABDOMEN AND PELVIS W/0 CONTRAS [CT] Stat Exams 09/20/24 19:49 Taken OBSTR/ACUTE ABDOMEN SERIES Stat Exams 09/20/24 15:10 Completed Assessment/Plan (1) Acute on chronic renal failure Current Visit: Yes Status: Acute Code(s): N17.9 - ACUTE KIDNEY FAILURE, UNSPECIFIED; N18.9 - CHRONIC KIDNEY DISEASE, UNSPECIFIED (2) Fecal impaction Current Visit: Yes Status: Acute Code(s): K56.41 - FECAL IMPACTION (3) Anemia Current Visit: Yes Status: Acute Code(s): D64.9 - ANEMIA, UNSPECIFIED (4) HTN (hypertension) Current Visit: No Status: Acute Code(s): I10 - ESSENTIAL (PRIMARY) HYPERTENSION Telemedicine Encounter - Telemedicine Encounter Telemedicine Encounter: The entirety of this encounter was performed via TelemedicineThis visit was performed using real-time audio and video connection between my location and thepatients locationwith the assistance of a surrogateat the patients location. Written or verbal consent was obtained from the patient/guardian to perform this visit using[facility] EHRst. [facility] medical centerModern Mast technology. Any patient questions regarding the telemedicine interaction were answered. Acute symptomatic severe anemia----> in the setting of Eliquis Hemoglobin dropped from 8.3--->6.5 Pt recently been started on Eliquis, will keep it holding CT abdomen pelvis remained unremarkable for hematoma Will check iron panel/stool for occult blood Will start on Protonix drip Keep on CLD for possible EGD/Colonoscopy in am, GIT consulted from ER Keep checking hemoglobin closely Will arrange 2 units blood transfusion Hypotension Due to underlying anemia CT negative for hematoma No overt bleeding Blood pressure got better after gentle hydration. Keep watching it closely as Patient is high risk to be started on pressor support due to underlying history of congestive heart failure Hyperkalemia Initial potassium was 5.8 Received hyperkalemic protocol in ER Will repeat potassium Bradycardia Reviewed underlying hyperkalemia Got improved Recently reviewed TSH wnr Atrial fibrilation New DX of A fib 10 days ago started on BB/Eliquis Currently in NSR Both on hold for now Acute on chronic CKD stage IIIb Baseline creatinine around 2.0 Current creatinine 2.9 We will keep following it up closely Avoid nephrotoxins Diastolic Congestive heart failure Patient currently seems euvolemic although BNP running high Echocardiogram 10 days ago reported normal EF with DD Judicious use of fluids Diabetes mellitus type 2 Controlled, HBAIC 7.8 Continue sliding scale coverage Keep holding home meds Coronary artery disease S/p stent back in 2010 Troponins remain negative Keep admit on telemetry Will resume home meds Constipation KUB showed fecal impaction C/w stool softeners Might need Manual deimpaction Gastroesophageal flux disease Continue Protonix DVT prophylaxis SCD only CODE STATUS full Discharge planning pending clinical stability. 70 min critical care provided in taking care of this sick pt including FTF evaluation, chart review + coordination of care with pt/staff. I have reviewed patient lab vitals and imaging in detail question concerns were addressed
[2024-09-21] MEDS ORDERED: Nitrostat 0.4 MG Tablet SL PRN (01:10)
[2024-09-21] MEDS ORDERED: Sodium Chloride 0.9% 250 ML 250 ML IV ONE (01:29)
[2024-09-21] MEDS ORDERED: VENTOLIN COMMON CANISTER IH PRN (01:32)
[2024-09-21] MEDS: Sodium Chloride 0.9% 250 ML 250 ML IV SCH (01:40)
[2024-09-21] MEDS: PROTONIX 40 MG IV*** 80 MG in Sodium Chloride 0.9% 500 ML 500 ML IV SCH (02:35)
[2024-09-21] MEDS: Dulcolax 10 MG SUPP PR ONE ×2 (02:36→18:29)
[2024-09-21 04:49] LABS: Appearance Cloudy (Clear); Bacteria Rare /HPF (None Seen); Bilirubin Negative (Negative); Blood Negative (Negative); Epithelial Cells Moderate /HPF (None Seen); Glucose, Urine Negative (Negative); Ketones Trace (Negative); Leukocyte Esterase Moderate (Negative); Nitrite Negative (Negative); Protein,Urine Dip Trace (Negative); WBC 21-50 /HPF (0-5)
[2024-09-21 04:50] LABS: Budding Yeast Rare /HPF (None Seen)
[2024-09-21] MEDS: Lasix 40 MG/4 ML IV ONE (04:55)
--- NOTE | 2024-09-21 05:44 | PCM.NOTE ---
Date and Time: 09/21/24 0537 Subjective Assessment: is a 84 year old female With past medical history significant for hypertension, diabetes mellitus type 2, hyperlipidemia, coronary artery disease, and CHF who presented to ED 09/20/24 with complaints of extreme fatigue/weakness and dizziness. Of note, patient recently admitted 09/11 new onset of A-fib and aspiration pneumonia and prescribed Eliquis and metoprolol per Cardiology recommendations. Echocardiogram showed normal ejection fraction and TSH was within normal range. She was discharged to SNF. It appears she has been taking medications from her previous medication list as well as newly prescribed meds including metoprolol/Coreg/ Bumex/Lasix. Upon arrival to ED initial patient was bradycardic and hypotensive. Lab findings remarkable for remarkable for white cell count 11.3 hemoglobin 6.5, potassium 5.8, BUN 82 creatinine 2.87. Troponin remain unremarkable. BNP running high at 5320. CT abdomen pelvis remained with bibasilar effusions favoring CHF exacerbation and moderate diffuse fecal stasis with rectal fecal impaction. Will reach out to [place] for medication list review. 09/21/24: Met with patient bedside. Endorses that she is much improved after blood transfusion. Energy level is increased. No longer dizzy. Patient received 2 units LPRBC. Post CBC pendings. Bradycardia improved. Reports dark stools but states she is taking an iron tab. Will collect stools for occult blood. Consider surgery consult. - Review of Systems Constitutional: Weakness Eyes: No Symptoms Ears, Nose, & Throat: No Symptoms Respiratory: No Symptoms Cardiac: No Symptoms Abdominal/Gastrointestinal: No Symptoms Genitourinary Symptoms: No Symptoms Musculoskeletal: No Symptoms Skin: No Symptoms Neurological: Dizziness Psychological: No Symptoms Endocrine: No Symptoms Hematologic/Lymphatic: Anemia Immunological/Allergic: No Symptoms Objective Exam General Appearance: no apparent distress Neurologic Exam: alert, oriented x 3, cooperative Skin Exam: pale Eye Exam: PERRL Ears, Nose, Throat Exam: normal ENT inspection Neck Exam: normal inspection Respiratory Exam: normal breath sounds, lungs clear Cardiovascular Exam: regular rate/rhythm, normal heart sounds Gastrointestinal/Abdomen Exam: soft, normal bowel sounds Extremity Exam: normal inspection Back Exam: normal inspection Pelvic Exam: deferred Rectal Exam: deferred Objective Data Vital Signs: Vital Signs - 24 hr Temp Pulse Resp BP BP Pulse Ox 09/21/24 04:30 97.5 F 57 L 22 135/58 97 09/21/24 02:40 97.7 F 56 L 25 H 127/69 97 09/21/24 02:11 97.5 F 57 L 23 129/57 98 09/21/24 01:55 97.7 F 56 L 18 129/54 98 09/21/24 01:10 53 L 18 98 09/21/24 00:44 97.4 F 55 L 26 H 116/55 97 09/21/24 00:14 97.4 F 55 L 26 H 116/55 97 09/21/24 00:00 58 L 24 120/56 98 09/20/24 23:40 59 L 22 110/57 97 09/20/24 23:32 61 09/20/24 23:01 61 128/55 98 09/20/24 22:50 116/59 98 09/20/24 22:41 115/48 95 09/20/24 22:30 62 125/48 97 09/20/24 22:20 118/53 96 09/20/24 22:14 99 09/20/24 22:11 118/56 95 09/20/24 22:01 67 129/58 97 09/20/24 21:51 118/54 98 09/20/24 21:41 112/48 97 09/20/24 21:30 62 108/57 95 09/20/24 21:21 88/48 96 09/20/24 21:11 62 101/45 95 09/20/24 21:00 62 103/59 95 09/20/24 19:51 84/45 96 09/20/24 19:41 87/46 97 09/20/24 19:10 87/56 98 09/20/24 19:00 91/52 98 09/20/24 18:50 104/50 98 09/20/24 18:40 101/51 98 09/20/24 18:30 105/51 99 09/20/24 18:20 101/46 98 09/20/24 18:11 97/56 98 09/20/24 18:09 97 09/20/24 18:03 51 L 24 97 09/20/24 18:01 100 09/20/24 17:51 49 L 18 122/61 96 09/20/24 17:40 120/62 96 09/20/24 17:31 123/61 95 01/24/25 17:21 123/56 95 09/20/24 17:11 99/58 97 09/20/24 17:00 115/54 97 09/20/24 16:50 113/57 96 09/20/24 16:41 121/51 97 09/20/24 16:31 113/55 97 09/20/24 16:20 115/72 98 09/20/24 16:10 123/59 94 L 09/20/24 16:00 112/51 99 09/20/24 15:50 103/62 98 09/20/24 15:40 107/57 97 09/20/24 15:39 97 09/20/24 15:38 97 09/20/24 14:45 97.6 F 46 L 99 Pain Assessment - Last Documented Pain Intensity 0 Intake and Output: Intake & Output 09/18/24 09/19/24 09/20/24 09/21/24 11:59 11:59 11:59 11:59 Output Total 50 Balance -50 Weight 86.7 kg Lab Results: Lab Results-Last 24 Hours 09/20/24 09/20/24 09/20/24 Range/Units 04:24 15:50 15:50 WBC 11.3 H (3.98-10.04) x10^3/uL RBC 2.17 L (3.93-5.22) x10^6/uL Hgb 6.5 L* (11.2-15.7) g/dL Hct 20.7 L (34.1-44.9) % MCV 95.4 H (79.4-94.8) fL MCH 30.0 (25.6-32.2) pg MCHC 31.4 L (32.2-35.5) g/dL RDW 16.6 H (11.7-14.4) % Plt Count 253 (182-369) x10^3/uL MPV 10.8 (9.4-12.3) fL Gran % 84.8 H (34.0-71.1) % Immature Gran % (Auto) 0.9 H (0.001-0.429) % Nucleat RBC Rel Count 0.3 H (0.00-0.2) % Eos # (Auto) 0.10 (0.04-0.36) x10^3/uL Immature Gran # (Auto) 0.10 H (0.001-0.031) x10^3u/L Absolute Lymphs (auto) 0.87 L (1.18-3.74) x10^3/uL Absolute Monos (auto) 0.61 (0.24-0.86) x10^3/uL Absolute Nucleated RBC 0.03 H (0.00-0.012) x10^3u/L Lymphocytes % 7.7 L (19.3-51.7) % Monocytes % 5.4 (4.7-12.5) % Eosinophils % 0.9 (0.7-5.8) % Basophils % 0.3 (0.1-1.2) % Absolute Granulocytes 9.54 H (1.56-6.13) x10^3/uL Basophils # 0.03 (0.01-0.08) x10^3/uL Sodium 135 (135-145) mmol/L Potassium 5.8 H (3.5-5.1) mmol/L Chloride 102 (98-107) mmol/L Carbon Dioxide 27 (22-30) mmol/L Anion Gap 11.8 (5-15) MEQ/L BUN 77 H (7-17) mg/dL Creatinine 2.63 H (0.52-1.04) mg/dL Estimated GFR 17.4 ML/MIN Glucose 265 H (74-106) mg/dL Calcium 8.6 (8.4-10.2) mg/dL Magnesium 2.2 (1.6-2.3) mg/dL Total Bilirubin 0.40 (0.2-1.3) mg/dL AST 19 (14-36) U/L ALT 15 (0-35) U/L Alkaline Phosphatase 84 (38-126) U/L Troponin I (0.000-0.033) ng/mL NT-Pro-B Natriuret Pep 5320 (<300) pg/mL Serum Total Protein 5.5 L (6.3-8.2) g/dL Albumin 3.2 L (3.5-5.0) g/dL Amylase 42 (30-110) U/L Lipase 154 (23-300) U/L Procalcitonin (0.030-0.080) ng/mL Urine Color Dark Yellow A (Yellow) Urine Appearance Cloudy A (Clear) Urine pH 5.0 (4.6-8.0) Ur Specific [place] 1.020 (1.005-1.030) Urine Protein Trace A (Negative) Urine Glucose (UA) Negative (Negative) mg/dL Urine Ketones Trace A (Negative) Urine Blood Negative (Negative) Urine Nitrite Negative (Negative) Urine Bilirubin Negative (Negative) Urine Urobilinogen 1.0 A (0.2) mg/dL Ur Leukocyte Esterase Moderate A (Negative) U Hyaline Cast (Auto) 6-10 A (0-2) /LPF Urine Microscopic RBC 3-5 (0-5) /HPF Urine Microscopic WBC 21-50 A (0-5) /HPF Ur Epithelial Cells Moderate A (None Seen) /HPF Urine Bacteria Rare A (None Seen) /HPF Urine Yeast (Budding) Rare A (None Seen) /HPF Urine Culture Reflexed YES (NO) ABO Group Rh Factor Antibody Screen (NEGATIVE) Crossmatch (COMPATIBLE) 09/20/24 09/20/24 09/20/24 Range/Units 15:50 17:35 17:35 WBC (3.98-10.04) x10^3/uL RBC (3.93-5.22) x10^6/uL Hgb (11.2-15.7) g/dL Hct (34.1-44.9) % MCV (79.4-94.8) fL MCH (25.6-32.2) pg MCHC (32.2-35.5) g/dL RDW (11.7-14.4) % Plt Count (182-369) x10^3/uL MPV (9.4-12.3) fL Gran % (34.0-71.1) % Immature Gran % (Auto) (0.001-0.429) % Nucleat RBC Rel Count (0.00-0.2) % Eos # (Auto) (0.04-0.36) x10^3/uL Immature Gran # (Auto) (0.001-0.031) x10^3u/L Absolute Lymphs (auto) (1.18-3.74) x10^3/uL Absolute Monos (auto) (0.24-0.86) x10^3/uL Absolute Nucleated RBC (0.00-0.012) x10^3u/L Lymphocytes % (19.3-51.7) % Monocytes % (4.7-12.5) % Eosinophils % (0.7-5.8) % Basophils % (0.1-1.2) % Absolute Granulocytes (1.56-6.13) x10^3/uL Basophils # (0.01-0.08) x10^3/uL Sodium (135-145) mmol/L Potassium (3.5-5.1) mmol/L Chloride (98-107) mmol/L Carbon Dioxide (22-30) mmol/L Anion Gap (5-15) MEQ/L BUN (7-17) mg/dL Creatinine (0.52-1.04) mg/dL Estimated GFR ML/MIN Glucose (74-106) mg/dL Calcium (8.4-10.2) mg/dL Magnesium (1.6-2.3) mg/dL Total Bilirubin (0.2-1.3) mg/dL AST (14-36) U/L ALT (0-35) U/L Alkaline Phosphatase (38-126) U/L Troponin I < 0.012 (0.000-0.033) ng/mL NT-Pro-B Natriuret Pep (<300) pg/mL Serum Total Protein (6.3-8.2) g/dL Albumin (3.5-5.0) g/dL Amylase (30-110) U/L Lipase (23-300) U/L Procalcitonin (0.030-0.080) ng/mL Urine Color (Yellow) Urine Appearance (Clear) Urine pH (4.6-8.0) Ur Specific [place] (1.005-1.030) Urine Protein (Negative) Urine Glucose (UA) (Negative) mg/dL Urine Ketones (Negative) Urine Blood (Negative) Urine Nitrite (Negative) Urine Bilirubin (Negative) Urine Urobilinogen (0.2) mg/dL Ur Leukocyte Esterase (Negative) U Hyaline Cast (Auto) (0-2) /LPF Urine Microscopic RBC (0-5) /HPF Urine Microscopic WBC (0-5) /HPF Ur Epithelial Cells (None Seen) /HPF Urine Bacteria (None Seen) /HPF Urine Yeast (Budding) (None Seen) /HPF Urine Culture Reflexed (NO) ABO Group O Rh Factor NEGATIVE Antibody Screen NEGATIVE (NEGATIVE) Crossmatch COMPATIBLE COMPATIBLE (COMPATIBLE) 09/20/24 09/20/24 09/20/24 Range/Units 17:50 21:56 21:56 WBC (3.98-10.04) x10^3/uL RBC (3.93-5.22) x10^6/uL Hgb (11.2-15.7) g/dL Hct (34.1-44.9) % MCV (79.4-94.8) fL MCH (25.6-32.2) pg MCHC (32.2-35.5) g/dL RDW (11.7-14.4) % Plt Count (182-369) x10^3/uL MPV (9.4-12.3) fL Gran % (34.0-71.1) % Immature Gran % (Auto) (0.001-0.429) % Nucleat RBC Rel Count (0.00-0.2) % Eos # (Auto) (0.04-0.36) x10^3/uL Immature Gran # (Auto) (0.001-0.031) x10^3u/L Absolute Lymphs (auto) (1.18-3.74) x10^3/uL Absolute Monos (auto) (0.24-0.86) x10^3/uL Absolute Nucleated RBC (0.00-0.012) x10^3u/L Lymphocytes % (19.3-51.7) % Monocytes % (4.7-12.5) % Eosinophils % (0.7-5.8) % Basophils % (0.1-1.2) % Absolute Granulocytes (1.56-6.13) x10^3/uL Basophils # (0.01-0.08) x10^3/uL Sodium 136 (135-145) mmol/L Potassium 5.8 H (3.5-5.1) mmol/L Chloride 104 (98-107) mmol/L Carbon Dioxide 26 (22-30) mmol/L Anion Gap 12.3 (5-15) MEQ/L BUN 82 H (7-17) mg/dL Creatinine 2.87 H (0.52-1.04) mg/dL Estimated GFR 15.7 ML/MIN Glucose 282 H (74-106) mg/dL Calcium 8.4 (8.4-10.2) mg/dL Magnesium (1.6-2.3) mg/dL Total Bilirubin (0.2-1.3) mg/dL AST (14-36) U/L ALT (0-35) U/L Alkaline Phosphatase (38-126) U/L Troponin I < 0.012 < 0.012 (0.000-0.033) ng/mL NT-Pro-B Natriuret Pep (<300) pg/mL Serum Total Protein (6.3-8.2) g/dL Albumin (3.5-5.0) g/dL Amylase (30-110) U/L Lipase (23-300) U/L Procalcitonin (0.030-0.080) ng/mL Urine Color (Yellow) Urine Appearance (Clear) Urine pH (4.6-8.0) Ur Specific [place] (1.005-1.030) Urine Protein (Negative) Urine Glucose (UA) (Negative) mg/dL Urine Ketones (Negative) Urine Blood (Negative) Urine Nitrite (Negative) Urine Bilirubin (Negative) Urine Urobilinogen (0.2) mg/dL Ur Leukocyte Esterase (Negative) U Hyaline Cast (Auto) (0-2) /LPF Urine Microscopic RBC (0-5) /HPF Urine Microscopic WBC (0-5) /HPF Ur Epithelial Cells (None Seen) /HPF Urine Bacteria (None Seen) /HPF Urine Yeast (Budding) (None Seen) /HPF Urine Culture Reflexed (NO) ABO Group Rh Factor Antibody Screen (NEGATIVE) Crossmatch (COMPATIBLE) 09/21/24 Range/Units 00:05 WBC (3.98-10.04) x10^3/uL RBC (3.93-5.22) x10^6/uL Hgb (11.2-15.7) g/dL Hct (34.1-44.9) % MCV (79.4-94.8) fL MCH (25.6-32.2) pg MCHC (32.2-35.5) g/dL RDW (11.7-14.4) % Plt Count (182-369) x10^3/uL MPV (9.4-12.3) fL Gran % (34.0-71.1) % Immature Gran % (Auto) (0.001-0.429) % Nucleat RBC Rel Count (0.00-0.2) % Eos # (Auto) (0.04-0.36) x10^3/uL Immature Gran # (Auto) (0.001-0.031) x10^3u/L Absolute Lymphs (auto) (1.18-3.74) x10^3/uL Absolute Monos (auto) (0.24-0.86) x10^3/uL Absolute Nucleated RBC (0.00-0.012) x10^3u/L Lymphocytes % (19.3-51.7) % Monocytes % (4.7-12.5) % Eosinophils % (0.7-5.8) % Basophils % (0.1-1.2) % Absolute Granulocytes (1.56-6.13) x10^3/uL Basophils # (0.01-0.08) x10^3/uL Sodium (135-145) mmol/L Potassium (3.5-5.1) mmol/L Chloride (98-107) mmol/L Carbon Dioxide (22-30) mmol/L Anion Gap (5-15) MEQ/L BUN (7-17) mg/dL Creatinine (0.52-1.04) mg/dL Estimated GFR ML/MIN Glucose (74-106) mg/dL Calcium (8.4-10.2) mg/dL Magnesium (1.6-2.3) mg/dL Total Bilirubin (0.2-1.3) mg/dL AST (14-36) U/L ALT (0-35) U/L Alkaline Phosphatase (38-126) U/L Troponin I (0.000-0.033) ng/mL NT-Pro-B Natriuret Pep (<300) pg/mL Serum Total Protein (6.3-8.2) g/dL Albumin (3.5-5.0) g/dL Amylase (30-110) U/L Lipase (23-300) U/L Procalcitonin 0.074 (0.030-0.080) ng/mL Urine Color (Yellow) Urine Appearance (Clear) Urine pH (4.6-8.0) Ur Specific [place] (1.005-1.030) Urine Protein (Negative) Urine Glucose (UA) (Negative) mg/dL Urine Ketones (Negative) Urine Blood (Negative) Urine Nitrite (Negative) Urine Bilirubin (Negative) Urine Urobilinogen (0.2) mg/dL Ur Leukocyte Esterase (Negative) U Hyaline Cast (Auto) (0-2) /LPF Urine Microscopic RBC (0-5) /HPF Urine Microscopic WBC (0-5) /HPF Ur Epithelial Cells (None Seen) /HPF Urine Bacteria (None Seen) /HPF Urine Yeast (Budding) (None Seen) /HPF Urine Culture Reflexed (NO) ABO Group Rh Factor Antibody Screen (NEGATIVE) Crossmatch (COMPATIBLE) Radiology Exams: Radiology Procedures Category Date Time Status ABDOMEN AND PELVIS W/0 CONTRAS [CT] Stat Exams 09/20/24 19:49 Taken OBSTR/ACUTE ABDOMEN SERIES Stat Exams 09/20/24 15:10 Completed Assessment/Plan (1) Symptomatic anemia Current Visit: Yes Status: Acute Assessment & Plan: -Hemoglobin reviewed and at 6.5 on admission -Received 2 units LPRBC -repeat labs pending -stools for occult blood pending -iron studies from blood in lab reviewed with iron sat at 47% -consider surgery consult Code(s): D64.9 - ANEMIA, UNSPECIFIED (2) Hypotension Current Visit: Yes Status: Acute Assessment & Plan: -most likely secondary to anemia - monitor -CT negative for hematoma -Blood pressure improved after gentle hydration and now stable -monitor closely -at high risk to be started on pressor support due to underlying history of congestive heart failure Code(s): I95.9 - HYPOTENSION, UNSPECIFIED (3) Hyperkalemia Current Visit: Yes Status: Acute Assessment & Plan: -potassium reviewed at 5.8 on admission -potassium reviewed at 5.3-repeat this afternoon -Received hyperkalemic protocol in ER Code(s): E87.5 - HYPERKALEMIA (4) Bradycardia Current Visit: Yes Status: Acute Assessment & Plan: -Tele -Improved HR now in mid 50's -Med check with [facility]- question coreg/metoprol and lasix/bumex - has she been getting all of these - could certainly be playing a role in her hypotension and bradycardia Code(s): R00.1 - BRADYCARDIA, UNSPECIFIED (5) Afib Current Visit: Yes Status: Acute Assessment & Plan: -Recent DX of A fib 10 days ago started on BB/Eliquis -Currently in NSR - monitor on tele -Both on hold for now Code(s): I48.91 - UNSPECIFIED ATRIAL FIBRILLATION (6) Congestive heart failure (CHF) Current Visit: Yes Status: Acute Assessment & Plan: -Patient currently seems euvolemic although BNP running high -Echocardiogram 10 days ago reported normal EF with DD -Judicious use of fluids Code(s): I50.9 - HEART FAILURE, UNSPECIFIED (7) Diabetes mellitus Current Visit: Yes Status: Acute Assessment & Plan: -Controlled, HBAIC 7.8 -Continue sliding scale coverage -moderate Code(s): E11.9 - TYPE 2 DIABETES MELLITUS WITHOUT COMPLICATIONS (8) CAD (coronary artery disease) Current Visit: Yes Status: Acute Assessment & Plan: S/p stent back in 2010 Troponins remain negative Keep admit on telemetry Will resume home meds Code(s): I25.10 - ATHSCL HEART DISEASE OF [place] CORONARY ARTERY W/O ANG PCTRS (9) Constipation Current Visit: Yes Status: Acute Assessment & Plan: KUB showed fecal impaction C/w stool softeners Might need Manual deimpaction Code(s): K59.00 - CONSTIPATION, UNSPECIFIED (10) GERD (gastroesophageal reflux disease) Current Visit: Yes Status: Acute Assessment & Plan: Continue Protonix DVT prophylaxis SCD only CODE STATUS full Code(s): K21.9 - GASTRO-ESOPHAGEAL REFLUX DISEASE WITHOUT ESOPHAGITIS (11) Pleural effusion Current Visit: Yes Status: Acute Assessment & Plan: -As noted on CT - patient received lasix 40mg -sob has improved - hold further dosing of lasix due to kidney function -repeat CXR tomorrow Code(s): J90 - PLEURAL EFFUSION, NOT ELSEWHERE CLASSIFIED (12) Acute on chronic renal failure Current Visit: Yes Status: Acute Assessment & Plan: -creat reviewed at 3.06- baseline around 2.2-2.3 -avoid nephrotoxic meds -monitor renal/lytes -recheck cmp this afternoon Code(s): N17.9 - ACUTE KIDNEY FAILURE, UNSPECIFIED; N18.9 - CHRONIC KIDNEY DISEASE, UNSPECIFIED
[2024-09-21 07:08] LABS: ANION GAP 10.2 MEQ/L (5-15); Calcium 9.1 mg/dL (8.4-10.2); Creatinine 1 3.06 mg/dL (0.52-1.04); EST GLOMERULAR FILTRATION RATE 14.5 ML/MIN; Potassium 5.3 mmol/L (3.5-5.1)
[2024-09-21 07:41] LABS: Iron 133 ug/dL (37-170); Iron Saturation 47 % (20-39); TIBC 286 ug/dL (265-462)
[2024-09-21] MEDS ORDERED: MEDICATION INTERVENTION MC SCH (07:45)
--- NOTE | 2024-09-21 08:27 | XRAY ---
Indication: Abdominal pain. Multiple contiguous axial images obtained through the abdomen and pelvis without contrast. Comparison: October 19, 2023 Lung bases again demonstrates cardiomegaly. New small bibasilar effusions with subsegmental atelectasis. Stable small hiatal hernia. New radiopacities throughout colon either ingested medication, bismuth, or barium. Stomach and bowel loops appear nonobstructed. Normal appendix. There is now moderate diffuse scattered colonic fecal debris throughout with mild rectal fecal impaction. Again sigmoid diverticulosis, tiny hepatic/splenic calcified granulomas, and hysterectomy. No free fluid/air. Remaining liver, gallbladder, pancreas, spleen, adrenal glands, kidneys, ureters, and bladder are unremarkable for noncontrast exam. There remains mild scattered aortoiliac calcifications without AAA. Osseous structures intact again with osteopenia, mild multilevel thoracolumbar degenerative spondylosis, and mild degenerative changes both hips. Stable small fatty left periumbilical ventral hernia. Impression: 1. Again cardiomegaly with new bibasilar effusions. Rule out cardiac decompensation/CHF versus fluid overload. 2. New moderate diffuse fecal stasis with rectal fecal impaction. 3. Again chronic findings including hiatal hernia, sigmoid diverticulosis, fatty ventral hernia, chronic bony findings, arteriosclerotic disease, and old granulomatous disease.
[2024-09-21 08:33] LABS: Ferritin 36.8 ng/mL (11.1-264); Folate (Folic Acid) 6.63 ng/mL (2.76 - >20)
[2024-09-21] MEDS ORDERED: NON-FORMULARY ITEM (Fluticasone/Umeclidin/Vilanter [Trelegy Ellipta 200-62.5-25] 1 EACH Bl IH SCH (10:00)
[2024-09-21] MEDS: ZYLOPRIM 100 MG PO SCH (11:13)
[2024-09-21] MEDS: Ditropan 5 MG PO SCH (11:13)
[2024-09-21] MEDS: PROTONIX 40 MG IV IV SCH (11:14)
[2024-09-21] MEDS: Ranexa 500 MG PO SCH (11:14)
[2024-09-21] MEDS: FEOSOL 325 MG PO SCH (11:14)
[2024-09-21] MEDS: HUMALOG SQ PRN ×2 (11:14→13:22)
[2024-09-21 11:33] LABS: Absolute Neutrophil Ct (ANC) 6.28 x10^3/uL (1.56-6.13); BASOPHIL % 0.4 % (0.1-1.2); Basophil (Absolute #) 0.03 x10^3/uL (0.01-0.08); Eosinophil % 1.3 % (0.7-5.8); Eosinophil (Absolute #) 0.11 x10^3/uL (0.04-0.36); Hematocrit 26.8 % (34.1-44.9); IMMATURE GRAN # 0.13 x10^3u/L (0.001-0.031); IMMATURE GRAN % 1.6 % (0.001-0.429); Lymphocyte (Absolute #) 1.11 x10^3/uL (1.18-3.74); Lymphocytes % 13.3 % (19.3-51.7); Mean Cell Volume 90.8 fL (79.4-94.8); Mean Corpuscular Hemoglobin 29.5 pg (25.6-32.2); Mean Corpuscular Hgb Concent. 32.5 g/dL (32.2-35.5); Mean Platelet Volume 10.6 fL (9.4-12.3); Monocyte (Absolute #) 0.69 x10^3/uL (0.24-0.86); Monocytes % 8.3 % (4.7-12.5); NUCLEATED RBC # 0.03 x10^3u/L (0.00-0.012); NUCLEATED RBC % 0.4 % (0.00-0.2); Neutrophil % 75.1 % (34.0-71.1); Platelet Count 209 x10^3/uL (182-369); Red Blood Count 2.95 x10^6/uL (3.93-5.22); Red Cell Distribution Width 17.2 % (11.7-14.4); White Blood Count 8.4 x10^3/uL (3.98-10.04)
[2024-09-21 11:48] LABS: ANION GAP 12.9 MEQ/L (5-15); Calcium 9.1 mg/dL (8.4-10.2); Creatinine 1 3.11 mg/dL (0.52-1.04); EST GLOMERULAR FILTRATION RATE 14.2 ML/MIN; Potassium 5.2 mmol/L (3.5-5.1)
[2024-09-21 12:14] LABS: Hemoglobin 8.7 g/dL (11.2-15.7)
[2024-09-21 12:26] LABS: ALBUMIN 3.5 g/dL (3.5-5.0); BILIRUBIN,TOTAL 0.7 mg/dL (0.2-1.3); Total Protein 5.9 g/dL (6.3-8.2)
[2024-09-21] MEDS: Senokot-S Tablet PO PRN (15:14)
[2024-09-21 19:26] LABS: IFOB TEST RESULTS NEGATIVE (NEGATIVE)
[2024-09-21] MEDS: ZOCOR 20MG PO SCH (21:05)
--- NOTE | 2024-09-22 05:33 | PCM.NOTE ---
Date and Time: 09/22/24 0532 Subjective Assessment: is a 84 year old female With past medical history significant for hypertension, diabetes mellitus type 2, hyperlipidemia, coronary artery disease, and CHF who presented to ED 09/20/24 with complaints of extreme fatigue/weakness and dizziness. Of note, patient recently admitted 09/11 new onset of A-fib and aspiration pneumonia and prescribed Eliquis and metoprolol per Cardiology recommendations. Echocardiogram showed normal ejection fraction and TSH was within normal range. She was discharged to SNF. It appears she has been taking medications from her previous medication list as well as newly prescribed meds including metoprolol/Coreg/ Bumex/Lasix. Upon arrival to ED initial patient was bradycardic and hypotensive. Lab findings remarkable for remarkable for white cell count 11.3 hemoglobin 6.5, potassium 5.8, BUN 82 creatinine 2.87. Troponin remain unremarkable. BNP running high at 5320. CT abdomen pelvis remained with bibasilar effusions favoring CHF exacerbation and moderate diffuse fecal stasis with rectal fecal impaction. Will reach out to [facility] for medication list review. 09/21/24: Met with patient bedside. Endorses that she is much improved after blood transfusion. Energy level is increased. No longer dizzy. Patient received 2 units LPRBC. Post CBC pendings. Bradycardia improved. Reports dark stools but states she is taking an iron tab. Will collect stools for occult blood. Consider surgery consult. 09/22/24: Met with patient bedside. Endorses improvement in weakness. Dizziness resolved. Creat level elevated but improved from yesterday. Lung sound with fine crackles on auscultation. Edema 3+ pitting to BLE. Right hand edema. Concern for fluid overload. CXR with paracardiac increased opacity. Left lower opacity. Bilateral pleural effusions. Cardiology consulted with recommendations for lasix 40mg bid and hydralazine. Nephrology consult pending. Patient is difficult case due multiple medical complexities with CHF and CKD. Hgb stable. Stools negative for occult blood. Surgery consulted, patient on CLD per recommendations - will round on patient later today ? scopes. - Review of Systems Constitutional: Weakness Eyes: No Symptoms Ears, Nose, & Throat: No Symptoms Respiratory: Short Of Breath Cardiac: Edema (BLE 3+ pitting edema) Abdominal/Gastrointestinal: No Symptoms Genitourinary Symptoms: No Symptoms Musculoskeletal: No Symptoms Skin: No Symptoms Neurological: No Symptoms Psychological: No Symptoms Endocrine: No Symptoms Hematologic/Lymphatic: Anemia Immunological/Allergic: No Symptoms Objective Exam General Appearance: no apparent distress Neurologic Exam: alert, oriented x 3, cooperative Skin Exam: normal color Eye Exam: PERRL Ears, Nose, Throat Exam: normal ENT inspection Neck Exam: normal inspection Respiratory Exam: crackles/rales Cardiovascular Exam: regular rate/rhythm, normal heart sounds Gastrointestinal/Abdomen Exam: soft, normal bowel sounds Extremity Exam: swelling (BLE 3+ pitting) Back Exam: normal inspection Pelvic Exam: deferred Rectal Exam: deferred Objective Data Vital Signs: Vital Signs - 24 hr Temp Pulse Resp BP BP Pulse Ox 09/22/24 04:00 97.3 F 59 L 24 129/61 95 09/22/24 00:09 97.5 F 58 L 25 H 125/52 97 09/22/24 00:01 58 L 09/21/24 20:05 65 24 97 09/21/24 20:00 97.5 F 55 L 23 127/54 96 09/21/24 16:00 98.0 F 55 L 25 H 132/65 98 09/21/24 15:18 98.0 F 58 L 25 H 132/65 98 09/21/24 12:00 55 L 09/21/24 08:00 54 L 09/21/24 06:42 97.5 F 57 L 24 142/60 97 09/21/24 06:11 97.5 F 54 L 25 H 140/63 97 09/21/24 05:54 57 L 18 98 09/21/24 05:45 97.5 F 57 L 22 128/61 98 Pain Assessment - Last Documented Pain Intensity 2 Intake and Output: Intake & Output 09/19/24 09/20/24 09/21/24 09/22/24 11:59 11:59 11:59 11:59 Intake Total 791 2516 Output Total 375 200 Balance 416 2316 Weight 86.7 kg Lab Results: Lab Results-Last 24 Hours 09/21/24 09/21/24 09/21/24 Range/Units 05:55 05:55 05:55 WBC (3.98-10.04) x10^3/uL RBC (3.93-5.22) x10^6/uL Hgb (11.2-15.7) g/dL Hct (34.1-44.9) % MCV (79.4-94.8) fL MCH (25.6-32.2) pg MCHC (32.2-35.5) g/dL RDW (11.7-14.4) % Plt Count (182-369) x10^3/uL MPV (9.4-12.3) fL Gran % (34.0-71.1) % Immature Gran % (Auto) (0.001-0.429) % Nucleat RBC Rel Count (0.00-0.2) % Eos # (Auto) (0.04-0.36) x10^3/uL Immature Gran # (Auto) (0.001-0.031) x10^3u/L Absolute Lymphs (auto) (1.18-3.74) x10^3/uL Absolute Monos (auto) (0.24-0.86) x10^3/uL Absolute Nucleated RBC (0.00-0.012) x10^3u/L Lymphocytes % (19.3-51.7) % Monocytes % (4.7-12.5) % Eosinophils % (0.7-5.8) % Basophils % (0.1-1.2) % Absolute Granulocytes (1.56-6.13) x10^3/uL Basophils # (0.01-0.08) x10^3/uL Sodium 135 (135-145) mmol/L Potassium 5.3 H (3.5-5.1) mmol/L Chloride 104 (98-107) mmol/L Carbon Dioxide 26 (22-30) mmol/L Anion Gap 10.2 (5-15) MEQ/L BUN 84 H (7-17) mg/dL Creatinine 3.06 H (0.52-1.04) mg/dL Estimated GFR 14.5 ML/MIN Glucose 223 H (74-106) mg/dL POC Glucometer (74 to 106) mg/dL Calcium 9.1 (8.4-10.2) mg/dL Iron 133 (37-170) ug/dL TIBC 286 (265-462) ug/dL Iron Saturation 47 H (20-39) % Ferritin 36.8 (11.1-264) ng/mL Total Bilirubin (0.2-1.3) mg/dL AST (14-36) U/L ALT (0-35) U/L Alkaline Phosphatase (38-126) U/L Serum Total Protein (6.3-8.2) g/dL Albumin (3.5-5.0) g/dL Vitamin B12 585 (239-931) pg/mL Folic Acid 6.63 (2.76 - >20) ng/mL Stl Occult Blood (IFOB) (NEGATIVE) 09/21/24 09/21/24 09/21/24 Range/Units 06:59 11:28 11:28 WBC 8.4 (3.98-10.04) x10^3/uL RBC 2.95 L (3.93-5.22) x10^6/uL Hgb 8.7 L D (11.2-15.7) g/dL Hct 26.8 L (34.1-44.9) % MCV 90.8 (79.4-94.8) fL MCH 29.5 (25.6-32.2) pg MCHC 32.5 (32.2-35.5) g/dL RDW 17.2 H (11.7-14.4) % Plt Count 209 (182-369) x10^3/uL MPV 10.6 (9.4-12.3) fL Gran % 75.1 H (34.0-71.1) % Immature Gran % (Auto) 1.6 H (0.001-0.429) % Nucleat RBC Rel Count 0.4 H (0.00-0.2) % Eos # (Auto) 0.11 (0.04-0.36) x10^3/uL Immature Gran # (Auto) 0.13 H (0.001-0.031) x10^3u/L Absolute Lymphs (auto) 1.11 L (1.18-3.74) x10^3/uL Absolute Monos (auto) 0.69 (0.24-0.86) x10^3/uL Absolute Nucleated RBC 0.03 H (0.00-0.012) x10^3u/L Lymphocytes % 13.3 L (19.3-51.7) % Monocytes % 8.3 (4.7-12.5) % Eosinophils % 1.3 (0.7-5.8) % Basophils % 0.4 (0.1-1.2) % Absolute Granulocytes 6.28 H (1.56-6.13) x10^3/uL Basophils # 0.03 (0.01-0.08) x10^3/uL Sodium 135 (135-145) mmol/L Potassium 5.2 H (3.5-5.1) mmol/L Chloride 103 (98-107) mmol/L Carbon Dioxide 24 (22-30) mmol/L Anion Gap 12.9 (5-15) MEQ/L BUN 80 H (7-17) mg/dL Creatinine 3.11 H (0.52-1.04) mg/dL Estimated GFR 14.2 ML/MIN Glucose 259 H (74-106) mg/dL POC Glucometer 207 H (74 to 106) mg/dL Calcium 9.1 (8.4-10.2) mg/dL Iron (37-170) ug/dL TIBC (265-462) ug/dL Iron Saturation (20-39) % Ferritin (11.1-264) ng/mL Total Bilirubin 0.70 (0.2-1.3) mg/dL AST 24 (14-36) U/L ALT 17 (0-35) U/L Alkaline Phosphatase 72 (38-126) U/L Serum Total Protein 5.9 L (6.3-8.2) g/dL Albumin 3.5 (3.5-5.0) g/dL Vitamin B12 (239-931) pg/mL Folic Acid (2.76 - >20) ng/mL Stl Occult Blood (IFOB) (NEGATIVE) 09/21/24 09/21/24 09/21/24 Range/Units 11:32 16:09 19:15 WBC (3.98-10.04) x10^3/uL RBC (3.93-5.22) x10^6/uL Hgb (11.2-15.7) g/dL Hct (34.1-44.9) % MCV (79.4-94.8) fL MCH (25.6-32.2) pg MCHC (32.2-35.5) g/dL RDW (11.7-14.4) % Plt Count (182-369) x10^3/uL MPV (9.4-12.3) fL Gran % (34.0-71.1) % Immature Gran % (Auto) (0.001-0.429) % Nucleat RBC Rel Count (0.00-0.2) % Eos # (Auto) (0.04-0.36) x10^3/uL Immature Gran # (Auto) (0.001-0.031) x10^3u/L Absolute Lymphs (auto) (1.18-3.74) x10^3/uL Absolute Monos (auto) (0.24-0.86) x10^3/uL Absolute Nucleated RBC (0.00-0.012) x10^3u/L Lymphocytes % (19.3-51.7) % Monocytes % (4.7-12.5) % Eosinophils % (0.7-5.8) % Basophils % (0.1-1.2) % Absolute Granulocytes (1.56-6.13) x10^3/uL Basophils # (0.01-0.08) x10^3/uL Sodium (135-145) mmol/L Potassium (3.5-5.1) mmol/L Chloride (98-107) mmol/L Carbon Dioxide (22-30) mmol/L Anion Gap (5-15) MEQ/L BUN (7-17) mg/dL Creatinine (0.52-1.04) mg/dL Estimated GFR ML/MIN Glucose (74-106) mg/dL POC Glucometer 255 H 155 H (74 to 106) mg/dL Calcium (8.4-10.2) mg/dL Iron (37-170) ug/dL TIBC (265-462) ug/dL Iron Saturation (20-39) % Ferritin (11.1-264) ng/mL Total Bilirubin (0.2-1.3) mg/dL AST (14-36) U/L ALT (0-35) U/L Alkaline Phosphatase (38-126) U/L Serum Total Protein (6.3-8.2) g/dL Albumin (3.5-5.0) g/dL Vitamin B12 (239-931) pg/mL Folic Acid (2.76 - >20) ng/mL Stl Occult Blood (IFOB) NEGATIVE (NEGATIVE) 09/21/24 Range/Units 22:16 WBC (3.98-10.04) x10^3/uL RBC (3.93-5.22) x10^6/uL Hgb (11.2-15.7) g/dL Hct (34.1-44.9) % MCV (79.4-94.8) fL MCH (25.6-32.2) pg MCHC (32.2-35.5) g/dL RDW (11.7-14.4) % Plt Count (182-369) x10^3/uL MPV (9.4-12.3) fL Gran % (34.0-71.1) % Immature Gran % (Auto) (0.001-0.429) % Nucleat RBC Rel Count (0.00-0.2) % Eos # (Auto) (0.04-0.36) x10^3/uL Immature Gran # (Auto) (0.001-0.031) x10^3u/L Absolute Lymphs (auto) (1.18-3.74) x10^3/uL Absolute Monos (auto) (0.24-0.86) x10^3/uL Absolute Nucleated RBC (0.00-0.012) x10^3u/L Lymphocytes % (19.3-51.7) % Monocytes % (4.7-12.5) % Eosinophils % (0.7-5.8) % Basophils % (0.1-1.2) % Absolute Granulocytes (1.56-6.13) x10^3/uL Basophils # (0.01-0.08) x10^3/uL Sodium (135-145) mmol/L Potassium (3.5-5.1) mmol/L Chloride (98-107) mmol/L Carbon Dioxide (22-30) mmol/L Anion Gap (5-15) MEQ/L BUN (7-17) mg/dL Creatinine (0.52-1.04) mg/dL Estimated GFR ML/MIN Glucose (74-106) mg/dL POC Glucometer 105 (74 to 106) mg/dL Calcium (8.4-10.2) mg/dL Iron (37-170) ug/dL TIBC (265-462) ug/dL Iron Saturation (20-39) % Ferritin (11.1-264) ng/mL Total Bilirubin (0.2-1.3) mg/dL AST (14-36) U/L ALT (0-35) U/L Alkaline Phosphatase (38-126) U/L Serum Total Protein (6.3-8.2) g/dL Albumin (3.5-5.0) g/dL Vitamin B12 (239-931) pg/mL Folic Acid (2.76 - >20) ng/mL Stl Occult Blood (IFOB) (NEGATIVE) Radiology Exams: Radiology Procedures Category Date Time Status ABDOMEN AND PELVIS W/0 CONTRAS [CT] Stat Exams 09/20/24 19:49 Completed OBSTR/ACUTE ABDOMEN SERIES Stat Exams 09/20/24 15:10 Completed Assessment/Plan (1) Symptomatic anemia Current Visit: Yes Status: Acute Assessment & Plan: -Hemoglobin reviewed and at 6.5 on admission -Received 2 units LPRBC -repeat labs pending -stools for occult blood pending -iron studies from blood in lab reviewed with iron sat at 47% -consider surgery consult 09/22: -Hgb reviewed and stable at 8.6 -continue to monitor -Surgery consult pending -occult stools negative -PPI -Cards recommends Eliquis to be resumed once surgery clears Code(s): D64.9 - ANEMIA, UNSPECIFIED (2) Hypotension Current Visit: Yes Status: Acute Assessment & Plan: -most likely secondary to anemia - monitor -CT negative for hematoma -Blood pressure improved after gentle hydration and now stable -monitor closely -at high risk to be started on pressor support due to underlying history of congestive heart failure 09/22: -Cardiology consulted with recs to continue on hydralazine - hold BB for now Code(s): I95.9 - HYPOTENSION, UNSPECIFIED (3) Hyperkalemia Current Visit: Yes Status: Acute Assessment & Plan: -potassium reviewed at 5.8 on admission -potassium reviewed at 5.3-repeat this afternoon -Received hyperkalemic protocol in ER Code(s): E87.5 - HYPERKALEMIA (4) Bradycardia Current Visit: Yes Status: Acute Assessment & Plan: -Tele -Improved HR now in mid 50's -Med check with [facility]- question coreg/metoprol and lasix/bumex - has she been getting all of these - could certainly be playing a role in her hypotension and bradycardia Code(s): R00.1 - BRADYCARDIA, UNSPECIFIED (5) Afib Current Visit: Yes Status: Acute Assessment & Plan: -Recent DX of A fib 10 days ago started on BB/Eliquis -Currently in NSR - monitor on tele -Both on hold for now Code(s): I48.91 - UNSPECIFIED ATRIAL FIBRILLATION (6) Congestive heart failure (CHF) Current Visit: Yes Status: Acute Assessment & Plan: -Patient currently seems euvolemic although BNP running high -Echocardiogram 10 days ago reported normal EF with DD -Judicious use of fluids 09/22: -Cardiology consulted - recs for lasix 40mg IV BID Code(s): I50.9 - HEART FAILURE, UNSPECIFIED (7) Diabetes mellitus Current Visit: Yes Status: Acute Assessment & Plan: -Controlled, HBAIC 7.8 -Continue sliding scale coverage -moderate Code(s): E11.9 - TYPE 2 DIABETES MELLITUS WITHOUT COMPLICATIONS (8) CAD (coronary artery disease) Current Visit: Yes Status: Acute Assessment & Plan: S/p stent back in 2010 Troponins remain negative Keep admit on telemetry Will resume home meds Code(s): I25.10 - ATHSCL HEART DISEASE OF [place] CORONARY ARTERY W/O ANG PCTRS (9) Constipation Current Visit: Yes Status: Acute Assessment & Plan: KUB showed fecal impaction C/w stool softeners Might need Manual deimpaction Code(s): K59.00 - CONSTIPATION, UNSPECIFIED (10) GERD (gastroesophageal reflux disease) Current Visit: Yes Status: Acute Assessment & Plan: Continue Protonix DVT prophylaxis SCD only CODE STATUS full Code(s): K21.9 - GASTRO-ESOPHAGEAL REFLUX DISEASE WITHOUT ESOPHAGITIS (11) Pleural effusion Current Visit: Yes Status: Acute Assessment & Plan: -As noted on CT - patient received lasix 40mg -sob has improved - hold further dosing of lasix due to kidney function -repeat CXR tomorrow 09/22: -repeat cxr with pericardial/bilateral effusion -Lasix 40mg bid Code(s): J90 - PLEURAL EFFUSION, NOT ELSEWHERE CLASSIFIED (12) Acute on chronic renal failure Current Visit: Yes Status: Acute Assessment & Plan: -creat reviewed at 3.06- baseline around 2.2-2.3 -avoid nephrotoxic meds -monitor renal/lytes -recheck cmp this afternoon 09/22: -Creat reviewed at 2.91- not much improvement -nephrology consulted as pt is difficult case with cardiac and renal complexities Code(s): N17.9 - ACUTE KIDNEY FAILURE, UNSPECIFIED; N18.9 - CHRONIC KIDNEY DISEASE, UNSPECIFIED Code(s): D64.9 - ANEMIA, UNSPECIFIED (2) Hypotension Current Visit: Yes Status: Acute Code(s): I95.9 - HYPOTENSION, UNSPECIFIED (3) Hyperkalemia Current Visit: Yes Status: Acute Code(s): E87.5 - HYPERKALEMIA (4) Bradycardia Current Visit: Yes Status: Acute Code(s): R00.1 - BRADYCARDIA, UNSPECIFIED (5) Afib Current Visit: Yes Status: Acute Code(s): I48.91 - UNSPECIFIED ATRIAL FIBRILLATION (6) Congestive heart failure (CHF) Current Visit: Yes Status: Acute Code(s): I50.9 - HEART FAILURE, UNSPECIFIED (7) Diabetes mellitus Current Visit: Yes Status: Acute Code(s): E11.9 - TYPE 2 DIABETES MELLITUS WITHOUT COMPLICATIONS (8) CAD (coronary artery disease) Current Visit: Yes Status: Acute Code(s): I25.10 - ATHSCL HEART DISEASE OF [place] CORONARY ARTERY W/O ANG PCTRS (9) Constipation Current Visit: Yes Status: Acute Code(s): K59.00 - CONSTIPATION, UNSPECIFIED (10) GERD (gastroesophageal reflux disease) Current Visit: Yes Status: Acute Code(s): K21.9 - GASTRO-ESOPHAGEAL REFLUX DISEASE WITHOUT ESOPHAGITIS (11) Pleural effusion Current Visit: Yes Status: Acute Code(s): J90 - PLEURAL EFFUSION, NOT ELSEWHERE CLASSIFIED (12) Acute on chronic renal failure Current Visit: Yes Status: Acute Code(s): N17.9 - ACUTE KIDNEY FAILURE, UNSPECIFIED; N18.9 - CHRONIC KIDNEY DISEASE, UNSPECIFIED
[2024-09-22 06:24] LABS: Hematocrit 27.3 % (34.1-44.9); Hemoglobin 8.6 g/dL (11.2-15.7); Mean Cell Volume 92.5 fL (79.4-94.8); Mean Corpuscular Hemoglobin 29.2 pg (25.6-32.2); Mean Corpuscular Hgb Concent. 31.5 g/dL (32.2-35.5); Mean Platelet Volume 11.1 fL (9.4-12.3); Platelet Count 202 x10^3/uL (182-369); Red Blood Count 2.95 x10^6/uL (3.93-5.22); Red Cell Distribution Width 17.7 % (11.7-14.4); White Blood Count 7.9 x10^3/uL (3.98-10.04)
[2024-09-22 06:50] LABS: ALBUMIN 3.5 g/dL (3.5-5.0); ANION GAP 12.5 MEQ/L (5-15); BILIRUBIN,TOTAL 0.7 mg/dL (0.2-1.3); Calcium 9.1 mg/dL (8.4-10.2); Creatinine 1 2.91 mg/dL (0.52-1.04); EST GLOMERULAR FILTRATION RATE 15.4 ML/MIN; Potassium 5.3 mmol/L (3.5-5.1)
[2024-09-22] MEDS: Lasix 40 MG/4 ML IV SCH ×2 (11:14→22:10)
--- NOTE | 2024-09-22 11:30 | XRAY ---
CLINICAL HISTORY: sob COMPARISON: compared to the previous X-ray dated 09/08/2024. TECHNIQUE: X-ray images of the chest is obtained in PA, and lateral projection. FINDINGS: Pulmonary Parenchyma: Right lower para-cardiac opacity noted. Left lower possible opacity. Bilateral minimal pleural thickening /effusion, more to the right side. Heart and Mediastinum: Cardiomegaly with left ventricular preponderance. Atheromatous calcification of the aortic arch with unfolded aorta. No hilar or mediastinal lymphadenopathy. Bony Thorax: unremarkable. Soft Tissues: Soft tissues overlying the chest wall are unremarkable. IMPRESSION: 1. Right lower para-cardiac opacity noted. (increase opacity). 2. Left lower possible opacity. (unchanged). 3. Bilateral minimal pleural thickening /effusion, more to the right side. (new). 4. Cardiomegaly with left ventricular preponderance. (unchanged). Electronically Signed by: Sonya Hickman MD. (09/22/2024 11:26:50 EST)
--- NOTE | 2024-09-22 14:11 | PCM.CONS ---
History of Present Illness - Date of Consult Date of Encounter: 09/22/24 Consulting Java Programmer: OLESYA KAUFMAN MD Requesting Provider: Attending Provider: SHYAM MILLAN MD Primary Care Provider: PCP: DANA JAMES - Consult Narrative HPI: Patient is a 84F who denies fevers, chills, nausea, vomiting, diarrhea, syncope, presyncope, dysphagia,odynophagia, orthopnea, paroxysmal nocturnal dyspnea, marlyn rtness of breath, chest pain, refluxsymptoms, belly pain, dysuria, hematuria, melena, hematochezia, seizures, paralysis, or other neurological changes. All other systems have been reviewed and are negative. Pt was recently admitted and was found to have A.fib. Pt was started on eliquis for AC. Apparently pt was on both lopressor and coreg, lasix and bumex. She was found to be hypotensive and bradycardic. She was also found to have anemia She has history of congestive heart failure and CKD cc:: The requesting physician will be sent a copy of the consult. Review of Systems - ROS Constitutional: Weakness Cardiac: Edema, Orthopnea, No Chest Pain, No Palpitations, No PND Abdominal/Gastrointestinal: No Nausea, No Vomiting - Past Medical History Past Medical History: Yes Neurological History: No Pertinent History ENT History: Cataracts Cardiac History: Arrhythmia, Coronary Artery Disease, Hypertension, Myocardial Infarction ([place]) Respiratory History: Other Endocrine Medical History: Diabetes Type II Musculoskelatal History: Arthritis, Other GI Medical History: Polyps, Other History: Other Pyscho-Social History: No Pertinent History Reproductive Disorders: No Pertinent History Comment: CURRENTLY ON O2; REPORTS THAT SHE DOES NOT WEAR OXYGEN USUALLY. - Past Surgical History Past Surgical History: Yes Neuro Surgical History: No Pertinent History Cardiac History: Cardiac Catheterization, Cardiac Stent Respiratory Surgery: No Pertinent History GI Surgical History: No Pertinent History Genitourinary Surgical Hx: Other Musculskeletal Surgical Hx: Other Female Surgical History: Hysterectomy Other Surgical History: kidney stone removal , carpal tunnel surgery, stretching of esophagus Significant Family History: no pertinent family hx - Social History Smoking Status: Never smoker Exposure to second hand smoke: No Alcohol: None Drug Use: none - Social Determinants of Health Will the patient participate in the screening: Yes Do you worry about a steady place to live?: No Do you have any problems with any of the following?: No known problems In the past 12 months,have you had to go without utilities?: No Have you or anyone in your house had to go without enough: No Transportation Issues: No Has anyone in your support network made you feel unsafe?: No Does the patient want assistance with any of the above?: No Medications & Allergies Home Medications: Home Medication List Aspirin 81 mg PO DAILY 10/04/14 [History Confirmed 09/20/24] Atorvastatin Calcium [Lipitor 20MG Tablet] 20 mg PO HS 10/04/14 [History Confirmed 09/20/24] Oxybutynin Chloride 5 mg PO DAILY 09/23/20 [History Confirmed 09/20/24] Furosemide 20 mg [Lasix 20 mg] 40 mg PO BID 11/15/22 [History Confirmed 09/20/24] L.acidoph,Paracasei, B.lactis [Probiotic] 1 cap PO DAILY 11/15/22 [History Confirmed 09/20/24] Omeprazole 40 mg PO BID 11/15/22 [History Confirmed 09/20/24] Hydralazine HCl 25 mg PO TID 11/30/22 [History Confirmed 09/20/24] Lisinopril 20 mg [Zestril 20 MG] 40 mg PO DAILY 11/30/22 [History Confirmed 09/20/24] Vit C/E/Zn/Coppr/Lutein/Zeaxan [Preservision Areds 2 Softgel] 1 each PO DAILY 0 11/30/22 [History Confirmed 09/20/24] Ferrous Sulfate 325 mg [Feosol 325 mg] 325 mg PO DAILY 10/19/23 [History Confirmed 09/20/24] Ranolazine [Ranolazine ER] 500 mg PO BID 10/19/23 [History Confirmed 09/20/24] Allopurinol 100 mg [Zyloprim 100 mg] 100 mg PO BID 09/05/24 [History Confirmed 09/20/24] Bumetanide 1 mg [Bumex 1 mg] 1 mg PO DAILY 09/05/24 [History Confirmed 09/20/24] Carvedilol 12.5 mg [Coreg 12.5 mg] 12.5 mg PO BID 09/05/24 [History Confirmed 09/20/24] Finerenone [Kerendia] 10 mg PO DAILY 09/05/24 [History Confirmed 09/20/24] Insulin Glargine,Hum.rec.anlog [Erenstanfordaurelio Hackettostkarina] 15 units SQ DAILY 09/05/24 [History Confirmed 09/20/24] Nitroglycerin 0.4 mg Tablet [Nitrostat 0.4 MG Tablet] 0.4 mg SL Q5MIN PRN MR X 3 PRN 09/05/24 [History Confirmed 09/21/24] Apixaban [Eliquis 2.5 mg Tablet] 2.5 mg PO BID 30 Days #60 tablet 09/06/24 [Rx Confirmed 09/20/24] Amlodipine Besylate 5 mg [Norvasc 5 mg] 5 mg PO QAM 30 Days #30 tablet 09/11/24 [Rx Confirmed 09/20/24] Metoprolol Tartrate 50 mg [Lopressor 50 MG] 50 mg PO BID 09/20/24 [History Confirmed 09/20/24] Fluticasone/Umeclidin/Vilanter [Trelegy Ellipta 200-62.5-25] 1 ea IH DAILY 09/21/24 [History Confirmed 09/21/24] Allergies/Adverse Reactions: Allergies Allergy/AdvReac Type Severity Reaction Status Date / Time quinine Allergy Difficulty Verified 09/05/24 11:25 Breathing Exam - Vitals Vital Signs: Vital Signs - 24 hr Temp Pulse Resp BP BP Pulse Ox 09/22/24 09:37 98.0 F 61 22 155/61 96 09/22/24 08:57 67 18 97 09/22/24 07:57 58 L 09/22/24 04:00 97.3 F 59 L 24 129/61 95 09/22/24 00:09 97.5 F 58 L 25 H 125/52 97 09/22/24 00:01 58 L 09/21/24 20:05 65 24 97 09/21/24 20:00 97.5 F 55 L 23 127/54 96 09/21/24 16:00 98.0 F 55 L 25 H 132/65 98 09/21/24 15:18 98.0 F 58 L 25 H 132/65 98 General:: alert and oriented x 4, mild distress Cardiovascular Exam: normal heart sounds, murmur, No regular rate/rhythm Respiratory Exam: crackles/rales SpO2: 96 Oxygen Delivery: Nasal Cannula Skin Exam: normal color Results Vital Signs: Vital Signs - 24 hr Temp Pulse Resp BP BP Pulse Ox 09/22/24 09:37 98.0 F 61 22 155/61 96 09/22/24 08:57 67 18 97 09/22/24 07:57 58 L 09/22/24 04:00 97.3 F 59 L 24 129/61 95 09/22/24 00:09 97.5 F 58 L 25 H 125/52 97 09/22/24 00:01 58 L 09/21/24 20:05 65 24 97 09/21/24 20:00 97.5 F 55 L 23 127/54 96 09/21/24 16:00 98.0 F 55 L 25 H 132/65 98 09/21/24 15:18 98.0 F 58 L 25 H 132/65 98 Pain Assessment - Last Documented Pain Intensity 0 Intake and Output: Intake & Output 09/20/24 09/21/24 09/22/24 09/23/24 11:59 11:59 11:59 11:59 Intake Total 791 2516 Output Total 375 400 400 Balance 416 2116 -400 Weight 86.7 kg LAB: I have reviewed the Labs in [facility]. Radiology Exams: Radiology Procedures Category Date Time Status ABDOMEN AND PELVIS W/0 CONTRAS [CT] Stat Exams 09/20/24 19:49 Completed CHEST 2 VIEWS (PA AND LAT) Routine Exams 09/22/24 09:41 Completed OBSTR/ACUTE ABDOMEN SERIES Stat Exams 09/20/24 15:10 Completed Assessment & Plan (1) Bradycardia Current Visit: Yes Status: Acute Assessment & Plan: currently resolved. HR are in 60's. Hold beta blockers Code(s): R00.1 - BRADYCARDIA, UNSPECIFIED (2) Congestive heart failure (CHF) Current Visit: Yes Status: Acute Qualifiers: Heart failure type: combined systolic and diastolic Heart failure chronicity: acute Qualified Code(s): I50.41 - Acute combined systolic (congestive) and diastolic (congestive) heart failure Assessment & Plan: start lasix 40 mg iv bid. Careful and cautious diuretics Continue to check renal function and electrolytes daily Pt has renal venous HTN causing KANCHAN in the setting of CKD Code(s): I50.9 - HEART FAILURE, UNSPECIFIED (3) Afib Current Visit: Yes Status: Acute Assessment & Plan: Heart rates are controlled. No rate controlling agents needed for now If HR are more than 100, then consider restarting lopressor at a lower dose of 12.5 mg po bid Hold anticoagulation for now Once cleared by GI/surgery and no bleeding issues can resume AC Code(s): I48.91 - UNSPECIFIED ATRIAL FIBRILLATION (4) HTN (hypertension) Current Visit: No Status: Acute Assessment & Plan: Pt's hypotension has resolved Currently hypertensive Goal BP is less than 130/80 Resume home hydralazine of 25 mg po tid with holding parameters to hold if SBP less than 100 or DBP less than 60 Code(s): I10 - ESSENTIAL (PRIMARY) HYPERTENSION - Encounter Critical Care Time: No Encounter: "The entirety of this encounter was performed via Telemedicine using audio and visual "
[2024-09-22] MEDS: Golytely Solution 4000 ML PO ONE (14:43)
[2024-09-22] MEDS: Apresoline 25 MG TABLET PO SCH (15:59)
[2024-09-23 06:34] LABS: Absolute Neutrophil Ct (ANC) 4.99 x10^3/uL (1.56-6.13); BASOPHIL % 0.5 % (0.1-1.2); Basophil (Absolute #) 0.03 x10^3/uL (0.01-0.08); Eosinophil % 1.8 % (0.7-5.8); Eosinophil (Absolute #) 0.12 x10^3/uL (0.04-0.36); Hematocrit 25.4 % (34.1-44.9); IMMATURE GRAN # 0.05 x10^3u/L (0.001-0.031); IMMATURE GRAN % 0.8 % (0.001-0.429); Lymphocyte (Absolute #) 0.83 x10^3/uL (1.18-3.74); Lymphocytes % 12.5 % (19.3-51.7); Mean Cell Volume 93.4 fL (79.4-94.8); Mean Corpuscular Hemoglobin 29.4 pg (25.6-32.2); Mean Corpuscular Hgb Concent. 31.5 g/dL (32.2-35.5); Mean Platelet Volume 11.2 fL (9.4-12.3); Monocyte (Absolute #) 0.63 x10^3/uL (0.24-0.86); Monocytes % 9.5 % (4.7-12.5); Neutrophil % 74.9 % (34.0-71.1); Platelet Count 206 x10^3/uL (182-369); Red Blood Count 2.72 x10^6/uL (3.93-5.22); Red Cell Distribution Width 17.2 % (11.7-14.4); White Blood Count 6.7 x10^3/uL (3.98-10.04)
[2024-09-23 06:42] LABS: ALBUMIN 3.2 g/dL (3.5-5.0); ANION GAP 9.9 MEQ/L (5-15); BILIRUBIN,TOTAL 0.7 mg/dL (0.2-1.3); Calcium 8.7 mg/dL (8.4-10.2); Creatinine 1 2.3 mg/dL (0.52-1.04); EST GLOMERULAR FILTRATION RATE 20.5 ML/MIN; Potassium 4.9 mmol/L (3.5-5.1); Total Protein 5.6 g/dL (6.3-8.2)
--- NOTE | 2024-09-23 12:59 | PCM.NOTE ---
Date and Time: 09/23/24 3058 Subjective Assessment: is a 84 year old female With past medical history significant for hypertension, diabetes mellitus type 2, hyperlipidemia, coronary artery disease, and CHF who presented to ED 09/20/24 with complaints of extreme fatigue/weakness and dizziness. Of note, patient recently admitted 09/11 new onset of A-fib and aspiration pneumonia and prescribed Eliquis and metoprolol per Cardiology recommendations. Echocardiogram showed normal ejection fraction and TSH was within normal range. She was discharged to SNF. There is some confusion about her meds that were continued at the [facility]. Nursing to confirm med list. Upon arrival to ED initial patient was bradycardic and hypotensive. Lab findings remarkable for remarkable for white cell count 11.3 hemoglobin 6.5, potassium 5.8, BUN 82 creatinine 2.87. Troponin remain unremarkable. BNP running high at 5320. CT abdomen pelvis remained with bibasilar effusions favoring CHF exacerbation and moderate diffuse fecal stasis with rectal fecal impaction. Since admission she has had multiple bowel movements. KANCHAN improving, nephrology consulted and started lasix 40 mg Q8 hr. Cardiology consulted. Eliquis held currently as pt Hgb 6.5 on 09/20 with 2 units PRBC given. Today Hgb 8.0. Pt is scheduled for an EGD/ Colonoscopy today. She denies any dark or tarry stools. UC and BX x2 negative. Sputum culture pending. Hypokalemia resolved. Pt states she feels fine and is stronger. She does not want to go back to rehab and would like to d/c home when ready. She denies any further concerns at this time. - Review of Systems Constitutional: No Fever, No Chills Eyes: No Symptoms Ears, Nose, & Throat: No Symptoms Respiratory: No Cough, No Short Of Breath Cardiac: No Chest Pain, No Edema, No Syncope Abdominal/Gastrointestinal: No Abdominal Pain, No Nausea, No Vomiting, No Diarrhea Genitourinary Symptoms: No Dysuria Musculoskeletal: No Back Pain, No Neck Pain Skin: No Rash Neurological: No Dizziness, No Focal Weakness, No Sensory Changes Psychological: No Symptoms Endocrine: No Symptoms Hematologic/Lymphatic: No Symptoms Immunological/Allergic: No Symptoms Objective Exam General Appearance: no apparent distress, alert Neurologic Exam: alert, oriented x 3, cooperative, normal mood/affect, nml cerebellar function, sensation nml, No motor deficits Skin Exam: normal color, warm, dry Eye Exam: PERRL, EOMI, eyes nml inspection Ears, Nose, Throat Exam: normal ENT inspection, pharynx normal, moist mucous membranes Neck Exam: normal inspection, non-tender, supple, full range of motion Respiratory Exam: normal breath sounds, lungs clear, No respiratory distress Cardiovascular Exam: regular rate/rhythm, normal heart sounds Gastrointestinal/Abdomen Exam: soft, No tenderness, No mass Extremity Exam: normal inspection, normal range of motion Back Exam: normal inspection, normal range of motion, No CVA tenderness, No vertebral tenderness Pelvic Exam: deferred Rectal Exam: deferred Objective Data Vital Signs: Vital Signs - 24 hr Temp Pulse Resp BP BP Pulse Ox 09/23/24 12:00 75 09/23/24 10:32 75 28 H 145/51 95 09/23/24 10:31 61 23 09/23/24 10:30 63 24 97 09/23/24 08:30 59 L 20 97 09/23/24 08:14 67 09/23/24 07:22 97.8 F 48 L 20 128/86 90 L 09/23/24 07:17 63 21 158/64 97 09/23/24 04:00 97.1 F 55 L 20 94 L 09/22/24 23:23 97.7 F 58 L 126/51 98 09/22/24 20:00 97.8 F 57 L 20 131/56 98 09/22/24 19:58 57 L 25 H 131/56 98 09/22/24 19:40 59 L 16 97 09/22/24 17:08 58 L 19 140/59 98 09/22/24 16:00 58 L 09/22/24 15:57 98.0 F 62 27 H 141/91 97 09/22/24 14:31 96 Pain Assessment - Last Documented Pain Intensity 0 Intake and Output: Intake & Output 09/21/24 09/22/24 09/23/24 09/24/24 11:59 11:59 11:59 11:59 Intake Total 791 2516 2800 Output Total 687 162 1981 Balance 416 2116 1100 Weight 86.7 kg Lab Results: Lab Results-Last 24 Hours 09/22/24 09/22/24 09/22/24 Range/Units 14:55 17:04 22:28 WBC (3.98-10.04) x10^3/uL RBC (3.93-5.22) x10^6/uL Hgb (11.2-15.7) g/dL Hct (34.1-44.9) % MCV (79.4-94.8) fL MCH (25.6-32.2) pg MCHC (32.2-35.5) g/dL RDW (11.7-14.4) % Plt Count (182-369) x10^3/uL MPV (9.4-12.3) fL Gran % (34.0-71.1) % Immature Gran % (Auto) (0.001-0.429) % Nucleat RBC Rel Count (0.00-0.2) % Eos # (Auto) (0.04-0.36) x10^3/uL Immature Gran # (Auto) (0.001-0.031) x10^3u/L Absolute Lymphs (auto) (1.18-3.74) x10^3/uL Absolute Monos (auto) (0.24-0.86) x10^3/uL Absolute Nucleated RBC (0.00-0.012) x10^3u/L Lymphocytes % (19.3-51.7) % Monocytes % (4.7-12.5) % Eosinophils % (0.7-5.8) % Basophils % (0.1-1.2) % Absolute Granulocytes (1.56-6.13) x10^3/uL Basophils # (0.01-0.08) x10^3/uL Sodium (135-145) mmol/L Potassium 5.2 H (3.5-5.1) mmol/L Chloride (98-107) mmol/L Carbon Dioxide (22-30) mmol/L Anion Gap (5-15) MEQ/L BUN (7-17) mg/dL Creatinine (0.52-1.04) mg/dL Estimated GFR ML/MIN Glucose (74-106) mg/dL POC Glucometer 163 H 149 H (74 to 106) mg/dL Calcium (8.4-10.2) mg/dL Total Bilirubin (0.2-1.3) mg/dL AST (14-36) U/L ALT (0-35) U/L Alkaline Phosphatase (38-126) U/L Serum Total Protein (6.3-8.2) g/dL Albumin (3.5-5.0) g/dL 09/23/24 09/23/24 09/23/24 Range/Units 06:05 06:05 07:31 WBC 6.7 (3.98-10.04) x10^3/uL RBC 2.72 L (3.93-5.22) x10^6/uL Hgb 8.0 L (11.2-15.7) g/dL Hct 25.4 L (34.1-44.9) % MCV 93.4 (79.4-94.8) fL MCH 29.4 (25.6-32.2) pg MCHC 31.5 L (32.2-35.5) g/dL RDW 17.2 H (11.7-14.4) % Plt Count 206 (182-369) x10^3/uL MPV 11.2 (9.4-12.3) fL Gran % 74.9 H (34.0-71.1) % Immature Gran % (Auto) 0.8 H (0.001-0.429) % Nucleat RBC Rel Count 0.0 (0.00-0.2) % Eos # (Auto) 0.12 (0.04-0.36) x10^3/uL Immature Gran # (Auto) 0.05 H (0.001-0.031) x10^3u/L Absolute Lymphs (auto) 0.83 L (1.18-3.74) x10^3/uL Absolute Monos (auto) 0.63 (0.24-0.86) x10^3/uL Absolute Nucleated RBC 0.00 (0.00-0.012) x10^3u/L Lymphocytes % 12.5 L (19.3-51.7) % Monocytes % 9.5 (4.7-12.5) % Eosinophils % 1.8 (0.7-5.8) % Basophils % 0.5 (0.1-1.2) % Absolute Granulocytes 4.99 (1.56-6.13) x10^3/uL Basophils # 0.03 (0.01-0.08) x10^3/uL Sodium 138 (135-145) mmol/L Potassium 4.9 (3.5-5.1) mmol/L Chloride 103 (98-107) mmol/L Carbon Dioxide 29 (22-30) mmol/L Anion Gap 9.9 (5-15) MEQ/L BUN 75 H (7-17) mg/dL Creatinine 2.30 H (0.52-1.04) mg/dL Estimated GFR 20.5 ML/MIN Glucose 142 H (74-106) mg/dL POC Glucometer 149 H (74 to 106) mg/dL Calcium 8.7 (8.4-10.2) mg/dL Total Bilirubin 0.70 (0.2-1.3) mg/dL AST 19 (14-36) U/L ALT 12 (0-35) U/L Alkaline Phosphatase 62 (38-126) U/L Serum Total Protein 5.6 L (6.3-8.2) g/dL Albumin 3.2 L (3.5-5.0) g/dL 09/23/24 Range/Units 11:48 WBC (3.98-10.04) x10^3/uL RBC (3.93-5.22) x10^6/uL Hgb (11.2-15.7) g/dL Hct (34.1-44.9) % MCV (79.4-94.8) fL MCH (25.6-32.2) pg MCHC (32.2-35.5) g/dL RDW (11.7-14.4) % Plt Count (182-369) x10^3/uL MPV (9.4-12.3) fL Gran % (34.0-71.1) % Immature Gran % (Auto) (0.001-0.429) % Nucleat RBC Rel Count (0.00-0.2) % Eos # (Auto) (0.04-0.36) x10^3/uL Immature Gran # (Auto) (0.001-0.031) x10^3u/L Absolute Lymphs (auto) (1.18-3.74) x10^3/uL Absolute Monos (auto) (0.24-0.86) x10^3/uL Absolute Nucleated RBC (0.00-0.012) x10^3u/L Lymphocytes % (19.3-51.7) % Monocytes % (4.7-12.5) % Eosinophils % (0.7-5.8) % Basophils % (0.1-1.2) % Absolute Granulocytes (1.56-6.13) x10^3/uL Basophils # (0.01-0.08) x10^3/uL Sodium (135-145) mmol/L Potassium (3.5-5.1) mmol/L Chloride (98-107) mmol/L Carbon Dioxide (22-30) mmol/L Anion Gap (5-15) MEQ/L BUN (7-17) mg/dL Creatinine (0.52-1.04) mg/dL Estimated GFR ML/MIN Glucose (74-106) mg/dL POC Glucometer 160 H (74 to 106) mg/dL Calcium (8.4-10.2) mg/dL Total Bilirubin (0.2-1.3) mg/dL AST (14-36) U/L ALT (0-35) U/L Alkaline Phosphatase (38-126) U/L Serum Total Protein (6.3-8.2) g/dL Albumin (3.5-5.0) g/dL Radiology Exams: Radiology Procedures Category Date Time Status CHEST 2 VIEWS (PA AND LAT) Routine Exams 09/22/24 09:41 Completed Multi-Disciplinary Progress Notes: Multi-Disciplinary Progress Notes 09/23/24 08:48 Respiratory Note by Mralena Sow PT'S O2 SAT ON ROOM AIR WHILE AT REST WAS 88%. PT WAS PLACED BACK ON 2LPM VIA NASAL CANNULA. O2 SAT INCREASED TO 94%. Initialized on 09/23/24 08:48 - END OF NOTE Assessment/Plan (1) Anemia Current Visit: Yes Status: Chronic Qualifiers: Anemia type: due to chronic kidney disease Assessment & Plan: - EGD colonoscopy today - Hgb 6.5 on 09/20/24 - Today Hgb 8.0 - Pt denies dark or tarry stools - Pt will need close monitoring OP with nephrology Code(s): D64.9 - ANEMIA, UNSPECIFIED (2) Afib Current Visit: Yes Status: Acute Assessment & Plan: - Tele - Chronic - Eliquis held for anemia - Beta dante held by cardiology - Once cleared by GI/surgery and no bleeding issues can resume AC - Per card recs: If HR are more than 100, then consider restarting lopressor at a lower dose of 12.5 mg po bid Code(s): I48.91 - UNSPECIFIED ATRIAL FIBRILLATION (3) Congestive heart failure (CHF) Current Visit: Yes Status: Chronic Qualifiers: Heart failure type: combined systolic and diastolic Heart failure chronicity: acute Qualified Code(s): I50.41 - Acute combined systolic (congestive) and diastolic (congestive) heart failure Assessment & Plan: - Cardiology consulted note reviewed - Echocardiogram 10 days ago reported normal EF with DD - Lasix 40Q8 per nephrology - Correct home meds list at d/c Code(s): I50.9 - HEART FAILURE, UNSPECIFIED (4) Hypotension Current Visit: Yes Status: Resolved Assessment & Plan: - resolved Code(s): I95.9 - HYPOTENSION, UNSPECIFIED (5) Pleural effusion Current Visit: Yes Status: Acute Assessment & Plan: - As seenon CT abd pelvis: . Again cardiomegaly with new bibasilar effusions. Rule out cardiac decompensation/CHF versus fluid overload - CXR: IMPRESSION: 1. Right lower para-cardiac opacity noted. (increase opacity). 2. Left lower possible opacity. (unchanged). 3. Bilateral minimal pleural thickening /effusion, more to the right side. (new). 4. Cardiomegaly with left ventricular preponderance. (unchanged). -Lasix Q8 - RA 97% today Code(s): J90 - PLEURAL EFFUSION, NOT ELSEWHERE CLASSIFIED (6) Acute kidney injury superimposed on CKD Current Visit: No Status: Acute Assessment & Plan: - Creat 2.30- improving - Baseline 1.92 - Nephro following - Will need direction as to what to d/c on Lasix or Bumex Code(s): N17.9 - ACUTE KIDNEY FAILURE, UNSPECIFIED; N18.9 - CHRONIC KIDNEY DISEASE, UNSPECIFIED (7) CAD (coronary artery disease) Current Visit: No Status: Chronic Assessment & Plan: Assessment & Plan: -S/p stent back in 2010 -Troponins remain negative -Keep admit on telemetry -Will resume home meds Code(s): I25.10 - ATHSCL HEART DISEASE OF [place] CORONARY ARTERY W/O ANG PCTRS (8) Diabetes mellitus Current Visit: No Status: Chronic Qualifiers: Diabetes mellitus type: type 2 Diabetes mellitus chcf insulin use: without chcf use Diabetes mellitus complication status: without complication Qualified Code(s): E11.9 - Type 2 diabetes mellitus without complications Assessment & Plan: -Controlled, HBAIC 7.8 -Continue sliding scale coverage -moderate Code(s): E11.9 - TYPE 2 DIABETES MELLITUS WITHOUT COMPLICATIONS (9) Obesity (BMI 30-39.9) Current Visit: Yes Status: Chronic Assessment & Plan: - advised diet and exercise control Code(s): E66.9 - OBESITY, UNSPECIFIED (10) GERD (gastroesophageal reflux disease) Current Visit: Yes Status: Chronic Assessment & Plan: -Continue Protonix Code(s): K21.9 - GASTRO-ESOPHAGEAL REFLUX DISEASE WITHOUT ESOPHAGITIS (11) Bradycardia Current Visit: Yes Status: Resolved Assessment & Plan: - resolved - Beta dante held per cardiology Code(s): R00.1 - BRADYCARDIA, UNSPECIFIED (12) Hyperkalemia Current Visit: Yes Status: Resolved Assessment & Plan: - resolved - Move out of ICU to med-surg bed Code(s): E87.5 - HYPERKALEMIA (13) Constipation Current Visit: Yes Status: Resolved Assessment & Plan: - resolved VTE: SCD's, Eliquis held for now PPI: Protonix Next of Kin: Janene Patel [phone] D/C plan: 1-2 days Code status: Full Code(s): K59.00 - CONSTIPATION, UNSPECIFIED
[2024-09-23] MEDS ORDERED: propofoL IV ONE (14:18)
[2024-09-23] MEDS ORDERED: Xylocaine-Mpf 2% 5 Ml Vial ONE (14:18)
[2024-09-23] MEDS ORDERED: Lactated Ringers 1,000 ML IV ONE (14:20)
[2024-09-24 05:30] LABS: Hematocrit 26.6 % (34.1-44.9); Hemoglobin 8.5 g/dL (11.2-15.7); Mean Cell Volume 91.7 fL (79.4-94.8); Mean Corpuscular Hemoglobin 29.3 pg (25.6-32.2); Mean Platelet Volume 11.4 fL (9.4-12.3); Platelet Count 219 x10^3/uL (182-369); Red Cell Distribution Width 17.1 % (11.7-14.4); White Blood Count 5.3 x10^3/uL (3.98-10.04)
[2024-09-24 06:20] LABS: ALBUMIN 3.4 g/dL (3.5-5.0); BILIRUBIN,TOTAL 0.8 mg/dL (0.2-1.3); Calcium 8.6 mg/dL (8.4-10.2); Creatinine 1 2.65 mg/dL (0.52-1.04); EST GLOMERULAR FILTRATION RATE 17.3 ML/MIN; Potassium 4.6 mmol/L (3.5-5.1); Total Protein 5.8 g/dL (6.3-8.2)
--- NOTE | 2024-09-24 13:40 | PCM.NOTE ---
Date and Time: 09/24/24 1326 Subjective Assessment: 09/23/24 is a 84 year old female With past medical history significant for hypertension, diabetes mellitus type 2, hyperlipidemia, coronary artery disease, and CHF who presented to ED 09/20/24 with complaints of extreme fatigue/weakness and dizziness. Of note, patient recently admitted 09/11 new onset of A-fib and aspiration pneumonia and prescribed Eliquis and metoprolol per Cardiology recommendations. Echocardiogram showed normal ejection fraction and TSH was within normal range. She was discharged to SNF. There is some confusion about her meds that [facility] Nursing to confirm med list. Upon arrival to ED initial patient was bradycardic and hypotensive. Lab findings remarkable for remarkable for white cell count 11.3 hemoglobin 6.5, potassium 5.8, BUN 82 creatinine 2.87. Troponin remain unremarkable. BNP running high at 5320. CT abdomen pelvis remained with bibasilar effusions favoring CHF exacerbation and moderate diffuse fecal stasis with rectal fecal impaction. Since admission she has had multiple bowel movements. KANCHAN improving, nephrology consulted and started lasix 40 mg Q8 hr. Cardiology consulted. Eliquis held currently as pt Hgb 6.5 on 09/20 with 2 units PRBC given. Today Hgb 8.0. Pt is scheduled for an EGD/ Colonoscopy today. She denies any dark or tarry stools. UC and BX x2 negative. Sputum culture pending. Hypokalemia resolved. Pt states she feels fine and is stronger. She does not want to go back to rehab and would like to d/c home when ready. She denies any further concerns at this time. 09/24/24 Pt resting in bed. Pt had an EGD with dilation yesterday. She was found to have grade 2 esophagitis and grade 2 reflux. KANCHAN worse today. Asked nurse CASSI Harvey to call nephrology again today as they are consulted as to what further they would like done. She continues to receive lasix 40 Q8hr per nephro orders. Pt feels she is ready to go home. PT to eval for weakness. She denies any further concerns at this time. - Review of Systems Constitutional: No Fever, No Chills Eyes: No Symptoms Ears, Nose, & Throat: No Symptoms Respiratory: No Cough, No Short Of Breath Cardiac: No Chest Pain, No Edema, No Syncope Abdominal/Gastrointestinal: No Abdominal Pain, No Nausea, No Vomiting, No Diarrhea Genitourinary Symptoms: No Dysuria Musculoskeletal: No Back Pain, No Neck Pain Skin: No Rash Neurological: No Dizziness, No Focal Weakness, No Sensory Changes Psychological: No Symptoms Endocrine: No Symptoms Hematologic/Lymphatic: No Symptoms Immunological/Allergic: No Symptoms Objective Exam General Appearance: no apparent distress, alert Neurologic Exam: alert, oriented x 3, cooperative, normal mood/affect, nml cerebellar function, sensation nml, No motor deficits Skin Exam: normal color, warm, dry Eye Exam: PERRL, EOMI, eyes nml inspection Ears, Nose, Throat Exam: normal ENT inspection, pharynx normal, moist mucous membranes Neck Exam: normal inspection, non-tender, supple, full range of motion Respiratory Exam: normal breath sounds, lungs clear, No respiratory distress Cardiovascular Exam: regular rate/rhythm, normal heart sounds Gastrointestinal/Abdomen Exam: soft, No tenderness, No mass Extremity Exam: normal inspection, normal range of motion Back Exam: normal inspection, normal range of motion, No CVA tenderness, No vertebral tenderness Pelvic Exam: deferred Rectal Exam: deferred Objective Data Vital Signs: Vital Signs - 24 hr Temp Pulse Resp BP Pulse Ox 09/24/24 11:40 92 L 09/24/24 11:22 96 09/24/24 11:00 98.3 F 60 18 121/56 97 09/24/24 07:57 64 16 98 09/24/24 07:00 98.4 F 70 18 162/71 97 09/24/24 03:31 97.5 F 67 20 120/56 97 09/23/24 23:41 97.2 F 64 16 119/55 95 09/23/24 21:44 97 09/23/24 19:55 97.5 F 63 19 143/67 97 09/23/24 16:00 97.5 F 50 L 18 105/66 90 L Pain Assessment - Last Documented Pain Intensity 0 Intake and Output: Intake & Output 09/22/24 09/23/24 09/24/24 09/25/24 11:59 11:59 11:59 11:59 Intake Total 2516 2800 240 Output Total 400 1700 850 Balance 2116 1100 -610 Weight 86.7 kg Lab Results: Lab Results-Last 24 Hours 0109/23/24 09/24/24 Range/Units 17:07 20:55 05:21 WBC 5.3 (3.98-10.04) x10^3/uL RBC 2.90 L (3.93-5.22) x10^6/uL Hgb 8.5 L (11.2-15.7) g/dL Hct 26.6 L (34.1-44.9) % MCV 91.7 (79.4-94.8) fL MCH 29.3 (25.6-32.2) pg MCHC 32.0 L (32.2-35.5) g/dL RDW 17.1 H (11.7-14.4) % Plt Count 219 (182-369) x10^3/uL MPV 11.4 (9.4-12.3) fL Sodium (135-145) mmol/L Potassium (3.5-5.1) mmol/L Chloride (98-107) mmol/L Carbon Dioxide (22-30) mmol/L Anion Gap (5-15) MEQ/L BUN (7-17) mg/dL Creatinine (0.52-1.04) mg/dL Estimated GFR ML/MIN Glucose (74-106) mg/dL POC Glucometer 123 H 150 H (74 to 106) mg/dL Calcium (8.4-10.2) mg/dL Total Bilirubin (0.2-1.3) mg/dL AST (14-36) U/L ALT (0-35) U/L Alkaline Phosphatase (38-126) U/L Serum Total Protein (6.3-8.2) g/dL Albumin (3.5-5.0) g/dL 09/24/24 09/24/24 09/24/24 Range/Units 05:21 07:06 11:08 WBC (3.98-10.04) x10^3/uL RBC (3.93-5.22) x10^6/uL Hgb (11.2-15.7) g/dL Hct (34.1-44.9) % MCV (79.4-94.8) fL MCH (25.6-32.2) pg MCHC (32.2-35.5) g/dL RDW (11.7-14.4) % Plt Count (182-369) x10^3/uL MPV (9.4-12.3) fL Sodium 137 (135-145) mmol/L Potassium 4.6 (3.5-5.1) mmol/L Chloride 99 (98-107) mmol/L Carbon Dioxide 31 H (22-30) mmol/L Anion Gap 12.0 (5-15) MEQ/L BUN 62 H (7-17) mg/dL Creatinine 2.65 H (0.52-1.04) mg/dL Estimated GFR 17.3 ML/MIN Glucose 122 H (74-106) mg/dL POC Glucometer 114 H 119 H (74 to 106) mg/dL Calcium 8.6 (8.4-10.2) mg/dL Total Bilirubin 0.80 (0.2-1.3) mg/dL AST 20 (14-36) U/L ALT 12 (0-35) U/L Alkaline Phosphatase 72 (38-126) U/L Serum Total Protein 5.8 L (6.3-8.2) g/dL Albumin 3.4 L (3.5-5.0) g/dL Assessment/Plan (1) Anemia Current Visit: Yes Status: Chronic Qualifiers: Anemia type: due to chronic kidney disease Code(s): D64.9 - ANEMIA, UNSPECIFIED (2) Afib Current Visit: Yes Status: Acute Code(s): I48.91 - UNSPECIFIED ATRIAL FIBRILLATION (3) Congestive heart failure (CHF) Current Visit: Yes Status: Chronic Qualifiers: Heart failure type: combined systolic and diastolic Heart failure chronicity: acute Qualified Code(s): I50.41 - Acute combined systolic (congestive) and diastolic (congestive) heart failure Code(s): I50.9 - HEART FAILURE, UNSPECIFIED (4) Hypotension Current Visit: Yes Status: Resolved Code(s): I95.9 - HYPOTENSION, UNSPECIFIED (5) Pleural effusion Current Visit: Yes Status: Acute Code(s): J90 - PLEURAL EFFUSION, NOT ELSEWHERE CLASSIFIED (6) Acute kidney injury superimposed on CKD Current Visit: No Status: Acute Code(s): N17.9 - ACUTE KIDNEY FAILURE, UNSPECIFIED; N18.9 - CHRONIC KIDNEY DISEASE, UNSPECIFIED (7) CAD (coronary artery disease) Current Visit: No Status: Chronic Code(s): I25.10 - ATHSCL HEART DISEASE OF [place] CORONARY ARTERY W/O ANG PCTRS (8) Diabetes mellitus Current Visit: No Status: Chronic Qualifiers: Diabetes mellitus type: type 2 Diabetes mellitus half-way insulin use: without buttermaker helper use Diabetes mellitus complication status: without complication Qualified Code(s): E11.9 - Type 2 diabetes mellitus without complications Code(s): E11.9 - TYPE 2 DIABETES MELLITUS WITHOUT COMPLICATIONS (9) Obesity (BMI 30-39.9) Current Visit: Yes Status: Chronic Code(s): E66.9 - OBESITY, UNSPECIFIED (10) GERD (gastroesophageal reflux disease) Current Visit: Yes Status: Chronic Code(s): K21.9 - GASTRO-ESOPHAGEAL REFLUX DISEASE WITHOUT ESOPHAGITIS (11) Bradycardia Current Visit: Yes Status: Resolved Code(s): R00.1 - BRADYCARDIA, UNSPECIFIED (12) Hyperkalemia Current Visit: Yes Status: Resolved Code(s): E87.5 - HYPERKALEMIA (13) Constipation Current Visit: Yes Status: Resolved Assessment & Plan: (1) Anemia Current Visit: Yes Status: Chronic Qualifiers: Anemia type: due to chronic kidney disease Assessment & Plan: - EGD colonoscopy today - Hgb 6.5 on 09/20/24 - Today Hgb 8.0 - Pt denies dark or tarry stools - Pt will need close monitoring OP with nephrology 09/24 - Hgb 8.5 - Unable to have colonoscopy yesterday due to not clear - will need completed OP Code(s): D64.9 - ANEMIA, UNSPECIFIED (2) Afib Current Visit: Yes Status: Acute Assessment & Plan: - Tele - Chronic - Eliquis held for anemia - Beta dante held by cardiology - Once cleared by GI/surgery and no bleeding issues can resume AC - Per card recs: If HR are more than 100, then consider restarting lopressor at a lower dose of 12.5 mg po bid Code(s): I48.91 - UNSPECIFIED ATRIAL FIBRILLATION (3) Congestive heart failure (CHF) Current Visit: Yes Status: Chronic Qualifiers: Heart failure type: combined systolic and diastolic Heart failure chronicity: acute Qualified Code(s): I50.41 - Acute combined systolic (congestive) and diastolic (congestive) heart failure Assessment & Plan: - Cardiology consulted note reviewed - Echocardiogram 10 days ago reported normal EF with DD - Lasix 40 Q8hr per nephrology - Correct home meds list at d/c Code(s): I50.9 - HEART FAILURE, UNSPECIFIED (4) Hypotension Current Visit: Yes Status: Resolved Assessment & Plan: - resolved Code(s): I95.9 - HYPOTENSION, UNSPECIFIED (5) Pleural effusion Current Visit: Yes Status: Acute Assessment & Plan: - As seenon CT abd pelvis: . Again cardiomegaly with new bibasilar effusions. Rule out cardiac decompensation/CHF versus fluid overload - CXR: IMPRESSION: 1. Right lower para-cardiac opacity noted. (increase opacity). 2. Left lower possible opacity. (unchanged). 3. Bilateral minimal pleural thickening /effusion, more to the right side. (new). 4. Cardiomegaly with left ventricular preponderance. (unchanged). -Lasix Q8 - RA 97% today Code(s): J90 - PLEURAL EFFUSION, NOT ELSEWHERE CLASSIFIED (6) Acute kidney injury superimposed on CKD Current Visit: No Status: Acute Assessment & Plan: - Creat 2.30- improving - Baseline 1.92 - Nephro following - Will need direction as to what to d/c on Lasix or Bumex 09/24 - RN to call nephrology today about worsening creat. - creat 2.65 Code(s): N17.9 - ACUTE KIDNEY FAILURE, UNSPECIFIED; N18.9 - CHRONIC KIDNEY DISEASE, UNSPECIFIED (7) CAD (coronary artery disease) Current Visit: No Status: Chronic Assessment & Plan: Assessment & Plan: -S/p stent back in 2010 -Troponins remain negative -Keep admit on telemetry -Will resume home meds Code(s): I25.10 - ATHSCL HEART DISEASE OF [place] CORONARY ARTERY W/O ANG PCTRS (8) Diabetes mellitus Current Visit: No Status: Chronic Qualifiers: Diabetes mellitus type: type 2 Diabetes mellitus buttermaker helper insulin use: without half-way use Diabetes mellitus complication status: without complication Qualified Code(s): E11.9 - Type 2 diabetes mellitus without complications Assessment & Plan: -Controlled, HBAIC 7.8 -Continue sliding scale coverage -moderate Code(s): E11.9 - TYPE 2 DIABETES MELLITUS WITHOUT COMPLICATIONS (9) Obesity (BMI 30-39.9) Current Visit: Yes Status: Chronic Assessment & Plan: - Advised diet and exercise control Code(s): E66.9 - OBESITY, UNSPECIFIED (10) GERD (gastroesophageal reflux disease) Current Visit: Yes Status: Chronic Assessment & Plan: -Continue Protonix 09/24 - Per GS note- grade 2 reflux - would benefit from Bentyl- rx per GS - Pt had EGD with dilation yesterday. Code(s): K21.9 - GASTRO-ESOPHAGEAL REFLUX DISEASE WITHOUT ESOPHAGITIS (11) Bradycardia Current Visit: Yes Status: Resolved Assessment & Plan: - resolved - Beta dante held per cardiology Code(s): R00.1 - BRADYCARDIA, UNSPECIFIED (12) Hyperkalemia Current Visit: Yes Status: Resolved Assessment & Plan: - resolved - Move out of ICU to med-surg bed Code(s): E87.5 - HYPERKALEMIA (13) Constipation Current Visit: Yes Status: Resolved Assessment & Plan: - resolved Code(s): K59.00 - CONSTIPATION, UNSPECIFIED Code(s): K59.00 - CONSTIPATION, UNSPECIFIED (14) Esophagitis determined by endoscopy Current Visit: Yes Status: Acute Assessment & Plan: - per surgery note - protonix VTE: SCD's, Eliquis held for now PPI: Protonix Next of Kin: Janene Patel [phone] D/C plan: 1-2 days Code status: Full Code(s): K20.90 - ESOPHAGITIS, UNSPECIFIED WITHOUT BLEEDING
[2024-09-24] MEDS: Cardizem IV 50 MG/10 ML IV ONE (20:29)
[2024-09-24] MEDS: DILTIAZEM HCL 25 MG/5 ML VIAL IV STA (20:48)
[2024-09-24] MEDS: LOPRESSOR INJECTION IV ONE (20:56)
[2024-09-24] MEDS: Lopressor 25MG Tab PO ONE (22:45)
[2024-09-25 05:44] LABS: Hematocrit 30.4 % (34.1-44.9); Hemoglobin 9.8 g/dL (11.2-15.7); Mean Cell Volume 91.3 fL (79.4-94.8); Mean Corpuscular Hemoglobin 29.4 pg (25.6-32.2); Mean Corpuscular Hgb Concent. 32.2 g/dL (32.2-35.5); Mean Platelet Volume 10.8 fL (9.4-12.3); Platelet Count 234 x10^3/uL (182-369); Red Blood Count 3.33 x10^6/uL (3.93-5.22); Red Cell Distribution Width 17.2 % (11.7-14.4); White Blood Count 8.6 x10^3/uL (3.98-10.04)
[2024-09-25 05:58] LABS: ALBUMIN 3.7 g/dL (3.5-5.0); ANION GAP 12.5 MEQ/L (5-15); BILIRUBIN,TOTAL 0.7 mg/dL (0.2-1.3); Calcium 8.8 mg/dL (8.4-10.2); Creatinine 1 2.79 mg/dL (0.52-1.04); EST GLOMERULAR FILTRATION RATE 16.2 ML/MIN; MAGNESIUM 1.7 mg/dL (1.6-2.3); Total Protein 6.3 g/dL (6.3-8.2)
[2024-09-25] MEDS: ECOTRIN 81 MG PO SCH (09:20)
[2024-09-25] MEDS: Lopressor 25MG Tab PO SCH (09:21)
[2024-09-25] MEDS: ELIQUIS 2.5 MG TABLET PO SCH (09:21)
[2024-09-25] MEDS ORDERED: Lopressor 50 MG PO SCH (10:00)
--- NOTE | 2024-09-25 12:02 | PCM.NOTE ---
Date and Time: 09/25/24 1150 Subjective Assessment: 09/23/24 is a 84 year old female With past medical history significant for hypertension, diabetes mellitus type 2, hyperlipidemia, coronary artery disease, and CHF who presented to ED 09/20/24 with complaints of extreme fatigue/weakness and dizziness. Of note, patient recently admitted 09/11 new onset of A-fib and aspiration pneumonia and prescribed Eliquis and metoprolol per Cardiology recommendations. Echocardiogram showed normal ejection fraction and TSH was within normal range. She was discharged to SNF. There is some confusion about her meds that were continued at the [facility]. Nursing to confirm med list. Upon arrival to ED initial patient was bradycardic and hypotensive. Lab findings remarkable for remarkable for white cell count 11.3 hemoglobin 6.5, potassium 5.8, BUN 82 creatinine 2.87. Troponin remain unremarkable. BNP running high at 5320. CT abdomen pelvis remained with bibasilar effusions favoring CHF exacerbation and moderate diffuse fecal stasis with rectal fecal impaction. Since admission she has had multiple bowel movements. KANCHAN improving, nephrology consulted and started lasix 40 mg Q8 hr. Cardiology consulted. Eliquis held currently as pt Hgb 6.5 on 09/20 with 2 units PRBC given. Today Hgb 8.0. Pt is scheduled for an EGD/ Colonoscopy today. She denies any dark or tarry stools. UC and BX x2 negative. Sputum culture pending. Hypokalemia resolved. Pt states she feels fine and is stronger. She does not want to go back to rehab and would like to d/c home when ready. She denies any further concerns at this time. 09/24/24 Pt resting in bed. Pt had an EGD with dilation yesterday. She was found to have grade 2 esophagitis and grade 2 reflux. KANCHAN worse today. Asked nurse Wes RN to call nephrology again today as they are consulted as to what further they would like done. She continues to receive lasix 40 Q8hr per nephro orders. Pt feels she is ready to go home. PT to eval for weakness. She denies any further concerns at this time. 09/25/24 Pt resting in bed. She feels rather frustrated today as she feels better and wants to d/c. Discussed labs in detail and cardio-renal syndrome. Nephrology did not make any adjustments to lasix last night. Per nursing note this will be reassessed today by nephro today after reviewing labs. Creat worse 2.79. Pt we nt into afib with elevated HR last night. She has a recent hx of this last admission. Several one time doses of cardizem gave IV and metoprolol IV gave. Restarted metoprolol per cardiology recs this AM at 12.5 mg BID. Eliquis and ASA restarted as HGB 9.8 and stable. She has done well with PT and plan is to d/c home when ready. Awaiting nephro recs. She denies any further concerns at this time. - Review of Systems Constitutional: No Fever, No Chills Eyes: No Symptoms Ears, Nose, & Throat: No Symptoms Respiratory: No Cough, No Short Of Breath Cardiac: No Chest Pain, No Edema, No Syncope Abdominal/Gastrointestinal: No Abdominal Pain, No Nausea, No Vomiting, No Diarrhea Genitourinary Symptoms: No Dysuria Musculoskeletal: No Back Pain, No Neck Pain Skin: No Rash Neurological: No Dizziness, No Focal Weakness, No Sensory Changes Psychological: No Symptoms Endocrine: No Symptoms Hematologic/Lymphatic: No Symptoms Immunological/Allergic: No Symptoms Objective Exam General Appearance: no apparent distress, alert Neurologic Exam: alert, oriented x 3, cooperative, normal mood/affect, nml cerebellar function, sensation nml, agitation, No motor deficits Skin Exam: normal color, warm, dry Eye Exam: PERRL, EOMI, eyes nml inspection Ears, Nose, Throat Exam: normal ENT inspection, pharynx normal, moist mucous membranes Neck Exam: normal inspection, non-tender, supple, full range of motion Respiratory Exam: normal breath sounds, lungs clear, No respiratory distress Cardiovascular Exam: regular rate/rhythm, normal heart sounds Gastrointestinal/Abdomen Exam: soft, No tenderness, No mass Extremity Exam: normal inspection, normal range of motion Back Exam: normal inspection, normal range of motion, No CVA tenderness, No vertebral tenderness Pelvic Exam: deferred Rectal Exam: deferred Objective Data Vital Signs: Vital Signs - 24 hr Temp Pulse Resp BP Pulse Ox 09/25/24 11:38 97.7 F 106 H 18 160/83 95 09/25/24 07:29 97.9 F 102 H 16 138/72 93 L 09/25/24 05:07 108 H 18 94 L 09/25/24 03:00 98 F 121 H 12 135/75 90 L 09/24/24 23:00 98.4 F 130 H 14 134/62 90 L 09/24/24 21:07 116/60 09/24/24 20:45 120/84 09/24/24 19:16 61 16 92 L 09/24/24 19:00 97.8 F 135 H 18 147/67 91 L 09/24/24 15:00 98.5 F 66 18 163/68 92 L Pain Assessment - Last Documented Pain Intensity 0 Intake and Output: Intake & Output 09/22/24 09/23/24 09/24/24 09/25/24 11:59 11:59 11:59 11:59 Intake Total 2516 2800 240 240 Output Total 400 0974 096 2628 Balance 2110 0024 -568 -3765 Weight 86.7 kg 86.7 kg Lab Results: Lab Results-Last 24 Hours 09/24/24 09/24/24 09/24/24 Range/Units 16:35 21:05 22:20 WBC (3.98-10.04) x10^3/uL RBC (3.93-5.22) x10^6/uL Hgb (11.2-15.7) g/dL Hct (34.1-44.9) % MCV (79.4-94.8) fL MCH (25.6-32.2) pg MCHC (32.2-35.5) g/dL RDW (11.7-14.4) % Plt Count (182-369) x10^3/uL MPV (9.4-12.3) fL Sodium (135-145) mmol/L Potassium (3.5-5.1) mmol/L Chloride (98-107) mmol/L Carbon Dioxide (22-30) mmol/L Anion Gap (5-15) MEQ/L BUN (7-17) mg/dL Creatinine (0.52-1.04) mg/dL Estimated GFR ML/MIN Glucose (74-106) mg/dL POC Glucometer 113 H 180 H (74 to 106) mg/dL Calcium (8.4-10.2) mg/dL Magnesium (1.6-2.3) mg/dL Total Bilirubin (0.2-1.3) mg/dL AST (14-36) U/L ALT (0-35) U/L Alkaline Phosphatase (38-126) U/L Troponin I 0.012 (0.000-0.033) ng/mL Serum Total Protein (6.3-8.2) g/dL Albumin (3.5-5.0) g/dL 09/25/24 09/25/24 09/25/24 Range/Units 05:35 05:35 07:04 WBC 8.6 (3.98-10.04) x10^3/uL RBC 3.33 L (3.93-5.22) x10^6/uL Hgb 9.8 L (11.2-15.7) g/dL Hct 30.4 L (34.1-44.9) % MCV 91.3 (79.4-94.8) fL MCH 29.4 (25.6-32.2) pg MCHC 32.2 (32.2-35.5) g/dL RDW 17.2 H (11.7-14.4) % Plt Count 234 (182-369) x10^3/uL MPV 10.8 (9.4-12.3) fL Sodium 137 (135-145) mmol/L Potassium 4.0 (3.5-5.1) mmol/L Chloride 95 L (98-107) mmol/L Carbon Dioxide 33 H (22-30) mmol/L Anion Gap 12.5 (5-15) MEQ/L BUN 58 H (7-17) mg/dL Creatinine 2.79 H (0.52-1.04) mg/dL Estimated GFR 16.2 ML/MIN Glucose 139 H (74-106) mg/dL POC Glucometer 142 H (74 to 106) mg/dL Calcium 8.8 (8.4-10.2) mg/dL Magnesium 1.7 (1.6-2.3) mg/dL Total Bilirubin 0.70 (0.2-1.3) mg/dL AST 24 (14-36) U/L ALT 15 (0-35) U/L Alkaline Phosphatase 85 (38-126) U/L Troponin I (0.000-0.033) ng/mL Serum Total Protein 6.3 (6.3-8.2) g/dL Albumin 3.7 (3.5-5.0) g/dL 09/25/24 Range/Units 11:28 WBC (3.98-10.04) x10^3/uL RBC (3.93-5.22) x10^6/uL Hgb (11.2-15.7) g/dL Hct (34.1-44.9) % MCV (79.4-94.8) fL MCH (25.6-32.2) pg MCHC (32.2-35.5) g/dL RDW (11.7-14.4) % Plt Count (182-369) x10^3/uL MPV (9.4-12.3) fL Sodium (135-145) mmol/L Potassium (3.5-5.1) mmol/L Chloride (98-107) mmol/L Carbon Dioxide (22-30) mmol/L Anion Gap (5-15) MEQ/L BUN (7-17) mg/dL Creatinine (0.52-1.04) mg/dL Estimated GFR ML/MIN Glucose (74-106) mg/dL POC Glucometer 167 H (74 to 106) mg/dL Calcium (8.4-10.2) mg/dL Magnesium (1.6-2.3) mg/dL Total Bilirubin (0.2-1.3) mg/dL AST (14-36) U/L ALT (0-35) U/L Alkaline Phosphatase (38-126) U/L Troponin I (0.000-0.033) ng/mL Serum Total Protein (6.3-8.2) g/dL Albumin (3.5-5.0) g/dL Multi-Disciplinary Progress Notes: Multi-Disciplinary Progress Notes 09/24/24 14:21 Case Management Note by Orin Batista NEW REFERRAL FAXED TO [facility]. THEY WILL NEED NOTIFIED AT TIME OF DC AT [phone]. THEY WILL NEED FAXED THE DC INSTRUCTIONS, DC MED LIST AND DC SUMMARY TO [phone] Initialized on 09/24/24 14:21 - END OF NOTE Assessment/Plan (1) Anemia Current Visit: Yes Status: Chronic Qualifiers: Anemia type: due to chronic kidney disease Code(s): D64.9 - ANEMIA, UNSPECIFIED (2) Afib Current Visit: Yes Status: Acute Code(s): I48.91 - UNSPECIFIED ATRIAL FIBRILLATION (3) Congestive heart failure (CHF) Current Visit: Yes Status: Chronic Qualifiers: Heart failure type: combined systolic and diastolic Heart failure chronicity: acute Qualified Code(s): I50.41 - Acute combined systolic (congestive) and diastolic (congestive) heart failure Code(s): I50.9 - HEART FAILURE, UNSPECIFIED (4) Hypotension Current Visit: Yes Status: Resolved Code(s): I95.9 - HYPOTENSION, UNSPECIFIED (5) Pleural effusion Current Visit: Yes Status: Acute Code(s): J90 - PLEURAL EFFUSION, NOT ELSEWHERE CLASSIFIED (6) Acute kidney injury superimposed on CKD Current Visit: No Status: Acute Code(s): N17.9 - ACUTE KIDNEY FAILURE, UNSPECIFIED; N18.9 - CHRONIC KIDNEY DISEASE, UNSPECIFIED (7) CAD (coronary artery disease) Current Visit: No Status: Chronic Code(s): I25.10 - ATHSCL HEART DISEASE OF [place] ST[place] CORONARY ARTERY W/O ANG PCTRS (8) Diabetes mellitus Current Visit: No Status: Chronic Qualifiers: Diabetes mellitus type: type 2 Diabetes mellitus vermin exterminator insulin use: without vermin exterminator use Diabetes mellitus complication status: without complication Qualified Code(s): E11.9 - Type 2 diabetes mellitus without complications Code(s): E11.9 - TYPE 2 DIABETES MELLITUS WITHOUT COMPLICATIONS (9) Obesity (BMI 30-39.9) Current Visit: Yes Status: Chronic Code(s): E66.9 - OBESITY, UNSPECIFIED (10) GERD (gastroesophageal reflux disease) Current Visit: Yes Status: Chronic Code(s): K21.9 - GASTRO-ESOPHAGEAL REFLUX DISEASE WITHOUT ESOPHAGITIS (11) Bradycardia Current Visit: Yes Status: Resolved Code(s): R00.1 - BRADYCARDIA, UNSPECIFIED (12) Hyperkalemia Current Visit: Yes Status: Resolved Code(s): E87.5 - HYPERKALEMIA (13) Constipation Current Visit: Yes Status: Resolved Code(s): K59.00 - CONSTIPATION, UNSPECIFIED (14) Esophagitis determined by endoscopy Current Visit: Yes Status: Acute Assessment & Plan: (1) Anemia Current Visit: Yes Status: Chronic Qualifiers: Anemia type: due to chronic kidney disease Assessment & Plan: - EGD colonoscopy today - Hgb 6.5 on 09/20/24 - Today Hgb 8.0 - Pt denies dark or tarry stools - Pt will need close monitoring OP with nephrology 09/24 - Hgb 8.5 - Unable to have colonoscopy yesterday due to not clear - will need completed OP 09/25 - Hgb 9.8- stable - resumed eliquis and ASA Code(s): D64.9 - ANEMIA, UNSPECIFIED (2) Afib Current Visit: Yes Status: Acute Assessment & Plan: - Tele - Chronic - Eliquis held for anemia - Beta dante held by cardiology - Once cleared by GI/surgery and no bleeding issues can resume AC - Per card recs: If HR are more than 100, then consider restarting lopressor at a lower dose of 12.5 mg po bid 09/25 - A-fib RVR started again last night - lopressor at a lower dose of 12.5 mg po bid per cards recs - Overnight provider gave IV cardizem x2 and lopressor IV - CBC, CMP reviewed Code(s): I48.91 - UNSPECIFIED ATRIAL FIBRILLATION (3) Congestive heart failure (CHF) Current Visit: Yes Status: Chronic Qualifiers: Heart failure type: combined systolic and diastolic Heart failure chronicity: acute Qualified Code(s): I50.41 - Acute combined systolic (congestive) and diastolic (congestive) heart failure Assessment & Plan: - Cardiology consulted note reviewed - Echocardiogram 10 days ago reported normal EF with DD - Lasix 40 Q8hr per nephrology - Correct home meds list at d/c 09/25 - awaiting nephro recs Code(s): I50.9 - HEART FAILURE, UNSPECIFIED (4) Hypotension Current Visit: Yes Status: Resolved Assessment & Plan: - resolved Code(s): I95.9 - HYPOTENSION, UNSPECIFIED (5) Pleural effusion Current Visit: Yes Status: Acute Assessment & Plan: - As seenon CT abd pelvis: . Again cardiomegaly with new bibasilar effusions. Rule out cardiac decompensation/CHF versus fluid overload - CXR: IMPRESSION: 1. Right lower para-cardiac opacity noted. (increase opacity). 2. Left lower possible opacity. (unchanged). 3. Bilateral minimal pleural thickening /effusion, more to the right side. (new). 4. Cardiomegaly with left ventricular preponderance. (unchanged). -Lasix Q8 - RA 97% Code(s): J90 - PLEURAL EFFUSION, NOT ELSEWHERE CLASSIFIED (6) Acute kidney injury superimposed on CKD Current Visit: No Status: Acute Assessment & Plan: - Creat 2.30- improving - Baseline 1.92 - Nephro following - Will need direction as to what to d/c on Lasix or Bumex 09/24 - RN to call nephrology today about worsening creat. - creat 2.65 09/25 - Creat 2.79 - awaiting nephro recs Code(s): N17.9 - ACUTE KIDNEY FAILURE, UNSPECIFIED; N18.9 - CHRONIC KIDNEY DISEASE, UNSPECIFIED (7) CAD (coronary artery disease) Current Visit: No Status: Chronic Assessment & Plan: Assessment & Plan: -S/p stent back in 2010 -Troponins remain negative -Keep admit on telemetry -Will resume home meds Code(s): I25.10 - ATHSCL HEART DISEASE OF [place] ST[place] CORONARY ARTERY W/O ANG PCTRS (8) Diabetes mellitus Current Visit: No Status: Chronic Qualifiers: Diabetes mellitus type: type 2 Diabetes mellitus vermin exterminator insulin use: without vermin exterminator use Diabetes mellitus complication status: without complication Qualified Code(s): E11.9 - Type 2 diabetes mellitus without complications Assessment & Plan: -Controlled, HBAIC 7.8 -Continue sliding scale coverage -moderate Code(s): E11.9 - TYPE 2 DIABETES MELLITUS WITHOUT COMPLICATIONS (9) Obesity (BMI 30-39.9) Current Visit: Yes Status: Chronic Assessment & Plan: - Advised diet and exercise control Code(s): E66.9 - OBESITY, UNSPECIFIED (10) GERD (gastroesophageal reflux disease) Current Visit: Yes Status: Chronic Assessment & Plan: -Continue Protonix 09/24 - Per GS note- grade 2 reflux - would benefit from Bentyl- rx per GS - Pt had EGD with dilation yesterday. Code(s): K21.9 - GASTRO-ESOPHAGEAL REFLUX DISEASE WITHOUT ESOPHAGITIS (11) Bradycardia Current Visit: Yes Status: Resolved Assessment & Plan: - resolved - Beta dante held per cardiology Code(s): R00.1 - BRADYCARDIA, UNSPECIFIED (12) Hyperkalemia Current Visit: Yes Status: Resolved Assessment & Plan: - resolved - Move out of ICU to med-surg bed Code(s): E87.5 - HYPERKALEMIA (13) Constipation Current Visit: Yes Status: Resolved Assessment & Plan: - resolved Code(s): K59.00 - CONSTIPATION, UNSPECIFIED Code(s): K59.00 - CONSTIPATION, UNSPECIFIED (14) Esophagitis determined by endoscopy Current Visit: Yes Status: Acute Assessment & Plan: - per surgery note - protonix VTE: SCD's, Eliquis held for now PPI: Protonix Next of Kin: Janene Patel [phone] D/C plan: per nephro recs Code status: Full Code(s): K20.90 - ESOPHAGITIS, UNSPECIFIED WITHOUT BLEEDING Code(s): K20.90 - ESOPHAGITIS, UNSPECIFIED WITHOUT BLEEDING
[2024-09-25 17:25] VITALS: RESP 16; O2SAT 93
[2024-09-25] MEDS: LOPRESSOR INJECTION IV ONE (21:20)
[2024-09-25] MEDS: Lopressor 25MG Tab PO ONE (21:20)
[2024-09-25 22:38] VITALS: BP 105/81; PULSE 120; TEMP 97.7
--- NOTE | 2024-09-26 12:11 | PROG NOTE ---
Patient was added on for upper endoscopy yesterday. While she was doing an outpatient procedure, I saw the patient for Dr. Ced Hurley. She was not clear enough to do a colonoscopy at that time. Today, she denies any bloody stools. She denies any significant abdominal discomfort. She had some esophagitis, some gastritis. She wanted to follow up as an outpatient for a colonoscopy down the road. Her pain level is stable at 8.5 today due to chronic renal disease. She does not need any emergent surgical intervention. If things change and they want a colonoscopy while she is an inpatient, they need to let the office know and Dr. Hurley, who I have seen the patient for originally, could possibly do it later in the week. Otherwise, she could follow up in the office with either Dr. Hurley, who had scoped her in the past, or myself. Otherwise, we will sign off at this time. Continue medical management of her multiple medical problems, diabetes, heart disease, renal insufficiency, reflux.
--- NOTE | 2024-09-26 14:03 | PCM.DS ---
Discharge Summary Date of Admission: 09/21/24 00:04 Date of Discharge: 09/25/24 Admitting Physician: SHYAM MILLAN MD Consults: Consults on Case 09/21/24 15:12 Consult Surgery ROUTINE 09/22/24 09:25 Consult Nephrology ROUTINE Primary Care Provider: ERIKA,DANA Allergies Allergies quinine Allergy (Verified 09/05/24 11:25) Difficulty Breathing Hospital Summary - Hospital Course Hospital Course: 09/23/24 is a 84 year old female With past medical history significant for hypertension, diabetes mellitus type 2, hyperlipidemia, coronary artery disease, and CHF who presented to ED 09/20/24 with complaints of extreme fatigue/weakness and dizziness. Of note, patient recently admitted 09/11 new onset of A-fib and aspiration pneumonia and prescribed Eliquis and metoprolol per Cardiology recommendations. Echocardiogram showed normal ejection fraction and TSH was within normal range. She was discharged to SNF. There is some confusion about her meds that were continued at the ECF. Nursing to confirm med list. Upon arrival to ED initial patient was bradycardic and hypotensive. Lab findings remarkable for remarkable for white cell count 11.3 hemoglobin 6.5, potassium 5.8, BUN 82 creatinine 2.87. Troponin remain unremarkable. BNP running high at 5320. CT abdomen pelvis remained with bibasilar effusions favoring CHF exacerbation and moderate diffuse fecal stasis with rectal fecal impaction. Since admission she has had multiple bowel movements. KANCHAN improving, nephrology consulted and started lasix 40 mg Q8 hr. Cardiology consulted. Eliquis held currently as pt Hgb 6.5 on 09/20 with 2 units PRBC given. Today Hgb 8.0. Pt is scheduled for an EGD/ Colonoscopy today. She denies any dark or tarry stools. UC and BX x2 negative. Sputum culture pending. Hypokalemia resolved. Pt states she feels fine and is stronger. She does not want to go back to rehab and would like to d/c home when ready. She denies any further concerns at this time. 09/24/24 Pt resting in bed. Pt had an EGD with dilation yesterday. She was found to have grade 2 esophagitis and grade 2 reflux. KANCHAN worse today. Asked nurse CASSI Harvey to call nephrology again today as they are consulted as to what further they would like done. She continues to receive lasix 40 Q8hr per nephro orders. Pt feels she is ready to go home. PT to eval for weakness. She denies any further concerns at this time. 09/25/24 Pt resting in bed. She feels rather frustrated today as she feels better and wants to d/c. Discussed labs in detail and cardio-renal syndrome. Nephrology did not make any adjustments to lasix last night. Per nursing note this will be reassessed today by nephro today after reviewing labs. Creat worse 2.79. Pt went into afib with elevated HR last night. She has a recent hx of this last admission. Several one time doses of cardizem gave IV and metoprolol IV gave. Restarted metoprolol per cardiology recs this AM at 12.5 mg BID. Eliquis and ASA restarted as HGB 9.8 and stable. She has done well with PT and plan is to d/c home when ready. Awaiting nephro recs. She denies any further concerns at this time. Family Called in the evening and asked that [facility] providers. Family upset that nephrology has not been in to see pt in a fee days. Pt left via ambulance before midnight - Vitals & Intake/Output Vital Signs: Vital Signs Temperature 97.7 F 09/25/24 20:00 Pulse Rate 120 H 09/25/24 20:00 Respiratory Rate 16 09/25/24 20:00 Blood Pressure 105/81 09/25/24 20:00 O2 Sat by Pulse Oximetry 93 L 09/25/24 20:00 Intake & Output: Intake & Output 09/24/24 09/25/24 09/26/24 09/27/24 11:59 11:59 11:59 11:59 Intake Total 240 240 120 Output Total 850 1575 Balance -610 -1335 120 Weight 86.7 kg 86.7 kg - Lab Result Diagrams: 09/25/24 05:35 09/25/24 05:35 Lab Results-Last 24 Hrs: Lab Results-Last 24 Hours 09/25/24 09/25/24 Range/Units 16:37 21:28 POC Glucometer 228 H 191 H (74 to 106) mg/dL Micro Results-Entire Visit: Microbiology 09/20/24 18:00 Blood Culture - Final Blood 09/20/24 17:50 Blood Culture - Final Blood 09/20/24 04:24 Urine Culture - Final Urine, Void MIXED EDUARDO; 3 OR MORE TYPES. NO PREDOMINANT ORGANISM. NO FURTHER WORKUP. PLEASE RESUBMIT IF CLINICALLY INDICATED. Accuchecks Date 09/25/24 - Procedures and Test Procedures and Tests throughout Hospitalization: Therapy Orders & Screens 09/21/24 00:24 Oxygen Nasal Cannula 2 lpm Comment: Respiratory Therapy Consult ROUTINE Comment: Reason For Exam: 09/21/24 07:30 ST Screen per Nursing Assess ONCE Comment: Protocol Order Physician Instructions: Greater than [address] Admission Screening Reason For Exam: Triggered on Admission Diagnosis: Dizziness/Hypotension CVA/Dysphagia/Aphasia: No Cognitive Deficits: No Dehydration/Nutrition Deficit: No Reflux: No Oral-Motor Difficulties: No Pneumonia: No [facility]ci Resident: Yes Total Points: 5 09/22/24 10:38 EKG ROUTINE Comment: Diagnosis: Dizziness/Hypotension 09/24/24 08:46 PT Eval & Treat (MD Order) ONCE Reason for Eval:: WEAKNESS, PATIENT HOPING TO RETURN HOME WITH [facility] Diagnosis: Dizziness/Hypotension Discharge Exam General Appearance: no apparent distress, alert Neurologic Exam: alert, oriented x 3, cooperative, normal mood/affect, nml cerebellar function, sensation nml, No motor deficits Eye Exam: PERRL, EOMI, eyes nml inspection Ears, Nose, Throat Exam: normal ENT inspection, pharynx normal, moist mucous membranes Neck Exam: normal inspection, non-tender, supple, full range of motion Respiratory Exam: normal breath sounds, lungs clear, No respiratory distress Cardiovascular Exam: regular rate/rhythm, normal heart sounds, irregular Gastrointestinal/Abdomen Exam: soft, No tenderness, No mass Pelvic Exam: deferred Rectal Exam: deferred Back Exam: normal inspection, normal range of motion, No CVA tenderness, No vertebral tenderness Extremity Exam: normal inspection, normal range of motion Skin Exam: normal color, warm, dry Final Diagnosis/Problem List - Final Discharge Diagnosis/Problem (1) Anemia Status: Chronic Code(s): D64.9 - ANEMIA, UNSPECIFIED (2) Afib Status: Acute Code(s): I48.91 - UNSPECIFIED ATRIAL FIBRILLATION (3) Congestive heart failure (CHF) Status: Chronic Code(s): I50.9 - HEART FAILURE, UNSPECIFIED (4) Hypotension Status: Resolved Code(s): I95.9 - HYPOTENSION, UNSPECIFIED (5) Pleural effusion Status: Acute Code(s): J90 - PLEURAL EFFUSION, NOT ELSEWHERE CLASSIFIED (6) Acute kidney injury superimposed on CKD Status: Acute Code(s): N17.9 - ACUTE KIDNEY FAILURE, UNSPECIFIED; N18.9 - CHRONIC KIDNEY DISEASE, UNSPECIFIED (7) CAD (coronary artery disease) Status: Chronic Code(s): I25.10 - ATHSCL HEART DISEASE OF [place] CORONARY ARTERY W/O ANG PCTRS (8) Diabetes mellitus Status: Chronic Code(s): E11.9 - TYPE 2 DIABETES MELLITUS WITHOUT COMPLICATIONS (9) Obesity (BMI 30-39.9) Status: Chronic Code(s): E66.9 - OBESITY, UNSPECIFIED (10) GERD (gastroesophageal reflux disease) Status: Chronic Code(s): K21.9 - GASTRO-ESOPHAGEAL REFLUX DISEASE WITHOUT ESOPHAGITIS (11) Bradycardia Status: Resolved Code(s): R00.1 - BRADYCARDIA, UNSPECIFIED (12) Hyperkalemia Status: Resolved Code(s): E87.5 - HYPERKALEMIA (13) Constipation Status: Resolved Code(s): K59.00 - CONSTIPATION, UNSPECIFIED (14) Esophagitis determined by endoscopy Status: Acute Assessment & Plan: (1) Anemia Current Visit: Yes Status: Chronic Qualifiers: Anemia type: due to chronic kidney disease Assessment & Plan: - EGD colonoscopy today - Hgb 6.5 on 09/20/24 - Today Hgb 8.0 - Pt denies dark or tarry stools - Pt will need close monitoring OP with nephrology 09/24 - Hgb 8.5 - Unable to have colonoscopy yesterday due to not clear - will need completed OP 09/25 - Hgb 9.8- stable - resumed eliquis and ASA Code(s): D64.9 - ANEMIA, UNSPECIFIED (2) Afib Current Visit: Yes Status: Acute Assessment & Plan: - Tele - Chronic - Eliquis held for anemia - Beta dante held by cardiology - Once cleared by GI/surgery and no bleeding issues can resume AC - Per card recs: If HR are more than 100, then consider restarting lopressor at a lower dose of 12.5 mg po bid 09/25 - A-fib RVR started again last night - lopressor at a lower dose of 12.5 mg po bid per cards recs - Overnight provider gave IV cardizem x2 and lopressor IV - CBC, CMP reviewed Code(s): I48.91 - UNSPECIFIED ATRIAL FIBRILLATION (3) Congestive heart failure (CHF) Current Visit: Yes Status: Chronic Qualifiers: Heart failure type: combined systolic and diastolic Heart failure chronicity: acute Qualified Code(s): I50.41 - Acute combined systolic (congestive) and diastolic (congestive) heart failure Assessment & Plan: - Cardiology consulted note reviewed - Echocardiogram 10 days ago reported normal EF with DD - Lasix 40 Q8hr per nephrology - Correct home meds list at d/c 09/25 - awaiting nephro recs Code(s): I50.9 - HEART FAILURE, UNSPECIFIED (4) Hypotension Current Visit: Yes Status: Resolved Assessment & Plan: - resolved Code(s): I95.9 - HYPOTENSION, UNSPECIFIED (5) Pleural effusion Current Visit: Yes Status: Acute Assessment & Plan: - As seenon CT abd pelvis: . Again cardiomegaly with new bibasilar effusions. Rule out cardiac decompensation/CHF versus fluid overload - CXR: IMPRESSION: 1. Right lower para-cardiac opacity noted. (increase opacity). 2. Left lower possible opacity. (unchanged). 3. Bilateral minimal pleural thickening /effusion, more to the right side. (new). 4. Cardiomegaly with left ventricular preponderance. (unchanged). -Lasix Q8 - RA 97% Code(s): J90 - PLEURAL EFFUSION, NOT ELSEWHERE CLASSIFIED (6) Acute kidney injury superimposed on CKD Current Visit: No Status: Acute Assessment & Plan: - Creat 2.30- improving - Baseline 1.92 - Nephro following - Will need direction as to what to d/c on Lasix or Bumex 09/24 - RN to call nephrology today about worsening creat. - creat 2.65 09/25 - Creat 2.79 - awaiting nephro recs Code(s): N17.9 - ACUTE KIDNEY FAILURE, UNSPECIFIED; N18.9 - CHRONIC KIDNEY DISEASE, UNSPECIFIED (7) CAD (coronary artery disease) Current Visit: No Status: Chronic Assessment & Plan: Assessment & Plan: -S/p stent back in 2010 -Troponins remain negative -Keep admit on telemetry -Will resume home meds Code(s): I25.10 - ATHSCL HEART DISEASE OF [place] CORONARY ARTERY W/O ANG PCTRS (8) Diabetes mellitus Current Visit: No Status: Chronic Qualifiers: Diabetes mellitus type: type 2 Diabetes mellitus residential insulin use: without residential use Diabetes mellitus complication status: without complication Qualified Code(s): E11.9 - Type 2 diabetes mellitus without complications Assessment & Plan: -Controlled, HBAIC 7.8 -Continue sliding scale coverage -moderate Code(s): E11.9 - TYPE 2 DIABETES MELLITUS WITHOUT COMPLICATIONS (9) Obesity (BMI 30-39.9) Current Visit: Yes Status: Chronic Assessment & Plan: - Advised diet and exercise control Code(s): E66.9 - OBESITY, UNSPECIFIED (10) GERD (gastroesophageal reflux disease) Current Visit: Yes Status: Chronic Assessment & Plan: -Continue Protonix 09/24 - Per GS note- grade 2 reflux - would benefit from Bentyl- rx per GS - Pt had EGD with dilation yesterday. Code(s): K21.9 - GASTRO-ESOPHAGEAL REFLUX DISEASE WITHOUT ESOPHAGITIS (11) Bradycardia Current Visit: Yes Status: Resolved Assessment & Plan: - resolved - Beta dante held per cardiology Code(s): R00.1 - BRADYCARDIA, UNSPECIFIED (12) Hyperkalemia Current Visit: Yes Status: Resolved Assessment & Plan: - resolved - Move out of ICU to med-surg bed Code(s): E87.5 - HYPERKALEMIA (13) Constipation Current Visit: Yes Status: Resolved Assessment & Plan: - resolved Code(s): K59.00 - CONSTIPATION, UNSPECIFIED Code(s): K59.00 - CONSTIPATION, UNSPECIFIED (14) Esophagitis determined by endoscopy Current Visit: Yes Status: Acute Assessment & Plan: - per surgery note - protonix Code(s): K20.90 - ESOPHAGITIS, UNSPECIFIED WITHOUT BLEEDING - Discharge Discharge Date: 09/25/24 [facility] Condition: Stable Prescriptions: Continue Atorvastatin Calcium [Lipitor 20MG Tablet] 20 mg PO HS Aspirin 81 mg PO DAILY Oxybutynin Chloride 5 mg PO DAILY L.acidoph,Paracasei, B.lactis [Probiotic] 1 cap PO DAILY Furosemide 20 mg [Lasix 20 mg] 40 mg PO BID Omeprazole 40 mg PO BID Lisinopril 20 mg [Zestril 20 MG] 40 mg PO DAILY Vit C/E/Zn/Coppr/Lutein/Zeaxan [Preservision Areds 2 Softgel] 1 each PO DAILY Hydralazine HCl 25 mg PO TID Ferrous Sulfate 325 mg [Feosol 325 mg] 325 mg PO DAILY Ranolazine [Ranolazine ER] 500 mg PO BID Finerenone [Kerendia] 10 mg PO DAILY Nitroglycerin 0.4 mg Tablet [Nitrostat 0.4 MG Tablet] 0.4 mg SL Q5MIN PRN MR X 3 PRN PRN Reason: Chest Pain Allopurinol 100 mg [Zyloprim 100 mg] 100 mg PO BID Insulin Glargine,Hum.rec.anlog [Toujeo Solostar] 15 units SQ DAILY Apixaban [Eliquis 2.5 mg Tablet] 2.5 mg PO BID 30 Days #60 tablet Amlodipine Besylate 5 mg [Norvasc 5 mg] 5 mg PO QAM 30 Days #30 tablet Fluticasone/Umeclidin/Vilanter [Trelegy Ellipta 200-62.5-25] 1 ea IH DAILY Discontinued Bumetanide 1 mg [Bumex 1 mg] 1 mg PO DAILY Carvedilol 12.5 mg [Coreg 12.5 mg] 12.5 mg PO BID Metoprolol Tartrate 50 mg [Lopressor 50 MG] 50 mg PO BID Additional Instructions: [facility] HAS BEEN SET UP FOR YOU. THEY WILL CALL YOU TO ARRANGE A TIME TO COME SEE YOU. THEIR PHONE NUMBER IS [phone] IF YOU NEED ANYTHING PRIOR TO THEM CONTACTING YOU Follow up with: DANA JAMES MD [Primary Care Provider] -
--- NOTE | 2024-10-01 10:24 | OP ---
SURGERY DATE/TIME: 09/23/2024 [id number] PREOPERATIVE DIAGNOSES: 1) Multiple medical problems, heart disease, diabetes. 2) Prior history of atrial fibrillation. 3) History of anemia. 4) Need for endoscopy. POSTOPERATIVE DIAGNOSES: 1) Multiple medical problems, heart disease, diabetes. 2) Prior history of atrial fibrillation. 3) History of anemia. 4) Need for endoscopy. 5) Mild gastritis. 6) No active upper gastrointestinal bleeding currently. PROCEDURE: Esophagogastroduodenoscopy with cold biopsy of the antrum for Helicobacter pylori. SURGEON: Kelvin Lujan MD ANESTHESIA: MAC. ESTIMATED BLOOD LOSS: Minimal. INDICATIONS: As noted above, consent was obtained. DESCRIPTION OF PROCEDURE AND FINDINGS: Patient was taken to the endoscopy suite. MAC anesthesia was induced. After official time-out, no disagreement in planned procedure, bite block positioned. Video gastroscope easily passed down the esophagus through the patent pylorus to the junction of the third and fourth portions of the duodenum. The duodenum seemed to be unremarkable, no signs of any obvious ulcers or active bleeding. Scope pulled back into the stomach. She did have some evidence of some mild erosive gastritis. No signs of any current active bleeding. Whether she had lost some blood previously is unclear, but no signs of any large ulcers. No signs of any current or active bleeding. On retroflex, there was a little bit of debris in the stomach. The patient has diabetes with gastroparesis, which limits exam slightly, but she did not appear to have any evidence of any large hiatal hernia based on endoscopic view. The scope was straightened. The GE junction was about 41 to 42 cm. Z line was fairly crisp. There did not seem to be any obvious ulcers, masses or erosions to any extent. No signs of any esophageal bleed at this point. Mucosa fairly unremarkable on withdrawal of the scope. The scope was withdrawn. Patient tolerated the procedure well. Findings were discussed with the family out in the waiting area. I saw this patient for Dr. Ced Hurley. If she remains in the hospital for several days, they can let the office know to re-prep the patient and have the colon scoped later in the week by Dr. Hurley. Otherwise, she can follow up in the office as an outpatient to consider outpatient colonoscopy.
== END 2024-09-25 22:58 | disposition short-term general hospital (02) | DRG 812 ==
LOC: ED 14:43 → OBSVTOIN 09-21 00:04 → ICU 09-21 00:04 → MED SURG 09-23 15:00
PROVIDERS: ADMIT Internal Medicine; ATTEND Internal Medicine
PROC: 0DB38ZX Excision of Lower Esophagus, Via Natural or Artificial Opening Endoscopic, Diagnostic (ICD-10-PCS; principal; 2024-09-23)
DX: D64.9 Anemia, unspecified (principal); J90 Pleural effusion, not elsewhere classified; I13.0 Hypertensive heart and chronic kidney disease with heart failure and stage 1 through stage 4 chronic kidney disease, or unspecified chronic kidney disease; N17.9 Acute kidney failure, unspecified; I48.91 Unspecified atrial fibrillation; I95.9 Hypotension, unspecified; E11.22 Type 2 diabetes mellitus with diabetic chronic kidney disease; N18.9 Chronic kidney disease, unspecified; I50.9 Heart failure, unspecified; I25.10 Atherosclerotic heart disease of native coronary artery without angina pectoris; E66.9 Obesity, unspecified; K21.9 Gastro-esophageal reflux disease without esophagitis; R00.1 Bradycardia, unspecified; E87.5 Hyperkalemia; K59.00 Constipation, unspecified; K20.90 Esophagitis, unspecified without bleeding; Z79.899 Other long term (current) drug therapy; Z79.01 Long term (current) use of anticoagulants; K29.70 Gastritis, unspecified, without bleeding
CPT/HCPCS: 00731; 36415; 36430; 43239; 71046; 74022; 74176; 80048; 80053; 81001; 82150; 82607; 82728; 82746; 82947; 83540; 83550; 83690; 83735; 83880; 84132; 84145; 84484; 85025; 85027; 86850; 86900; 86901; 86922; 87040; 87086; 93005; 94640; 94760; 96365; 96367; 96374; 96375; 97161; 99100; 99140; 99285; G0328; P9016; Q3014; 82274; J0456; J0612; J0696; J1815; J1817; J1940; J2405; J2704; J7609; A9270-GY